=== PATIENT | male | born 1940 | race Caucasian/White ===

== ENCOUNTER 2022-03-01 09:50 | Outpatient (CLI) | payer MEDICARE, SELFPAY | END 2022-03-01 09:51 | disposition home or self-care (01) | LOC: ANHAUDIO 09:56 | PROVIDERS: PCP Student in an Organized Health Care Education/Training Program; Visit Provider Student in an Organized Health Care Education/Training Program | DX: H90.3 Sensorineural hearing loss, bilateral (principal) | CPT/HCPCS: 92557; 92567 ==

== ENCOUNTER 2023-09-21 18:37 | Observation (INO) | payer MEDICARE, SELFPAY ==
[2023-09-21] VITALS (15 sets, daily range): BP systolic 107–159; BP diastolic 54–73; PULSE 90–107; RESP 12–29; TEMP 36.3; O2SAT 97–100
--- NOTE | ~2023-09-21 | XR_ITS ---
EXAMINATION: XR chest 1V portable INDICATION: Presyncope TECHNIQUE: Portable AP chest at 2005 hours COMPARISON: 07/25/2013 FINDINGS: The lung volumes are low. The lungs are free of acute opacities. No pleural effusion or pne umothorax. The cardiomediastinal silhouette is normal. IMPRESSION: 1. No acute cardiopulmonary abnormality. Reviewed, dictated and finalized at location F.
--- NOTE | ~2023-09-21 | CT_ITS ---
EXAMINATION: CT brain wo con INDICATION: Altered mental status COMPARISON: None TECHNIQUE: Standard unenhanced head CT. The dose-length product (DLP) was 681.00 mGy-cm. The mA was a djusted according to patient size. Iterative reconstruction technique was employed. FINDINGS: No acute intraparenchymal hemorrhage. No evidence of mass lesion. No evidence of acute infa rction. There is mild periventricular and subcortical hypodensity probably related to small vessel is chemic disease. There is mild prominence of the sulci and ventricles related to cerebral atrophy. Int racranial calcified cerebral atherosclerosis is noted. No extra-axial collections. No mass effect or midline shift. Changes in the globes are likely from ocular lens surgery. There is mild mucosal thick ening of the paranasal sinuses. IMPRESSION: 1. No acute intracranial abnormality. 2. Age related findings. Reviewed, dictated and finalized at location F.
[2023-09-21 19:41] LABS: Influenza A QL RT-PCR Negative (Negative); Influenza B QL RT-PCR Negative (Negative); RSV RNA, RT-PCR Negative (Negative); SARS-CoV-2 RNA PCR Negative (Negative)
--- NOTE | 2023-09-21 19:48 | ECG_ITS ---
Measurements Intervals [place] Rate: 106 P: 51 AL: 203 QRS: 29 QRSD: 85 T: 120 QT: 319 QTc: 425 Interpretive Statements SINUS TACHYCARDIA NONSPECIFIC ST & T-WAVE ABNORMALITY- DIFFUSE LEADS BASELINE ARTIFACT- I, II, III, AVR, AVL, AVF, V6 ABNORMAL ECG NO PREVIOUS ECG AVAILABLE FOR COMPARISON Electronically Signed On 09-22-2023 6:35:39 CDT by Travon Mcgraw D.O.
[2023-09-21 20:22] LABS: Basophils Absolute Auto 0.1 K/mm3 (0.0-0.1); Basophils Percent Auto 0.4 % (0.2-1.2); Eosinophils Absolute Auto 0.1 K/mm3 (0-0.3); Eosinophils Percent Auto 0.7 % (0-4.4); Hematocrit 23.9 % (42.0-52.0); Hemoglobin 7.7 g/dL (14.0-18.0); Immature Granulocyte Absolute 0.18 K/mm3 (0.00-0.031); Immature Granulocyte Percent A 1.4 % (0-0.5); Lymphocytes Absolute Auto 2.48 K/mm3 (0.9-3.2); Lymphocytes Percent Auto 19.2 % (18.3-44.2); Mean Corpuscular HGB Conc 32.2 g/dl (32-36); Mean Corpuscular Hemoglobin 29.6 pg (26-34); Mean Corpuscular Volume 91.9 fl (80-100); Mean Platelet Volume 11.1 fl (7.4-10.4); Monocytes Absolute Auto 1.2 K/mm3 (0.1-0.6); Monocytes Percent Auto 9.6 % (2.6-8.5); Neutrophils Absolute Auto 8.9 K/mm3 (1.3-6.7); Neutrophils Percent Auto 68.7 % (45.5-73.1); Platelet Count Result 246 k/mm3 (150-375); Red Cell Distribution Width 14.9 % (11.5-14.5); White Blood Count 12.9 K/mm3 (4.5-10.0)
[2023-09-21 20:35] LABS: Alanine Aminotransferase 50 U/L (6-50); Albumin Level 3.5 g/dL (3.5-5.1); Alkaline Phosphatase 53 U/L (38-126); Anion Gap 8 mmol/L (8-16); Aspartate Amino Transferase 80 U/L (17-59); Bilirubin,Total 0.2 mg/dL (0.2-1.3); Blood Urea Nitrogen 61 mg/dL (9-20); Calcium 9.3 mg/dL (8.4-10.2); Carbon Dioxide 24 mmol/L (22-30); Chloride 101 mmol/L (98-107); Estimated CRCL calculation 44 ml/min; Estimated Glomerular Filt Rate 58; Glucose 378 mg/dL (65-110); Lipase 55 U/L (23-300); Magnesium 2.4 mg/dL (1.6-2.3); Phosphorus 3.8 mg/dL (2.5-4.5); Potassium 4.6 mmol/L (3.4-5.0); Sodium 133 mmol/L (137-145)
[2023-09-21 20:38] LABS: Partial Thromboplastin Time 21.9 Seconds (22.3-36.8); Prothrombin Time 13.4 Seconds (11.1-14.7)
[2023-09-21 20:46] LABS: NT Pro B Type Natriuretic Pept 109 pg/mL (19.9-100); Troponin I 0.026 ng/mL (0.000-0.034)
--- NOTE | 2023-09-21 21:12 | ED.GENADULT ---
HPI - General Adult General Chief complaint: Weakness Stated complaint: NEAR SYNCOPE, HYPOTENSIVE Time Seen by Provider: 09/21/23 19:00 History of Present Illness HPI narrative: This is an 83-year-old male presenting ED with chief complaint of presyncope. The patient is A&O x2 at baseline cannot provide much useful information during interview. His only complaint is being thirsty. Denies any chills, chest pain difficulty breathing abdominal pain nausea vomiting diarrhea urinary symptoms. The patient's daughter is at bedside lives next door to him and helps with his daily living. She says that he has been weak and under the weather all day. While they were at dinner said that he was unable to swallow his food and then that he had to go to bathroom. Got up was very unsteady on his feet and stops answering questions for approximately 5-10 minutes. EMS was called by time EMS arrived patient return to his baseline. Patient did not fall or lose tone. No urinary incontinence/ tongue biting. Patient's was recently diagnosed with a hip fracture and per the family has not been doing well. Related Data Home Medications Medication Instructions Recorded Confirmed amlodipine 5 mg tablet 5 mg PO DAILY 05/15/19 08/09/23 losartan 100 mg tablet 100 mg PO DAILY 05/15/19 08/09/23 cholecalciferol (vitamin D3) 50 50 mcg PO DAILY 09/22/21 08/09/23 mcg (2,000 unit) capsule glipizide 5 mg tablet 5 mg PO DAILY 09/22/21 08/09/23 multivitamin 1 tablet PO DAILY 09/22/21 08/09/23 rosuvastatin 20 mg tablet 20 mg PO DAILY 09/22/21 08/09/23 Allergies Allergy/AdvReac Type Severity Reaction Status Date / Time pregabalin Allergy Unknown blisters Verified 08/08/23 14:18 [facility] Past Medical History Medical History Diabetes Glaucoma Hip arthritis HTN (hypertension) Left hand pain Neuropathy Peripheral neuropathy Tendinitis of right shoulder Trigger finger, left index finger Trigger finger, right index finger Surgical History Surgical History History of ankle surgery S/P appendectomy Family History Family History Father Family history unknown Unknown Heart disease Cerebrovascular accident Social History Social History Social History: drinks 2 cups of coffee daily Smoking status: Former smoker Second hand tobacco smoke exposure: No Alcohol intake: never Substance use: unknown Living arrangements: alone Occupation/Education: retired Gender identity (if verbalized by the patient): Male Spiritual care concerns: No Exam Narrative: APPEARANCE: No apparent distress. A&O x2 Head: atraumatic. EYES: EOMI, NOSE: Atraumatic NECK: Trachea midline RESPIRATORY: No increased rate of breathing CTAB CARDIOVASCULAR: RRR, no peripheral edema ABDOMINAL: Non-distended, soft nontender, rectal exam showed melanotic stool MUSCULOSKELETAl: No obvious deformities NEURO: Alert. Moving 4/4 extremities SKIN:: Warm, dry. Normal color PSYCHIATRIC: Normal affect Course Vital Signs Vital signs: Vital Signs Temperature 97.4 F L 09/21/23 18:38 Pulse Rate 96 09/21/23 18:38 Respiratory Rate 20 09/21/23 18:38 Blood Pressure 112/58 L 09/21/23 18:38 Pulse Oximetry 100 09/21/23 18:38 Oxygen Delivery Room Air 09/21/23 18:38 Temperature 97.4 F L 09/21/23 18:38 Pulse Rate 94 09/21/23 23:31 Respiratory Rate 21 H 09/21/23 23:31 Blood Pressure 137/70 09/21/23 23:31 Pulse Oximetry 97 09/21/23 23:31 Oxygen Delivery Room Air 09/21/23 22:34 Medical Decision Making [facility] Narrative Medical decision making narrative: -Course: 83-year-old presenting with 1 day of generalized weakness. patient had melena on exam. Hemoglobin 7.7. BUN elevated. Symptoms likely due to sym
[2023-09-21] MEDS: SODIUM CHLORIDE 0.9% IV 1,000 ML 999 ML IV CONT (21:18)
--- NOTE | 2023-09-21 21:25 | PC.NURSE ---
pt unable to urinate at this time. IV fluids and oral hydration given. pt educated to use call light with any urge to urinate
--- NOTE | 2023-09-21 22:33 | PC.NURSE ---
pt was trying to have a bowel movement on bedpan and began urinating before we could collect a sample that is ordered. notified
--- NOTE | 2023-09-21 23:03 | PC.NURSE ---
bssr received from DANICA Sellers at this time. pt resting comfortably in bed. call light within reach. visitor at bedside.
--- NOTE | 2023-09-21 23:14 | PC.NURSE ---
care and report given to barby Vazquez. all questions answered.
[2023-09-22] VITALS (23 sets, daily range): BP systolic 84–160; BP diastolic 38–82; PULSE 72–116; RESP 16–25; TEMP 36–37.3; O2SAT 92–100; BMI 31.0
--- NOTE | 2023-09-22 01:06 | PM.IMHP ---
H&P: HPI History of Present Illness Date/Time: 09/22/23 01:06 Chief Complaint: weakness Narrative: This is an 83-year-old male with past medical history significant for hypertension, glaucoma, type diabetes mellitus. Patient was brought to the emergency room for evaluation due to generalized weakness unable to stand on his on patient had syncopal episode. Patient is unable to give any history which has been obtained from daughter who is at bedside. According to daughter she did not notice any new issues but states that patient has overall poor functional status pretty much sits on the couch most of the day. In emergency room patient was found to have a low hemoglobin and Hemoccult was positive he was found to have melanotic stools in the rectal vault. EXAMINATION: XR chest 1V portable INDICATION: Presyncope TECHNIQUE: Portable AP chest at 2005 hours COMPARISON: 07/25/2013 FINDINGS: The lung volumes are low. The lungs are free of acute opacities. No pleural effusion or pneumothorax. The cardiomediastinal silhouette is normal. IMPRESSION: 1. No acute cardiopulmonary abnormality. EXAMINATION: CT brain wo con ? INDICATION: Altered mental status ? COMPARISON: None TECHNIQUE: Standard unenhanced head CT. The dose-length product (DLP) was 681.00 mGy-cm. The mA was adjusted according to patient size. Iterative reconstruction technique was employed. ? FINDINGS: No acute intraparenchymal hemorrhage. No evidence of mass lesion. No evidence of acute infarction. There is mild periventricular and subcortical hypodensity probably related to small vessel ischemic disease. There is mild prominence of the sulci and ventricles related to cerebral atrophy. Intracranial calcified cerebral atherosclerosis is noted. No extra-axial collections. No mass effect or midline shift. Changes in the globes are likely from ocular lens surgery. There is mild mucosal thickening of the paranasal sinuses. IMPRESSION: 1. No acute intracranial abnormality. 2. Age related findings. Review of Systems Review of Systems: BROUGHT FOR EVALUATION TO EMERGENCY ROOM DUE TO LOW HEMOGLOBIN ROS unobtainable: Yes other ( Dementia) [facility] Past Medical History Medical History (Updated 09/23/23 @ 13:06 by Pepe Jack MD) Acute blood loss anemia Diabetes Duodenal ulcer GIB (gastrointestinal bleeding) Glaucoma Hip arthritis HTN (hypertension) Left hand pain Neuropathy Peripheral neuropathy Pre-syncope Tendinitis of right shoulder Trigger finger, left index finger Trigger finger, right index finger Surgical History Surgical History History of ankle surgery S/P appendectomy Family History Family History Father Family history unknown Unknown Heart disease Cerebrovascular accident Social History Social History Social History: drinks 2 cups of coffee daily Smoking status: Never smoker Second hand tobacco smoke exposure: No Alcohol intake: never Substance use: never Substance use type: does not use Do You Feel Safe in your Home?: Yes Lack of Transportation: No Lack of Food: Never True Current Housing: I Have Housing Concerned About Future Housing: No Difficulty Paying Gas/Electric Bills: No Difficulty Paying for Meds: No Currently Unemployed: No Education: High School Diploma/GED Difficulty w/ Childcare or Family Care: No Living arrangements: alone Occupation/Education: retired Gender identity (if verbalized by the patient): Male Spiritual care concerns: No Meds Home Medications and Allergies Home Medications Medication Instructions Recorded Confirmed Type amlodipine 5 mg tablet 5 mg PO DAILY 05/15/19 09/22/23 History losartan 100 mg tablet 100 mg PO DAILY 05/15/19 09/22/23 History cholecalciferol (vitamin D3) 50 50
[2023-09-22] MEDS: PANTOPRAZOLE SODIUM IV 40 MG VIAL 80 MG IV PUSH (01:19)
--- NOTE | 2023-09-22 03:02 | ADMGEN ---
This patient, Kevin Dior, was admitted to IMU Room 232-01. @ 0242 Patient/family oriented to hospital policies and general routines including ID bracelet, bed and alarms, visiting hours, pain management, procedures, bathroom and other care routines, personal items, smoking policy, room service/diet, and visiting hours. Information on how to activate the Rapid Response Team has been discussed. Patient/Family are encouraged to report perceived risks to care and to ask questions if they do not understand what they are told or what they should do.
[2023-09-22] MEDS: TUBING, BLOOD PLUM PUMP TUBING 1 EACH XX (04:25)
[2023-09-22] MEDS: SODIUM CHLORIDE 0.9% IV 250 ML 30 ML IV CONT (04:43)
[2023-09-22 08:40] LABS: Hematocrit 27.1 % (42.0-52.0); Hemoglobin 8.7 g/dL (14.0-18.0); Mean Corpuscular HGB Conc 32.1 g/dl (32-36); Mean Corpuscular Hemoglobin 30.1 pg (26-34); Mean Corpuscular Volume 93.8 fl (80-100); Mean Platelet Volume 10.9 fl (7.4-10.4); Platelet Count Result 220 k/mm3 (150-375); Red Blood Count 2.89 M/mm3 (4.6-6.20); Red Cell Distribution Width 14.9 % (11.5-14.5); White Blood Count 14.9 K/mm3 (4.5-10.0)
[2023-09-22 08:56] LABS: Anion Gap 4 mmol/L (8-16); Blood Urea Nitrogen 62 mg/dL (9-20); Calcium 8.9 mg/dL (8.4-10.2); Carbon Dioxide 23 mmol/L (22-30); Chloride 105 mmol/L (98-107); Estimated CRCL calculation 43 ml/min; Estimated Glomerular Filt Rate 58; Glucose 239 mg/dL (65-110); Potassium 4.3 mmol/L (3.4-5.0); Sodium 132 mmol/L (137-145)
[2023-09-22] MEDS: PANTOPRAZOLE SODIUM IV 40 MG VIAL IV PUSH ×2 (09:02→20:49)
[2023-09-22 09:08] LABS: Troponin I 0.034 ng/mL (0.000-0.034)
[2023-09-22] MEDS: LACTATED RINGERS 1,000 ML 150 ML IV CONT (11:24)
--- NOTE | 2023-09-22 11:25 | WPDGICN ---
Assessment and Plan Assessment and plan (1) GIB (gastrointestinal bleeding): Code(s): K92.2 - Gastrointestinal hemorrhage, unspecified Status: Acute Assessment and Plan: will proceed with urgent EGD, it seems that he has active gib based on history and blood work resuscitation, iv protonix, transfuse to keep hgb>7 more recommendations after egd (2) Acute blood loss anemia: Code(s): D62 - Acute posthemorrhagic anemia Status: Acute Assessment and Plan: monitor for signs of bleeding (3) Pre-syncope: Code(s): R55 - Syncope and collapse Status: Acute Assessment and Plan: probably related to GIB (4) Melena: Code(s): K92.1 - Melena Status: Acute (5) Diabetes: Code(s): E11.9 - Type 2 diabetes mellitus without complications Status: Acute GI Consult Note Consult date/time: 09/22/23 11:25 Reason for consult: acute anemia, syncope, melena HPI: Kevin Dior is a 83 year old male with history of DM, HTN. He came after he had presyncopal episode. He is hard of hearing and poor historian. Patient's daughter lives next door to him and helps with his daily living.? She says that he has been weak and not feeling well. While they were at dinner said that he was unable to swallow his food and then that he had to go to bathroom.? Got up was very unsteady on his feet and almost passed out. EMS was called. ER found melena in rectal exam, hgb 7, bun 62. No known history of GIB. CT head negative for acute findings. Review of Systems Constitutional: Constitutional: Reports lethargy and Reports weakness Eyes: Comments: poor vision as baseline ENT: Comments: hard of hearing Cardiovascular: Cardiovascular: Denies chest pain Respiratory: Respiratory: Denies cough Gastrointestinal: Gastrointestinal: Reports melena Genitourinary: Genitourinary: Denies dysuria Musculoskeletal: Musculoskeletal: Denies arthralgias Integumentary/Breasts: Skin/Breast: Denies rash Neurologic: Comments: pre syncope Psychiatric: Psychiatric: Reports confusion PMFSH Past Medical History Medical History (Updated 09/22/23 @ 11:33 by Pepe Jack MD) Acute blood loss anemia Diabetes GIB (gastrointestinal bleeding) Glaucoma Hip arthritis HTN (hypertension) Left hand pain Neuropathy Peripheral neuropathy Pre-syncope Tendinitis of right shoulder Trigger finger, left index finger Trigger finger, right index finger Surgical History Surgical History History of ankle surgery S/P appendectomy Family History Family History Father Family history unknown Unknown Heart disease Cerebrovascular accident Social History Social History Social History: drinks 2 cups of coffee daily Smoking status: Never smoker Second hand tobacco smoke exposure: No Alcohol intake: never Substance use: never Substance use type: does not use Do You Feel Safe in your Home?: Yes Lack of Transportation: No Lack of Food: Never True Current Housing: I Have Housing Concerned About Future Housing: No Difficulty Paying Gas/Electric Bills: No Difficulty Paying for Meds: No Currently Unemployed: No Education: High School Diploma/GED Difficulty w/ Childcare or Family Care: No Living arrangements: alone Occupation/Education: retired Gender identity (if verbalized by the patient): Male Spiritual care concerns: No Meds Home Medications and Allergies Home Medications Medication Instructions Recorded Confirmed Type amlodipine 5 mg tablet 5 mg PO DAILY 05/15/19 09/22/23 History losartan 100 mg tablet 100 mg PO DAILY 05/15/19 09/22/23 History cholecalciferol (vitamin D3) 50 50 mcg PO DAILY 09/22/21 09/22/23 History mcg (2,000 unit) capsule glipizid
[2023-09-22 11:29] LABS: Glucose Point of Care 189 mg/dl (65-105)
--- NOTE | 2023-09-22 11:32 | WPDANESEPPF ---
Anes - Initial Pre Proc Eval Procedure: Operation Date: 09/22/23 16:00 Proposed Procedures p Esophagogastroduodenoscopy - Pepe Jack MD Date/Time: 09/22/23 11:32 Surgeon: Zhen Greco MD Pre Op Diagnosis: Upper GI bleed Patient Data Age: 83 Gender: M Height: 1.7 m Weight: 89.9 kg Last Vital Signs Temp 99.2 F 09/22/23 11:00 Pulse 116 H 09/22/23 11:00 Resp 16 09/22/23 11:00 BP 97/38 L 09/22/23 11:00 Pulse Ox 96 09/22/23 11:00 O2 Del Method Room Air 09/22/23 11:00 Allergies Allergy/AdvReac Type Severity Reaction Status Date / Time pregabalin Allergy Unknown blisters Verified 09/22/23 11:12 Home Medications Medication Instructions Recorded Confirmed Type amlodipine 5 mg tablet 5 mg PO DAILY 05/15/19 09/22/23 History losartan 100 mg tablet 100 mg PO DAILY 05/15/19 09/22/23 History cholecalciferol (vitamin D3) 50 50 mcg PO DAILY 09/22/21 09/22/23 History mcg (2,000 unit) capsule glipizide 5 mg tablet 5 mg PO DAILY 09/22/21 09/22/23 History multivitamin 1 tablet PO DAILY 09/22/21 09/22/23 History rosuvastatin 20 mg tablet 20 mg PO DAILY 09/22/21 09/22/23 History metformin 500 mg tablet,extended 500 mg PO DAILY #1 tablet 08/08/23 09/22/23 Rx release 24 hr duloxetine 30 mg capsule,delayed 30 mg PO .COMPLEX #270 caps 08/09/23 09/22/23 Rx release latanoprost 0.005 % eye drops 1 drp EACH EYE DAILY #2.5 mL 08/09/23 09/22/23 Rx pilocarpine HCl 1 % eye drops 1 drp EACH EYE TID #15 mL 08/09/23 09/22/23 Rx timolol maleate 0.5 % eye drops 1 drp EACH EYE Q12H #5 mL 08/09/23 09/22/23 Rx hydrocodone 5 mg-acetaminophen 325 1 tablet PO Q6H PRN pain #50 tabs 08/25/23 09/22/23 Rx mg tablet Laboratory Tests 09/21/23 09/21/23 09/22/23 18:58 20:16 00:46 WBC 12.9 H K/mm3 (4.5-10.0) RBC 2.60 L M/mm3 (4.6-6.20) Hgb 7.7 L g/dL (14.0-18.0) Hct 23.9 L % (42.0-52.0) MCV 91.9 fl (80-100) MCH 29.6 pg (26-34) MCHC 32.2 g/dl (32-36) RDW 14.9 H % (11.5-14.5) Plt Count 246 k/mm3 (150-375) MPV 11.1 H fl (7.4-10.4) Immature Gran % (Auto) 1.4 H % (0-0.5) Neut % (Auto) 68.7 % (45.5-73.1) Lymph % (Auto) 19.2 % (18.3-44.2) [place] % (Auto) 9.6 H % (2.6-8.5) Eos % (Auto) 0.7 % (0-4.4) Baso % (Auto) 0.4 % (0.2-1.2) Lymph # (Auto) 2.48 K/mm3 (0.9-3.2) [place] # (Auto) 1.2 H K/mm3 (0.1-0.6) Eos # (Auto) 0.1 K/mm3 (0-0.3) Baso # (Auto) 0.1 K/mm3 (0.0-0.1) Abs Immat Gran (auto) 0.18 H K/mm3 (0.00-0.031) Absolute Neuts (auto) 8.9 H K/mm3 (1.3-6.7) Absolute Nucleated RBC 0.000 K/mm3 (0.0-0.012) Nucleated RBC % 0.0 % (0.0-0.2) PT 13.4 Seconds (11.1-14.7) INR 1.0 APTT 21.9 L Seconds (22.3-36.8) Sodium 133 L mmol/L (137-145) Potassium 4.6 mmol/L (3.4-5.0) Chloride 101 mmol/L (98-107) Carbon Dioxide 24 mmol/L (22-30) Anion Gap 8 mmol/L (8-16) BUN 61 H mg/dL (9-20) Creatinine 1.20 mg/dL (0.7-1.3) Estim Creat Clear Calc 44 ml/min Estimated GFR 58 L (59 - ) Glucose 378 H mg/dL (65-110) POC Capillary Glucose Calcium 9.3 mg/dL (8.4-10.2) Phosphorus 3.8 mg/dL (2.5-4.5) Magnesium 2.4 H mg/dL (1.6-2.3) Total Bilirubin 0.2 mg/dL (0.2-1.3) AST 80 H U/L (17-59) ALT 50 U/L (6-50) Alkaline Phosphatase 53 U/L (38-126) Troponin I 0.026 ng/mL 0.040 H* D ng/mL (0.000-0.034) (0.000-0.034) NT-Pro-B Natriuret Pep 109 H pg/mL (19.9-100) Total Protein 6.0 L g/dL (6.3-8.2) Albumin 3.5 g/dL (3.5-5.1) Lipase 55 U/L (23-300) Influenza
[2023-09-22 12:10] LABS: Glucose Point of Care 178 mg/dl (65-105)
[2023-09-22 12:53] LABS: Glucose Point of Care 199 mg/dl (65-105)
[2023-09-22] MEDS: SODIUM CHLORIDE 0.9% IV 1,000 ML 100 ML IV CONT (14:08)
[2023-09-22 15:52] LABS: Glucose Point of Care 255 mg/dl (65-105)
[2023-09-22 19:56] LABS: Appearance Urine Clear (Clear); Bilirubin Urine Negative (Negative); Blood Urine Negative (Negative); Color Urine Yellow (Yellow); Glucose Urine UA 2+ mg/dL (Negative); Ketones Urine Negative (Negative); Leukocyte Esterase Ur Negative LEU/UL (Negative); Nitrate Urine Negative (Negative); Protein Urine Negative (Negative); Specific Grav Ur 1.022 (1.001-1.035); Urobilinogen Urine 0.2 mg/dL (<2.0)
[2023-09-22 19:58] LABS: Add Urine Microscopic? NO
[2023-09-22 20:10] LABS: Glucose Point of Care 174 mg/dl (65-105)
--- NOTE | 2023-09-22 20:44 | PC.NURSE ---
nurse called spoke with daughter juliana made aware patient is moving to room 321-2.
--- NOTE | 2023-09-22 21:51 | PC.NURSE ---
This patient, Kevin Dior, was transferred to [ [facility] [place] [place] on 09/22/23 at 2151. Personal belongings sent with patient. Report given to [Kayley MISHRA ]. Appropriate documentation sent with patient.
[2023-09-23] VITALS (7 sets, daily range): BP systolic 137–162; BP diastolic 54–73; PULSE 82–102; RESP 16–18; TEMP 36.3–36.9; O2SAT 95–100
[2023-09-23] MEDS: SODIUM CHLORIDE 0.9% IV 1,000 ML 100 ML IV CONT ×2 (00:45→17:26)
[2023-09-23 06:48] LABS: Basophils Absolute Auto 0.1 K/mm3 (0.0-0.1); Basophils Percent Auto 0.5 % (0.2-1.2); Eosinophils Absolute Auto 0.4 K/mm3 (0-0.3); Eosinophils Percent Auto 3.7 % (0-4.4); Hematocrit 22.3 % (42.0-52.0); Hemoglobin 7.2 g/dL (14.0-18.0); Immature Granulocyte Absolute 0.07 K/mm3 (0.00-0.031); Immature Granulocyte Percent A 0.6 % (0-0.5); Lymphocytes Absolute Auto 3.17 K/mm3 (0.9-3.2); Lymphocytes Percent Auto 28.7 % (18.3-44.2); Mean Corpuscular HGB Conc 32.3 g/dl (32-36); Mean Corpuscular Hemoglobin 30.6 pg (26-34); Mean Corpuscular Volume 94.9 fl (80-100); Mean Platelet Volume 10.9 fl (7.4-10.4); Monocytes Absolute Auto 0.9 K/mm3 (0.1-0.6); Monocytes Percent Auto 8.3 % (2.6-8.5); Neutrophils Absolute Auto 6.4 K/mm3 (1.3-6.7); Neutrophils Percent Auto 58.2 % (45.5-73.1); Nucleated Red Blood Cells Perc 0.5 % (0.0-0.2); Platelet Count Result 196 k/mm3 (150-375); Red Blood Count 2.35 M/mm3 (4.6-6.20); Red Cell Distribution Width 15.8 % (11.5-14.5)
[2023-09-23 07:08] LABS: Anion Gap -2 mmol/L (8-16); Blood Urea Nitrogen 33 mg/dL (9-20); Calcium 8.5 mg/dL (8.4-10.2); Carbon Dioxide 26 mmol/L (22-30); Chloride 114 mmol/L (98-107); Estimated CRCL calculation 56 ml/min; Estimated Glomerular Filt Rate > 60; Glucose 115 mg/dL (65-110); Magnesium 2.3 mg/dL (1.6-2.3); Potassium 3.7 mmol/L (3.4-5.0); Sodium 138 mmol/L (137-145)
[2023-09-23 07:39] LABS: Procalcitonin 0.1 ng/mL
--- NOTE | 2023-09-23 07:44 | PM.IMPN ---
Progress Note: A&P Assessment and Plan (1) Anemia: Code(s): D64.9 - Anemia, unspecified Status: Acute Assessment and Plan: Secondary to GI bleed Hemoglobin on admission is 7.7-->7.2 today No active bleeding currently monitor for blood in stools transfuse if hgb < 7 g/dl will repeat CBC this afternoon (2) Duodenal ulcer: Code(s): K26.9 - Duodenal ulcer, unspecified as acute or chronic, without hemorrhage or perforation Status: Acute Assessment and Plan: EGD shows moderate ulcerative gastritis as well as a large duodenal ulcer with stigmata of bleeding S/P gold probe Protonix 40 mg twice a day Biopsies taken Will need repeat EGD in 4 weeks with GI (3) Diabetes: Code(s): E11.9 - Type 2 diabetes mellitus without complications Status: Acute Assessment and Plan: Unknown hemoglobin A1c -holding home glipizide and metformin -a.c. HS Accu-Cheks -hypoglycemia protocol -low-dose sliding scale -hemoglobin A1c ordered for the morning (4) HTN (hypertension): Code(s): I10 - Essential (primary) hypertension Status: Acute Assessment and Plan: On antihypertensive agents at home. Holding amlodipine and losartan. -holding for now given recent GI bleed -SBP 130/55 -if no more bleeding today and his blood pressures remain stable we will resume agents tomorrow (5) Weakness: Code(s): R53.1 - Weakness Status: Acute Assessment and Plan: -PT OT eval -Fall precautions Subjective Date/time seen: 09/23/23 07:44 Interval history: HPI obtained from the chart, This is an 83-year-old male with past medical history significant for hypertension, glaucoma, type diabetes mellitus.? Patient was brought to the emergency room for evaluation due to generalized weakness unable to stand on his on patient had syncopal episode.? Patient is unable to give any history which has been obtained from daughter who is at bedside.? According to daughter she did not notice any new issues but states that patient has overall poor functional status pretty much sits on the couch most of the day.? In emergency room patient was found to have a low hemoglobin and Hemoccult was positive he was found to have melanotic stools in the rectal vault. Interval history: 09/23/2023: Patient is seen resting in bed asleep. He is very drowsy today but he does awake to physical stimulation. He opens his eyes and is able to tell me his name, date of , that he is at the hospital, it is August and he knows that the president is radha. He was unsure of the year. His bedside nurse all me that his daughter says he did not sleep for 3 days this week because his recently went to a rehab and he had been busy a assisting with that. I feel is drowsiness is probably related to lack of sleep and having his procedure yesterday. He denies pain. His abdomen is round but not distended and soft. His leukocytosis has improved and his hemoglobin is stable. Review of Systems Review of Systems: All systems reviewed & are unremarkable except as noted in HPI and below Exam Narrative: General: Drowsy, well developed, well nourished, appears stated age. HEENT: normocephalic, atraumatic. Mucous membranes moist. EOMI, PERRLA, bilateral sclera anicteric, no conjunctival injection. Neck supple without JVD, lymphadenopathy, or bruit. Respiratory: clear to auscultation bilaterally. No rales/rhonic/wheezes. Cardiovascular: Regular rate and rhythm, normal S1-S2 upon auscultation. No murmurs, rubs, or clicks. PMI is nondisplaced, capillary re-fill less than 3 second. Abdomen: Soft, round, no pulsatile masses, non-distended and non-tender. No rebound, no guarding. No CVA tenderness, no hepatosplenomegaly. Bowel sounds present to all four quadrants. No high pitch or tinkling sounds, resonant to percussion. Extremities: No cyanosis, clubbing, or edema present. Pulses are palpable 2/2. Active ROM to all
[2023-09-23 07:50] LABS: Glucose Point of Care 114 mg/dl (65-105)
--- NOTE | 2023-09-23 08:29 | PCOTNOTE ---
Attempted OT evaluation. Patient refuses at this time. Will follow.
[2023-09-23] MEDS: PANTOPRAZOLE SODIUM IV 40 MG VIAL IV PUSH ×2 (09:41→21:18)
[2023-09-23 12:22] LABS: Glucose Point of Care 124 mg/dl (65-105)
--- NOTE | 2023-09-23 13:04 | WPDGIPROGNO ---
Progress Note: A&P Assessment and Plan (1) Duodenal ulcer: Code(s): K26.9 - Duodenal ulcer, unspecified as acute or chronic, without hemorrhage or perforation Status: Acute Assessment and Plan: no more obvious signs of bleeding treated yesterday with gold probe continue with protonix bid ok to advance diet (2) Acute blood loss anemia: Code(s): D62 - Acute posthemorrhagic anemia Status: Acute Assessment and Plan: monitor for more signs of bleeding (3) GIB (gastrointestinal bleeding): Code(s): K92.2 - Gastrointestinal hemorrhage, unspecified Status: Acute (4) Pre-syncope: Code(s): R55 - Syncope and collapse Status: Acute Assessment and Plan: from acute GIB and anemia (5) Diabetes: Code(s): E11.9 - Type 2 diabetes mellitus without complications Status: Acute Subjective Date/time seen: 09/23/23 13:04 Interval history: egd yesterday with ulcerative gastritis and large duodenal ulcer with stigmata of recent bleeding treated with Gold probe no more report of bleeding Review of Systems Review of Systems: All systems reviewed & are unremarkable except as noted in HPI and below Exam Const: General: comfortable, no acute distress and well developed Other: he is more awake today HENMT: Head: normal to inspection and normocephalic Eyes: General: appearance normal, both eyes and all related structures Neck: Neck: supple Resp: Effort & Inspection: normal respiratory effort Auscultation: clear to auscultation bilaterally Cardio: Rate: regular rate Rhythm: regular rhythm GI: GI Palp: Yes Soft to palpation and No Tenderness to palpation present (GI) Auscultation: normal bowel sounds Skin: Rashes: no rashes Neuro: General: oriented to person Speech: normal speech Extrem: General: normal to inspection, full ROM and no pedal edema Psych: Affect: No Hostile affect present Objective Data Vital Signs Vital Signs: Vital Signs - 24 hr 09/22/23 14:00 09/22/23 15:50 09/22/23 16:00 Temperature 97.5 F L Pulse Rate 89 107 H Respiratory Rate 22 H Blood Pressure 139/55 L Pulse Oximetry 97 Oxygen Delivery Room Air 09/22/23 16:00 09/22/23 19:42 09/23/23 05:52 Temperature 97.8 F 97.4 F L Pulse Rate 89 86 96 Respiratory Rate 20 16 Blood Pressure 131/65 150/54 H Pulse Oximetry 96 95 Oxygen Delivery Intake/Output Intake/Output: Intake & Output 09/20/23 09/21/23 09/22/23 09/23/23 23:59 23:59 23:59 23:59 Intake Total 1000 1120.0 1500 Output Total 900 900 Balance 1000 220.0 600 Meds/Results Medications: Active Medications Generic Name Dose Route Start Last Admin Trade Name Freq PRN Reason Stop Dose Admin Dextrose 12.5 gm 09/22/23 03:47 Dextrose 50% 25 Gm/50 Ml Syringe IV PUSH PRN PRN Hypoglycemia Protocol Glucagon 1 mg 09/22/23 03:47 Glucagon For Inj 1 Mg Vial IM PRN PRN Hypoglycemia Protocol Glucose 15 gm 09/22/23 03:47 Glucose Oral Gel 15 Gm Of Glucse In 37.5 Gm Tube PO PRN PRN Hypoglycemia Protocol Dextrose 1,000 mls @ 100 mls/hr 09/22/23 03:47 Dextrose 5% 1,000 Ml IVPB PRN PRN Hypoglycemia Protocol Sodium Chloride 1,000 mls @ 100 mls/hr 09/22/23 10:05 09/23/23 00:45 Normal Saline Iv IV CONT 100 mls/hr .Q10H FATOU Administration Insulin Aspart 2 - 5 units 09/22/23 17:00 09/23/23 12:18 Insulin Aspart (*Bkc) 100 Units/Ml SUB-Q Not Given TIDWM FATOU Protocol Pantoprazole Sodium 40 mg 09/22/23 09:00 09/23/23 09:41 Pantoprazole Sodium Iv 40 Mg Vial IV PUSH 40 mg Q12HR FATOU Administration Radiology Results: ITS Impressions Chest X-Ray 09/21/23 20:31 IMPRESSION: 1. No acute cardiopulmonary abnormality. Head CT 09/21/23 20:46 IMPRESSION: 1. No acute intracranial abnormality. 2. Age related findings. Labs Labs: Laboratory R
--- NOTE | 2023-09-23 13:21 | PCPTNOTE ---
Patient asleep at 1317, will attempt to see patient tomorrow.
--- NOTE | 2023-09-23 13:35 | WPDANESPN ---
Anes - Prog Note Post-Op Date/Time: 09/23/23 13:35 Cardiovascular status: normal Respiratory status: normal Airway patency: baseline Mental status: baseline Post-Op hydration status: normal Vital Signs: Last Vital Signs Temp 36.3 C L 09/23/23 05:52 Pulse 96 09/23/23 05:52 Resp 16 09/23/23 05:52 BP 150/54 H 09/23/23 05:52 Pulse Ox 95 09/23/23 05:52 O2 Del Method Room Air 09/22/23 16:00 Pain Score (VAS): Patient asleep. No nonverbal signs of pain present at this time. I/O: Intake & Output 09/22/23 09/23/23 09/23/23 23:59 07:59 15:59 Intake Total 150 1500 Output Total 400 900 Balance -250 600 Laboratory Tests 09/23/23 06:21 09/23/23 06:21 09/22/23 09/22/23 09/22/23 15:46 19:09 19:41 WBC RBC Hgb Hct MCV MCH MCHC RDW Plt Count MPV Immature Gran % (Auto) Neut % (Auto) Lymph % (Auto) [place] % (Auto) Eos % (Auto) Baso % (Auto) Lymph # (Auto) [place] # (Auto) Eos # (Auto) Baso # (Auto) Abs Immat Gran (auto) Absolute Neuts (auto) Absolute Nucleated RBC Nucleated RBC % Sodium Potassium Chloride Carbon Dioxide Anion Gap BUN Creatinine Estim Creat Clear Calc Estimated GFR Glucose POC Capillary Glucose 255 H 174 H Calcium Magnesium Procalcitonin Urine Color Yellow Urine Appearance Clear Urine pH 5.0 Ur Specific [place] 1.022 Urine Protein Negative Urine Glucose (UA) 2+ H Urine Ketones Negative Ur Blood (Man) Negative Urine Nitrate Negative Urine Bilirubin Negative Urine Urobilinogen 0.2 Ur Leukocyte Esterase Negative 09/23/23 09/23/23 09/23/23 06:21 07:40 11:54 WBC 11.0 H RBC 2.35 L Hgb 7.2 L Hct 22.3 L MCV 94.9 MCH 30.6 MCHC 32.3 RDW 15.8 H Plt Count 196 MPV 10.9 H Immature Gran % (Auto) 0.6 H Neut % (Auto) 58.2 Lymph % (Auto) 28.7 [place] % (Auto) 8.3 Eos % (Auto) 3.7 Baso % (Auto) 0.5 Lymph # (Auto) 3.17 [place] # (Auto) 0.9 H Eos # (Auto) 0.4 H Baso # (Auto) 0.1 Abs Immat Gran (auto) 0.07 H Absolute Neuts (auto) 6.4 Absolute Nucleated RBC 0.060 H Nucleated RBC % 0.5 H Sodium 138 Potassium 3.7 Chloride 114 H Carbon Dioxide 26 Anion Gap -2 L BUN 33 H D Creatinine 0.90 Estim Creat Clear Calc 56 Estimated GFR > 60 Glucose 115 H POC Capillary Glucose 114 H 124 H Calcium 8.5 Magnesium 2.3 Procalcitonin 0.1 Urine Color Urine Appearance Urine pH Ur Specific [place] Urine Protein Urine Glucose (UA) Urine Ketones Ur Blood (Man) Urine Nitrate Urine Bilirubin Urine Urobilinogen Ur Leukocyte Esterase Microbiology 09/21/23 20:53 Blood Blood Culture - Preliminary 09/21/23 20:16 Blood Blood Culture - Preliminary Post-procedural complaints: none Patient Feedback: Patient satisfied with anesthetic care.
[2023-09-23 16:40] LABS: Glucose Point of Care 106 mg/dl (65-105)
[2023-09-23 17:42] LABS: Basophils Absolute Auto 0.1 K/mm3 (0.0-0.1); Basophils Percent Auto 0.5 % (0.2-1.2); Eosinophils Absolute Auto 0.5 K/mm3 (0-0.3); Eosinophils Percent Auto 4.7 % (0-4.4); Hematocrit 21.9 % (42.0-52.0); Immature Granulocyte Absolute 0.06 K/mm3 (0.00-0.031); Immature Granulocyte Percent A 0.6 % (0-0.5); Lymphocytes Percent Auto 23.3 % (18.3-44.2); Mean Corpuscular HGB Conc 30.6 g/dl (32-36); Mean Corpuscular Hemoglobin 29.4 pg (26-34); Mean Corpuscular Volume 96.1 fl (80-100); Mean Platelet Volume 10.8 fl (7.4-10.4); Monocytes Percent Auto 9.3 % (2.6-8.5); Neutrophils Absolute Auto 6.4 K/mm3 (1.3-6.7); Neutrophils Percent Auto 61.6 % (45.5-73.1); Nucleated Red Blood Cells Perc 0.8 % (0.0-0.2); Platelet Count Result 194 k/mm3 (150-375); Red Blood Count 2.28 M/mm3 (4.6-6.20); Red Cell Distribution Width 16.2 % (11.5-14.5); White Blood Count 10.3 K/mm3 (4.5-10.0)
[2023-09-23 17:46] LABS: Hemoglobin 6.7 g/dL (14.0-18.0)
[2023-09-23 21:10] LABS: Glucose Point of Care 110 mg/dl (65-105)
[2023-09-23] MEDS: TUBING, BLOOD PLUM PUMP TUBING 1 EACH XX (21:19)
[2023-09-23] MEDS: SODIUM CHLORIDE 0.9% IV 250 ML 30 ML IV CONT (21:19)
[2023-09-23] MEDS: TIMOLOL MALEATE 0.5% OP SOLN 5 ML BOTTLE 1 DROP EACH EYE (21:23)
[2023-09-24 00:42] VITALS: BP 133/71; PULSE 90; RESP 18; TEMP 36.7; O2SAT 99
[2023-09-24 01:22] VITALS: BP 160/71; PULSE 61; RESP 18; TEMP 36.6; O2SAT 98
[2023-09-24] MEDS: SODIUM CHLORIDE 0.9% IV 1,000 ML 100 ML IV CONT ×2 (02:21→09:43)
[2023-09-24 06:00] VITALS: BP 157/61; PULSE 82; RESP 16; TEMP 36.4; O2SAT 98
--- NOTE | 2023-09-24 07:33 | PM.IMPN ---
Progress Note: A&P Assessment and Plan (1) Anemia: Code(s): D64.9 - Anemia, unspecified Status: Acute Assessment and Plan: Secondary to GI bleed Hemoglobin on admission is 7.7-->7.2 today No active bleeding currently monitor for blood in stools transfuse if hgb < 7 g/dl will repeat CBC this afternoon 09/24/23: CBC recheck showed hemoglobin 6.7 g/dL. Received 1 unit pRBC last night No bowel movements yet Monitor H/H Will repeat his CBC this afternoon (2) Weakness: Code(s): R53.1 - Weakness Status: Acute Assessment and Plan: -PT OT eval -Fall precautions (3) Melena: Code(s): K92.1 - Melena Status: Acute Assessment and Plan: GI consult (4) HTN (hypertension): Code(s): I10 - Essential (primary) hypertension Status: Acute Assessment and Plan: On antihypertensive agents at home. Holding amlodipine and losartan. -holding for now given recent GI bleed -SBP 130/55 -if no more bleeding today and his blood pressures remain stable we will resume agents tomorrow (5) Duodenal ulcer: Code(s): K26.9 - Duodenal ulcer, unspecified as acute or chronic, without hemorrhage or perforation Status: Acute Assessment and Plan: EGD shows moderate ulcerative gastritis as well as a large duodenal ulcer with stigmata of bleeding S/P gold probe Protonix 40 mg twice a day Biopsies taken Will need repeat EGD in 4 weeks with GI (6) Diabetes: Code(s): E11.9 - Type 2 diabetes mellitus without complications Status: Acute Assessment and Plan: Unknown hemoglobin A1c -holding home glipizide and metformin -a.c. Accu-Cheks -hypoglycemia protocol -low-dose sliding scale -hemoglobin A1c ordered for the morning Subjective Date/time seen: 09/24/23 07:33 Interval history: HPI obtained from the chart, This is an 83-year-old male with past medical history significant for hypertension, glaucoma, type diabetes mellitus.? Patient was brought to the emergency room for evaluation due to generalized weakness unable to stand on his on patient had syncopal episode.? Patient is unable to give any history which has been obtained from daughter who is at bedside.? According to daughter she did not notice any new issues but states that patient has overall poor functional status pretty much sits on the couch most of the day.? In emergency room patient was found to have a low hemoglobin and Hemoccult was positive he was found to have melanotic stools in the rectal vault. Interval history: 09/23/2023: Patient is seen resting in bed asleep. He is very drowsy today but he does awake to physical stimulation. He opens his eyes and is able to tell me his name, date of , that he is at the hospital, it is August and he knows that the president is Daren. He was unsure of the year. His bedside nurse all me that his daughter says he did not sleep for 3 days this week because his recently went to a rehab and he had been busy a assisting with that. I feel is drowsiness is probably related to lack of sleep and having his procedure yesterday. He denies pain. His abdomen is round but not distended and soft. His leukocytosis has improved and his hemoglobin is stable. 09/24/23: Patient is seen sitting up in the chair doing well. He is awake and alert and at his baseline orientation. He denies nausea, vomiting, abdominal pain at this time. He has not had a bowel movement for the last couple of days. He is very hungry and was able to tolerate his breakfast this morning. His hemoglobin yesterday afternoon did drop to 6.7 requiring an additional unit of PRBC. H and H this morning is 8.3-26.6. Plan to repeat a CBC this afternoon again to monitor for stabilization of hemoglobin. If hemoglobin remains stable today and tomorrow morning then he will be medically ready to discharge for long-term. Daughter Alia is at the bedside and all q
[2023-09-24 07:55] LABS: Basophils Absolute Auto 0.1 K/mm3 (0.0-0.1); Basophils Percent Auto 0.6 % (0.2-1.2); Eosinophils Absolute Auto 0.5 K/mm3 (0-0.3); Eosinophils Percent Auto 4.9 % (0-4.4); Hematocrit 26.6 % (42.0-52.0); Hemoglobin 8.3 g/dL (14.0-18.0); Immature Granulocyte Absolute 0.06 K/mm3 (0.00-0.031); Immature Granulocyte Percent A 0.6 % (0-0.5); Lymphocytes Absolute Auto 2.76 K/mm3 (0.9-3.2); Lymphocytes Percent Auto 28.5 % (18.3-44.2); Mean Corpuscular HGB Conc 31.2 g/dl (32-36); Mean Corpuscular Hemoglobin 29.7 pg (26-34); Mean Corpuscular Volume 95.3 fl (80-100); Mean Platelet Volume 10.6 fl (7.4-10.4); Monocytes Percent Auto 9.8 % (2.6-8.5); Neutrophils Absolute Auto 5.4 K/mm3 (1.3-6.7); Neutrophils Percent Auto 55.6 % (45.5-73.1); Nucleated Red Blood Cells Perc 0.2 % (0.0-0.2); Platelet Count Result 199 k/mm3 (150-375); Red Blood Count 2.79 M/mm3 (4.6-6.20); Red Cell Distribution Width 16.1 % (11.5-14.5); White Blood Count 9.7 K/mm3 (4.5-10.0)
[2023-09-24 08:11] LABS: Alanine Aminotransferase 25 U/L (6-50); Albumin Level 3.1 g/dL (3.5-5.1); Alkaline Phosphatase 51 U/L (38-126); Anion Gap 6 mmol/L (8-16); Aspartate Amino Transferase 25 U/L (17-59); Bilirubin,Total 0.5 mg/dL (0.2-1.3); Blood Urea Nitrogen 17 mg/dL (9-20); Calcium 8.4 mg/dL (8.4-10.2); Carbon Dioxide 22 mmol/L (22-30); Chloride 109 mmol/L (98-107); Estimated CRCL calculation 71 ml/min; Estimated Glomerular Filt Rate > 60; Glucose 114 mg/dL (65-110); Potassium 3.6 mmol/L (3.4-5.0); Sodium 137 mmol/L (137-145)
[2023-09-24 08:14] LABS: Glucose Point of Care 118 mg/dl (65-105)
[2023-09-24] MEDS: DULoxetine HCL 30 MG CAPSULE.DR 90 MG PO (09:39)
[2023-09-24] MEDS: CHOLECALCIFEROL 1,000 UNITS TABLET 2000 UNITS PO (09:40)
[2023-09-24] MEDS: TIMOLOL MALEATE 0.5% OP SOLN 5 ML BOTTLE 1 DROP EACH EYE ×2 (09:41→20:37)
[2023-09-24] MEDS: ROSUVASTATIN 10 MG TABLET 20 MG PO (09:41)
[2023-09-24] MEDS: PILOCARPINE HCL 1% OP SOLN 15 ML BTL 1 DROP EACH EYE ×3 (09:41→17:00)
[2023-09-24] MEDS: PANTOPRAZOLE SODIUM IV 40 MG VIAL IV PUSH ×2 (09:47→20:36)
--- NOTE | 2023-09-24 10:30 | WPDGIPROGNO ---
Progress Note: A&P Assessment and Plan (1) Duodenal ulcer: Code(s): K26.9 - Duodenal ulcer, unspecified as acute or chronic, without hemorrhage or perforation Status: Acute Assessment and Plan: no more obvious signs of bleeding had large DU with stigmata of bleeding- treated with cautery continue with protonix bid- will need longterm tolerating diet (2) Acute blood loss anemia: Code(s): D62 - Acute posthemorrhagic anemia Status: Acute Assessment and Plan: monitor for more signs of bleeding (3) GIB (gastrointestinal bleeding): Code(s): K92.2 - Gastrointestinal hemorrhage, unspecified Status: Acute (4) Pre-syncope: Code(s): R55 - Syncope and collapse Status: Acute Assessment and Plan: from acute GIB and anemia (5) Diabetes: Code(s): E11.9 - Type 2 diabetes mellitus without complications Status: Acute Subjective Date/time seen: 09/24/23 10:31 Interval history: he is comfortable, he is aler and interacting looks much better no report of more gib Review of Systems Review of Systems: All systems reviewed & are unremarkable except as noted in HPI and below Exam Const: General: comfortable, no acute distress and well developed HENMT: Head: normal to inspection and normocephalic Eyes: General: appearance normal, both eyes and all related structures Neck: Neck: supple Resp: Effort & Inspection: normal respiratory effort Auscultation: clear to auscultation bilaterally Cardio: Rate: regular rate Rhythm: regular rhythm GI: GI Palp: Yes Soft to palpation and No Tenderness to palpation present (GI) Auscultation: normal bowel sounds Skin: Rashes: no rashes Neuro: General: oriented to person Speech: normal speech Extrem: General: normal to inspection, full ROM and no pedal edema Psych: Affect: normal affect Objective Data Vital Signs Vital Signs: Vital Signs - 24 hr 09/23/23 14:00 09/23/23 21:13 09/23/23 21:27 Temperature 98.4 F 97.9 F 98.5 F Pulse Rate 97 82 102 H Respiratory Rate 18 16 16 Blood Pressure 154/54 H 151/63 H 162/73 H Pulse Oximetry 98 96 100 Oxygen Delivery 09/23/23 21:42 09/23/23 22:42 09/23/23 23:42 Temperature 98.5 F 98.2 F 98.2 F Pulse Rate 100 87 94 Respiratory Rate 18 18 16 Blood Pressure 137/57 L 157/62 H 152/72 H Pulse Oximetry 100 99 98 Oxygen Delivery 09/24/23 00:42 09/24/23 01:22 09/24/23 06:00 Temperature 98.0 F 97.8 F 97.6 F Pulse Rate 90 61 82 Respiratory Rate 18 18 16 Blood Pressure 133/71 160/71 H 157/61 H Pulse Oximetry 99 98 98 Oxygen Delivery 09/24/23 08:41 09/24/23 09:23 Temperature Pulse Rate Respiratory Rate Blood Pressure Pulse Oximetry Oxygen Delivery Room Air Room Air Intake/Output Intake/Output: Intake & Output 09/21/23 09/22/23 09/23/23 09/24/23 23:59 23:59 23:59 23:59 Intake Total 1000 1120.0 3000 2468.4 Output Total 900 2000 900 Balance 1000 220.0 1000 1568.4 Meds/Results Medications: Active Medications Generic Name Dose Route Start Last Admin Trade Name Freq PRN Reason Stop Dose Admin Dextrose 12.5 gm 09/22/23 03:47 Dextrose 50% 25 Gm/50 Ml Syringe IV PUSH PRN PRN Hypoglycemia Protocol Duloxetine HCl 90 mg 09/24/23 09:00 09/24/23 09:39 Duloxetine Hcl 30 Mg Capsule.Dr PO 90 mg DAILY FATOU Administration Glucagon 1 mg 09/22/23 03:47 Glucagon For Inj 1 Mg Vial IM PRN PRN Hypoglycemia Protocol Glucose 15 gm 09/22/23 03:47 Glucose Oral Gel 15 Gm Of Glucse In 37.5 Gm Tube PO PRN PRN Hypoglycemia Protocol Dextrose 1,000 mls @ 100 mls/hr 09/22/23 03:47 Dextrose 5% 1,000 Ml IVPB PRN PRN Hypoglycemia Protocol Sodium Chloride 1,000 mls @ 100 mls/hr 09/22/23 10:05 09/24/23 09:43 Normal Saline Iv IV CONT 100 mls/hr .Q10H FATOU Administration Insulin Aspart 2 - 5 units 09/22/23 17:00 09/24/23 09:40 I
[2023-09-24 11:36] LABS: Glucose Point of Care 215 mg/dl (65-105)
--- NOTE | 2023-09-24 12:38 | PHAR ---
HOME MED : PILOCARPINE HCL OPTHALMIC SOLUTION 1% 15 ML BOTTLE. VERIFIED BY PHARMACY.
[2023-09-24] MEDS: INSULIN ASPART (*BKC) 100 UNITS/ML SUB-Q (12:40)
[2023-09-24 14:00] VITALS: BP 108/89; PULSE 102; RESP 18; TEMP 36.7; O2SAT 98
[2023-09-24 14:41] LABS: Hematocrit 26.7 % (42.0-52.0); Hemoglobin 8.7 g/dL (14.0-18.0); Mean Corpuscular HGB Conc 32.6 g/dl (32-36); Mean Corpuscular Hemoglobin 30.4 pg (26-34); Mean Corpuscular Volume 93.4 fl (80-100); Mean Platelet Volume 10.2 fl (7.4-10.4); Platelet Count Result 213 k/mm3 (150-375); Red Blood Count 2.86 M/mm3 (4.6-6.20); Red Cell Distribution Width 16.4 % (11.5-14.5); White Blood Count 8.5 K/mm3 (4.5-10.0)
--- NOTE | 2023-09-24 14:52 | PC.NURSE ---
On 09/24/23, the TRAY LINE WORKER, Shweta, provided care and completed [facility] documentation on this patient. I have reviewed the TRAY LINE WORKER's documentation and agree with the findings.
[2023-09-24 17:30] LABS: Glucose Point of Care 151 mg/dl (65-105)
[2023-09-24] MEDS: LATANOPROST 0.005% OP SOLN 2.5 ML BTL 1 DROP EACH EYE (20:37)
[2023-09-24 21:17] LABS: Glucose Point of Care 172 mg/dl (65-105)
[2023-09-24 21:31] VITALS: BP 151/59; PULSE 87; RESP 18; TEMP 36.4; O2SAT 98
[2023-09-25 06:00] VITALS: BP 149/54; PULSE 98; RESP 18; TEMP 36.3; O2SAT 99
[2023-09-25 06:53] LABS: Basophils Percent Auto 0.4 % (0.2-1.2); Eosinophils Absolute Auto 0.4 K/mm3 (0-0.3); Eosinophils Percent Auto 4.9 % (0-4.4); Hematocrit 27.8 % (42.0-52.0); Hemoglobin 8.8 g/dL (14.0-18.0); Immature Granulocyte Absolute 0.05 K/mm3 (0.00-0.031); Immature Granulocyte Percent A 0.7 % (0-0.5); Lymphocytes Absolute Auto 2.14 K/mm3 (0.9-3.2); Lymphocytes Percent Auto 29.8 % (18.3-44.2); Mean Corpuscular HGB Conc 31.7 g/dl (32-36); Mean Corpuscular Hemoglobin 29.6 pg (26-34); Mean Corpuscular Volume 93.6 fl (80-100); Mean Platelet Volume 10.7 fl (7.4-10.4); Monocytes Absolute Auto 0.7 K/mm3 (0.1-0.6); Neutrophils Absolute Auto 3.9 K/mm3 (1.3-6.7); Neutrophils Percent Auto 54.2 % (45.5-73.1); Platelet Count Result 236 k/mm3 (150-375); Red Blood Count 2.97 M/mm3 (4.6-6.20); Red Cell Distribution Width 16.3 % (11.5-14.5); White Blood Count 7.2 K/mm3 (4.5-10.0)
[2023-09-25 07:09] LABS: Alanine Aminotransferase 27 U/L (6-50); Albumin Level 3.3 g/dL (3.5-5.1); Alkaline Phosphatase 62 U/L (38-126); Anion Gap 5 mmol/L (8-16); Aspartate Amino Transferase 27 U/L (17-59); Bilirubin,Total 0.5 mg/dL (0.2-1.3); Blood Urea Nitrogen 21 mg/dL (9-20); Calcium 8.5 mg/dL (8.4-10.2); Carbon Dioxide 24 mmol/L (22-30); Chloride 106 mmol/L (98-107); Estimated CRCL calculation 70 ml/min; Estimated Glomerular Filt Rate > 60; Glucose 147 mg/dL (65-110); Potassium 3.7 mmol/L (3.4-5.0); Sodium 135 mmol/L (137-145)
[2023-09-25 08:06] LABS: Glucose Point of Care 134 mg/dl (65-105)
[2023-09-25 08:48] VITALS: O2SAT 96
[2023-09-25] MEDS: DULoxetine HCL 30 MG CAPSULE.DR 90 MG PO (08:52)
[2023-09-25] MEDS: CHOLECALCIFEROL 1,000 UNITS TABLET 2000 UNITS PO (08:52)
[2023-09-25] MEDS: ROSUVASTATIN 10 MG TABLET 20 MG PO (08:52)
[2023-09-25] MEDS: PILOCARPINE HCL 1% OP SOLN 15 ML BTL 1 DROP EACH EYE ×3 (08:53→17:00)
[2023-09-25] MEDS: PANTOPRAZOLE SODIUM IV 40 MG VIAL IV PUSH ×2 (08:53→20:59)
[2023-09-25] MEDS: TIMOLOL MALEATE 0.5% OP SOLN 5 ML BOTTLE 1 DROP EACH EYE ×2 (08:54→20:59)
[2023-09-25] MEDS: polyethylene glycoL 3350 17 GM POWD.PACK PO (10:54)
[2023-09-25] MEDS: DOCUSATE SODIUM 100 MG CAPSULE PO (10:54)
[2023-09-25 11:17] LABS: Glucose Point of Care 167 mg/dl (65-105)
--- NOTE | 2023-09-25 12:41 | PCNFU ---
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 Nutrition recommendation: continue with current plan of care Last recorded weight is 86.5 kg. Bowel Motility: +BM 09/21 Labs Reviewed: Hgb:8.8, HCT:27.9, Alb:3.3, NA:135, BUN:21, Glu:167 Meds Noted:protonix Skin: Stage III to coccyx Additional Notes: Pt diet advanced to diabetic, intake 100% at this time, MANUEL BID in place for wound healing. Agree with orders. Monitoring po intake, weights, labs, supplement tolerance, wound healing Follow up in 5 days
[2023-09-25 13:23] VITALS: BP 111/67; PULSE 104; RESP 18; TEMP 36.4; O2SAT 99
--- NOTE | 2023-09-25 14:53 | PCPTNOTE ---
Patient declined PT at this time. Patient states he spent a lot of time with nursing and OT with toileting and bathing and he is exhausted. PT will continue to follow per plan of care.
--- NOTE | 2023-09-25 15:06 | WPDGIPROGNO ---
Progress Note: A&P Assessment and Plan (1) Duodenal ulcer: Code(s): K26.9 - Duodenal ulcer, unspecified as acute or chronic, without hemorrhage or perforation Status: Acute Assessment and Plan: hgb stable at 8.5, no more signs of bleeding had large DU with stigmata of bleeding- treated with cautery continue with protonix bid- will need instructor warper tolerating diet (2) Acute blood loss anemia: Code(s): D62 - Acute posthemorrhagic anemia Status: Acute Assessment and Plan: no more active bleeding (3) GIB (gastrointestinal bleeding): Code(s): K92.2 - Gastrointestinal hemorrhage, unspecified Status: Acute (4) Pre-syncope: Code(s): R55 - Syncope and collapse Status: Acute Assessment and Plan: from acute GIB and anemia he is back to his baseline (5) Diabetes: Code(s): E11.9 - Type 2 diabetes mellitus without complications Status: Acute Subjective Date/time seen: 09/25/23 15:06 Interval history: he is comfortable, no report of bleeding Review of Systems Review of Systems: All systems reviewed & are unremarkable except as noted in HPI and below Exam Const: General: comfortable, no acute distress and well developed HENMT: Head: normal to inspection and normocephalic Eyes: General: appearance normal, both eyes and all related structures Neck: Neck: supple Resp: Effort & Inspection: normal respiratory effort Auscultation: clear to auscultation bilaterally Cardio: Rate: regular rate Rhythm: regular rhythm GI: GI Palp: Yes Soft to palpation and No Tenderness to palpation present (GI) Auscultation: normal bowel sounds Skin: Rashes: no rashes Neuro: General: oriented to person Speech: normal speech Extrem: General: normal to inspection, full ROM and no pedal edema Psych: Affect: normal affect Objective Data Vital Signs Vital Signs: Vital Signs - 24 hr 09/24/23 21:31 09/24/23 20:00 09/25/23 06:00 Temperature 97.6 F 97.3 F L Pulse Rate 87 98 Respiratory Rate 18 18 Blood Pressure 151/59 H 149/54 H Pulse Oximetry 98 99 Oxygen Delivery Room Air Fraction of Inspired Oxygen 09/25/23 08:48 09/25/23 09:05 09/25/23 13:23 Temperature 97.6 F Pulse Rate 104 H Respiratory Rate 18 Blood Pressure 111/67 Pulse Oximetry 96 99 Oxygen Delivery Room Air Room Air Fraction of Inspired Oxygen 21 Intake/Output Intake/Output: Intake & Output 09/22/23 09/23/23 09/24/23 09/25/23 23:59 23:59 23:59 23:59 Intake Total 1120.0 3000 2998.4 520 Output Total 900 2000 1510 1650 Balance 220.0 1000 1488.4 -1130 Meds/Results Medications: Active Medications Generic Name Dose Route Start Last Admin Trade Name Freq PRN Reason Stop Dose Admin Dextrose 12.5 gm 09/22/23 03:47 Dextrose 50% 25 Gm/50 Ml Syringe IV PUSH PRN PRN Hypoglycemia Protocol Docusate Sodium 100 mg 09/25/23 10:20 09/25/23 10:54 Docusate Sodium 100 Mg Capsule PO 100 mg Q12H PRN Administration Constipation Duloxetine HCl 90 mg 09/24/23 09:00 09/25/23 08:52 Duloxetine Hcl 30 Mg Capsule.Dr PO 90 mg DAILY FATOU Administration Glucagon 1 mg 09/22/23 03:47 Glucagon For Inj 1 Mg Vial IM PRN PRN Hypoglycemia Protocol Glucose 15 gm 09/22/23 03:47 Glucose Oral Gel 15 Gm Of Glucse In 37.5 Gm Tube PO PRN PRN Hypoglycemia Protocol Dextrose 1,000 mls @ 100 mls/hr 09/22/23 03:47 Dextrose 5% 1,000 Ml IVPB PRN PRN Hypoglycemia Protocol Sodium Chloride 1,000 mls @ 100 mls/hr 09/22/23 10:05 09/24/23 10:15 Normal Saline Iv IV CONT Infused .Q10H FATOU Infusion Insulin Aspart 2 - 5 units 09/22/23 17:00 09/25/23 11:24 Insulin Aspart (*Bkc) 100 Units/Ml SUB-Q Not Given TIDWM [facility] Protocol Latanoprost 1 drop 09/24/23 21:00 09/24/23 20:37 Latanoprost 0.005% Op Soln 2.5 Ml Btl EACH EYE 1 drop HS [facility] Administrati
--- NOTE | 2023-09-25 15:30 | PM.DS ---
DS: Admitting Diagnosis Discharge Date 09-24 Admitting Diagnosis Generalized weakness and syncopal episode DS: Discharge Diagnosis Discharge Diagnosis (1) Anemia: Code(s): D64.9 - Anemia, unspecified Status: Acute Assessment and Plan: Secondary to GI bleed Hemoglobin on admission is 7.7-->7.2 today No active bleeding currently monitor for blood in stools transfuse if hgb < 7 g/dl will repeat CBC this afternoon 09/24/23: CBC recheck showed hemoglobin 6.7 g/dL. Received 1 unit pRBC last night No bowel movements yet Monitor H/H Will repeat his CBC this afternoon (2) Weakness: Code(s): R53.1 - Weakness Status: Acute Assessment and Plan: -PT OT eval -Fall precautions (3) Melena: Code(s): K92.1 - Melena Status: Acute Assessment and Plan: GI consult (4) HTN (hypertension): Code(s): I10 - Essential (primary) hypertension Status: Acute Assessment and Plan: On antihypertensive agents at home. Holding amlodipine and losartan. -holding for now given recent GI bleed -SBP 130/55 -if no more bleeding today and his blood pressures remain stable we will resume agents tomorrow (5) Duodenal ulcer: Code(s): K26.9 - Duodenal ulcer, unspecified as acute or chronic, without hemorrhage or perforation Status: Acute Assessment and Plan: EGD shows moderate ulcerative gastritis as well as a large duodenal ulcer with stigmata of bleeding S/P gold probe Protonix 40 mg twice a day Biopsies taken Will need repeat EGD in 4 weeks with GI (6) Diabetes: Code(s): E11.9 - Type 2 diabetes mellitus without complications Status: Acute Assessment and Plan: Unknown hemoglobin A1c -holding home glipizide and metformin -a.c. HS Accu-Cheks -hypoglycemia protocol -low-dose sliding scale -hemoglobin A1c ordered for the morning DS: Summary Hospital Course Reason for hospitalization: GI bleed Hospital Course: This is an 83-year-old male with past medical history significant for hypertension, glaucoma, type diabetes mellitus.? Patient was brought to the emergency room for evaluation due to generalized weakness unable to stand on his on patient had syncopal episode.? Patient is unable to give any history which has been obtained from daughter who is at bedside.? According to daughter she did not notice any new issues but states that patient has overall poor functional status pretty much sits on the couch most of the day.? In emergency room patient was found to have a low hemoglobin and Hemoccult was positive he was found to have melanotic stools in the rectal vault. Interval history: 09/23/2023:? Patient is seen resting in bed asleep.? He is very drowsy today but he does awake to physical stimulation.? He opens his eyes and is able to tell me his name, date of , that he is at the hospital, it is August and he knows that the president is Daren.? He was unsure of the year.? His bedside nurse all me that his daughter says he did not sleep for 3 days this week because his recently went to a rehab and he had been busy a assisting with that.? I feel is drowsiness is probably related to lack of sleep and having his procedure yesterday.? He denies pain.? His abdomen is round but not distended and soft.? His leukocytosis has improved and his hemoglobin is stable. 09/24/23:? Patient is seen sitting up in the chair doing well.? He is awake and alert and at his baseline orientation.? He denies nausea, vomiting, abdominal pain at this time.? He has not had a bowel movement for the last couple of days.? He is very hungry and was able to tolerate his breakfast this morning.? His hemoglobin yesterday afternoon did drop to 6.7 requiring an additional unit of PRBC.? H and H this morning is 8.3-26.6.? Plan to repeat a CBC this afternoon again to monitor for stabilization of hemoglobin.? If hemoglobin remains stable today and tomorrow morning the
[2023-09-25 16:43] LABS: Glucose Point of Care 191 mg/dl (65-105)
[2023-09-25 20:24] LABS: Glucose Point of Care 225 mg/dl (65-105)
[2023-09-25 20:47] VITALS: BP 145/91; PULSE 88; RESP 16; TEMP 37.1; O2SAT 99
[2023-09-25] MEDS: LATANOPROST 0.005% OP SOLN 2.5 ML BTL 1 DROP EACH EYE (21:00)
[2023-09-26 06:00] VITALS: BP 158/70; PULSE 76; RESP 18; TEMP 36.3; O2SAT 98
--- NOTE | 2023-09-26 07:47 | PM.IMPN ---
Progress Note: A&P Assessment and Plan (1) Anemia: Code(s): D64.9 - Anemia, unspecified Status: Acute Assessment and Plan: Secondary to GI bleed Hemoglobin on admission is 7.7-->7.2 today No active bleeding currently monitor for blood in stools transfuse if hgb < 7 g/dl will repeat CBC this afternoon 09/24/23: CBC recheck showed hemoglobin 6.7 g/dL. Received 1 unit pRBC last night No bowel movements yet Monitor H/H Will repeat his CBC this afternoon 09/26/23: H/H has been stable No more bleeding noted (2) Weakness: Code(s): R53.1 - Weakness Status: Acute Assessment and Plan: -PT OT eval -Fall precautions (3) Melena: Code(s): K92.1 - Melena Status: Acute Assessment and Plan: GI consult (4) HTN (hypertension): Code(s): I10 - Essential (primary) hypertension Status: Acute Assessment and Plan: On antihypertensive agents at home. Holding amlodipine and losartan. -holding for now given recent GI bleed -SBP 130/55 -if no more bleeding today and his blood pressures remain stable we will resume agents tomorrow 09/26/23: Restarting home anti-hypertensives (5) Duodenal ulcer: Code(s): K26.9 - Duodenal ulcer, unspecified as acute or chronic, without hemorrhage or perforation Status: Acute Assessment and Plan: EGD shows moderate ulcerative gastritis as well as a large duodenal ulcer with stigmata of bleeding S/P gold probe Protonix 40 mg twice a day Biopsies taken Will need repeat EGD in 4 weeks with GI (6) Diabetes: Code(s): E11.9 - Type 2 diabetes mellitus without complications Status: Acute Assessment and Plan: Unknown hemoglobin A1c -holding home glipizide and metformin -a.c. HS Accu-Cheks -hypoglycemia protocol -low-dose sliding scale -hemoglobin A1c ordered for the morning 09/26/23: A1C 7% Blood glucose ranging 134-225 Resume home medications metformin and glipizide. Planning to dc today. Plan Medically he is ready to discharge to SNF. Currently we are awaiting authorization. Subjective Date/time seen: 09/26/23 07:47 Interval history: HPI obtained from the chart, This is an 83-year-old male with past medical history significant for hypertension, glaucoma, type diabetes mellitus.? Patient was brought to the emergency room for evaluation due to generalized weakness unable to stand on his on patient had syncopal episode.? Patient is unable to give any history which has been obtained from daughter who is at bedside.? According to daughter she did not notice any new issues but states that patient has overall poor functional status pretty much sits on the couch most of the day.? In emergency room patient was found to have a low hemoglobin and Hemoccult was positive he was found to have melanotic stools in the rectal vault. Interval history: 09/23/2023: Patient is seen resting in bed asleep. He is very drowsy today but he does awake to physical stimulation. He opens his eyes and is able to tell me his name, date of , that he is at the hospital, it is August and he knows that the president is Daren. He was unsure of the year. His bedside nurse all me that his daughter says he did not sleep for 3 days this week because his recently went to a rehab and he had been busy a assisting with that. I feel is drowsiness is probably related to lack of sleep and having his procedure yesterday. He denies pain. His abdomen is round but not distended and soft. His leukocytosis has improved and his hemoglobin is stable. 09/24/23: Patient is seen sitting up in the chair doing well. He is awake and alert and at his baseline orientation. He denies nausea, vomiting, abdominal pain at this time. He has not had a bowel movement for the last couple of days. He is very hungry and was able to tolerate his breakfast this morning. His hemoglobin yesterday afternoon did toni
[2023-09-26 07:53] LABS: Glucose Point of Care 106 mg/dl (65-105)
[2023-09-26] MEDS: glipiZIDE 5 MG TABLET PO (08:42)
[2023-09-26] MEDS: LOSARTAN POTASSIUM 100 MG TABLET PO (08:42)
[2023-09-26] MEDS: ROSUVASTATIN 10 MG TABLET 20 MG PO (08:42)
[2023-09-26] MEDS: CHOLECALCIFEROL 1,000 UNITS TABLET 2000 UNITS PO (08:42)
[2023-09-26] MEDS: polyethylene glycoL 3350 17 GM POWD.PACK PO (08:42)
[2023-09-26] MEDS: amLODIPine BESYLATE 5 MG TABLET PO (08:42)
[2023-09-26] MEDS: metFORMIN HCL XR 500 MG TAB.SR.24H PO (08:42)
[2023-09-26] MEDS: DULoxetine HCL 30 MG CAPSULE.DR 90 MG PO (08:42)
[2023-09-26] MEDS: PILOCARPINE HCL 1% OP SOLN 15 ML BTL 1 DROP EACH EYE ×2 (08:43→12:11)
[2023-09-26] MEDS: TIMOLOL MALEATE 0.5% OP SOLN 5 ML BOTTLE 1 DROP EACH EYE (08:43)
[2023-09-26] MEDS: PANTOPRAZOLE SODIUM IV 40 MG VIAL IV PUSH (08:43)
[2023-09-26 09:27] LABS: Hematocrit 27.4 % (42.0-52.0); Hemoglobin 8.8 g/dL (14.0-18.0); Mean Corpuscular HGB Conc 32.1 g/dl (32-36); Mean Corpuscular Hemoglobin 29.8 pg (26-34); Mean Corpuscular Volume 92.9 fl (80-100); Mean Platelet Volume 10.5 fl (7.4-10.4); Platelet Count Result 278 k/mm3 (150-375); Red Blood Count 2.95 M/mm3 (4.6-6.20); Red Cell Distribution Width 15.9 % (11.5-14.5); White Blood Count 7.3 K/mm3 (4.5-10.0)
[2023-09-26 11:38] LABS: Glucose Point of Care 167 mg/dl (65-105)
--- NOTE | 2023-09-26 12:44 | WPDGIPROGNO ---
Progress Note: A&P Assessment and Plan (1) Duodenal ulcer: Code(s): K26.9 - Duodenal ulcer, unspecified as acute or chronic, without hemorrhage or perforation Status: Acute Assessment and Plan: hgb stable at 8.5, no more signs of bleeding had large DU with stigmata of bleeding- treated with cautery he is being discharge, sent prescription for protonix bid- will need custodial tolerating diet egd in 4 months to assess healing of large ulcer (2) Acute blood loss anemia: Code(s): D62 - Acute posthemorrhagic anemia Status: Acute Assessment and Plan: no more active bleeding (3) Pre-syncope: Code(s): R55 - Syncope and collapse Status: Acute Assessment and Plan: from acute GIB and anemia he is back to his baseline (4) GIB (gastrointestinal bleeding): Code(s): K92.2 - Gastrointestinal hemorrhage, unspecified Status: Acute (5) Diabetes: Code(s): E11.9 - Type 2 diabetes mellitus without complications Status: Acute Subjective Date/time seen: 09/26/23 12:44 Interval history: back to his baseline, family at bedside no more gib Review of Systems Review of Systems: All systems reviewed & are unremarkable except as noted in HPI and below Exam Const: General: comfortable, no acute distress and well developed HENMT: Head: normal to inspection and normocephalic Eyes: General: appearance normal, both eyes and all related structures Neck: Neck: supple Resp: Effort & Inspection: normal respiratory effort Auscultation: clear to auscultation bilaterally Cardio: Rate: regular rate Rhythm: regular rhythm GI: GI Palp: Yes Soft to palpation and No Tenderness to palpation present (GI) Auscultation: normal bowel sounds Skin: Rashes: no rashes Neuro: General: oriented to person Speech: normal speech Extrem: General: normal to inspection, full ROM and no pedal edema Psych: Affect: normal affect Objective Data Vital Signs Vital Signs: Vital Signs - 24 hr 09/25/23 13:23 09/25/23 20:47 09/26/23 06:00 Temperature 97.6 F 98.7 F 97.3 F L Pulse Rate 104 H 88 76 Respiratory Rate 18 16 18 Blood Pressure 111/67 145/91 H 158/70 H Pulse Oximetry 99 99 98 Oxygen Delivery 09/26/23 08:43 Temperature Pulse Rate Respiratory Rate Blood Pressure Pulse Oximetry Oxygen Delivery Room Air Intake/Output Intake/Output: Intake & Output 09/23/23 09/24/23 09/25/23 09/26/23 23:59 23:59 23:59 23:59 Intake Total 3000 2998.4 1238 290 Output Total 1999 1510 1950 700 Balance 1000 1488.4 -712 -410 Meds/Results Medications: Active Medications Generic Name Dose Route Start Last Admin Trade Name Freq PRN Reason Stop Dose Admin Amlodipine Besylate 5 mg 09/26/23 09:00 09/26/23 08:42 Amlodipine Besylate 5 Mg Tablet PO 5 mg DAILY FATOU Administration Dextrose 12.5 gm 09/22/23 03:47 Dextrose 50% 25 Gm/50 Ml Syringe IV PUSH PRN PRN Hypoglycemia Protocol Docusate Sodium 100 mg 09/25/23 10:20 09/25/23 10:54 Docusate Sodium 100 Mg Capsule PO 100 mg Q12H PRN Administration Constipation Duloxetine HCl 90 mg 09/24/23 09:00 09/26/23 08:42 Duloxetine Hcl 30 Mg Capsule.Dr PO 90 mg DAILY FATOU Administration Glipizide 5 mg 09/26/23 08:00 09/26/23 08:42 Glipizide 5 Mg Tablet PO 5 mg DAILY@0800 FATOU Administration Glucagon 1 mg 09/22/23 03:47 Glucagon For Inj 1 Mg Vial IM PRN PRN Hypoglycemia Protocol Glucose 15 gm 09/22/23 03:47 Glucose Oral Gel 15 Gm Of Glucse In 37.5 Gm Tube PO PRN PRN Hypoglycemia Protocol Dextrose 1,000 mls @ 100 mls/hr 09/22/23 03:47 Dextrose 5% 1,000 Ml IVPB PRN PRN Hypoglycemia Protocol Insulin Aspart 2 - 5 units 09/22/23 17:00 09/26/23 11:41 Insulin Aspart (*Bkc) 100 Units/Ml SUB-Q Not Given TIDWM FATOU Protocol Latanoprost 1 drop 09/24/23 21:00 09/25/23 21:00 L
--- NOTE | 2023-09-26 12:54 | PM.DS ---
DS: Admitting Diagnosis Discharge Date 09/25 Admitting Diagnosis Weakness DS: Discharge Diagnosis Discharge Diagnosis (1) Anemia: Code(s): D64.9 - Anemia, unspecified Status: Acute Assessment and Plan: Secondary to GI bleed Hemoglobin on admission is 7.7-->7.2 today No active bleeding currently monitor for blood in stools transfuse if hgb < 7 g/dl will repeat CBC this afternoon 09/24/23: CBC recheck showed hemoglobin 6.7 g/dL. Received 1 unit pRBC last night No bowel movements yet Monitor H/H Will repeat his CBC this afternoon 09/26/23: H/H has been stable No more bleeding noted (2) Weakness: Code(s): R53.1 - Weakness Status: Acute Assessment and Plan: -PT OT eval -Fall precautions (3) Melena: Code(s): K92.1 - Melena Status: Acute Assessment and Plan: GI consult (4) HTN (hypertension): Code(s): I10 - Essential (primary) hypertension Status: Acute Assessment and Plan: On antihypertensive agents at home. Holding amlodipine and losartan. -holding for now given recent GI bleed -SBP 130/55 -if no more bleeding today and his blood pressures remain stable we will resume agents tomorrow 09/26/23: Restarting home anti-hypertensives (5) Duodenal ulcer: Code(s): K26.9 - Duodenal ulcer, unspecified as acute or chronic, without hemorrhage or perforation Status: Acute Assessment and Plan: EGD shows moderate ulcerative gastritis as well as a large duodenal ulcer with stigmata of bleeding S/P gold probe Protonix 40 mg twice a day Biopsies taken Will need repeat EGD in 4 weeks with GI (6) Diabetes: Code(s): E11.9 - Type 2 diabetes mellitus without complications Status: Acute Assessment and Plan: Unknown hemoglobin A1c -holding home glipizide and metformin -a.c. HS Accu-Cheks -hypoglycemia protocol -low-dose sliding scale -hemoglobin A1c ordered for the morning 09/26/23: A1C 7% Blood glucose ranging 134-225 Resume home medications metformin and glipizide. Planning to dc today. Plan Medically he is ready to discharge to SNF. Currently we are awaiting authorization. DS: Summary Hospital Course Reason for hospitalization: GI bleed Hospital Course: This is an 83-year-old male with past medical history significant for hypertension, glaucoma, type diabetes mellitus.? Patient was brought to the emergency room for evaluation due to generalized weakness unable to stand on his on patient had syncopal episode.? Patient is unable to give any history which has been obtained from daughter who is at bedside.? According to daughter she did not notice any new issues but states that patient has overall poor functional status pretty much sits on the couch most of the day.? In emergency room patient was found to have a low hemoglobin and Hemoccult was positive he was found to have melanotic stools in the rectal vault. Interval history: 09/23/2023:? Patient is seen resting in bed asleep.? He is very drowsy today but he does awake to physical stimulation.? He opens his eyes and is able to tell me his name, date of , that he is at the hospital, it is August and he knows that the president is Daren.? He was unsure of the year.? His bedside nurse all me that his daughter says he did not sleep for 3 days this week because his recently went to a rehab and he had been busy a assisting with that.? I feel is drowsiness is probably related to lack of sleep and having his procedure yesterday.? He denies pain.? His abdomen is round but not distended and soft.? His leukocytosis has improved and his hemoglobin is stable. 09/24/23:? Patient is seen sitting up in the chair doing well.? He is awake and alert and at his baseline orientation.? He denies nausea, vomiting, abdominal pain at this time.? He has not had a bowel movement for the last couple of days.? He is very hungry and was able to tolerate
[2023-09-26 13:01] LABS: SARS-CoV-2 RNA PCR Negative (Negative)
== END 2023-09-26 14:10 ==
LOC: ANHED 09-22 01:57 → ANHIMU 09-22 02:32 → ANH3MEDSUR 09-25 14:23 → ANHIMU 09-27 07:34
PROVIDERS: Emergency Medicine; Internal Medicine Gastroenterology; Nurse Practitioner Acute Care; Admitting Provider Internal Medicine; Emergency Provider Emergency Medicine; PCP Family Medicine; Visit Provider General Practice
PROC: 0DJ08ZZ Inspection of Upper Intestinal Tract, Via Natural or Artificial Opening Endoscopic (ICD-10-PCS; CPT 43235; principal; 2023-09-22 16:00)
DX: K26.0 Acute duodenal ulcer with hemorrhage (principal); D62 Acute posthemorrhagic anemia; R55 Syncope and collapse; I10 Essential (primary) hypertension; E11.42 Type 2 diabetes mellitus with diabetic polyneuropathy; H40.9 Unspecified glaucoma; Z87.891 Personal history of nicotine dependence; Z79.84 Long term (current) use of oral hypoglycemic drugs; Z11.52 Encounter for screening for COVID-19; Z20.822 Contact with and (suspected) exposure to COVID-19
CPT/HCPCS: 43255; 43239; 36415; 36430; 70450; 71045; 80048; 80053; 81003; 82948; 83036; 83690; 83735; 83880; 84100; 84145; 84484; 85025; 85027; 85610; 85730; 86850; 86900; 86901; 86923; 87040; 87081; 87635; 87637; 88305; 93005; 96361; 96374; 97110; 97116; 97161; 97165; 97530; 97535; 99285; A9270; C9113; G0378; J1815; J7030; J7050; J7120; P9016

== ENCOUNTER 2024-04-04 02:20 | Day surgery (SDC) | payer MEDICARE, SELFPAY ==
[2024-03-18 11:26] VITALS: BMI 31.3
[2024-04-04 07:48] VITALS: BP 191/74; PULSE 79; RESP 18; TEMP 36.2; O2SAT 99
[2024-04-04 08:04] LABS: Glucose Point of Care 107 mg/dl (65-105)
[2024-04-04] MEDS: LACTATED RINGERS 1,000 ML 150 ML IV CONT (08:05)
[2024-04-04 08:08] VITALS: BP 185/79
--- NOTE | 2024-04-04 08:37 | PM.HPGS ---
History of Present Illness History of Present Illness Consent: Risks, benefits, and alternatives have been discussed and questions answered. Patient agrees to proceed with procedure. Chief complaint: Gastritis, Duodenal ulcer Narrative: Kevin Dior is a 83 year old male with previous hospitalization for ugib due to large duodenal ulcer and symptomatic anemia, doing ok now using protonix twice daily, last hgb normal. Review of Systems Review of Systems: All systems reviewed & are unremarkable except as noted in HPI and below PMFSH Past Medical History Medical History Acute blood loss anemia Diabetes Duodenal ulcer GIB (gastrointestinal bleeding) Glaucoma Hip arthritis HTN (hypertension) Left hand pain Neuropathy Peripheral neuropathy Pre-syncope Tendinitis of right shoulder Trigger finger, left index finger Trigger finger, right index finger Surgical History Surgical History History of ankle surgery S/P appendectomy Family History Family History Father Family history unknown Unknown Heart disease Cerebrovascular accident Social History Social History Social History: drinks 2 cups of coffee daily Years smoked: 40 Smoking status: Former smoker Tobacco type: pipe Second hand tobacco smoke exposure: No Alcohol intake: never Substance use: never Substance use type: does not use Do You Feel Safe in your Home?: Yes Lack of Transportation: No Lack of Food: Never True Current Housing: I Have Housing Concerned About Future Housing: No Difficulty Paying Gas/Electric Bills: No Difficulty Paying for Meds: No Currently Unemployed: No Education: High School Diploma/GED Difficulty w/ Childcare or Family Care: No Living arrangements: assisted living Additional living arrangements comments: [facility] Occupation/Education: retired Gender identity (if verbalized by the patient): Male Spiritual care concerns: No Meds Home Medications and Allergies Home Medications Medication Instructions Recorded Confirmed Type amlodipine 5 mg tablet 5 mg PO DAILY 05/15/19 04/04/24 History losartan 100 mg tablet 100 mg PO DAILY 05/15/19 04/04/24 History cholecalciferol (vitamin D3) 50 50 mcg PO DAILY 09/22/21 04/04/24 History mcg (2,000 unit) capsule glipizide 5 mg tablet 5 mg PO DAILY 09/22/21 04/04/24 History multivitamin 1 tablet PO DAILY 09/22/21 04/04/24 History rosuvastatin 20 mg tablet 20 mg PO DAILY 09/22/21 04/04/24 History metformin 500 mg tablet,extended 500 mg PO DAILY #1 tablet 08/08/23 04/04/24 Rx release 24 hr latanoprost 0.005 % eye drops 1 drp EACH EYE DAILY #2.5 mL 08/09/23 04/04/24 Rx pilocarpine HCl 1 % eye drops 1 drp EACH EYE TID #15 mL 08/09/23 04/04/24 Rx timolol maleate 0.5 % eye drops 1 drp EACH EYE Q12H #5 mL 08/09/23 04/04/24 Rx duloxetine 30 mg capsule,delayed 90 mg PO DAILY 09/22/23 04/04/24 History release pantoprazole 40 mg tablet,delayed 40 mg PO BID #60 tabs 09/26/23 04/04/24 Rx release (Protonix) ascorbic acid (vitamin C) 250 mg 250 mg PO DAILY #90 tabs 10/17/23 04/04/24 Rx tablet ferrous sulfate 325 mg (65 mg 325 mg PO DAILY #90 tabs 10/17/23 04/04/24 Rx iron) tablet acetaminophen 500 mg tablet 500 mg PO Q6H PRN fever or pain 11/10/23 04/04/24 Rx #100 tabs buspirone 5 mg tablet 5 mg PO TID PRN anxiety #90 tabs 12/22/23 04/04/24 Rx lidocaine 4 % topical patch 1 patch topical DAILY PRN pain #30 12/22/23 04/04/24 Rx ea hydrocodone 5 mg-acetaminophen 325 See Rx Instructions PO .COMPLEX 12/27/23 04/04/24 Rx mg tablet PRN pain #120 tabs Allergies Allergy/AdvReac Type Severity Reaction Status Date / Time pregabalin Allergy Unknown blisters Verified 04/04/24 07:47 Vital Signs Vital Signs - 24 hr
--- NOTE | 2024-04-04 08:55 | WPDANESEPPF ---
Anes - Initial Pre Proc Eval Procedure: Operation Date: 04/04/24 09:00 Proposed Procedures p Esophagogastroduodenoscopy - Pepe Jack MD Date/Time: 04/04/24 08:55 Surgeon: Pepe Jack MD Pre Op Diagnosis: Gastritis, Duodenal ulcer Patient Data Age: 83 Gender: M Height: 1.68 m Weight: 88.5 kg Last Vital Signs Temp 97.1 F L 04/04/24 07:48 Pulse 79 04/04/24 07:48 Resp 18 04/04/24 07:48 BP 185/79 H 04/04/24 08:08 Pulse Ox 99 04/04/24 07:48 O2 Del Method Room Air 04/04/24 07:48 Allergies Allergy/AdvReac Type Severity Reaction Status Date / Time pregabalin Allergy Unknown blisters Verified 04/04/24 07:47 Home Medications Medication Instructions Recorded Confirmed Type amlodipine 5 mg tablet 5 mg PO DAILY 05/15/19 04/04/24 History losartan 100 mg tablet 100 mg PO DAILY 05/15/19 04/04/24 History cholecalciferol (vitamin D3) 50 50 mcg PO DAILY 09/22/21 04/04/24 History mcg (2,000 unit) capsule glipizide 5 mg tablet 5 mg PO DAILY 09/22/21 04/04/24 History multivitamin 1 tablet PO DAILY 09/22/21 04/04/24 History rosuvastatin 20 mg tablet 20 mg PO DAILY 09/22/21 04/04/24 History metformin 500 mg tablet,extended 500 mg PO DAILY #1 tablet 08/08/23 04/04/24 Rx release 24 hr latanoprost 0.005 % eye drops 1 drp EACH EYE DAILY #2.5 mL 08/09/23 04/04/24 Rx pilocarpine HCl 1 % eye drops 1 drp EACH EYE TID #15 mL 08/09/23 04/04/24 Rx timolol maleate 0.5 % eye drops 1 drp EACH EYE Q12H #5 mL 08/09/23 04/04/24 Rx duloxetine 30 mg capsule,delayed 90 mg PO DAILY 09/22/23 04/04/24 History release pantoprazole 40 mg tablet,delayed 40 mg PO BID #60 tabs 09/26/23 04/04/24 Rx release (Protonix) ascorbic acid (vitamin C) 250 mg 250 mg PO DAILY #90 tabs 10/17/23 04/04/24 Rx tablet ferrous sulfate 325 mg (65 mg 325 mg PO DAILY #90 tabs 10/17/23 04/04/24 Rx iron) tablet acetaminophen 500 mg tablet 500 mg PO Q6H PRN fever or pain 11/10/23 04/04/24 Rx #100 tabs buspirone 5 mg tablet 5 mg PO TID PRN anxiety #90 tabs 12/22/23 04/04/24 Rx lidocaine 4 % topical patch 1 patch topical DAILY PRN pain #30 12/22/23 04/04/24 Rx ea hydrocodone 5 mg-acetaminophen 325 See Rx Instructions PO .COMPLEX 12/27/23 04/04/24 Rx mg tablet PRN pain #120 tabs Laboratory Tests 04/04/24 08:01 POC Capillary Glucose 107 H mg/dl (65-105) Patient hx anesthesia problems: none Family hx anesthesia problems: none Results Review: All pre-operative results and documents have been reviewed as part of the pre-operative evaluation. [facility] Past Medical History Medical History Acute blood loss anemia Diabetes Duodenal ulcer GIB (gastrointestinal bleeding) Glaucoma Hip arthritis HTN (hypertension) Left hand pain Neuropathy Peripheral neuropathy Pre-syncope Tendinitis of right shoulder Trigger finger, left index finger Trigger finger, right index finger Surgical History Surgical History History of ankle surgery S/P appendectomy Family History Family History Father Family history unknown Unknown Heart disease Cerebrovascular accident Social History Social History Social History: drinks 2 cups of coffee daily Years smoked: 40 Smoking status: Former smoker Tobacco type: pipe Second hand tobacco smoke exposure: No Alcohol intake: never Substance use: never Substance use type: does not use Do You Feel Safe in your Home?: Yes Lack of Transportation: No Lack of Food: Never True Current Housing: I Have Housing Concerned About Future Housing: No Difficulty Paying Gas/Electric Bills: No Difficulty Paying for Meds: No Currently Unemployed: No Education: High School Diploma/GED Difficulty w/ Ch
[2024-04-04] MEDS: BENZOCAINE (*SP) 60 ML SPRAY CAN (HURRICAINE) 1 SPRAY MUCOUS MEM (08:58)
--- NOTE | 2024-04-04 09:03 | SUR.PREOP ---
Pt blood pressure elevated. Dr. Steen (anesthesiologist) notified (see flowsheet). No new orders recieved.
[2024-04-04 09:06] VITALS: BP 185/87; PULSE 64; RESP 21; O2SAT 98
[2024-04-04 09:16] VITALS: BP 170/86; PULSE 65; RESP 21; O2SAT 96
[2024-04-04 09:26] VITALS: BP 204/89; PULSE 60; RESP 23; O2SAT 96
[2024-04-04] MEDS: hydrALAZINE HCL 20 MG/ML VIAL 5 MG IV PUSH (09:34)
== END 2024-04-04 09:52 | disposition home or self-care (01) ==
PROVIDERS: PCP Family Medicine; Visit Provider Internal Medicine Gastroenterology
PROC: 0DJ08ZZ Inspection of Upper Intestinal Tract, Via Natural or Artificial Opening Endoscopic (ICD-10-PCS; CPT 43235; principal; 2024-04-04 09:00)
DX: Z09 Encounter for follow-up examination after completed treatment for conditions other than malignant neoplasm (principal); Z87.11 Personal history of peptic ulcer disease; D64.9 Anemia, unspecified; I10 Essential (primary) hypertension; H40.9 Unspecified glaucoma; E11.42 Type 2 diabetes mellitus with diabetic polyneuropathy; Z87.891 Personal history of nicotine dependence; Z79.84 Long term (current) use of oral hypoglycemic drugs; Z79.891 Long term (current) use of opiate analgesic; E66.9 Obesity, unspecified; Z68.31 Body mass index [BMI] 31.0-31.9, adult
CPT/HCPCS: 43235; 82948; J0360; J2003; J2704; J7120

== ENCOUNTER 2024-08-17 00:59 | Inpatient (IN) | payer MEDICARE, SELFPAY ==
[2024-08-17] VITALS (11 sets, daily range): BP systolic 117–167; BP diastolic 55–84; PULSE 77–109; RESP 15–28; TEMP 36.6–37.8; O2SAT 91–95; BMI 33.5
--- NOTE | ~2024-08-17 | XR_ITS ---
EXAMINATION: XR chest 1V portable DATE: 08/17/2024 01:37 INDICATION: Flu, now with altered mental status. TECHNIQUE: frontal view of the chest was obtained. COMPARISON: Chest radiograph dated 09/21/23 FINDINGS: Interstitial and mild airspace opacities in the left lower lung zone and mild streaky opacities at th e right lung base. No pleural effusion or pneumothorax. Small calcified nodules in the right upper henny ng zone consistent with old granulomatous disease. The cardiomediastinal silhouette is normal. Unchan ged likely right rotator cuff arthropathy with narrowing of the right subacromial space. IMPRESSION: 1. Opacities in the bilateral lower lung zones, left and right which could represent atelectasis, pne umonia, asymmetric mild pulmonary edema or some combination thereof. Reviewed, dictated and finalized at location A. T COLLECTOR IMPRESSION: 1. Opacities in the bilateral lower lung zones, left and right which could repr esent atelectasis, pneumonia, asymmetric mild pulmonary edema or some combinati on thereof.
--- NOTE | ~2024-08-17 | XR_ITS ---
EXAMINATION: XR chest 1V portable DATE: 08/20/2024 13:22 INDICATION: Cough. TECHNIQUE: A single frontal view of the chest was obtained. COMPARISON: Chest single view 08/17/2024 FINDINGS: There are airspace opacities in left lower lung zone. A calcified right lung nodule is cons istent with old granulomatous disease. No pleural effusion or pneumothorax. The heart size is normal. IMPRESSION: 1. Worsened airspace opacities in left lower lung zone, consistent with atelectasis versus pneumonia. Reviewed, dictated and finalized at location A. REMOVER IMPRESSION: 1. Worsened airspace opacities in left lower lung zone, consistent with atelect asis versus pneumonia.
--- NOTE | ~2024-08-17 | CT_ITS ---
EXAMINATION: CT brain wo con DATE: 08/21/2024 20:25 INDICATION: Altered mental status. TECHNIQUE: Computed tomography (CT) of the head was performed without intravenous contrast. The mA wa s adjusted according to patient size. Iterative reconstruction technique was employed. The dose-lengt h product was 605.33 mGy-cm. COMPARISON: Head CT 09/21/2023 FINDINGS: There is no intracranial hemorrhage, acute infarction, or abnormal intracranial mass lesion . There are scattered areas of low attenuation in the cerebral white matter, which is within normal l imits for the patient's age. The ventricles are normal in size. There are likely changes of ocular le ns replacement surgeries. There are implants at the lateral aspects of the ocular globes. There is an implant at the anterior aspect of left ocular globe. There is mucosal thickening in the paranasal si nuses. There is a small left mastoid effusion. IMPRESSION: 1. Normal aging brain. Reviewed, dictated and finalized at location A. LA PATCHER HELPER IMPRESSION: 1. Normal aging brain.
--- NOTE | 2024-08-17 01:05 | ECG_ITS ---
Test Date: 2024-08-17 01:13:19 Measurements Intervals [place] Rate: 94 P: 0 PA: 0 QRS: 4 QRSD: 71 T: 64 QT: 330 QTc: 415 Interpretive Statements ATRIAL FLUTTER/TACHYCARDIA EARLY PRECORDIAL R/S TRANSITION NONSPECIFIC T-WAVE ABNORMALITY- HIGH LATERAL LEADS BASELINE ARTIFACT- I, II, III, AVR, AVL, AVF, V1-V2 ABNORMAL ECG No previous ECG available for comparison Electronically Signed On 08-17-2024 07:58:01 [employer] by Travon Mcgraw D.O.
--- OUTSIDE RECORDS SUMMARY | 2024-08-17 01:07 | XMS_ITS | Referral Summary ---
Author Organization [facility] Medical [facility] 2 Address [address] [place] [address] Care Team Providers Care Manager Hiv Name Role Phone Angelique Jacobs MD Primary Care Provider [phone] Encounters Date Type Department Care Team Description 08/05/[address] [facility] Ophthalmology [address], [address] [place] [address] Cornelia Valencia MD PhD 07/11/2024 1:30 PM GLAZE MAKER Office Visit [facility] Ophthalmology [address] [place] [id number] Cornelia Valencia MD PhD S/P eye surgery (Primary Dx) 05/22/2024 9:45 AM GLAZE MAKER Office Visit [facility] [address] [address] Cornelia Valencia MD PhD S/P eye surgery (Primary Dx) from Last 3 Months Allergies Active Allergy Reactions Criticality Noted Date Comments Atorvastatin Rash Medium 05/06/2021 Brimonidine Swelling High Pregabalin Rash Medium 04/24/2024 Phenylephrine Swelling High DO NOT USE TO DILATE Proparacaine Hcl Unknown High Tolerates tetracaine well Medications amLODIPine (NORVASC) 5 mg tabletIndication s:hypertension Take 1 tablet (5 mg total) by mouth every morning 8 Active losartan (COZAAR) 100 mg tabletIndication s:hypertension Take 1 tablet (100 mg total) by mouth every morning [address] (CYMBALTA) 30 mg capsuleIndicatio ns:Neuropathic Pain Take 1 capsule (30 mg total) by mouth every morning 8 Active HYDROcodone-acet aminophen (NORCO) 5-325 mg per tabletIndication s:Pain Take 1 tablet by mouth every 8 (eight) hours as needed for pain 0 9 Active cholecalciferol (VITAMIN D-3) 2000 unit tabletIndication s:Osteoporosis,V itamin D Deficiency Take 1 tablet (2,000 Units total) by mouth every morning Active timolol (TIMOPTIC) 0.5 % ophthalmic solution INSTILL 1 DROP INTO BOTH EYES IN THE MORNING 15 mL 3 3 Active pilocarpine (PILOCAR) 1 % ophthalmic solutionIndicati ons:Primary open angle glaucoma (POAG) of both eyes, severe stage INSTILL 1 DROP INTO THE RIGHT EYE TWICE DAILY 15 mL 3 3 Active metFORMIN XR (GLUCOPHAGE XR) 500 mg 24 hr tabletIndication s:type 2 diabetes mellitus Take 1 tablet (500 mg total) by mouth daily with breakfast 3 Active latanoprost (XALATAN) 0.005 % ophthalmic solution INSTILL 1 DROP INTO BOTH EYES AT NIGHT 7.5 mL [address] (PROTONIX) 40 mg EC tabletIndication s:Stress Ulcer Prophylaxis Take 1 tablet (40 mg total) by mouth every morning 4 Active glipiZIDE (GLUCOTROL) 5 mg tabletIndication s:type 2 diabetes mellitus Take 1 tablet (5 mg total) by mouth every morning 4 Active rosuvastatin (CRESTOR) 20 mg tabletIndication s:hyperlipidemia Take 1 tablet (20 mg total) by mouth nightly 4 Active MULTIVITAMIN ORALIndications: Supplement Take 1 tablet by mouth every morning Active ferrous sulfate 325 mg (65 mg of elemental iron) tabletIndication s:Iron Deficiency Anemia Take 1 tablet (325 mg total) by mouth daily with breakfast Active ascorbic acid (VITAMIN C ORAL)Indications :Supplement Take 250 mg by mouth every morning Active lidocaine-mentho l 4-1 % adhesive patch,medicatedI ndications:Pain Apply 1 Application topically daily Active acetaminophen (TYLENOL) 500 mg tabletIndication s:Arthritic Pain,Back Pain,Headache Disorder,Pain Take 2 tablets (1,000 mg total) by mouth every 6 (six) hours as needed for pain, headaches or fever Active prednisoLONE acetate (PRED FORTE) 1 % ophthalmic suspension Administer 1 drop into the right eye 4 (four) times a day 5 mL 3 4 Active moxifloxacin (VIGAMOX) 0.5 % ophthalmic solution Administer 1 drop into the right eye 3 (three) times a day for 3 days and then stop 3 mL 1 5 Active Active Problems Problem Noted Date Diagnosed Date Cornea edema 04/01/2024 Corneal edema of right eye 02/08/2023 Assessment & Plan (01/25/2024 2:00 PM CDT): Noted marked progression of edema with D folds- explains change of vision Discussed with pt and daughter- Did not notify with these vision changes Recommend eval by cornea to discuss options. Assessment & Plan (02/08/2023 9:13 PM CDT): Noted few folds today ? Hypotony vs corneal decompensation.- no epithelial striae Discussed with pt and daughter- CPM for now Notify if any noted vision changes Allergic conjunctivitis of both eyes 10/27/2021 Blurred vision, right eye 07/08/2021 Assessment & Plan (07/08/2021 3:14 PM GLAZE MAKER): Referred by Dr. Padilla for refraction and mac OCT due to complaints of decreased vision in monocular patient; today pt states harder to read newspaper even with +3.00 OTC readers; can see the TV okay but does have trouble with small print at distance -unable to significantly improve vision with refraction right eye (OD); vision fluctuating with blink -left eye (OS) Count fingers -OCT mac shows mild DME but not CSME right eye (OD); poor scan left eye (OS) -able to read j1 at near today with +3.00 and +2.75 -symptoms of decreased vision likely related to ocular surface and poor lighting -recommend cont with +3.00 OTC readers or +2.75; would not go higher; discuss bifocal rx for real time operator wear but pt prefers reading only 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 Marin as scheduled- doubt she will be able to continue OCTs Assessment & Plan (07/12/2023 12:42 PM GLAZE MAKER): Vision sl worse- subjective loss also F/U with Dr. Marin as scheduled Assessment & Plan (02/08/2023 9:11 PM CDT): PH vision stable and no subjective changes F/U with Dr. Marin as scheduled Assessment & Plan (07/06/2022 8:36 PM GLAZE MAKER): Vision improved status post (s/p) AMARILIS Subjective and objective improvement F/U with Dr. 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 Discussed R/B/A of anti-VEGF and patient wishes to proceed. AMARILIS #1 today Warning Sx endophthalmitis discussed Follow up 4 weeks Assessment & Plan (07/08/2021 3:15 PM GLAZE MAKER): right eye (OD) on OCT mac today; not CSME and has minimal effect on vision; retina consult not indicated as would not require injection or topical treatment -encourage BG control Hyperlipidemia associated with type 2 diabetes m bill 04/29/2021 Hypertension associated with type 2 diabetes carmen elishaus 04/29/2021 Primary open angle glaucoma (POAG) of both eyes, severe stage 02/08/2018 Assessment & Plan (01/25/2024 1:58 PM CDT): - status post (s/p) B350 OU - status post (s/p) dCPC OS - intraocular pressure (IOP) more reliably measured today with Ta, stable, acceptable CPM- Eleno 1% BID OD, Timolol QAM OU, Latanoprost QHS OU CPM F/U 6 months ? Need for all meds, difficult to measure intraocular pressure (IOP) Corneal decompensation right eye (OD)- now with marked drop in vision Assessment & Plan (07/12/2023 12:41 PM GLAZE MAKER): - status post (s/p) B350 OU - status post (s/p) dCPC OS - intraocular pressure (IOP) more reliably measured today with Ta, stable, acceptable CPM- Eleno 1% to BID OD, Timolol QAM OU, Latanoprost QHS OU CPM F/U 5-6 months ? Need for all meds Assessment & Plan (02/08/2023 9:10 PM CDT): - status post (s/p) B350 OU - status post (s/p) dCPC OS - intraocular pressure (IOP) more reliably measured today with Ta, stable, acceptable CPM- Eleno 1% to BID OD, Timolol QAM OU, Latanoprost QHS OU CPM F/U 5-6 months ? Need for all meds Assessment & Plan (07/06/2022 8:35 PM GLAZE MAKER): - status post (s/p) B350 OU - status post (s/p) dCPC OS - intraocular pressure (IOP) more reliably measured today with Ta, stable, acceptable CPM- Eleno 1% to BID OD, Timolol QAM OU, Latanoprost QHS OU CPM F/U 6 months Assessment & Plan (10/20/2021 8:23 PM CDT): - status post (s/p) B350 OU - status post (s/p) dCPC OS - intraocular pressure (IOP) more reliably measured today with Ta CPM- Eleno 1% to BID OD, Timolol QAM OU, Latanoprost QHS OU Lengthy d/w pt and daughter F/U with Dr. Marin as scheduled today for eval of cystoid macular edema (CME) right eye (OD) Noted decreased vision today (distance>near) F/U with me in 4 months- pursue LV eval-- Assessment & Plan (07/08/2021 3:14 PM GLAZE MAKER): Cont with Dr. Padilla Assessment & Plan (06/16/2021 8:11 PM GLAZE MAKER): - status post (s/p) B350 OU - status post (s/p) dCPC OS - intraocular pressure (IOP) more reliably measured today with Ta CPM- Eleno 1% to BID OD, Timolol QAM OU, Latanoprost QHS OU Lengthy d/w pt and daughter May still need additional intervention with subjective vision changes- with need for additional light, near vision difficulty Will check macular OCT with poor view of fundus, confirm no new changes Would recommend dCPC right eye (OD) vs 2nd GDI IN right eye (OD) F/U for careful refraction right eye (OD) and macular OCT Following review of these results, will make additional recommendations for treatment and F/U Assessment & Plan (05/12/2021 3:15 PM GLAZE MAKER): - status post (s/p) B350 OU - status post (s/p) dCPC OS - intraocular pressure (IOP) difficult to measure today Tp vs Ta - Eleno 1% to BID OD, Timolol QAM OU, Latanoprost QHS OU May still need additional intervention if elevated IOP in future:dCPC right eye (OD) vs 2nd GDI IN right eye (OD) F/U 2-3 months--GVF right eye (OD), but unreliable in past Assessment & Plan (12/30/2020 8:34 PM CDT): - status post (s/p) B350 OU - status post (s/p) dCPC OS - intraocular pressure (IOP) better today, 16 OU -Change Eleno 1% to BID OD, Timolol QAM OU, Latanoprost QHS OU May still need additional intervention if elevated IOP in future:dCPC right eye (OD) vs 2nd GDI IN right eye (OD) F/U 4-5 months Assessment & Plan (08/05/2020 11:09 AM GLAZE MAKER): - status post (s/p) B350 OU - status post (s/p) dCPC OS - intraocular pressure (IOP) better today, 16 OU - continue Eleno 1% TID OD, Timolol QAM OU, Latanoprost QHS OU May still need additional intervention if elevated IOP in future:dCPC right eye (OD) vs 2nd GDI IN right eye (OD) F/U 4 months Assessment & Plan (06/17/2020 11:17 AM GLAZE MAKER): - status post (s/p) B350 OU - status post (s/p) dCPC OS - intraocular pressure (IOP) slightly improved with eleno right eye (OD) Increase to tid with some improvement Discussed options: discussed r/b/a of dCPC right eye (OD) 2nd GDI IN right eye (OD) F/U 6-6 wks Assessment & Plan (05/06/2020 2:39 PM GLAZE MAKER): - status post (s/p) B350 OU - status post (s/p) dCPC OS - on timolol and latanoprost left eye (OS) and timolol and netarsudil/latanoprost (Rocklatan) right eye (OD). intolerant of brimonidine, ? Dorzolamide - States he gets drops in everyday - IOP too high both eyes (OU)- Discussed options: Pilocarpine right eye (OD) bid discussed r/b/a of dCPC right eye (OD) 2nd GDI IN right eye (OD) Elects to trial Eleno DC Rocklatan F/U 6 wks Assessment & Plan (03/25/2020 10:38 PM CDT): - status post (s/p) B350 OU - status post (s/p) dCPC OS - on 2 classes both eyes (OU), intolerant of brimonidine, ? dorzolamide - IOP too high both eyes (OU)- difficult measurement with squeezing - discussed r/b/a of dCPC right eye (OD); prefers to trial Rocklatan for now RTC 6-8 weeks for IOP check Assessment & Plan (01/22/2020 9:55 PM CDT): - status post (s/p) B350 OU - status post (s/p) dCPC OS - on 2 classes both eyes (OU), intolerant of brimonidine, ? dorzolamide - IOP too high both eyes (OU)- difficult measurement with squeezing, repeat acceptable? - discussed r/b/a of dCPC right eye (OD)- defers for now - F/U 2 months- recheck IOP Assessment & Plan (05/08/2019 4:03 PM GLAZE MAKER): - status post (s/p) B350 OU - status post (s/p) dCPC OS - on 2 classes OU - IOP stable, acceptable RTC 6 months Assessment & Plan (11/07/2018 2:11 PM CDT): - status post (s/p) B350 OU - status post (s/p) dCPC OS - on 2 classes OU - IOP stable, acceptable RTC 5-6 months for GVF OU and DFE Assessment & Plan (07/11/2018 2:58 PM GLAZE MAKER): - status post (s/p) B350 OU - status post (s/p) dCPC OS - on 2 classes OU - IOP stable F/U 4-5 months Assessment & Plan (02/08/2018 7:39 AM CDT): intraocular pressure (IOP) borderline acceptable/stable. Question whether fibrous strand at pupil is related in any way to vision or visual field (VF). CPM for now and F/U 5 months with DFE History of glaucoma tube shunt procedure 018 Assessment & Plan (11/07/2018 2:11 PM CDT): Covered with conjunctiva- monitor Assessment & Plan (07/11/2018 2:58 PM GLAZE MAKER): Conjunctiva covering both tubes Assessment & Plan (02/08/2018 7:40 AM CDT): Monitor with thin conjunctival covering over tubes both eyes (OU). Chronic pain syndrome 10/28/2016 Somatic symptom disorder, pe rsistent, severe, with predominant pain 10/28/2016 Social History Tobacco Use Types Packs/Day Years Used Date Smoking Tobacco: Former Pipe Passive Smoke Exposure: Never Smokeless Tobacco: Never Tobacco Cessation:Counseling Given: Not Answered Comments:Smoked a pipe a long time ago- per daughter AUDIT-C Answer Date Recorded Q1: How often do you have a drink containing alcohol? Never 05/15/2024 Q2: How many drinks containi ng alcohol do you have on a typical day when you are drinking? Patient does not drink Q3: How often do you have si x or more drinks on one occasion? Never 05/15/2024 Personal Safety Answer Date Recorded Have you ever been in or are you currently in a harmful physical or emotional relationship or is someone making you feel afraid or unsafe? Denies 05/15/2024 Sex and Gender Information Value Date Recorded Sex Assigned at Not on file Legal Sex Male 4:43 AM GLAZE MAKER Gender Identity Not on file Sexual Orientation Not on file Last Filed Vital Signs Vital Sign Reading Time Taken Comments Blood Pressure 141/64 05/15/2024 5:20 PM GLAZE MAKER Pulse 58 05/15/2024 5:20 PM GLAZE MAKER Temperature 36.8 C (98.2 F) 05/15/2024 4:25 PM GLAZE MAKER Respiratory Rate 20 05/15/2024 5:20 PM GLAZE MAKER Oxygen Saturation 91% 05/15/2024 5:20 PM GLAZE MAKER Inhaled Oxygen Concentration - - Weight 86.2 kg (190 lb) 05/15/2024 2:00 PM GLAZE MAKER Height 170.2 cm (5' 7 ) 05/15/2024 2:00 PM GLAZE MAKER Body Mass Index 29.76 05/15/2024 2:00 PM GLAZE MAKER Plan of Treatment Not on file Medical Devices Implanted Type Area Colorist Formulator Device Identifier Shelf Expiration Date Model / Serial / Lot Mid Stacey Transplant Srvcs Implant Dsek Right Tissue Cornea [id number] - [id number] - [id number] Implanted:Qty: 1 on 05/15/2024 by Cornelia Valencia MD PhD at [facility] Other - see comments Right: Eye Mid Stacey [employer] Srvcs 05/25/2024 [id number] / [id number] / [id number] Description:[facility] Procedures Procedure Name Priority Date/Time Associated Diagnosis Comments EGFR Routine 09/27/2023 4:09 PM CDT from Last 3 Months or Most Recently Relevant to Health Maintenance Results * eGFR (09/27/2023 4:09 PM CDT) eGFR 60 mL/min/1. 73 m2 Comment: Interpretive Data Reference Interval Normal >/= 90 mL/min/1.73m2 Mildly decreased* 60 - 89 mL/min/1.73m2 Mildly to moderately decreased 45 - 59 mL/min/1.73m2 Moderately to severely decreased 30 - 44 mL/min/1.73m2 Severely decreased 15 - 29 mL/min/1.73m2 Kidney Failure < 15 mL/min/1.73m2 *Relative to young adult level Estimated glomerular filtration rate is determined by the 2020 CKD-EPI equation recommended by the National Kidney Foundation (A Unifying Approach to GFR Estimation: Recommendations of the NKF-ASK Task Force on Reassessing the Inclusion of Race in Diagnosing Kidney Disease, JASN 2020). The CKD-EPI equation should not be used for patients with unstable renal function and has not been validated in children and those over 70. Current interpretive data was last reviewed 2021. Blood 09/27/2023 4:09 PM CDT 09/27/2023 5:55 PM CDT us Abbie Flores MD LAB BLOOD ORDERABLES Fi nal Result [facility] [id number] [address] Department [place] [address] from Last 3 Months or Most Recently Relevant to Health Maintenance Insurance MED[employer]ARE [employer]IONS MED[employer]ARE [employer]UTIONS Advance Directives For more information, please contact: [phone] Documents on File Type Date Recorded Patient Code Number Stamper Expl anation Power of Body And Fender Worker 05/15/2024 11:55 AM Care Teams Manager Hiv Relationship Specialty Start Date End Date Angelique Jacobs MD [address] [place] [address] PCP - General Family Medicine 01/24/24
--- OUTSIDE RECORDS SUMMARY | 2024-08-17 01:07 | XMS_ITS ---
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 Role Phone MARZENA NAYAK Unavailable [phone] Angelique Jacobs Unavailable Unavailable REASON FOR VISIT *General care Medications Medication SIG (Take, Route, Frequency, Duration) Notes Start Date End Date Status Losartan Potassium 100 MG Oral Tablet ORAL losartan potassium 100 MG Oral TabletOriginal Medicationlosartan potassium 100 MG Oral Tablet *Reorder from [email or web address] for eRx and Interaction Alerts* 5 Active urea 400 MG/ML Topical Cream CUTANEOUS urea 400 MG/ML Topical CreamOriginal Medicationurea 400 MG/ML Topical Cream *Reorder from [email or web address] for eRx and Interaction Alerts* 5 Active Z-SAMMY ORAL Z-PAKOriginal MedicationZ-SAMMY *Reorder from [email or web address] for eRx and Interaction Alerts* 8 Active Pravastatin Sodium 40 MG Oral Tablet ORAL pravastatin sodium 40 MG Oral TabletOriginal Medicationpravastatin sodium 40 MG Oral Tablet *Reorder from [email or web address] for eRx and Interaction Alerts* 5 Active silver sulfadiazine 10 MG/ML Topical Cream [Silvadene] CUTANEOUS silver sulfadiazine 10 MG/ML Topical Cream [Silvadene]Original Medicationsilver sulfadiazine 10 MG/ML Topical Cream [Silvadene] *Reorder from [email or web address] for eRx and Interaction Alerts* 5 Active clobetasol propionate 0.0005 MG/MG Topical Ointment [Temovate] CUTANEOUS clobetasol propionate 0.0005 MG/MG Topical Ointment [Temovate]Original Medicationclobetasol propionate 0.0005 MG/MG Topical Ointment [Temovate] *[facility]* 5 Active betamethasone 0.5 MG/ML / clotrimazole 10 MG/ML Topical Cream [Lotrisone] CUTANEOUS betamethasone 0.5 MG/ML / clotrimazole 10 MG/ML Topical Cream [Lotrisone]Original Medicationbetamethasone 0.5 MG/ML / clotrimazole 10 MG/ML Topical Cream [Lotrisone] *[facility] and Interacti 5 Active potassium chloride 10 MEQ Extended Release Oral Capsule ORAL potassium chloride 10 MEQ Extended Release Oral CapsuleOriginal Medicationpotassium chloride 10 MEQ Extended Release Oral Capsule *[facility]* 5 Active clotrimazole 10 MG/ML Topical Cream CUTANEOUS clotrimazole 10 MG/ML Topical CreamOriginal Medicationclotrimazole 10 MG/ML Topical Cream *Reorder from [facility] for eRx and Interaction Alerts* 5 Active duloxetine 30 MG Delayed Release Oral Capsule ORAL duloxetine 30 MG Delayed Release Oral CapsuleOriginal Medicationduloxetine 30 MG Delayed Release Oral Capsule *Reorder from [facility] for eRx and Interaction Alerts* 5 Active ammonium lactate 120 MG/ML Topical Cream [Lac-Hydrin] CUTANEOUS ammonium lactate 120 MG/ML Topical Cream [Lac-Hydrin]Original Medicationammonium lactate 120 MG/ML Topical Cream [Lac-Hydrin] *Reorder from [facility] for eRx and Interaction Alerts* 5 Active acyclovir 0.05 MG/MG Topical Ointment [Zovirax] CUTANEOUS acyclovir 0.05 MG/MG Topical Ointment [Zovirax]Original Medicationacyclovir 0.05 MG/MG Topical Ointment [Zovirax] *[facility]* 8 Active amlodipine 5 MG Oral Tablet ORAL amlodipine 5 MG Oral TabletOriginal Medicationamlodipine 5 MG Oral Tablet *Reorder from [facility] for eRx and Interaction Alerts* 5 Active acetaminophen 325 MG / hydrocodone bitartrate 5 MG Oral Tablet ORAL acetaminophen 325 MG / hydrocodone bitartrate 5 MG Oral TabletOriginal Medicationacetaminophen 325 MG / hydrocodone bitartrate 5 MG Oral Tablet *Reorder from [facility] for eRx and Interaction Alerts* 5 Active Encounters Encounter Location Date Provider Diagnosis [facility] [address] [place], [place] [id number] 02/08/2024 MARZENA NAYAK 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 ; Primary osteoarthritis, left ankle and foot M19.072 ; Pain in right toe(s) M79.674 ; Pain in left toe(s) M79.675 and 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, bilateral legs I70.203 Assessments Encounter Date Diagnosis (ICD Code) Assessment Notes Treatment Notes Treatment Clinical Notes Section Notes 02/08/2024 Fungal infection of nail (ICD-10 - B35.1) Nails 1-5 Bilateral were debrided extensively with nail nippers and emery board, reducing length and girth to pink healthy tissue with any subungual debris and necrotic tissue removed 02/08/2024 Primary osteoarthritis, left ankle and foot (ICD-10 - M19.072) 02/08/2024 Pain in right toe(s) (ICD-10 - M79.674) 02/08/2024 Pain in left toe(s) (ICD-10 - M79.675) 02/08/2024 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, bilateral legs (ICD-10 - I70.203) 02/08/2024 Other Following skin prep, a total of 3 ccs of a 1-1-1 mix of 0.5% marcaine plain, Kenalog, and dexamethasone sodium phosphate was injected into the patients left ankle joint. Plan Of Treatment Treatment Notes Assessment Notes Fungal infection of nail Nails 1-5 Bilat eral were debrided extensively with nail nippers and emery board, reducing length and girth to pink healthy tissue with any subungual debris and necrotic tissue removed Other Following skin prep, a total of 3 ccs of a 1-1-1 mix of 0.5% marcaine plain, Kenalog, and dexamethasone sodium phosphate was injected into the patients left ankle joint. Next Appt Details Follow Up: 9 weeks, Reason: Provider Name:MARZENA Chris VOSSANAMBONNIE PRYOR, 10/10/2024 10:20:00 AM, [address], [address], [phone], Progress Notes * HAYLEYKELSEY LÓPEZ LDOB: [birth year] (83 yo M)Acc No.[id number]:02/08/2024 Patient: KELSEY CHUNG Provider: Aundrea Nayak DPM :1940 A ge:83 Y S ex:Male Date:02/08/2024 Address:[address] [place] [address] Subjective: * Chief Complaints: * 1 . *General care. * HPI: H PI: General care P atient presents to the office for at risk foot care. Patient states that their nails are thickened, elongated and painful. Patient states that it is aggravated by shoe gear. Onset is gradual. Patient denies being diabetic. Patient denies taking blood thinners. Date last seen by Dr. Melgar was 12/2023. Initials sea. He is also c/o chronic pain in the left ankle. He goes to the see ortho every 4 months for a steroid injection and would like to have that done here. * ROS: G eneral / Constitutional: Patient denies c hange in appetite, fatigue, chills, fever.? C ardiovascular: Chest pain d enies. N eurologic: Loss of use of extremity d enies. * Medical History: * Medications: T aking Pravastatin Sodium 40 MG Oral Tablet ORAL , Notes to Pharmacist: pravastatin sodium 40 MG Oral TabletOriginal Medicationpravastatin sodium 40 MG Oral Tablet *Reorder from [facility] for eRx and Interaction Alerts*, Taking Losartan Potassium 100 MG Oral Tablet ORAL , Notes to Pharmacist: losartan potassium 100 MG Oral TabletOriginal Medicationlosartan potassium 100 MG Oral Tablet *Reorder from [facility] for eRx and Interaction Alerts*, Taking acetaminophen 325 MG / hydrocodone bitartrate 5 MG Oral Tablet ORAL , Notes to Pharmacist: acetaminophen 325 MG / hydrocodone bitartrate 5 MG Oral TabletOriginal Medicationacetaminophen 325 MG / hydrocodone bitartrate 5 MG Oral Tablet *Reorder from [facility] for eRx and Interaction Alerts*, Taking acyclovir 0.05 MG/MG Topical Ointment [Zovirax] CUTANEOUS , Notes to Pharmacist: acyclovir 0.05 MG/MG Topical Ointment [Zovirax]Original Medicationacyclovir 0.05 MG/MG Topical Ointment [Zovirax] *Reorder from [facility] for eRx and Interaction Alerts*, Taking amlodipine 5 MG Oral Tablet ORAL , Notes to Pharmacist: amlodipine 5 MG Oral TabletOriginal Medicationamlodipine 5 MG Oral Tablet *Reorder from [facility] for eRx and Interaction Alerts*, Taking ammonium lactate 120 MG/ML Topical Cream [Lac-Hydrin] CUTANEOUS , Notes to Pharmacist: ammonium lactate 120 MG/ML Topical Cream [Lac-Hydrin]Original Medicationammonium lactate 120 MG/ML Topical Cream [Lac-Hydrin] *Reorder from [facility] for eRx and Interaction Alerts*, Taking betamethasone 0.5 MG/ML / clotrimazole 10 MG/ML Topical Cream [Lotrisone] CUTANEOUS , Notes to Pharmacist: betamethasone 0.5 MG/ML / clotrimazole 10 MG/ML Topical Cream [Lotrisone]Original Medicationbetamethasone 0.5 MG/ML / clotrimazole 10 MG/ML Topical Cream [Lotrisone] *Reorder from [facility] for eRx and Interacti, Taking clobetasol propionate 0.0005 MG/MG Topical Ointment [Temovate] CUTANEOUS , Notes to Pharmacist: clobetasol propionate 0.0005 MG/MG Topical Ointment [Temovate]Original Medicationclobetasol propionate 0.0005 MG/MG Topical Ointment [Temovate] *Reorder from [facility] for eRx and Interaction Alerts*, Taking clotrimazole 10 MG/ML Topical Cream CUTANEOUS , Notes to Pharmacist: clotrimazole 10 MG/ML Topical CreamOriginal Medicationclotrimazole 10 MG/ML Topical Cream *Reorder from [facility] for eRx and Interaction Alerts*, Taking duloxetine 30 MG Delayed Release Oral Capsule ORAL , Notes to Pharmacist: duloxetine 30 MG Delayed Release Oral CapsuleOriginal Medicationduloxetine 30 MG Delayed Release Oral Capsule *Reorder from [facility] for eRx and Interaction Alerts*, Taking potassium chloride 10 MEQ Extended Release Oral Capsule ORAL , Notes to Pharmacist: potassium chloride 10 MEQ Extended Release Oral CapsuleOriginal Medicationpotassium chloride 10 MEQ Extended Release Oral Capsule *Reorder from [facility] for eRx and Interaction Alerts*, Taking silver sulfadiazine 10 MG/ML Topical Cream [Silvadene] CUTANEOUS , Notes to Pharmacist: silver sulfadiazine 10 MG/ML Topical Cream [Silvadene]Original Medicationsilver sulfadiazine 10 MG/ML Topical Cream [Silvadene] *Reorder from [facility] for eRx and Interaction Alerts*, Taking urea 400 MG/ML Topical Cream CUTANEOUS , Notes to Pharmacist: urea 400 MG/ML Topical CreamOriginal Medicationurea 400 MG/ML Topical Cream *Reorder from [facility] for eRx and Interaction Alerts*, Taking Z-SAMMY ORAL , Notes to Pharmacist: Z-PAKOriginal MedicationZ-SAMMY *Reorder from [facility] for eRx and Interaction Alerts* Objective: * Examination: P hysical Examination: Gen: T he patient is awake, alert, well developed, well groomed and well nourished. They are in no apparent distress. . Musc: F oot structure is normal bilateral. Muscle strength is 5/5 to all joints bilaterally. Pain on palpation of left ankle joint . Derm: T here is absent hair growth on bilateral feet. There are pigmentary changes of bilateral foot. The skin color is red. The skin texture is thin and shiny. Distal cooling noted in bilateral feet. Nails are thick, discolored, and dystrophic with subungual debris. They are painful to palpation. . Neuro: G rossly intact to light touch bilateral . Vasc: P osterior tibialis pulse 0/4 bilaterally. Dorsalis pedis pulse 0/4 bilaterally. No edema noted. Capillary fill time > 3 seconds to all digits. . Assessment: * Assessment: 1. F ungal infection of nail - B35.1 (Primary) 2 . P rimary osteoarthritis, left ankle and foot - M19.072 3 . P ain in right toe(s) - M79.674 4 . P ain in left toe(s) - M79.675 5 . U nspecified atherosclerosis of samish arteries of extremities, bilateral legs - I70.203 Plan: * Treatment: 2. O thers Notes: Following skin prep, a total of 3 ccs of a 1-1-1 mix of 0.5% marcaine plain, Kenalog, and dexamethasone sodium phosphate was injected into the patients left ankle joint. * Procedure Codes: 1 1721 DEBRIDE NAIL, 6 OR MORE, Modifiers: Q8 , 56721 INSERT AND REMOVE BONE PIN, Modifiers: LT * Follow Up: 9 weeks * Billing Information: * Visit Code: * Procedure Codes: 61476 DEBRIDE NAIL, 6 OR MORE. Modifiers: Q8 90477 INSERT AND REMOVE BONE PIN. 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 Patient states that their nails are thickened, elongated and painful. Patient states that it is aggravated by shoe gear. Onset is gradual. Patient denies being diabetic. Patient denies taking blood thinners. Date last seen by Dr. Melgar was 12/2023. Initials sea He is also c/o chronic pain in the left ankle. He goes to the see ortho every 4 months for a steroid injection and would like to have that done here Examination Category Sub-Category Detail Notes Category Not es Physical Examination Gen: The patient is awake, alert, well developed, well groomed and well nourished. They are in no apparent distress. Vasc: Posterior tibialis p ulse 0/4 bilaterally. Dorsalis pedis pulse 0/4 bilaterally. No edema noted. Capillary fill time > 3 seconds to all digits. Neuro: Grossly intact to li ght touch bilateral Musc: Foot structure is no rmal bilateral. Muscle strength is 5/5 to all joints bilaterally. Pain on palpation of left ankle joint Derm: There is absent hair growth on bilateral feet. There are pigmentary changes of bilateral foot. The skin color is red. The skin texture is thin and shiny. Distal cooling noted in bilateral feet. Nails are thick, discolored, and dystrophic with subungual debris. They are painful to palpation.
--- OUTSIDE RECORDS SUMMARY | 2024-08-17 01:07 | XMS_ITS ---
Author Organization [facility] Address [address] [place], [place] [id number] Care Team Providers Care Loom Fixer Helper Name Role Phone MARZENA NAYAK Unavailable [phone] Angelique Jacobs Unavailable Unavailable REASON FOR VISIT *General care Medications Medication SIG (Take, Route, Frequency, Duration) Notes Start Date End Date Status Z-SAMMY ORAL Z-PAKOriginal MedicationZ-SAMMY *Reorder from [facility] for eRx and Interaction Alerts* 8 Active urea 400 MG/ML Topical Cream CUTANEOUS urea 400 MG/ML Topical CreamOriginal Medicationurea 400 MG/ML Topical Cream *Reorder from [facility] for eRx and Interaction Alerts* 5 Active silver sulfadiazine 10 MG/ML Topical Cream [Silvadene] CUTANEOUS silver sulfadiazine 10 MG/ML Topical Cream [Silvadene]Original Medicationsilver sulfadiazine 10 MG/ML Topical Cream [Silvadene] *Reorder from [facility] for eRx and Interaction Alerts* 5 Active potassium chloride 10 MEQ Extended Release Oral Capsule ORAL potassium chloride 10 MEQ Extended Release Oral CapsuleOriginal Medicationpotassium chloride 10 MEQ Extended Release Oral Capsule *Reorder from [facility] for eRx and Interaction Alerts* 5 Active duloxetine 30 MG Delayed Release Oral Capsule ORAL duloxetine 30 MG Delayed Release Oral CapsuleOriginal Medicationduloxetine 30 MG Delayed Release Oral Capsule *Reorder from [facility] for eRx and Interaction Alerts* 5 Active betamethasone 0.5 MG/ML / clotrimazole 10 MG/ML Topical Cream [Lotrisone] CUTANEOUS betamethasone 0.5 MG/ML / clotrimazole 10 MG/ML Topical Cream [Lotrisone]Original Medicationbetamethasone 0.5 MG/ML / clotrimazole 10 MG/ML Topical Cream [Lotrisone] *Reorder from [facility] for eRx and Interacti 5 Active ammonium lactate 120 MG/ML Topical Cream [Lac-Hydrin] CUTANEOUS ammonium lactate 120 MG/ML Topical Cream [Lac-Hydrin]Original Medicationammonium lactate 120 MG/ML Topical Cream [Lac-Hydrin] *Reorder from [facility] for eRx and Interaction Alerts* 5 Active amlodipine 5 MG Oral Tablet ORAL amlodipine 5 MG Oral TabletOriginal Medicationamlodipine 5 MG Oral Tablet *Reorder from [facility] for eRx and Interaction Alerts* 5 Active clotrimazole 10 MG/ML Topical Cream CUTANEOUS clotrimazole 10 MG/ML Topical CreamOriginal Medicationclotrimazole 10 MG/ML Topical Cream *Reorder from [facility] for eRx and Interaction Alerts* 5 Active clobetasol propionate 0.0005 MG/MG Topical Ointment [Temovate] CUTANEOUS clobetasol propionate 0.0005 MG/MG Topical Ointment [Temovate]Original Medicationclobetasol propionate 0.0005 MG/MG Topical Ointment [Temovate] *Reorder from [facility] for eRx and Interaction Alerts* 5 Active acetaminophen 325 MG / hydrocodone bitartrate 5 MG Oral Tablet ORAL acetaminophen 325 MG / hydrocodone bitartrate 5 MG Oral TabletOriginal Medicationacetaminophen 325 MG / hydrocodone bitartrate 5 MG Oral Tablet *Reorder from [facility] for eRx and Interaction Alerts* 5 Active Losartan Potassium 100 MG Oral Tablet ORAL losartan potassium 100 MG Oral TabletOriginal Medicationlosartan potassium 100 MG Oral Tablet *Reorder from [facility] for eRx and Interaction Alerts* 5 Active Pravastatin Sodium 40 MG Oral Tablet ORAL pravastatin sodium 40 MG Oral TabletOriginal Medicationpravastatin sodium 40 MG Oral Tablet *Reorder from [facility] for eRx and Interaction Alerts* 5 Active acyclovir 0.05 MG/MG Topical Ointment [Zovirax] CUTANEOUS acyclovir 0.05 MG/MG Topical Ointment [Zovirax]Original Medicationacyclovir 0.05 MG/MG Topical Ointment [Zovirax] *Reorder from [facility] for eRx and Interaction Alerts* 8 Active Encounters Encounter Location Date Provider Diagnosis [facility] [address] [place] [id number] 05/23/2024 MARZENA NAYAK 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 ; Primary osteoarthritis, left ankle and foot M19.072 ; Pain in right toe(s) M79.674 ; Pain in left toe(s) M79.675 and Unspecified atherosclerosis of [place] arteries of extremities, bilateral legs I70.203 Assessments Encounter Date Diagnosis (ICD Code) Assessment Notes Treatment Notes Treatment Clinical Notes Section Notes 05/23/2024 Fungal infection of nail (ICD-10 - B35.1) Nails 1-5 Bilateral were debrided extensively with nail nippers and emery board, reducing length and girth to pink healthy tissue with any subungual debris and necrotic tissue removed 05/23/2024 Primary osteoarthritis, left ankle and foot (ICD-10 - M19.072) 05/23/2024 Pain in right toe(s) (ICD-10 - M79.674) 05/23/2024 Pain in left toe(s) (ICD-10 - M79.675) 05/23/2024 Unspecified atherosclerosis of [place] arteries of extremities, bilateral legs (ICD-10 - I70.203) 05/23/2024 Other Following skin prep, a total of [...] Follow Up: 9 weeks, Reason: Provider Name:MARZENA PRYOR, 10/10/2024 10:20:00 AM, [address], [address], [phone], Progress Notes * GUILLERMINAKELSEY LDOB: [birth year] (83 yo M)Acc No.[id number]:05/23/2024 Patient: KELSEY CHUNG Provider: Aundrea Nayak DPM :1940 A ge:83 Y S ex:Male Date:05/23/2024 Address:[address] [place] [address] Subjective: * Chief Complaints: * * General care * HPI: H PI: General care P atient presents to the office for at risk foot care. Patient states that their nails are thickened, elongated and painful. Patient states that it is aggravated by shoe gear. Onset is gradual. Patient denies being diabetic., Patient denies taking blood thinners., Date last seen by Dr. Jacobs was February 2024 Initials HG, .. He is also c/o pain in his left ankle. * ROS: G eneral / Constitutional: Patient denies c hange in appetite, fatigue, chills, fever.? C ardiovascular: Chest pain d enies. N eurologic: Loss of use of extremity d enies. * Medical History: * Surgical History: * Hospitalization/Major Diagno stic Procedure: * Medications: T akingPravastatin Sodium 40 MG Oral Tablet ORAL , Notes to Pharmacist: pravastatin sodium 40 MG Oral TabletOriginal Medicationpravastatin sodium 40 MG Oral Tablet *Reorder from [facility] for eRx and Interaction Alerts*Losartan Potassium 100 MG Oral Tablet ORAL , Notes to Pharmacist: losartan potassium 100 MG Oral TabletOriginal Medicationlosartan potassium 100 MG Oral Tablet *[facility]*acetaminophen 325 MG / hydrocodone bitartrate 5 MG Oral Tablet ORAL , Notes to Pharmacist: acetaminophen 325 MG / hydrocodone bitartrate 5 MG Oral TabletOriginal Medicationacetaminophen 325 MG / hydrocodone bitartrate 5 MG Oral Tablet *Reorder from [facility] for eRx and Interaction Alerts*acyclovir 0.05 MG/MG Topical Ointment [Zovirax] CUTANEOUS , Notes to Pharmacist: acyclovir 0.05 MG/MG Topical Ointment [Zovirax]Original Medicationacyclovir 0.05 MG/MG Topical Ointment [Zovirax] *Reorder from [facility] for eRx and Interaction Alerts*amlodipine 5 MG Oral Tablet ORAL , Notes to Pharmacist: amlodipine 5 MG Oral TabletOriginal Medicationamlodipine 5 MG Oral Tablet *Reorder from [facility] for eRx and Interaction Alerts*ammonium lactate 120 MG/ML Topical Cream [Lac-Hydrin] CUTANEOUS , Notes to Pharmacist: ammonium lactate 120 MG/ML Topical Cream [Lac-Hydrin]Original Medicationammonium lactate 120 MG/ML Topical Cream [Lac-Hydrin] *Reorder from [facility] for eRx and Interaction Alerts*betamethasone 0.5 MG/ML / clotrimazole 10 MG/ML Topical Cream [Lotrisone] CUTANEOUS , Notes to Pharmacist: betamethasone 0.5 MG/ML / clotrimazole 10 MG/ML Topical Cream [Lotrisone]Original Medicationbetamethasone 0.5 MG/ML / clotrimazole 10 MG/ML Topical Cream [Lotrisone] *Reorder from [facility] for eRx and Interacticlobetasol propionate 0.0005 MG/MG Topical Ointment [Temovate] CUTANEOUS , Notes to Pharmacist: clobetasol propionate 0.0005 MG/MG Topical Ointment [Temovate]Original Medicationclobetasol propionate 0.0005 MG/MG Topical Ointment [Temovate] *Reorder from [facility] for eRx and Interaction Alerts*clotrimazole 10 MG/ML Topical Cream CUTANEOUS , Notes to Pharmacist: clotrimazole 10 MG/ML Topical CreamOriginal Medicationclotrimazole 10 MG/ML Topical Cream *Reorder from [facility] for eRx and Interaction Alerts*duloxetine 30 MG Delayed Release Oral Capsule ORAL , Notes to Pharmacist: duloxetine 30 MG Delayed Release Oral CapsuleOriginal Medicationduloxetine 30 MG Delayed Release Oral Capsule *Reorder from [facility] for eRx and Interaction Alerts*potassium chloride 10 MEQ Extended Release Oral Capsule ORAL , Notes to Pharmacist: potassium chloride 10 MEQ Extended Release Oral CapsuleOriginal Medicationpotassium chloride 10 MEQ Extended Release Oral Capsule *Reorder from [facility] for eRx and Interaction Alerts*silver sulfadiazine 10 MG/ML Topical Cream [Silvadene] CUTANEOUS , Notes to Pharmacist: silver sulfadiazine 10 MG/ML Topical Cream [Silvadene]Original Medicationsilver sulfadiazine 10 MG/ML Topical Cream [Silvadene] *Reorder from [facility] for eRx and Interaction Alerts*urea 400 MG/ML Topical Cream CUTANEOUS , Notes to Pharmacist: urea 400 MG/ML Topical CreamOriginal Medicationurea 400 MG/ML Topical Cream *Reorder from [facility] for eRx and Interaction Alerts*Z-SAMMY ORAL , Notes to Pharmacist: Z-PAKOriginal MedicationZ-SAMMY *Reorder from [facility] for eRx and Interaction Alerts*Taking Pravastatin Sodium 40 MG Oral Tablet ORAL , Notes to Pharmacist: pravastatin sodium 40 MG Oral TabletOriginal Medicationpravastatin sodium 40 MG Oral Tablet *Reorder from [facility] for eRx and Interaction Alerts*Taking Losartan Potassium 100 MG Oral Tablet ORAL , Notes to Pharmacist: losartan potassium 100 MG Oral TabletOriginal Medicationlosartan potassium 100 MG Oral Tablet *Reorder from [facility] for eRx and Interaction Alerts*Taking acetaminophen 325 MG / hydrocodone bitartrate 5 MG Oral Tablet ORAL , Notes to Pharmacist: acetaminophen 325 MG / hydrocodone bitartrate 5 MG Oral TabletOriginal Medicationacetaminophen 325 MG / hydrocodone bitartrate 5 MG Oral Tablet *Reorder from [facility] for eRx and Interaction Alerts*Taking acyclovir 0.05 MG/MG Topical Ointment [Zovirax] CUTANEOUS , Notes to Pharmacist: acyclovir 0.05 MG/MG Topical Ointment [Zovirax]Original Medicationacyclovir 0.05 MG/MG Topical Ointment [Zovirax] *Reorder from [facility] for eRx and Interaction Alerts*Taking amlodipine 5 MG Oral Tablet ORAL , Notes to Pharmacist: amlodipine 5 MG Oral TabletOriginal Medicationamlodipine 5 MG Oral Tablet *Reorder from [facility] for eRx and Interaction Alerts*Taking ammonium lactate 120 MG/ML Topical Cream [Lac-Hydrin] CUTANEOUS , Notes to Pharmacist: ammonium lactate 120 MG/ML Topical Cream [Lac-Hydrin]Original Medicationammonium lactate 120 MG/ML Topical Cream [Lac-Hydrin] *Reorder from [facility] for eRx and Interaction Alerts*Taking betamethasone 0.5 MG/ML / clotrimazole 10 MG/ML Topical Cream [Lotrisone] CUTANEOUS , Notes to Pharmacist: betamethasone 0.5 MG/ML / clotrimazole 10 MG/ML Topical Cream [Lotrisone]Original Medicationbetamethasone 0.5 MG/ML / clotrimazole 10 MG/ML Topical Cream [Lotrisone] *Reorder from [facility] for eRx and InteractiTaking clobetasol propionate 0.0005 MG/MG Topical Ointment [Temovate] CUTANEOUS , Notes to Pharmacist: clobetasol propionate 0.0005 MG/MG Topical Ointment [Temovate]Original Medicationclobetasol propionate 0.0005 MG/MG Topical Ointment [Temovate] *Reorder from [facility] for eRx and Interaction Alerts*Taking clotrimazole 10 MG/ML Topical Cream CUTANEOUS , Notes to Pharmacist: clotrimazole 10 MG/ML Topical CreamOriginal Medicationclotrimazole 10 MG/ML Topical Cream *Reorder from [facility] for eRx and Interaction Alerts*Taking duloxetine 30 MG Delayed Release Oral Capsule ORAL , Notes to Pharmacist: duloxetine 30 MG Delayed Release Oral CapsuleOriginal Medicationduloxetine 30 MG Delayed Release Oral Capsule *Reorder from [facility] for eRx and Interaction Alerts*Taking potassium chloride 10 MEQ Extended Release Oral Capsule ORAL , Notes to Pharmacist: potassium chloride 10 MEQ Extended Release Oral CapsuleOriginal Medicationpotassium chloride 10 MEQ Extended Release Oral Capsule *Reorder from [facility] for eRx and Interaction Alerts*Taking silver sulfadiazine 10 MG/ML Topical Cream [Silvadene] CUTANEOUS , Notes to Pharmacist: silver sulfadiazine 10 MG/ML Topical Cream [Silvadene]Original Medicationsilver sulfadiazine 10 MG/ML Topical Cream [Silvadene] *Reorder from [facility] for eRx and Interaction Alerts*Taking urea 400 MG/ML Topical Cream CUTANEOUS , Notes to Pharmacist: urea 400 MG/ML Topical CreamOriginal Medicationurea 400 MG/ML Topical Cream *Reorder from [facility] for eRx and Interaction Alerts*Taking Z-SAMMY ORAL , Notes to Pharmacist: Z-PAKOriginal MedicationZ-SAMMY *[facility] and Interaction Alerts* Objective: * Vitals: * Examination: P hysical Examination: Gen: T [...] P ain in right toe(s) - M79.674 ?4. P ain in left toe(s) - M79.675 5 . U nspecified atherosclerosis of [place] arteries of extremities, bilateral legs - I70.203 Plan: * Treatment: 2. O thers Notes: Following skin prep, a total of 3 ccs of a 1-1-1 mix of 0.5% marcaine plain, Kenalog, and dexamethasone sodium phosphate was injected into the patients left ankle joint. * Procedure Codes: * Follow Up: 9 weeks * Billing Information: * Visit Code: 09356 Office Visit, Est Pt., Level 3. * Procedure Codes: * T SHOP MANAGER Sign off status: Completed true * Provider: Aundrea Nayak DPM Date: 07/23/2023 Generated for Luis colorado/Osman/Laryitting on: 0 08/17/2024 01:06 AM PRINT SHOP MANAGER History and Physical Notes * HPI (History of Present Illness) Category Sub-Category Detail Notes Category Not es HPI General care Patient presents to the office for at risk foot care. Patient states that their nails are thickened, elongated and painful. Patient states that it is aggravated by shoe gear. Onset is gradual. Patient denies being diabetic., Patient denies taking blood thinners., Date last seen by Dr. Jacobs was February 2024 Initials HG, . He is also c/o pain in his left ankle Examination Category Sub-Category Detail Notes Category Not [...]
--- OUTSIDE RECORDS SUMMARY | 2024-08-17 01:07 | XMS_ITS | Clinical Summary ---
Author Organization [facility] Medical [facility] 2 Address [address] [facility] [place] [address] Care Team Providers Care Caramel Maker Name Role Phone Angelique Jacobs MD Primary Care Provider [phone] Allergies Active Allergy Reactions Criticality Noted Date [...] 07/08/2021 Assessment & Plan (07/08/2021 3:14 PM GRANULAR OPERATOR): Referred by Dr. 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 Marin as scheduled- doubt she will be able to continue OCTs Assessment & Plan (07/12/2023 12:42 PM GRANULAR OPERATOR): Vision sl worse- subjective loss also F/U with Dr. Marin as scheduled Assessment & Plan (02/08/2023 9:11 PM CDT): PH vision stable and no subjective changes F/U with Dr. Marin as scheduled Assessment & Plan (07/06/2022 8:36 PM GRANULAR OPERATOR): Vision improved status post (s/p) AMARILIS Subjective and objective improvement F/U with Dr. 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 Discussed R/B/A of anti-VEGF and patient wishes to proceed. AMARILIS #1 today Warning Sx endophthalmitis discussed Follow up 4 weeks Assessment & Plan (07/08/2021 3:15 PM GRANULAR OPERATOR): right eye (OD) on OCT mac today; not CSME and has minimal effect on vision; retina consult not indicated as would not require injection or topical treatment -encourage BG control Hyperlipidemia associated with type 2 diabetes m bill 04/29/2021 Hypertension associated with type 2 diabetes carmen litus 04/29/2021 Primary open angle glaucoma (POAG) of [...] vision Assessment & Plan (07/12/2023 12:41 PM GRANULAR OPERATOR): - status post (s/p) B350 OU - [...] meds Assessment & Plan (07/06/2022 8:35 PM GRANULAR OPERATOR): - status post (s/p) B350 OU - [...] eval-- Assessment & Plan (07/08/2021 3:14 PM GRANULAR OPERATOR): Cont with Dr. Padilla Assessment & Plan (06/16/2021 8:11 PM GRANULAR OPERATOR): - status post (s/p) B350 OU - [...] F/U Assessment & Plan (05/12/2021 3:15 PM GRANULAR OPERATOR): - status post (s/p) B350 OU - [...] months Assessment & Plan (08/05/2020 11:09 AM GRANULAR OPERATOR): - status post (s/p) B350 OU - status post (s/p) dCPC OS - intraocular pressure (IOP) better today, 16 OU - continue Eleno 1% TID OD, Timolol QAM OU, Latanoprost QHS OU May still need additional intervention if elevated IOP in future:dCPC right eye (OD) vs 2nd GDI IN right eye (OD) F/U 4 months Assessment & Plan (06/17/2020 11:17 AM GRANULAR OPERATOR): - status post (s/p) B350 OU - status post (s/p) dCPC OS - intraocular pressure (IOP) slightly improved with eleno right eye (OD) Increase to tid with some improvement Discussed options: discussed r/b/a of dCPC right eye (OD) 2nd GDI IN right eye (OD) F/U 6-6 wks Assessment & Plan (05/06/2020 2:39 PM GRANULAR OPERATOR): - status post (s/p) B350 OU - [...] IOP Assessment & Plan (05/08/2019 4:03 PM GRANULAR OPERATOR): - status post (s/p) B350 OU - [...] DFE Assessment & Plan (07/11/2018 2:58 PM GRANULAR OPERATOR): - status post (s/p) B350 OU - [...] monitor Assessment & Plan (07/11/2018 2:58 PM GRANULAR OPERATOR): Conjunctiva covering both tubes Assessment & Plan (02/08/2018 7:40 AM CDT): Monitor with thin conjunctival covering over tubes both eyes (OU). Chronic pain syndrome 10/28/2016 Somatic symptom disorder, pe rsistent, severe, with predominant pain 10/28/2016 Encounters Date Type Department Care Team Description 08/05/2024 Telephone [facility] Ophthalmology [address] [facility], [address] [place] [address] Cornelia Valencia MD PhD 07/11/2024 1:30 PM GRANULAR OPERATOR Office Visit [facility] Ophthalmology [address] [facility] [address] [place] [address] Cornelia Valencia MD PhD S/P eye surgery (Primary Dx) 05/22/2024 9:45 AM GRANULAR OPERATOR Office Visit [facility] Ophthalmology [address] [address] [address] [place] [address] Cornelia Valencia MD PhD S/P eye surgery (Primary Dx) from Last 3 Months Surgical History Surgery Date Site/Laterality Comments UT AQUEOUS SHUNT EXTRAOC EQU AT PLATE RSVR W/GRAFT Ant. Sclera Aqueous Shunt To Extraocular [place] Left Eye - (Added by Conv) UT AQUEOUS SHUNT EXTRAOC EQU AT PLATE RSVR W/GRAFT Ant. Sclera Aqueous Shunt To Extraocular [place] Right Eye - (Added by Conv) UT XCAPSL CTRC RMVL INSJ IO LENS PROSTH W/O ECP Extracaps Cataract Extract With Prosthesis Insert Left Eye - (Added by Conv) UT FSTLJ SCLERA GLAUCOMA TRABECULECT AB EXTERNO Fistulization For Glaucoma By Trabeculectomy Ab Externo - (Added by Conv) CATARACT EXTRACTION INTRAOCULAR LENS INSERTION ESOPHAGOGASTRODUODENOSCOPY 09/01/2023 - 10/01/2023 ESOPHAGOGASTRODUODENOSCOPY 04/04/2024 APPENDECTOMY as a kid ANKLE SURGERY 07/03/2005 - 07/02/2006 Left PROSTATE SURGERY Medical History Medical History Date Comments Primary open angle glaucoma Prim kay open angle glaucoma - (Added by Conv) Type 2 diabetes mellitus (HCC) Hypertension Anemia Social History Tobacco Use Types Packs/Day Years [...] on file Legal Sex Male 4:43 AM GRANULAR OPERATOR Gender Identity Not on file Sexual Orientation Not on file Obstetrics History Last Filed Vital Signs Vital Sign Reading Time Taken Comments Blood Pressure 141/64 05/15/2024 5:20 PM GRANULAR OPERATOR Pulse 58 05/15/2024 5:20 PM GRANULAR OPERATOR Temperature 36.8 C (98.2 F) 05/15/2024 4:25 PM GRANULAR OPERATOR Respiratory Rate 20 05/15/2024 5:20 PM GRANULAR OPERATOR Oxygen Saturation 91% 05/15/2024 5:20 PM GRANULAR OPERATOR Inhaled Oxygen Concentration - - Weight 86.2 kg (190 lb) 05/15/2024 2:00 PM GRANULAR OPERATOR Height 170.2 cm (5' 7 ) 05/15/2024 2:00 PM GRANULAR OPERATOR Body Mass Index 29.76 05/15/2024 2:00 PM GRANULAR OPERATOR Plan of Treatment Health Maintenance Due Date Last Done Comments Albumin Creatinine Ratio, Urine 1940 Depression Screening 1940 Hemoglobin A1C 1940 Foot Exam 1940 DTaP/Tdap/Td Vaccine (1 - Tdap) 1949 Hepatitis B Screening 1956 Well Visit 65+ 2003 Dilated Eye Exam 11/24/2022 11/24/2021, , 07/11/2018 Lipid Panel 11/04/2023 11/03/2022, 08/0 08/2021, 04/29/2021 Covid-19 Vaccine ( season) 2024 06/01/2021, 08/14/2020, 07/16/2020 Influenza Vaccine (#1) 2024 03/25/2021 eGFR 09/26/2024 09/27/2023 Fall Risk Assessment 05/15/2025 05/15/2024 Zoster Vaccine Completed 05/24/2021, 03/04, 05/03/2012 Pneumococcal vaccine 65+ Completed 05/04/2022, 01/01 Medical Devices Implanted Type Area Chairman & Chief Executive Officer Device Identifier Shelf Expiration Date Model / Serial / Lot [employer] Transplant Srvcs Implant Dsek Right Tissue Cornea [id number] - [id number] - [id number] Implanted:Qty: 1 on 05/15/2024 by Cornelia Valencia MD PhD at [facility] Other - see comments Right: Eye [employer] Srvcs 05/25/2024 [id number] / [id number] [facility] / [id number] Description:CORNEA Procedures Procedure Name Priority Date/Time Associated [...] LAB BLOOD ORDERABLES Fi nal Result [address] [address] [address] [place] [address] from Last 3 Months or Most Recently Relevant to Health Maintenance Insurance MEDICARE SOLUTIONS MEDICARE SOLUTIONS Advance Directives For more information, please contact: [phone] Documents on File Type Date Recorded Patient Refinery Operator Helper Expl anation Power of Enrollment Nurse 05/15/2024 11:55 AM Care Teams Caramel Maker Relationship Specialty Start Date End Date Angelique Jacobs MD [address] [place] [place] [address] PCP - General Family Medicine 01/24/24
--- OUTSIDE RECORDS SUMMARY | 2024-08-17 01:07 | XMS_ITS | Continuity of Care Document ---
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 Name Role Phone Luo OD, Arnold Unavailable Unavailable Procedures Procedure Date Office/outpatient Visit, Est Optic Nerve Head Eval IPO Reduced 15% Eye Exam Established Pt Script Printed/Phoned Pt Requ Or Pharm N ot Availab Office/outpatient Visit, Est Optic Nerve Head Eval Visual Field Examination-Professional Au Visual Field Examination(s) BF Plastic Sphcyl [place] To +/-4d .12-2d Anti-reflective Coating Lens-Index>1.66Plas;>1.80Glas 8 Post-op Follow-up Visit Post-op Follow-up Visit Post-op Follow-up Visit Remove Cataract, Insert Lens Office/outpatient Visit, Est IOLMaster Office/outpatient Visit, Est Optic Nerve Head Eval Eye Exam, New Patient Optic Nerve Head Eval Advance Directives Directive Yes / No Effective Date File Name No Information Encounters Encounter Description Practice Location Reason(s) For Visit Diagnoses Date Provider Providers Copied on Encounter Office[facility]pat ient Visit, [facility], [address], [place], [place], [address], [place] tel:[phone] [facility] No Information Sep- 7-201 0 Luo OD Arnold. [address], [place], [place], [facility], [place]. tel:[phone] [facility], [address], [place], [place], [address], [place] tel:[phone] [facility] No Information Apr-2 1-200 9 Krishnasamy Glenn. [address], [place], [place], [facility], [place]. tel:[phone] Office/outpat ient Visit, Est [facility], [address], [place], [place], [address], [place] tel:[phone] [facility] No Information Jan-0 6-200 8 Krishnasamy Glenn. [address] [place] [address] [address], [place], [place], [facility], [place]. tel:[phone] Referring Provider: Glenn kumar, [address] [place] [address] [address], [place], [place], [facility]. tel:[phone] [facility], [address] [place] [address] [address], [place], [place], [address], [place] tel:[phone] [facility] No Information Dec-3 0-200 8 Krishnasamy Glenn. [address] [place] [address] [address], [place], [place], [facility], [place]. tel:[phone] Referring Provider: Glenn kumar, [address] [place] [address] [address], [place], [place], [facility]. tel:[phone] [facility], [address], [place], [place], [address], [place] tel:[phone] [facility] No Information Oct- 7-200 8 [employer]. [address] [facility], [address], [place], [place], [address], . tel:[phone] Referring Provider: Glenn kumar, [address], [place], [address]. tel:[phone] sulting Provider: Lora Sanchez, [address] [facility], [place], [place], [facility]. tel:[phone] [facility], [address] [place] [address] [address], [place], [place], [address], [place] tel:[phone] [facility] No Information Apr-1 4-200 8 Krishnasamy Glenn. [address], [place], [facility], [place]. tel:[phone] Referring Provider: Glenn kumar, [address] [facility] [address], [place], [place], [facility]. tel:[phone] [facility], [address], [place], [place], [address], [place] tel:[phone] [facility] No Information Mar-2 1-200 8 Krishnasamy Glenn. [address], [place], [address], [place]. tel:[phone] [facility], [address] [place] [address] [address], [place], [place], [address], [place] tel:[phone] [facility] No Information Mar-1 4-200 8 Krishnasamy Glenn. [address], [address], [place]. tel:[phone] [facility], [address], [place], [place], [address], [place] tel:[phone] [facility] No Information Mar-1 3-200 8 Krishnasamy Glenn. [address], [address], [place]. tel:[phone] Office/outpat ient Visit, [facility], [address], [place], [place], [address], tel:[phone] [facility] No Information Mar-0 3-200 8 Krishnasamy Glenn. [address] [place] [address], [facility], . tel:[phone] Referring Provider: Glenn kumar, [address] [place] [address], [facility]. tel:[phone] Office/outpat ient Visit, [facility], [address], [place], [place], [address], tel:[phone] [facility] No Information 1 8-200 8 Krishnasamy Glenn. [address] [place] [address], [facility], [place]. tel:[phone] [facility], [address], [place], [place], [address], tel:[phone] [facility] No Information b-0 4-200 8 Krishnasamy Glenn. [address] [place] [address], [facility], . tel:[phone] Family History Family Member Type Diagnosis Age At Onset No Information Payers Payer name Insurance type Covered alliance party ID Authoriza tion(s) [place] [id number] [facility] [id number] Social History Type Description Quantity Date Captured Comments Sex Male Smoking Status No Information Chief Complaint And Reason For Visit No Information Reason For Referral Reason For Referral No Information History Of Present Illness Encounter Date Complaint History Of Prese nt Illness No Information Functional Status Date Functional Assessmen t No Information Instructions Date Instruction Additional Infor mation No Information Assessments Type Assessment Date No Information Patient Care Teams Name Effective Dates (start - stop) Status Members No Information
--- OUTSIDE RECORDS SUMMARY | 2024-08-17 01:07 | XMS_ITS ---
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 Color Drum Worker Name Role Phone MARZENA NAYAK Unavailable [phone] Angelique Jacobs Unavailable Unavailable Allergies No Known Allergies REASON FOR VISIT *General care Medications Medication SIG (Take, Route, Frequency, Duration) Notes Start Date End Date Status Pravastatin Sodium 40 MG Oral Tablet ORAL pravastatin sodium 40 MG Oral TabletOriginal Medicationpravastatin sodium 40 MG Oral Tablet *Reorder from [facility] for eRx and Interaction Alerts* 5 Active silver sulfadiazine 10 MG/ML Topical Cream [Silvadene] CUTANEOUS silver sulfadiazine 10 MG/ML Topical Cream [Silvadene]Original Medicationsilver sulfadiazine 10 MG/ML Topical Cream [Silvadene] *Reorder from [facility] for eRx and Interaction Alerts* 5 Active urea 400 MG/ML Topical Cream CUTANEOUS urea 400 MG/ML Topical CreamOriginal Medicationurea 400 MG/ML Topical Cream *Reorder from [facility] for eRx and Interaction Alerts* 5 Active potassium chloride 10 MEQ Extended Release Oral Capsule ORAL potassium chloride 10 MEQ Extended Release Oral CapsuleOriginal Medicationpotassium chloride 10 MEQ Extended Release Oral Capsule *Reorder from [facility] for eRx and Interaction Alerts* 5 Active Z-SAMMY ORAL Z-PAKOriginal MedicationZ-SAMMY *Reorder from [facility] for eRx and Interaction Alerts* 8 Active duloxetine 30 MG Delayed Release Oral Capsule ORAL duloxetine 30 MG Delayed Release Oral CapsuleOriginal Medicationduloxetine 30 MG Delayed Release Oral Capsule *[facility] Interaction Alert[facility]* 5 Active ammonium lactate 120 MG/ML Topical Cream [Lac-Hydrin] CUTANEOUS ammonium lactate 120 MG/ML Topical Cream [Lac-Hydrin]Original Medicationammonium lactate 120 MG/ML Topical Cream [Lac-Hydrin] *[facility] and Interaction Alerts* 5 Active clobetasol propionate 0.0005 MG/MG Topical Ointment [Temovate] CUTANEOUS clobetasol propionate 0.0005 MG/MG Topical Ointment [Temovate]Original Medicationclobetasol propionate 0.0005 MG/MG Topical Ointment [Temovate] *[facility]Rx and Interaction Alerts* 5 Active clotrimazole 10 MG/ML Topical Cream CUTANEOUS clotrimazole 10 MG/ML Topical CreamOriginal Medicationclotrimazole 10 MG/ML Topical Cream *[facility]Rx and Interaction Alerts* 5 Active betamethasone 0.5 MG/ML / clotrimazole 10 MG/ML Topical Cream [Lotrisone] CUTANEOUS betamethasone 0.5 MG/ML / clotrimazole 10 MG/ML Topical Cream [Lotrisone]Original Medicationbetamethasone 0.5 MG/ML / clotrimazole 10 MG/ML Topical Cream [Lotrisone] *Reorder from [employer] for eRx and Interacti 5 Active Losartan Potassium 100 MG Oral Tablet ORAL losartan potassium 100 MG Oral TabletOriginal Medicationlosartan potassium 100 MG Oral Tablet *Reorder from [employer] for eRx and Interaction Alerts* 5 Active amlodipine 5 MG Oral Tablet ORAL amlodipine 5 MG Oral TabletOriginal Medicationamlodipine 5 MG Oral Tablet *[facility] and Interaction Alerts* 5 Active acetaminophen 325 MG / hydrocodone bitartrate 5 MG Oral Tablet ORAL acetaminophen 325 MG / hydrocodone bitartrate 5 MG Oral TabletOriginal Medicationacetaminophen 325 MG / hydrocodone bitartrate 5 MG Oral Tablet *[facility] and Interaction Alerts* 5 Active acyclovir 0.05 MG/MG Topical Ointment [Zovirax] CUTANEOUS acyclovir 0.05 MG/MG Topical Ointment [Zovirax]Original Medicationacyclovir 0.05 MG/MG Topical Ointment [Zovirax] *Reorder from [employer] for eRx and Interaction Alerts* 8 Active Encounters Encounter Location Date Provider Diagnosis [facility] [address] [place], [place] [address] 08/01/2024 MARZENA NAYAK 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 ; Primary osteoarthritis, left ankle and foot M19.072 ; Pain in right toe(s) M79.674 ; Pain in left toe(s) M79.675 and Unspecified atherosclerosis of [place] arteries of extremities, bilateral legs I70.203 Assessments Encounter Date Diagnosis (ICD Code) Assessment Notes Treatment Notes Treatment Clinical Notes Section Notes 08/01/2024 Fungal infection of nail (ICD-10 - B35.1) Nails 1-5 Bilateral were debrided extensively with nail nippers and emery board, reducing length and girth to pink healthy tissue with any subungual debris and necrotic tissue removed 08/01/2024 Primary osteoarthritis, left ankle and foot (ICD-10 - M19.072) 08/01/2024 Pain in right toe(s) (ICD-10 - M79.674) 08/01/2024 Pain in left toe(s) (ICD-10 - M79.675) 08/01/2024 Unspecified atherosclerosis of [place] arteries of extremities, bilateral legs (ICD-10 - I70.203) 08/01/2024 Other Following skin prep, a total of [...] Reason: Provider Name:MARZENA PRYOR, 10/10/2024 10:20:00 AM, [address], [address], [id number], Progress Notes * KELSEY SARMIENTO LDOB: [birth year] (83 yo M)Acc No.[id number]:08/01/2024 Patient: Chris KELSEY RICHARD Provider: Aundrea Nayak DPM :1940 A ge:83 Y S ex:Male Date:08/01/2024 Address:[address] [place], [place] [address] Subjective: * Chief Complaints: * * General care * HPI: H PI: General care P atient presents to the office for at risk foot care. Patient states that their nails are thickened, elongated and painful. Patient states that it is aggravated by shoe gear. Onset is gradual. Patient denies being diabetic., Patient denies taking blood thinners., Date last seen by Dr. Jacobs was April 2024., Initials LB. * ROS: G eneral / Constitutional: Patient denies c hange in appetite, fatigue, chills, fever.? C ardiovascular: Chest pain d enies. N eurologic: Loss of use of extremity d enies. * Medical History: * Surgical History: * Hospitalization/Major Diagno stic Procedure: * Social History: M igrated Social History: M igrated Social History: History of tobacco use : , Smoking Status : Never smoked. * Medications: T akingPravastatin Sodium 40 MG Oral Tablet ORAL , Notes to Pharmacist: pravastatin sodium 40 MG Oral TabletOriginal Medicationpravastatin sodium 40 MG Oral Tablet *Reorder from [employer] for eRx and Interaction Alerts*Losartan Potassium 100 MG Oral Tablet ORAL , Notes to Pharmacist: losartan potassium 100 MG Oral TabletOriginal Medicationlosartan potassium 100 MG Oral Tablet *Reorder from [facility] for eRx and Interaction Alerts*acetaminophen 325 MG / hydrocodone bitartrate 5 MG Oral Tablet ORAL , Notes to Pharmacist: acetaminophen 325 MG / hydrocodone bitartrate 5 MG Oral TabletOriginal Medicationacetaminophen 325 MG / hydrocodone bitartrate 5 MG Oral Tablet *Reorder from [facility] for eRx and Interaction Alerts*acyclovir 0.05 MG/MG Topical Ointment [Zovirax] CUTANEOUS , Notes to Pharmacist: acyclovir 0.05 MG/MG Topical Ointment [Zovirax]Original Medicationacyclovir 0.05 MG/MG Topical Ointment [Zovirax] *Reorder from [facility] for eRx and Interaction Alerts*amlodipine 5 MG Oral Tablet ORAL , Notes to Pharmacist: amlodipine 5 MG Oral TabletOriginal Medicationamlodipine 5 MG Oral Tablet *Reorder from [facility] for eRx and Interaction Alerts*ammonium lactate 120 MG/ML Topical Cream [Lac-Hydrin] CUTANEOUS , Notes to Pharmacist: ammonium lactate 120 MG/ML Topical Cream [Lac-Hydrin]Original Medicationammonium lactate 120 MG/ML Topical Cream [Lac-Hydrin] *Reorder from [facility] for eRx and Interaction Alerts*betamethasone 0.5 MG/ML / clotrimazole 10 MG/ML Topical Cream [Lotrisone] CUTANEOUS , Notes to Pharmacist: betamethasone 0.5 MG/ML / clotrimazole 10 MG/ML Topical Cream [Lotrisone]Original Medicationbetamethasone 0.5 MG/ML / clotrimazole 10 MG/ML Topical Cream [Lotrisone] *Reorder from [facility] for eRx and Interacticlobetasol propionate 0.0005 MG/MG Topical Ointment [Temovate] CUTANEOUS , Notes to Pharmacist: clobetasol propionate 0.0005 MG/MG Topical Ointment [Temovate]Original Medicationclobetasol propionate 0.0005 MG/MG Topical Ointment [Temovate] *Reorder from [facility] for eRx and Interaction Alerts*clotrimazole 10 MG/ML Topical Cream CUTANEOUS , Notes to Pharmacist: clotrimazole 10 MG/ML Topical CreamOriginal Medicationclotrimazole 10 MG/ML Topical Cream *Reorder from [facility] for eRx and Interaction Alerts*duloxetine 30 MG Delayed Release Oral Capsule ORAL , Notes to Pharmacist: duloxetine 30 MG Delayed Release Oral CapsuleOriginal Medicationduloxetine 30 MG Delayed Release Oral Capsule *Reorder from [facility] for eRx and Interaction Alerts*potassium chloride 10 MEQ Extended Release Oral Capsule ORAL , Notes to Pharmacist: potassium chloride 10 MEQ Extended Release Oral CapsuleOriginal Medicationpotassium chloride 10 MEQ Extended Release Oral Capsule *Reorder from [facility] for eRx and Interaction Alerts*silver sulfadiazine 10 MG/ML Topical Cream [Silvadene] CUTANEOUS , Notes to Pharmacist: silver sulfadiazine 10 MG/ML Topical Cream [Silvadene]Original Medicationsilver sulfadiazine 10 MG/ML Topical Cream [Silvadene] *Reorder from [facility] for eRx and Interaction Alerts*urea 400 MG/ML Topical Cream CUTANEOUS , Notes to Pharmacist: urea 400 MG/ML Topical CreamOriginal Medicationurea 400 MG/ML Topical Cream *Reorder from [facility] for eRx and Interaction Alerts*Z-SAMMY ORAL , Notes to Pharmacist: Z-PAKOriginal MedicationZ-SAMMY *Reorder from [facility] for eRx and Interaction Alerts*Taking Pravastatin Sodium 40 MG Oral Tablet ORAL , Notes to Pharmacist: pravastatin sodium 40 MG Oral TabletOriginal Medicationpravastatin sodium 40 MG Oral Tablet *Reorder from [facility] for eRx and Interaction Alerts*Taking Losartan Potassium 100 MG Oral Tablet ORAL , Notes to Pharmacist: losartan potassium 100 MG Oral TabletOriginal Medicationlosartan potassium 100 MG Oral Tablet *Reorder from [facility] for eRx and Interaction Alerts*Taking acetaminophen 325 MG / hydrocodone bitartrate 5 MG Oral Tablet ORAL , Notes to Pharmacist: acetaminophen 325 MG / hydrocodone bitartrate 5 MG Oral TabletOriginal Medicationacetaminophen 325 MG / hydrocodone bitartrate 5 MG Oral Tablet *Reorder from [facility] for eRx and Interaction Alerts*Taking acyclovir 0.05 MG/MG Topical Ointment [Zovirax] CUTANEOUS , Notes to Pharmacist: acyclovir 0.05 MG/MG Topical Ointment [Zovirax]Original Medicationacyclovir 0.05 MG/MG Topical Ointment [Zovirax] *Reorder from [facility] for eRx and Interaction Alerts*Taking amlodipine 5 MG Oral Tablet ORAL , Notes to Pharmacist: amlodipine 5 MG Oral TabletOriginal Medicationamlodipine 5 MG Oral Tablet *Reorder from [facility] for eRx and Interaction Alerts*Taking ammonium lactate 120 MG/ML Topical Cream [Lac-Hydrin] CUTANEOUS , Notes to Pharmacist: ammonium lactate 120 MG/ML Topical Cream [Lac-Hydrin]Original Medicationammonium lactate 120 MG/ML Topical Cream [Lac-Hydrin] *Reorder from [facility] for eRx and Interaction Alerts*Taking betamethasone 0.5 MG/ML / clotrimazole 10 MG/ML Topical Cream [Lotrisone] CUTANEOUS , Notes to Pharmacist: betamethasone 0.5 MG/ML / clotrimazole 10 MG/ML Topical Cream [Lotrisone]Original Medicationbetamethasone 0.5 MG/ML / clotrimazole 10 MG/ML Topical Cream [Lotrisone] *Reorder from [facility] for eRx and InteractiTaking clobetasol propionate 0.0005 MG/MG Topical Ointment [Temovate] CUTANEOUS , Notes to Pharmacist: clobetasol propionate 0.0005 MG/MG Topical Ointment [Temovate]Original Medicationclobetasol propionate 0.0005 MG/MG Topical Ointment [Temovate] *Reorder from [facility] for eRx and Interaction Alerts*Taking clotrimazole 10 MG/ML Topical Cream CUTANEOUS , Notes to Pharmacist: clotrimazole 10 MG/ML Topical CreamOriginal Medicationclotrimazole 10 MG/ML Topical Cream *Reorder from [facility] for eRx and Interaction Alerts*Taking duloxetine 30 MG Delayed Release Oral Capsule ORAL , Notes to Pharmacist: duloxetine 30 MG Delayed Release Oral CapsuleOriginal Medicationduloxetine 30 MG Delayed Release Oral Capsule *Reorder from [facility] for eRx and Interaction Alerts*Taking potassium chloride 10 MEQ Extended Release Oral Capsule ORAL , Notes to Pharmacist: potassium chloride 10 MEQ Extended Release Oral CapsuleOriginal Medicationpotassium chloride 10 MEQ Extended Release Oral Capsule *Reorder from [facility] for eRx and Interaction Alerts*Taking silver sulfadiazine 10 MG/ML Topical Cream [Silvadene] CUTANEOUS , Notes to Pharmacist: silver sulfadiazine 10 MG/ML Topical Cream [Silvadene]Original Medicationsilver sulfadiazine 10 MG/ML Topical Cream [Silvadene] *Reorder from [facility] for eRx and Interaction Alerts*Taking urea 400 MG/ML Topical Cream CUTANEOUS , Notes to Pharmacist: urea 400 MG/ML Topical CreamOriginal Medicationurea 400 MG/ML Topical Cream *Reorder from [employer] for eRx and Interaction Alerts*Taking Z-SAMMY ORAL , Notes to Pharmacist: Z-PAKOriginal MedicationZ-SAMMY *[facility] and Interaction Alerts* * Allergies: N .K.D.A.no[Allergies Verified] Objective: * Vitals: * Examination: P hysical [...] M79.675 5 . U nspecified atherosclerosis of [place] arteries of extremities, bilateral legs - I70.203 Plan: * Treatment: 2. O thers Notes: Following skin prep, a total of 3 ccs of a 1-1-1 mix of 0.5% marcaine plain, Kenalog, and dexamethasone sodium phosphate was injected into the patients left ankle joint. * Procedure Codes: 2 0605 DRAIN/INJECT, JOINT/BURSA, Modifiers: LT * Follow Up: 9 weeks * Billing Information: * Visit Code: 69139 Office Visit, Est Pt., Level 3. Modifiers: 25 * Procedure Codes: 28623 DRAIN/INJECT, JOINT/BURSA. 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 Jacobs was April 2024., Initials LB Examination Category Sub-Category Detail Notes Category Not [...]
--- OUTSIDE RECORDS SUMMARY | 2024-08-17 01:07 | XMS_ITS | Clinical Summary ---
Author Organization [facility] Address [facility] [place] [address] Care Team Providers Care Bacteriology Technician Name Role Phone Mehran Sepulveda Babar DO Primary Care Provider + Allergies Active Allergy Reactions Criticality Noted Date Comments Atorvastatin Rash Low 05/06/2021 Brimonidine Unknown 01/27/2021 Phenylephrine Swelling Medium 01/27/2021 DO NOT USE TO DILATE Proparacaine Unknown 01/27/2021 Medications Multiple Vitamins-Minera ls (CENTRUM ADULTS OR) Take 1 mg by mouth daily. Active Cholecalciferol (VITAMIN D3) 50 MCG (1999) Tab Take 1 tablet (50 mcg total) by mouth daily. Active latanoprost 0.005 % ophthalmic solution 1 Active pilocarpine 1 % ophthalmic solution 1 Active timolol 0.5 % ophthalmic solution 1 Active DULoxetine 30 MG capsuleIndicati ons:Neuropathy TAKE 1 CAPSULE BY MOUTH IN THE MORNING AND 2 CAPSULES BY MOUTH IN THE EVENING 270 capsule 3 2 Active prednisoLONE acetate (PRED FORTE) 1 % ophthalmic suspension INSTILL 1 DROP INTO RIGHT EYE 4 TIMES DAILY 2 Active amLODIPine (NORVASC) 5 MG tabletIndicatio ns:Hypertension associated with type 2 diabetes mellitus ([facility]) TAKE 1 TABLET BY MOUTH DAILY 100 tablet 2 3 Active metFORMIN ER (GLUCOPHAGE-XR) 500 MG 24 hr tabletIndicatio ns:Type 2 diabetes mellitus with diabetic polyneuropathy, with long-term current use of insulin ([facility]) Take 1 tablet (500 mg total) by mouth daily with breakfast. 100 tablet 2 3 Active glipiZIDE XL (GLUCOTROL XL) 10 MG 24 hr tabletIndicatio ns:Type 2 diabetes mellitus with diabetic polyneuropathy, with long-term current use of insulin ([facility]) TAKE 1 TABLET BY MOUTH DAILY WITH BREAKFAST (DO NOT BREAK OR CRUSH TABLET) 100 tablet 1 3 Active losartan (COZAAR) 100 MG tabletIndicatio ns:Hypertension associated with type 2 diabetes mellitus ([facility]) take 1 tablet by mouth daily 100 tablet 2 4 Active HYDROcodone-jimmy taminophen (NORCO) 5-325 MG tabletIndicatio ns:Chronic Pain Take 1 tablet by mouth every 6 (six) hours as needed for Pain. Indications: Chronic Pain 30 tablet 4 Active rosuvastatin (CRESTOR) 40 MG tabletIndicatio ns:Hyperlipidem ia associated with type 2 diabetes mellitus ([facility]) TAKE 1 TABLET BY MOUTH EVERY NIGHT AT BEDTIME 100 tablet 2 4 Active Active Problems Problem Noted Date Diagnosed Date Corneal edema of right eye 02/08/2023 Overview (05/08/2023): Last Assessment & Plan: Noted few folds today ? Hypotony vs corneal decompensation.- no epithelial striae Discussed with pt and daughter- CPM for now Notify if any noted vision changes Type 2 diabetes mellitus wit h diabetic polyneuropathy, with long-term current use of insulin ([facility]) 02/01/2022 Allergic conjunctivitis of both eyes 10/27/2021 Blurred vision, right eye 07/08/2021 Overview (07/30/2021): Last Assessment & Plan: Referred by Dr. 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 Discussed R/B/A of anti-VEGF and patient wishes to proceed. AMARILIS #1 today Warning Sx endophthalmitis discussed Follow up 4 weeks Hyperlipidemia associated wi th type 2 diabetes mellitus ([facility]) 04/29/2021 Hypertension associated with type 2 diabetes mellitus ([facility]) 04/29/2021 History of glaucoma tube shunt procedure 018 Overview (01/27/2021): Last Assessment & Plan: Covered with conjunctiva- monitor Primary open angle glaucoma (POAG) of both eyes, severe stage 02/08/2018 Overview (01/27/2021): Last Assessment & Plan: - status post (s/p) B350 OU - status post (s/p) dCPC OS - intraocular pressure (IOP) better today, 16 OU -Change Eleno 1% to BID OD, Timolol QAM OU, Latanoprost QHS OU May still need additional intervention if elevated IOP in future:dCPC right eye (OD) vs 2nd GDI IN right eye (OD) F/U 4-5 months Immunizations Name Administration Dates Next Due Fluzone High Dose - >Age 65 (Prefilled Syringe) 04/14/2023,03/03/2022,03/25/2021 Influenza Adult (Generic) 03/25/2021 MODERNA COVID-19 (12+) MRNA, LNP-S, PF, 100 MCG/ 0.5 ML DOSE 08/14/2020,07/16/2020 MODERNA COVID-19 ([employer] MOUSTAPHA SEYMOUR), MRNA, LNP-S, PF, 50 MCG/ 0.25 ML DOSE 06/01/2021 Pneumococcal (Pneumovax 23) 05/04/2022 Pneumococcal (Prevnar 13) 01/27/2021 Shingrix 05/24/2021,03/25/2021 Zoster (Zostavax) 17491 Unt/0.65Ml 05/03/2012 Family History Medical History Relation Comments Heart Disease Brother Glaucoma Daughter No Known Problems Father No Known Problems Mother Relation Status Comments Brother Daughter Alive Father Mother Social History Tobacco Use Types Packs/Day Years Used Date Smoking Tobacco: Former Cigarettes Q uit: 01/21/2000 Passive Smoke Exposure: Never Smokeless Tobacco: Never Tobacco Cessation:Counseling Given: Not Answered Alcohol Use Standard Drinks/Week Comments Never 0 (1 standard drink = 0.6 oz pur e alcohol) PHQ-2 Answer Date Recorded Patient Health Questionnaire-2 Score 0 08/04/2022 Sex and Gender Information Value Date Recorded Sex Assigned at Not on file Legal Sex Male 11:09 AM CDT Gender Identity Not on file Sexual Orientation Not on file 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 file Not on file Not on file 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 on file Not on file Not on file Last Filed Vital Signs Vital Sign Reading Time Taken Comments Blood Pressure 120/84 05/08/2023 11:34 AM CERTIFIED SCRUM MASTER Pulse 89 05/08/2023 11:34 AM CERTIFIED SCRUM MASTER Temperature 36.9 C (98.5 F) 05/08/2023 11:34 AM CERTIFIED SCRUM MASTER Respiratory Rate 16 05/08/2023 11:34 AM CERTIFIED SCRUM MASTER Oxygen Saturation 98% 05/08/2023 11:34 AM CERTIFIED SCRUM MASTER Inhaled Oxygen Concentration - - Weight 94.3 kg (208 lb) 05/08/2023 11:34 AM CERTIFIED SCRUM MASTER Height 166.4 cm (5' 5.5 ) 05/08/2023 11:34 AM CS T Body Mass Index 34.09 05/08/2023 11:34 AM CERTIFIED SCRUM MASTER Plan of Treatment Health Maintenance Due Date Last Done Comments Kidney Health Evaluation 1938 Diabetes: Retinopathy Eye Exam 1956 DTaP, Tdap and Td Vaccines (1 - Tdap) 1957 Annual Medicare Wellness Visit 2003 RSV Immunization or 60+ Years (1 - 1-dose 75+ series) 2013 PHQ-2 (Physician Torres Martinez) 08/04/2023 08/04/2022 Hemoglobin A1C 08/08/2023 05/08/2023, 08/0 10/2022, 11/03/2022, Additional history exists Lipid Panel 11/04/2023 11/03/2022, 08/0 08/2021, 04/29/2021, Additional history exists Influenza Adult (#1) 2024 04/14/2023, 03/03/2022, 03/25/2021, Additional history exists PHQ-2 (Physician Torres Martinez) 07/03/2024 08/04/2022 COVID-19 Vaccine ( season) 2112 06/01/2021, 08/14/2020, 07/16/2020 Postponed from 03/03/2024 (Going to Outside Clinic) Zoster Vaccines Completed 05/24/2021, 03/04, 05/03/2012 Pneumococcal Vaccine: 65+ Years Completed 05/04/2022, 01/27/2021 Meningococcal B Vaccine Aged Out No l onger eligible based on patient's age to complete this topic Meningococcal Vaccine Aged Out No aamir kyree eligible based on patient's age to complete this topic RSV Immunizations Under 20 Months Aged Out No longer eligible based on patient's age to complete this topic Procedures Procedure Name Priority Date/Time Associated Diagnosis Comments HEMOGLOBIN, GLYCOSYLATED Routine 05/08/2023 Type 2 diabetes mellitus with diabetic polyneuropathy, with long-term current use of insulin ([facility]) LIPID PANEL Routine 11/03/2022 4:19 PM CDT Type 2 diabetes mellitus with diabetic polyneuropathy, with long-term current use of insulin ([facility]) Hypertension associated with type 2 diabetes mellitus ([facility]CC) Hyperlipidemia associated with type 2 diabetes mellitus ([facility]) from Last 3 Months or Most Recently Relevant to Health Maintenance Results * HEMOGLOBIN, GLYCOSYLATED (05/08/2023) HGB A1C 9.1 % [facility] 05/08/2023 us Mehran Sepulveda DO LABORATORY Final Re sult [facility] [address] [place] [address], * (ABNORMAL) LIPID PANEL (11/03/2022 4:19 PM CDT) Pathologist [facility] CHOLESTEROL 165 <200 MG/DL 11/03/2022 8:00 PM CDT [facility] TRIGLYCERIDES 193(H) <150 MG/DL 11/03/2022 8:00 PM CDT [facility] HDL 41 >40 MG/DL 11/03/2022 8:00 PM CDT [facility] LDL-C 85 <100 MG/DL 11/03/2022 8:00 PM CDT [facility] VLDL CALCULATION 39(H) 5 - 28 MG/DL 11/03/2022 8:00 PM CDT [facility] CHOL/HDL RATIO 4.0 0.0 - 4.0 11/03/2022 8:00 PM CDT [facility] LDL/HDL 2.1 0.41 - 2.13 11/03/2022 8:00 PM CDT [facility] NON HDL CHOLESTEROL 124 <140 MG/DL 11/03/2022 8:00 PM CDT [facility] 11/03/2022 4:19 PM CDT Mehran Sepulveda DO LABORATORY Final Re sult [facility] [address] [place] [address], from Last 3 Months or Most Recently Relevant to Health Maintenance Insurance [facility] Care Teams Bacteriology Technician Relationship Specialty Start Date End Date Mehran Sepulveda DO [facility] [place] [address] PCP - General FAMILY PRACTICE 01/27/21
[2024-08-17 01:34] LABS: Hematocrit 45.7 % (42.0-52.0); Hemoglobin 15.3 g/dL (14.0-18.0); Mean Corpuscular HGB Conc 33.5 g/dl (32-36); Mean Corpuscular Hemoglobin 29.9 pg (26-34); Mean Corpuscular Volume 89.3 fl (80-100); Platelet Count Result 239 k/mm3 (150-375); Red Blood Count 5.12 M/mm3 (4.6-6.20); Red Cell Distribution Width 13.1 % (11.5-14.5); White Blood Count 6.4 K/mm3 (4.5-10.0)
[2024-08-17 01:45] LABS: Lactic Acid Reflex 1.1 mmol/L (0.7-2.0)
--- NOTE | 2024-08-17 01:59 | ED.AMS ---
HPI - Altered Mental Status General Chief Complaint: Altered Mental Status Stated Complaint: AMS, WEAKNESS, RECENT FLU A+ Time Seen by Provider: 08/17/24 01:02 History of Present Illness HPI narrative: Patient was diagnosed with the flu few days but over last few days has become increasingly confused, he lives at independent living and is no longer capable caring for himself. He denies any complaints. Related Data Home Medications ?Medication ?Instructions ?Recorded ?Confirmed ?Last Taken ?Type amlodipine 5 mg tablet 5 mg PO DAILY 05/15/19 08/13/24 Unknown History losartan 100 mg tablet 100 mg PO DAILY 05/15/19 08/13/24 Unknown History cholecalciferol (vitamin D3) 50 50 mcg PO DAILY 09/22/21 08/13/24 Unknown History mcg (2,000 unit) capsule glipizide 5 mg tablet 5 mg PO DAILY 09/22/21 08/13/24 Unknown History multivitamin 1 tablet PO DAILY 09/22/21 08/13/24 Unknown History rosuvastatin 20 mg tablet 20 mg PO DAILY 09/22/21 08/13/24 Unknown History duloxetine 30 mg capsule,delayed 90 mg PO DAILY 09/22/23 08/13/24 Unknown History release Allergies Allergy/AdvReac Type Severity Reaction Status Date / Time pregabalin Allergy Unknown blisters Verified 08/13/24 13:51 Review of Systems Review of Systems: All systems reviewed & are unremarkable except as noted in HPI and below PMFSH Past Medical History Medical History Duodenal ulcer Pre-syncope Acute blood loss anemia GIB (gastrointestinal bleeding) Trigger finger, right index finger Trigger finger, left index finger Left hand pain Tendinitis of right shoulder Peripheral neuropathy Hip arthritis Neuropathy Glaucoma Diabetes HTN (hypertension) Surgical History Surgical History History of ankle surgery S/P appendectomy Family History Family History Father Family history unknown Unknown Heart disease Cerebrovascular accident Social History Social History Social History: drinks 2 cups of coffee daily Years smoked: 40 Smoking status: Former smoker Tobacco type: pipe Second hand tobacco smoke exposure: No Alcohol intake: never Substance use: never Substance use type: does not use Do You Feel Safe in your Home?: Yes Lack of Transportation: No Lack of Food: Never True Current Housing: I Have Housing Concerned About Future Housing: No Difficulty Paying Gas/Electric Bills: No Difficulty Paying for Meds: No Currently Unemployed: No Education: High School Diploma/GED Difficulty w/ Childcare or Family Care: No Living arrangements: assisted living Additional living arrangements comments: [facility] Occupation/Education: retired Gender identity (if verbalized by the patient): Male Spiritual care concerns: No Exam Narrative: EXAMINATION OF ORGAN SYSTEMS/BODY AREAS: Constitutional: Vital signs per nursing GENERAL:[No acute distress, non-toxic appearing.] HEAD: Normal with no signs of head trauma. EYES: EOMI, conjunctiva normal ENT: Hearing grossly intact LUNGS: Slight crackles bilaterally, tachypneic HEART: [Regular rate and rhythm] ABD: [Soft], [nontender to palpation] EXT: Normal range of motion SKIN: [No rashes or lesions.] NEURO: [Alert and oriented x 3 but slow to speech. No gross focal sensory or strength deficits.] PSYCH: Normal affect Course Vital Signs Vital signs: Vital Signs Temperature 98.6 F 08/17/24 01:00 Pulse Rate 97 08/17/24 01:00 Respiratory Rate 28 H 08/17/24 01:00 Blood Pressure 165/79 H 08/17/24 01:00 Pulse Oximetry 95 08/17/24 01:00 Oxygen Delivery Room Air 08/17/24 01:00 Temperature 98.6 F 08/17/24 01:00 Pulse Rate 81 08/17/24 04:48 Respiratory Rate 16 08/17/24 04:48 Blood Pressure 145/61 H 08/17/24 04:48 Pulse Oximetry 94 08/17/24 04:48 Oxygen Delivery Room Air 08/17/24 01:07 MDM - Altered Mental Status MDM Narrative Medical decision making narrative: Patient was diagnosed with the flu few days but over last few days has become increasingly confused, he lives at independent living and is no longer capable caring for himself. He denies any complaints. Well-appearing on exam in no distress, he is slightly slow to answer questions but does answer them appropriately. However he does seem slightly confused including not even be able to undress himself here; he is at independent living facility and I doubt he would be able to care for himself adequately, therefore I do feel he will need to be admitted at this time. Discussed with hospitalist for admission. Lab Data 08/17/24 01:08/17/24 03:05 Labs: Lab Results 08/17/24 08/17/24 08/17/24 Range/Units : 03:05 04:46 WBC 6.4 (4.5-10.0) K/mm3 RBC 5.12 (4.6-6.20) M/mm3 Hgb 15.3 D (14.0-18.0) g/dL Hct 45.7 (42.0-52.0) % MCV 89.3 (80-100) fl MCH 29.9 (26-34) pg MCHC 33.5 (32-36) g/dl RDW 13.1 (11.5-14.5) % Plt Count 239 (150-375) k/mm3 MPV 10.0 (7.4-10.4) fl Immature Gran % (Auto) Not Reportable Neut % (Auto) Not Reportable Lymph % (Auto) Not Reportable [place] % (Auto) Not Reportable Eos % (Auto) Not Reportable Baso % (Auto) Not Reportable Lymph # (Auto) Not Reportable [place] # (Auto) Not Reportable Eos # (Auto) Not Reportable Baso # (Auto) Not Reportable Abs Immat Gran (auto) Not Reportable Absolute Neuts (auto) Not Reportable Absolute Nucleated RBC Not Reportable Total Counted 100 Neutrophils % (Manual) 54 (46-73) % Lymphocytes % (Manual) 37.0 (18-44) % Monocytes % (Manual) 8 (3-9) % Myelocytes % 1 % Nucleated RBC % Not Reportable Abs Lymphs (Manual) 2.36 (1.1-4.5) K/mm3 Abs Monocytes (Manual) 0.51 (0.1-0.90) K/mm3 Atypical Lymphocytes Present Smudge Cells Present Platelet Estimate Adequate (Adequate) Large Platelets Present Anisocytosis 1+ Schistocytes None seen Sodium 137 (137-145) mmol/L Potassium 4.3 (3.4-5.0) mmol/L Chloride 100 (98-107) mmol/L Carbon Dioxide 26 (22-30) mmol/L Anion Gap 11 (4-12) mmol/L BUN 24 H (9-20) mg/dL Creatinine 0.73 (0.7-1.3) mg/dL Estim Creat Clear Calc 73 ml/min Estimated GFR > 60 (59 - ) Glucose 177 H (65-110) mg/dL Lactic Acid 1.1 (0.7-2.0) mmol/L Calcium 9.5 (8.4-10.2) mg/dL Total Bilirubin 0.8 (0.2-1.3) mg/dL AST 22 (17-59) U/L ALT 28 (6-50) U/L Alkaline Phosphatase 58 (38-126) U/L Total Protein 8.0 (6.3-8.2) g/dL Albumin 4.0 (3.5-5.1) g/dL Urine Color Dark yellow (Yellow) Urine Appearance Clear (Clear) Urine pH 5.0 (5.0-9.0) Ur Specific [place] 1.028 (1.001-1.035) Urine Protein 1+ H (Negative) mg/dL Urine Glucose (UA) 2+ H (Negative) mg/dL Urine Ketones Trace H (Negative) mg/dL Ur Blood (Man) Negative (Negative) Urine Nitrate Negative (Negative) Urine Bilirubin Negative (Negative) Urine Urobilinogen 0.2 (<2.0) mg/dL Add Ur Microanalysis Reviewed Leukocyte Esterase Rfl Negative (Negative) RICARDO/UL Urine RBC 0-2 (0-2) /hpf Urine WBC 0-5 (0-3) /hpf Ur Squamous Epith Cells None seen (Few) /hpf Urine Bacteria None seen /hpf Urine Casts 0-2 Urine Mucus Present /lpf Influenza A (RT-PCR) Positive A (Negative) Influenza B (RT-PCR) Negative (Negative) RSV (RT-PCR) Negative (Negative) SARS-CoV-2 RNA (RT-PCR) Negative (Negative) Discharge Plan Discharge Clinical Impression: AMS (altered mental status), Flu Patient Disposition: Still a Patient Condition: Stable Patient Language: [place] Prescriptions: No Action amlodipine 5 mg tablet 5 mg PO DAILY losartan 100 mg tablet 100 mg PO DAILY metformin 500 mg tablet extended release 24 hr 500 mg PO DAILY Qty: 1 0RF latanoprost 0.005 % drops 1 drp EACH EYE DAILY Qty: 2.5 0RF timolol maleate 0.5 % drops 1 drp EACH EYE Q12H Qty: 5 0RF pilocarpine HCl 1 % drops 1 drp EACH EYE TID Qty: 15 0RF lidocaine 4 % adhesive patch,medicated 1 patch topical DAILY PRN (Reason: pain) Qty: 30 6RF Rx Instructions: Apply for 12 hours daily to ankle glipizide 5 mg tablet 5 mg PO DAILY rosuvastatin 20 mg tablet 20 mg PO DAILY multivitamin Tablet 1 tablet PO DAILY cholecalciferol (vitamin D3) 50 mcg (2,000 unit) capsule 50 mcg PO DAILY oseltamivir [Tamiflu] 75 mg capsule 75 mg PO BID 5 Days Qty: 10 0RF codeine-guaifenesin 10-100 mg/5 mL liquid 5 ml PO Q6H PRN (Reason: cough) Qty: 120 0RF pantoprazole [Protonix] 40 mg tablet,delayed release (DR/EC) 40 mg PO .daily Qty: 30 12RF duloxetine 30 mg capsule,delayed release(DR/EC) 90 mg PO DAILY ascorbic acid (vitamin C) 250 mg tablet 250 mg PO DAILY Qty: 90 0RF ferrous sulfate 325 mg (65 mg iron) tablet 325 mg PO DAILY Qty: 90 0RF acetaminophen 500 mg tablet 500 mg PO Q6H PRN (Reason: fever or pain) Qty: 100 0RF buspirone 5 mg tablet 5 mg PO TID PRN (Reason: anxiety) Qty: 90 0RF hydrocodone-acetaminophen 5-325 mg tablet See Rx Instructions PO .COMPLEX PRN (Reason: pain) Qty: 120 0RF Rx Instructions: Take 1 tablet at hs and every 4 hours prn pain orally; Follow-up/Referrals: Angelique Jacobs MD [Primary Care Provider] -
[2024-08-17 02:03] LABS: Large Platelets Present; Lymphocytes Absolute Manual 2.36 K/mm3 (1.1-4.5); Monocytes Absolute Manual 0.51 K/mm3 (0.1-0.90); Monocytes Percent Manual 8 % (3-9); Myelocytes Percent 1 %; Neutrophils Percent Manual 54 % (46-73); Platelet Estimate Adequate (Adequate); Total Cells Counted 100
[2024-08-17 02:04] LABS: Anisocytosis 1+; Atypical Lymphocytes Present; Schistocytes None Seen; Smudge Cells PRESENT
[2024-08-17 02:11] LABS: Influenza A QL RT-PCR Positive (Negative); Influenza B QL RT-PCR Negative (Negative); RSV RNA, RT-PCR Negative (Negative); SARS-CoV-2 RNA PCR Negative (Negative)
[2024-08-17 03:33] LABS: Alanine Aminotransferase 28 U/L (6-50); Alkaline Phosphatase 58 U/L (38-126); Anion Gap 11 mmol/L (4-12); Aspartate Amino Transferase 22 U/L (17-59); Bilirubin,Total 0.8 mg/dL (0.2-1.3); Blood Urea Nitrogen 24 mg/dL (9-20); Calcium 9.5 mg/dL (8.4-10.2); Carbon Dioxide 26 mmol/L (22-30); Chloride 100 mmol/L (98-107); Estimated CRCL calculation 73 ml/min; Estimated Glomerular Filt Rate > 60; Glucose 177 mg/dL (65-110); Potassium 4.3 mmol/L (3.4-5.0); Sodium 137 mmol/L (137-145)
[2024-08-17 05:10] LABS: Add Urine Microscopic? YES; Appearance Urine Clear (Clear); Bacteria Urine None Seen /hpf; Bilirubin Urine Negative (Negative); Blood Urine Negative (Negative); Color Urine Dark Yellow (Yellow); Glucose Urine UA 2+ mg/dL (Negative); Ketones Urine Trace mg/dL (Negative); Leukocyte Esterase Ur Negative LEU/UL (Negative); Mucus Urine Present /lpf; Need Manual Microscopic Reviewed; Nitrate Urine Negative (Negative); Non Pathogenic Casts 0-2; Protein Urine 1+ mg/dL (Negative); RBC Urine 0-2 /hpf (0-2); Specific Grav Ur 1.028 (1.001-1.035); Squamous Epithelial Cell Urine None Seen /hpf (Few); Urobilinogen Urine 0.2 mg/dL (<2.0); WBC Urine 0-5 /hpf (0-3)
[2024-08-17] MEDS: OLANZapine 5 MG TABLET PO (06:40)
--- NOTE | 2024-08-17 07:59 | PC.NURSE ---
Pt daughter, Irma, called and given update that pt will be going to [id number].
--- NOTE | 2024-08-17 08:20 | ADMGEN ---
This patient, Kevin Dior, was admitted to [facility] Surg Room 332-01. Patient/family oriented to hospital policies and general routines including ID bracelet, bed and alarms, visiting hours, pain management, procedures, bathroom and other care routines, personal items, smoking policy, room service/diet, and visiting hours. Information on how to activate the Rapid Response Team has been discussed. Patient/Family are encouraged to report perceived risks to care and to ask questions if they do not understand what they are told or what they should do.
--- NOTE | 2024-08-17 08:42 | PC.NURSE ---
Oriented to name only. Poor historian.
--- NOTE | 2024-08-17 09:38 | P.HP_ITS ---
H&P: HPI History of Present Illness Date/Time: 08/17/24 09:38 Chief Complaint: cough, fatigue/weakness, ams Narrative: 83 y.o male with pmh/of neuropathy,, GERD, Diabetes, HTN, GI bleed, arthritis, vit d deficiency (from [facility]) here for weakness, cough, increased confusion. Of note, he was seen per his PCP on 08/13 and tested positive for flu then. He was started on Tamiflu 75mg bid #14 and Codeine/Guaifenesin 10-100/5ml 5ml every 6 hours prn cough. He lives in [facility] living and was noted to be more confused and weak and not able to take care of himself. Very liekly will need placement. [facility] Past Medical History Medical History Duodenal ulcer Pre-syncope Acute blood loss anemia GIB (gastrointestinal bleeding) Trigger finger, right index finger Trigger finger, left index finger Left hand pain Tendinitis of right shoulder Peripheral neuropathy Hip arthritis Neuropathy Glaucoma Diabetes HTN (hypertension) Surgical History Surgical History History of ankle surgery S/P appendectomy Family History Family History Father Family history unknown Unknown Heart disease Cerebrovascular accident Social History Social History Social History: drinks 2 cups of coffee daily Years smoked: 40 Smoking status: Former smoker Second hand tobacco smoke exposure: No Alcohol intake: never Substance use: never Substance use type: does not use Do You Feel Safe in your Home?: Yes Lack of Transportation: No Lack of Food: Never True Current Housing: I Have Housing Concerned About Future Housing: No Difficulty Paying Gas/Electric Bills: No Difficulty Paying for Meds: No Currently Unemployed: No Education: High School Diploma/GED Difficulty w/ Childcare or Family Care: No Living arrangements: assisted living Additional living arrangements comments: [facility] Occupation/Education: retired Gender identity (if verbalized by the patient): Male Spiritual care concerns: No Meds Home Medications and Allergies Home Medications ?Medication ?Instructions ?Recorded ?Confirmed ?Type amlodipine 5 mg tablet 5 mg PO DAILY 05/15/19 08/17/24 History losartan 100 mg tablet 100 mg PO DAILY 05/15/19 08/17/24 History cholecalciferol (vitamin D3) 50 50 mcg PO DAILY 09/22/21 08/17/24 History mcg (2,000 unit) capsule glipizide 5 mg tablet 5 mg PO DAILY 09/22/21 08/17/24 History multivitamin 1 tablet PO DAILY 09/22/21 08/17/24 History rosuvastatin 20 mg tablet 20 mg PO DAILY 09/22/21 08/17/24 History metformin 500 mg tablet,extended 500 mg PO DAILY #1 tablet 08/08/23 08/17/24 Rx release 24 hr latanoprost 0.005 % eye drops 1 drp EACH EYE DAILY #2.5 mL 08/09/23 08/17/24 Rx pilocarpine HCl 1 % eye drops 1 drp EACH EYE TID #15 mL 08/09/23 08/17/24 Rx timolol maleate 0.5 % eye drops 1 drp EACH EYE Q12H #5 mL 08/09/23 08/17/24 Rx duloxetine 30 mg capsule,delayed 90 mg PO DAILY 09/22/23 08/17/24 History release ascorbic acid (vitamin C) 250 mg 250 mg PO DAILY #90 tabs 10/17/23 08/17/24 Rx tablet ferrous sulfate 325 mg (65 mg 325 mg PO DAILY #90 tabs 10/17/23 08/17/24 Rx iron) tablet acetaminophen 500 mg tablet 500 mg PO Q6H PRN fever or pain 11/10/23 08/17/24 Rx #100 tabs buspirone 5 mg tablet 5 mg PO TID PRN anxiety #90 tabs 12/22/23 08/17/24 Rx lidocaine 4 % topical patch 1 patch topical DAILY PRN pain #30 12/22/23 08/17/24 Rx ea pantoprazole 40 mg tablet,delayed 40 mg PO .daily #30 tabs 04/04/24 08/17/24 Rx release (Protonix) hydrocodone 5 mg-acetaminophen 325 See Rx Instructions PO .COMPLEX 07/16/24 08/17/24 Rx mg tablet PRN pain #120 tabs codeine 10 mg-guaifenesin 100 mg/5 5 ml PO Q6H PRN cough #120 mL 08/13/24 08/17/24 Rx mL oral liquid oseltamivir 75 mg capsule (Tamiflu) 75 mg PO BID 5 days #10 caps 08/13/24 08/17/24 Rx benzonatate 200 mg capsule 200 mg PO TID PRN cough 08/17/24 08/17/24 History Allergies Allergy/AdvReac Type Severity Reaction Status Date / Time pregabalin Allergy Unknown blisters Verified 08/13/24 13:51 Vital Signs Vital Signs - 24 hr 08/17/24 01:00 08/17/24 01:04 08/17/24 01:07 Temperature 98.6 F Pulse Rate 97 90 95 Respiratory Rate 28 H 28 H Blood Pressure 165/79 H 151/77 H Pulse Oximetry 95 95 Oxygen Delivery Room Air 08/17/24 01:07 08/17/24 02:45 08/17/24 03:45 Temperature Pulse Rate 84 77 Respiratory Rate 24 H 16 Blood Pressure 138/84 127/81 Pulse Oximetry 95 95 94 Oxygen Delivery Room Air 08/17/24 04:48 08/17/24 07:15 08/17/24 08:12 Temperature 98.1 F Pulse Rate 81 85 94 Respiratory Rate 16 15 17 Blood Pressure 145/61 H 167/80 H 145/58 H Pulse Oximetry 94 94 95 Oxygen Delivery Exam Narrative: resting with eyes closed Resp: Effort & Inspection: normal respiratory effort Auscultation: diminished lung sounds Cardio: Rate: regular rate Rhythm: regular rhythm GI: GI Palp: Yes Soft to palpation Auscultation: normal bowel sounds Skin: General skin exam: normal color H&P: Results Labs Labs: Short CBC 08/17/24 Range/Units 01:29 WBC 6.4 (4.5-10.0) K/mm3 Hgb 15.3 D (14.0-18.0) g/dL Hct 45.7 (42.0-52.0) % Plt Count 239 (150-375) k/mm3 BMP 08/17/24 03:05 Sodium 137 Potassium 4.3 Chloride 100 Carbon Dioxide 26 BUN 24 H Creatinine 0.73 Glucose 177 H Calcium 9.5 Liver Function 08/17/24 Range/Units 03:05 Total Bilirubin 0.8 (0.2-1.3) mg/dL AST 22 (17-59) U/L ALT 28 (6-50) U/L Alkaline Phosphatase 58 (38-126) U/L Albumin 4.0 (3.5-5.1) g/dL Urine 08/17/24 Range/Units 04:46 Urine Color Dark yellow (Yellow) Urine Appearance Clear (Clear) Urine pH 5.0 (5.0-9.0) Ur Specific [place] 1.028 (1.001-1.035) Urine Protein 1+ H (Negative) mg/dL Urine Glucose (UA) 2+ H (Negative) mg/dL Assessment and Plan Assessment and plan (1) HTN (hypertension): Code(s): I10 - Essential (primary) hypertension Status: Acute (2) Diabetes: Code(s): E11.9 - Type 2 diabetes mellitus without complications Status: Acute (3) Flu: Code(s): J11.1 - Influenza due to unidentified influenza virus with other respiratory manifestations Status: Acute (4) AMS (altered mental status): Code(s): R41.82 - Altered mental status, unspecified Status: Acute (5) Weakness: Code(s): R53.1 - Weakness Status: Acute Plan # ams more confusion lately- could be due to flu unable to take care of self in independent living will need placement- PT/OT tomorrow when a bit more alert and able to follow commands # flu tamiflu was started on 08/13 - unsure if he was taking it or now will hold for now supportive treatment # t2dm -hold home meds: metformin and glipizide - needs swallow eval prior starting a diet SS, hypoglycemia protocol # htn resume home meds monitor vs Quality VTE Prophylaxis VTE prophylaxis: pharmacologic ordered
[2024-08-17] MEDS: LACTATED RINGERS 1,000 ML 75 ML IV CONT (13:51)
[2024-08-17 16:53] LABS: Glucose Point of Care 125 mg/dl (65-105)
[2024-08-17] MEDS: diphenhydrAMINE HCl INJ 50 MG/ML VIAL 25 MG IV PUSH (17:49)
--- NOTE | 2024-08-17 18:05 | PC.NURSE ---
Irma Yi, daughter, notified per telephone of increased confusion and combativeness. Condition update given per telephone.
[2024-08-17 21:12] LABS: Glucose Point of Care 212 mg/dl (65-105)
[2024-08-18] MEDS: TIMOLOL MALEATE 0.5% OP SOLN 5 ML BOTTLE 1 DROP EACH EYE ×2 (03:00→21:38)
--- NOTE | 2024-08-18 05:40 | PC.NURSE ---
Pt is very confused and combative. He has pulled out 2 Iv's tonight. Pulls off gown and nonskid socks. When attempting to put gown and socks back on he starts to kick and cuss. He rolls all over the bed, even at times having his head at the foot of the bed. Bed alarm is on and safety side rails are up.
[2024-08-18 06:00] VITALS: BP 103/88; PULSE 105; RESP 20; TEMP 37; O2SAT 95
[2024-08-18 08:00] VITALS: O2SAT 95
[2024-08-18 08:00] LABS: Glucose Point of Care 115 mg/dl (65-105)
--- NOTE | 2024-08-18 08:10 | PC.NURSE ---
Confused and combative. Unable to restart IV site. Bed alarm active.
[2024-08-18] MEDS: ENOXAPARIN 40 MG/0.4 ML SYRINGE SUB-Q (08:35)
--- NOTE | 2024-08-18 10:25 | PC.NURSE ---
Disoriented and restless. Combative. Daughter at bedside.
--- NOTE | 2024-08-18 11:12 | P.PNIM_ITS ---
Progress Note: A&P Assessment and Plan (1) HTN (hypertension): Code(s): I10 - Essential (primary) hypertension Status: Acute (2) Diabetes: Code(s): E11.9 - Type 2 diabetes mellitus without complications Status: Acute (3) Flu: Code(s): J11.1 - Influenza due to unidentified influenza virus with other respiratory manifestations Status: Acute (4) AMS (altered mental status): Code(s): R41.82 - Altered mental status, unspecified Status: Acute (5) Weakness: Code(s): R53.1 - Weakness Status: Acute (6) Bacteremia: Code(s): R78.81 - Bacteremia Status: Acute Plan # ams more confusion lately- could be due to flu unable to take care of self in independent living will need placement- PT/OT tomorrow when a bit more alert and able to follow commands # bacteremia one of the cultures are growing Gram positive cocci cluster will add daily labs vanc-pharmacy to dose- unable to take PO meds as confused # flu tamiflu was started on 08/13 - unsure if he was taking it or now will hold for now supportive treatment # t2dm -hold home meds: metformin and glipizide - needs swallow eval prior starting a diet SS, hypoglycemia protocol # htn resume home meds monitor vs Time Spent With Patient Time with patient: 25 - 35 minutes Subjective Date/time seen: 08/18/24 11:12 Interval history: cough, fatigue/weakness, ams Narrative: 83 y.o male with pmh/of neuropathy, GERD, Diabetes, HTN, GI bleed, arthritis, vit d deficiency (from [facility] living) here for weakness, cough, increased confusion. Of note, he was seen per his PCP on 08/13 and tested positive for flu then. He was started on Tamiflu 75mg bid #14 and Codeine/Guaifenesin 10-100/5ml 5ml every 6 hours prn cough. He lives in [facility] living and was noted to be more confused and weak and not able to take care of himself. Very likely will need placement. 08/18- nursing report that pt is agitated and pulled IV out. Will add IM zyprexa as PO helped him before. He will need IV access as one of his BC came back positive. Review of Systems Review of Systems: All systems reviewed & are unremarkable except as noted in HPI and below Exam Narrative: calm at this time Const: General: comfortable Resp: Effort & Inspection: normal respiratory effort Auscultation: diminished lung sounds Cardio: Rate: regular rate Rhythm: regular rhythm GI: Auscultation: normal bowel sounds Skin: General skin exam: normal color Objective Data Vital Signs Vital Signs: Vital Signs - 24 hr 08/17/24 15:26 08/17/24 20:00 08/17/24 21:58 Temperature 97.9 F 100.0 F H Pulse Rate 82 109 H Respiratory Rate 18 18 Blood Pressure 117/55 L 126/82 Pulse Oximetry 95 91 Oxygen Delivery Room Air 08/18/24 06:00 08/18/24 08:00 Temperature 98.6 F Pulse Rate 105 H Respiratory Rate 20 Blood Pressure 103/88 Pulse Oximetry 95 95 Oxygen Delivery Room Air Intake/Output Intake/Output: Intake & Output 08/15/24 08/16/24 08/17/24 08/18/24 23:59 23:59 23:59 23:59 Intake Total 640 986.3 Balance 640 986.3 Meds/Results Medications: Active Medications Generic Name Dose Route Start Last Admin Trade Name Freq PRN Reason Stop Dose Admin Acetaminophen 500 mg 08/17/24 12:59 Acetaminophen 500 Mg Tablet PO Q6H PRN fever or pain 1-3 Amlodipine Besylate 5 mg 08/18/24 09:00 08/18/24 08:35 Amlodipine Besylate 5 Mg Tablet PO Not Given DAILY FATOU Ascorbic Acid 250 mg 08/18/24 09:00 08/18/24 08:35 Ascorbic Acid 250 Mg Tablet PO Not Given DAILY FATOU Benzonatate 200 mg 08/17/24 13:38 Benzonatate 100 Mg Capsule PO TID PRN cough Buspirone HCl 5 mg 08/17/24 12:59 Buspirone Hcl 5 Mg Tablet PO TID PRN anxiety Dextrose 12.5 gm 08/17/24 13:06 Dextrose 50% 25 Gm/50 Ml Syringe IV PUSH PRN PRN Hypoglycemia Protocol Duloxetine HCl 30 mg 08/18/24 09:00 08/18/24 08:36 Duloxetine Hcl 30 Mg Capsule. PO Not Given DAILY FATOU Duloxetine HCl 60 mg 08/18/24 09:00 08/18/24 08:36 Duloxetine Hcl 60 Mg Capsule.Dr PO Not Given DAILY FATOU Enoxaparin Sodium 40 mg 08/18/24 09:00 08/18/24 08:35 Enoxaparin 40 Mg/0.4 Ml Syringe SUB-Q 40 mg DAILY FATOU Administration Ferrous Sulfate 325 mg 08/18/24 09:00 08/18/24 08:36 Ferrous Sulfate [address] BY MOUTH Not Given DAILY FATOU Glucagon 1 mg 08/17/24 13:06 Glucagon For Inj 1 Mg Vial IM PRN PRN Hypoglycemia Protocol Glucose 15 gm 08/17/24 13:06 Glucose Oral Gel 15 Gm Of Glucse In 37.5 Gm Tube PO PRN PRN Hypoglycemia Protocol Lactated Ringer's 1,000 mls @ 75 mls/hr 08/17/24 13:05 08/18/24 08:39 Lr - Lactated Ringers Iv IV CONT Not Given .[id number] [facility] Dextrose 1,000 mls @ 100 mls/hr 08/17/24 13:06 Dextrose 5% 1,000 Ml IVPB PRN PRN Hypoglycemia Protocol Insulin Aspart 2 - 5 units 08/17/24 17:00 08/18/24 08:20 Insulin Aspart (*Bkc) 100 Units/Ml SUB-Q Not Given TIDWM [facility] Protocol Latanoprost 1 drop 08/18/24 09:00 08/18/24 08:36 Latanoprost 0.005% Op Soln 2.5 Ml Btl EACH EYE Not Given DAILY [facility] Losartan Potassium 100 mg 08/18/24 09:00 08/18/24 08:36 Losartan Potassium 100 Mg Tablet PO Not Given DAILY [facility] Multivitamins Therapeutic 1 tablet 08/18/24 09:00 08/18/24 08:36 Multivitamins Therapeutic Tab (*Bkc) PO Not Given DAILY [facility] Pantoprazole Sodium 40 mg 08/18/24 09:00 08/18/24 08:36 Pantoprazole 40 Mg Tablet PO Not Given DAILY [facility] Pilocarpine HCl 1 drop 08/17/24 13:00 08/17/24 16:03 Pilocarpine Hcl 1% Op Soln 15 Ml Btl EACH EYE Not Given TID FATOU Rosuvastatin Calcium 20 mg 08/18/24 09:00 08/18/24 08:36 Rosuvastatin 20 Mg Tablet PO Not Given DAILY [facility] Timolol Maleate 1 drop 08/17/24 21:00 08/18/24 08:37 Timolol Maleate 0.5% Op Soln 5 Ml Bottle EACH EYE Not Given Q12H FATOU Vitamin D 2,000 units 08/18/24 09:00 08/18/24 08:36 Cholecalciferol 1,000 Units Tablet PO Not Given DAILY FATOU Radiology Results: ITS Impressions Chest X-Ray 08/17/24 07:09 IMPRESSION: 1. Opacities in the bilateral lower lung zones, left and right which could represent atelectasis, pneumonia, asymmetric mild pulmonary edema or some combination thereof. Labs Labs: Laboratory Results - last 24 hr 08/17/24 08/17/24 08/18/24 16:47 21:09 07:49 POC Capillary Glucose 125 H 212 H 115 H Quality VTE Prophylaxis VTE prophylaxis: pharmacologic ordered
[2024-08-18] MEDS: OLANZapine 10 MG INJ VIAL 5 MG IM (11:31)
[2024-08-18 11:59] LABS: Glucose Point of Care 99 mg/dl (65-105)
[2024-08-18 12:42] LABS: Hematocrit 42.5 % (42.0-52.0); Hemoglobin 14.4 g/dL (14.0-18.0); Mean Corpuscular HGB Conc 33.9 g/dl (32-36); Mean Corpuscular Hemoglobin 30.4 pg (26-34); Mean Corpuscular Volume 89.7 fl (80-100); Mean Platelet Volume 9.9 fl (7.4-10.4); Platelet Count Result 288 k/mm3 (150-375); Red Blood Count 4.74 M/mm3 (4.6-6.20); Red Cell Distribution Width 13.1 % (11.5-14.5)
[2024-08-18] MEDS: VANCOMYCIN 1,250 MG/NS 250 ML 1,250 MG/250 ML BAG 166.67 MG IVPB ×2 (12:45→14:19)
[2024-08-18 13:05] LABS: Anion Gap 11 mmol/L (4-12); Blood Urea Nitrogen 19 mg/dL (9-20); Calcium 9.6 mg/dL (8.4-10.2); Carbon Dioxide 28 mmol/L (22-30); Chloride 103 mmol/L (98-107); Estimated CRCL calculation 67 ml/min; Estimated Glomerular Filt Rate > 60; Glucose 101 mg/dL (65-110); Potassium 4.4 mmol/L (3.4-5.0); Sodium 142 mmol/L (137-145)
[2024-08-18 13:27] LABS: MRSA (PCR) NOT DETECTED (NOT DETECTE)
[2024-08-18 15:54] VITALS: BP 97/68; PULSE 103; RESP 20; TEMP 37.2; O2SAT 97
[2024-08-18 17:01] LABS: Glucose Point of Care 88 mg/dl (65-105)
[2024-08-18] MEDS: LACTATED RINGERS 1,000 ML 75 ML IV CONT (17:06)
[2024-08-18 20:32] LABS: Glucose Point of Care 93 mg/dl (65-105)
[2024-08-18 22:00] VITALS: BP 162/84; PULSE 98; RESP 20; TEMP 36.6; O2SAT 95
[2024-08-19] MEDS: VANCOMYCIN 1,500 MG/NS 500 ML 1,500 MG/500 ML BAG 250 MG IVPB (05:51)
[2024-08-19 06:00] VITALS: BP 162/98; PULSE 110; RESP 22; TEMP 36.3; O2SAT 97
[2024-08-19 07:59] LABS: Glucose Point of Care 142 mg/dl (65-105)
[2024-08-19] MEDS: LOSARTAN POTASSIUM 100 MG TABLET PO (08:49)
[2024-08-19] MEDS: DULoxetine HCL 30 MG CAPSULE.DR PO (08:49)
[2024-08-19] MEDS: FERROUS SULFATE 325 MG TABLET DR BY MOUTH (08:49)
[2024-08-19] MEDS: MULTIVITAMINS THERAPEUTIC TAB (*BKC) 1 TABLET PO (08:50)
[2024-08-19] MEDS: CHOLECALCIFEROL 1,000 UNITS TABLET 2000 UNITS PO (08:50)
[2024-08-19] MEDS: DULoxetine HCL 60 MG CAPSULE.DR PO (08:50)
[2024-08-19] MEDS: ROSUVASTATIN 20 MG TABLET PO (08:50)
[2024-08-19] MEDS: amLODIPine BESYLATE 5 MG TABLET PO (08:50)
[2024-08-19] MEDS: TIMOLOL MALEATE 0.5% OP SOLN 5 ML BOTTLE 1 DROP EACH EYE ×2 (08:51→21:00)
[2024-08-19] MEDS: ASCORBIC ACID 250 MG TABLET PO (08:51)
[2024-08-19] MEDS: PANTOPRAZOLE 40 MG TABLET PO (08:51)
[2024-08-19] MEDS: ENOXAPARIN 40 MG/0.4 ML SYRINGE SUB-Q (08:51)
[2024-08-19] MEDS: LATANOPROST 0.005% OP SOLN 2.5 ML BTL 1 DROP EACH EYE (08:51)
[2024-08-19 10:20] LABS: Hematocrit 42.6 % (42.0-52.0); Hemoglobin 13.9 g/dL (14.0-18.0); Mean Corpuscular HGB Conc 32.6 g/dl (32-36); Mean Corpuscular Hemoglobin 29.7 pg (26-34); Mean Platelet Volume 9.7 fl (7.4-10.4); Platelet Count Result 310 k/mm3 (150-375); Red Blood Count 4.68 M/mm3 (4.6-6.20); Red Cell Distribution Width 13.2 % (11.5-14.5); White Blood Count 10.9 K/mm3 (4.5-10.0)
[2024-08-19 11:22] LABS: Anion Gap 15 mmol/L (4-12); Blood Urea Nitrogen 18 mg/dL (9-20); Calcium 9.2 mg/dL (8.4-10.2); Carbon Dioxide 20 mmol/L (22-30); Chloride 105 mmol/L (98-107); Estimated CRCL calculation 86 ml/min; Estimated Glomerular Filt Rate > 60; Glucose 183 mg/dL (65-110); Potassium 3.9 mmol/L (3.4-5.0); Sodium 140 mmol/L (137-145)
[2024-08-19 11:38] LABS: Glucose Point of Care 182 mg/dl (65-105)
[2024-08-19] MEDS: LACTATED RINGERS 1,000 ML 75 ML IV CONT (12:52)
[2024-08-19 14:00] VITALS: BP 130/88; PULSE 61; RESP 18; TEMP 36.4; O2SAT 99
--- NOTE | 2024-08-19 15:09 | P.PNIM_ITS ---
Progress Note: A&P Assessment and Plan (1) HTN (hypertension): Code(s): I10 - Essential (primary) hypertension Status: Acute (2) Diabetes: Code(s): E11.9 - Type 2 diabetes mellitus without complications Status: Acute (3) Flu: Code(s): J11.1 - Influenza due to unidentified influenza virus with other respiratory manifestations Status: Acute (4) AMS (altered mental status): Code(s): R41.82 - Altered mental status, unspecified Status: Acute (5) Weakness: Code(s): R53.1 - Weakness Status: Acute (6) Bacteremia: Code(s): R78.81 - Bacteremia Status: Acute Plan # ams more confusion lately- could be due to flu unable to take care of self in independent living will need placement- PT/OT tomorrow when a bit more alert and able to follow commands # bacteremia one of the cultures are growing Gram positive cocci cluster will add daily labs vanc-pharmacy to dose- unable to take PO meds as confused staph hominis- vanc is stopped # flu tamiflu was started on 08/13 - unsure if he was taking it or now will hold for now supportive treatment # t2dm -hold home meds: metformin and glipizide - needs swallow eval prior starting a diet SS, hypoglycemia protocol # htn resume home meds monitor vs # anxiety add buspar bid monitor Time Spent With Patient Time with patient: 25 - 35 minutes Subjective Date/time seen: 08/19/24 15:09 Interval history: cough, fatigue/weakness, ams Narrative: 83 y.o male with pmh/of neuropathy, GERD, Diabetes, HTN, GI bleed, arthritis, vit d deficiency (from [facility] living) here for weakness, cough, increased confusion. Of note, he was seen per his PCP on 08/13 and tested positive for flu then. He was started on Tamiflu 75mg bid #14 and Codeine/Guaifenesin 10-100/5ml 5ml every 6 hours prn cough. He lives in [facility] living and was noted to be more confused and weak and not able to take care of himself. Very likely will need placement. 08/18- nursing report that pt is agitated and pulled IV out. Will add IM zyprexa as PO helped him before. He will need IV access as one of his BC came back positive. 2/17 bc contaminated. vanc d/desean. he is somewhat better but still anxious. Has sitter for safety Review of Systems Review of Systems: All systems reviewed & are unremarkable except as noted in HPI and below Exam Narrative: sitter at the bedside for safety Const: General: comfortable Resp: Effort & Inspection: normal respiratory effort Auscultation: diminished lung sounds Cardio: Rate: regular rate Rhythm: regular rhythm GI: Auscultation: normal bowel sounds Skin: General skin exam: normal color Objective Data Vital Signs Vital Signs: Vital Signs - 24 hr 08/18/24 15:54 08/18/24 20:00 08/18/24 22:00 Temperature 99.0 F 97.8 F Pulse Rate 103 H 98 Respiratory Rate 20 20 Blood Pressure 97/68 L 162/84 H Pulse Oximetry 97 95 Oxygen Delivery Room Air 08/19/24 06:00 08/19/24 08:50 Temperature 97.3 F L Pulse Rate 110 H Respiratory Rate 22 H Blood Pressure 162/98 H Pulse Oximetry 97 Oxygen Delivery Room Air Intake/Output Intake/Output: Intake & Output 08/16/24 08/17/24 08/18/24 08/19/24 23:59 23:59 23:59 23:59 Intake Total 640 2230.0 1240 Balance 640 2230.0 1240 Meds/Results Medications: Active Medications Generic Name Dose Route Start Last Admin Trade Name Freq PRN Reason Stop Dose Admin Acetaminophen 500 mg 08/17/24 12:59 Acetaminophen 500 Mg Tablet PO Q6H PRN fever or pain 1-3 Amlodipine Besylate 5 mg 08/18/24 09:00 08/19/24 08:50 Amlodipine Besylate 5 Mg Tablet PO 5 mg DAILY FATOU Administration Ascorbic Acid 250 mg 08/18/24 09:00 08/19/24 08:51 Ascorbic Acid 250 Mg Tablet PO 250 mg DAILY FATOU Administration Benzonatate 200 mg 08/17/24 13:38 Benzonatate 100 Mg Capsule PO TID PRN cough Buspirone HCl 5 mg 08/17/24 12:59 Buspirone Hcl 5 Mg Tablet PO TID PRN anxiety Olanzapine 5 mg/ Sterile Water 0 mg 08/18/24 15:13 2.1 ml IM Q6H PRN agitation Dextrose 12.5 gm 08/17/24 13:06 Dextrose 50% 25 Gm/50 Ml Syringe IV PUSH PRN PRN Hypoglycemia Protocol Duloxetine HCl 30 mg 08/18/24 09:00 08/19/24 08:49 Duloxetine Hcl 30 Mg Capsule. PO 30 mg DAILY FATOU Administration Duloxetine HCl 60 mg 08/18/24 09:00 08/19/24 08:50 Duloxetine Hcl 60 Mg Capsule. PO 60 mg DAILY FATOU Administration Enoxaparin Sodium 40 mg 08/18/24 09:00 08/19/24 08:51 Enoxaparin 40 Mg/0.4 Ml Syringe SUB-Q 40 mg DAILY FATOU Administration Ferrous Sulfate 325 mg 08/18/24 09:00 08/19/24 08:49 Ferrous Sulfate [address] BY MOUTH 325 mg DAILY FATOU Administration Glucagon 1 mg 08/17/24 13:06 Glucagon For Inj 1 Mg Vial IM PRN PRN Hypoglycemia Protocol Glucose 15 gm 08/17/24 13:06 Glucose Oral Gel 15 Gm Of Glucse In 37.5 Gm Tube PO PRN PRN Hypoglycemia Protocol Lactated Ringer's 1,000 mls @ 75 mls/hr 08/17/24 13:05 08/19/24 12:52 Lr - Lactated Ringers Iv IV CONT 75 mls/hr .[id number] FATOU Administration Dextrose 1,000 mls @ 100 mls/hr 08/17/24 13:06 Dextrose 5% 1,000 Ml IVPB PRN PRN Hypoglycemia Protocol Insulin Aspart 2 - 5 units 08/17/24 17:00 08/19/24 11:45 Insulin Aspart (*Bkc) 100 Units/Ml SUB-Q Not Given TIDWM [facility]OU Protocol Latanoprost 1 drop 08/18/24 09:00 08/19/24 08:51 Latanoprost 0.005% Op Soln 2.5 Ml Btl EACH EYE 1 drop DAILY FATOU Administration Losartan Potassium 100 mg 08/18/24 09:00 08/19/24 08:49 Losartan Potassium 100 Mg Tablet PO 100 mg DAILY FATOU Administration Multivitamins Therapeutic 1 tablet 08/18/24 09:00 08/19/24 08:50 Multivitamins Therapeutic Tab (*Bkc) PO 1 tablet DAILY FATOU Administration Pantoprazole Sodium 40 mg 08/18/24 09:00 08/19/24 08:51 Pantoprazole 40 Mg Tablet PO 40 mg DAILY FATOU Administration Pilocarpine HCl 1 drop 08/17/24 13:00 08/17/24 16:03 Pilocarpine Hcl 1% Op Soln 15 Ml Btl EACH EYE Not Given TID FATOU Rosuvastatin Calcium 20 mg 08/18/24 09:00 08/19/24 08:50 Rosuvastatin 20 Mg Tablet PO 20 mg DAILY FATOU Administration Timolol Maleate 1 drop 08/17/24 21:00 08/19/24 08:51 Timolol Maleate 0.5% Op Soln 5 Ml Bottle EACH EYE 1 drop Q12H FATOU Administration Vitamin D 2,000 units 08/18/24 09:00 08/19/24 08:50 Cholecalciferol 1,000 Units Tablet PO 2,000 units DAILY FATOU Administration Radiology Results: ITS Impressions Chest X-Ray 08/17/24 07:09 IMPRESSION: 1. Opacities in the bilateral lower lung zones, left and right which could represent atelectasis, pneumonia, asymmetric mild pulmonary edema or some combination thereof. Labs Labs: Laboratory Results - last 24 hr 08/18/24 08/18/24 08/19/24 16:58 20:17 07:56 WBC RBC Hgb Hct MCV MCH MCHC RDW Plt Count MPV Sodium Potassium Chloride Carbon Dioxide Anion Gap BUN Creatinine Estim Creat Clear Calc Estimated GFR Glucose POC Capillary Glucose 88 93 142 H Calcium 08/19/24 08/19/24 09:56 11:36 WBC 10.9 H RBC 4.68 Hgb 13.9 L Hct 42.6 MCV 91.0 MCH 29.7 MCHC 32.6 RDW 13.2 Plt Count 310 MPV 9.7 Sodium 140 Potassium 3.9 Chloride 105 Carbon Dioxide 20 L Anion Gap 15 H BUN 18 Creatinine 0.61 L Estim Creat Clear Calc 86 Estimated GFR > 60 Glucose 183 H POC Capillary Glucose 182 H Calcium 9.2 Quality VTE Prophylaxis VTE prophylaxis: pharmacologic ordered
[2024-08-19] MEDS: busPIRone HCL 5 MG TABLET PO (16:56)
[2024-08-19 17:01] LABS: Glucose Point of Care 158 mg/dl (65-105)
[2024-08-19 21:34] LABS: Glucose Point of Care 155 mg/dl (65-105)
[2024-08-19 21:48] VITALS: BP 167/93; PULSE 94; RESP 18; TEMP 36.8; O2SAT 95
[2024-08-20 05:49] VITALS: BP 160/92; PULSE 85; RESP 20; TEMP 36.7; O2SAT 93
[2024-08-20 06:40] LABS: Hematocrit 41.6 % (42.0-52.0); Hemoglobin 13.5 g/dL (14.0-18.0); Mean Corpuscular HGB Conc 32.5 g/dl (32-36); Mean Corpuscular Volume 92.4 fl (80-100); Mean Platelet Volume 9.6 fl (7.4-10.4); Platelet Count Result 299 k/mm3 (150-375); Red Cell Distribution Width 13.2 % (11.5-14.5); White Blood Count 8.2 K/mm3 (4.5-10.0)
[2024-08-20 06:50] LABS: Anion Gap 11 mmol/L (4-12); Blood Urea Nitrogen 16 mg/dL (9-20); Calcium 9.1 mg/dL (8.4-10.2); Carbon Dioxide 26 mmol/L (22-30); Chloride 105 mmol/L (98-107); Estimated CRCL calculation 88 ml/min; Estimated Glomerular Filt Rate > 60; Glucose 98 mg/dL (65-110); Potassium 4.3 mmol/L (3.4-5.0); Sodium 142 mmol/L (137-145)
[2024-08-20 08:00] VITALS: O2SAT 93
[2024-08-20 08:10] LABS: Glucose Point of Care 108 mg/dl (65-105)
[2024-08-20] MEDS: ENOXAPARIN 40 MG/0.4 ML SYRINGE SUB-Q (10:00)
[2024-08-20] MEDS: LACTATED RINGERS 1,000 ML 75 ML IV CONT ×2 (10:03→23:52)
[2024-08-20] MEDS: LOSARTAN POTASSIUM 100 MG TABLET PO (10:14)
[2024-08-20] MEDS: LATANOPROST 0.005% OP SOLN 2.5 ML BTL 1 DROP EACH EYE ×2 (10:14→10:26)
[2024-08-20] MEDS: amLODIPine BESYLATE 5 MG TABLET PO (10:18)
[2024-08-20] MEDS: busPIRone HCL 5 MG TABLET PO (10:20)
[2024-08-20] MEDS: ROSUVASTATIN 20 MG TABLET PO (10:21)
[2024-08-20] MEDS: CHOLECALCIFEROL 1,000 UNITS TABLET 2000 UNITS PO (10:22)
[2024-08-20] MEDS: DULoxetine HCL 60 MG CAPSULE.DR PO (10:24)
[2024-08-20] MEDS: DULoxetine HCL 30 MG CAPSULE.DR PO (10:24)
[2024-08-20] MEDS: MULTIVITAMINS THERAPEUTIC TAB (*BKC) 1 TABLET PO (10:25)
[2024-08-20] MEDS: FERROUS SULFATE 325 MG TABLET DR BY MOUTH (10:25)
[2024-08-20] MEDS: ASCORBIC ACID 250 MG TABLET PO (10:26)
[2024-08-20] MEDS: PANTOPRAZOLE 40 MG TABLET PO (10:26)
[2024-08-20] MEDS: TIMOLOL MALEATE 0.5% OP SOLN 5 ML BOTTLE 1 DROP EACH EYE ×2 (10:27→21:15)
--- NOTE | 2024-08-20 11:30 | PC.NURSE ---
Nataliya Lambert BASEBALL GLOVE SHAPER notified that patient had low grade temp through the night and increased cough. New orders received.
[2024-08-20 11:46] LABS: Glucose Point of Care 121 mg/dl (65-105)
--- NOTE | 2024-08-20 11:58 | P.PNIM_ITS ---
Progress Note: A&P Assessment and Plan (1) HTN (hypertension): Code(s): I10 - Essential (primary) hypertension Status: Acute (2) Diabetes: Code(s): E11.9 - Type 2 diabetes mellitus without complications Status: Acute (3) Flu: Code(s): J11.1 - Influenza due to unidentified influenza virus with other respiratory manifestations Status: Acute (4) AMS (altered mental status): Code(s): R41.82 - Altered mental status, unspecified Status: Acute (5) Weakness: Code(s): R53.1 - Weakness Status: Acute (6) Bacteremia: Code(s): R78.81 - Bacteremia Status: Acute Plan # ams unable to take care of self in independent living will need placement- PT/OT tomorrow when a bit more alert and able to follow commands calm today but drowsy was able to take meds ok- no coughing or choking will need speech eval # bacteremia one of the cultures are growing Gram positive cocci cluster will add daily labs vanc-pharmacy to dose- unable to take PO meds as confused staph hominis- vanc is stopped second set of cultures negative # HAP 08/20 more course and congested chest xray: Worsened airspace opacities in left lower lung zone, consistent with atelectasis versus pneumonia. will start tx for pneumonia: cefepime -pharmacy to dose MRSA swab ordered- if positive add vanc # flu tamiflu was started on 08/13 - unsure if he was taking it or now will hold for now supportive treatment # t2dm -hold home meds: metformin and glipizide - needs swallow eval prior starting a diet SS, hypoglycemia protocol # htn resume home meds monitor vs # anxiety buspar tid prn home med- since more drowsy this am, will switch to bid prn monitor Time Spent With Patient Time with patient: 25 - 35 minutes Subjective Date/time seen: 08/20/24 11:58 Interval history: cough, fatigue/weakness, ams Narrative: 83 y.o male with pmh/of neuropathy, GERD, Diabetes, HTN, GI bleed, arthritis, vit d deficiency (from [facility]) here for weakness, cough, increased confusion. Of note, he was seen per his PCP on 08/13 and tested positive for flu then. He was started on Tamiflu 75mg bid #14 and Codeine/Guaifenesin 10-100/5ml 5ml every 6 hours prn cough. He lives in [facility] and was noted to be more confused and weak and not able to take care of himself. Very likely will need placement. 08/18- nursing report that pt is agitated and pulled IV out. Will add IM zyprexa as PO helped him before. He will need IV access as one of his BC came back positive. 08/19 bc contaminated. vanc d/desean. he is somewhat better but still anxious. Has sitter for safety 08/20 calm today, drowsy but wakes, was able to take medication ok. Congested. Unable to follow instructions to do IS or cough/deep breathes. unable to get him out of bed due to confusion Review of Systems Review of Systems: All systems reviewed & are unremarkable except as noted in HPI and below Exam Narrative: more calm today but drowsy Const: General: comfortable Resp: Effort & Inspection: normal respiratory effort Auscultation: diminished lung sounds Other: coarse, unable to follow instructions to cough or do IS Cardio: Rate: regular rate Rhythm: regular rhythm GI: Auscultation: normal bowel sounds Skin: General skin exam: normal color Psych: Other: calm Objective Data Vital Signs Vital Signs: Vital Signs - 24 hr 08/19/24 14:00 08/19/24 20:00 08/19/24 21:48 Temperature 97.6 F 98.2 F Pulse Rate 61 94 Respiratory Rate 18 18 Blood Pressure 130/88 167/93 H Pulse Oximetry 99 95 Oxygen Delivery Room Air 08/20/24 05:49 08/20/24 08:00 Temperature 98.0 F Pulse Rate 85 Respiratory Rate 20 Blood Pressure 160/92 H Pulse Oximetry 93 93 Oxygen Delivery Room Air Intake/Output Intake/Output: Intake & Output 08/17/24 08/18/24 08/19/24 08/20/24 23:59 23:59 23:59 23:59 Intake Total 640 2230.0 1440 1100 Balance 640 2230.0 1440 1100 Meds/Results Medications: Active Medications Generic Name Dose Route Start Last Admin Trade Name Freq PRN Reason Stop Dose Admin Acetaminophen 500 mg 08/17/24 12:59 Acetaminophen 500 Mg Tablet PO Q6H PRN fever or pain 1-3 Amlodipine Besylate 5 mg 08/18/24 09:00 08/20/24 10:18 Amlodipine Besylate 5 Mg Tablet PO 5 mg DAILY FATOU Administration Ascorbic Acid 250 mg 08/18/24 09:00 08/20/24 10:26 Ascorbic Acid 250 Mg Tablet PO 250 mg DAILY FATOU Administration Benzonatate 200 mg 08/17/24 13:38 Benzonatate 100 Mg Capsule PO TID PRN cough Buspirone HCl 5 mg 08/20/24 11:58 Buspirone Hcl 5 Mg Tablet PO BID PRN anxiety Olanzapine 5 mg/ Sterile Water 0 mg 08/18/24 15:13 2.1 ml IM Q6H PRN agitation Dextrose 12.5 gm 08/17/24 13:06 Dextrose 50% 25 Gm/50 Ml Syringe IV PUSH PRN PRN Hypoglycemia Protocol Duloxetine HCl 30 mg 08/18/24 09:00 08/20/24 10:24 Duloxetine Hcl 30 Mg Capsule. PO 30 mg DAILY FATOU Administration Duloxetine HCl 60 mg 08/18/24 09:00 08/20/24 10:24 Duloxetine Hcl 60 Mg Capsule. PO 60 mg DAILY FATOU Administration Enoxaparin Sodium 40 mg 08/18/24 09:00 08/20/24 10:00 Enoxaparin 40 Mg/0.4 Ml Syringe SUB-Q 40 mg DAILY FATOU Administration Ferrous Sulfate 325 mg 08/18/24 09:00 08/20/24 10:25 Ferrous Sulfate [address] BY MOUTH 325 mg DAILY FATOU Administration Glucagon 1 mg 08/17/24 13:06 Glucagon For Inj 1 Mg Vial IM PRN PRN Hypoglycemia Protocol Glucose 15 gm 08/17/24 13:06 Glucose Oral Gel 15 Gm Of Glucse In 37.5 Gm Tube PO PRN PRN Hypoglycemia Protocol Lactated Ringer's 1,000 mls @ 75 mls/hr 08/17/24 13:05 08/20/24 10:04 Lr - Lactated Ringers Iv IV CONT Not Given .[id number] FATOU Dextrose 1,000 mls @ 100 mls/hr 08/17/24 13:06 Dextrose 5% 1,000 Ml IVPB PRN PRN Hypoglycemia Protocol Insulin Aspart 2 - 5 units 08/17/24 17:00 08/20/24 08:49 Insulin Aspart (*Bkc) 100 Units/Ml SUB-Q Not Given TIDWM [facility] Protocol Latanoprost 1 drop 08/18/24 09:00 08/20/24 10:26 Latanoprost 0.005% Op Soln 2.5 Ml Btl EACH EYE 1 drop DAILY FATOU Administration Losartan Potassium 100 mg 08/18/24 09:00 08/20/24 10:14 Losartan Potassium 100 Mg Tablet PO 100 mg DAILY FATOU Administration Multivitamins Therapeutic 1 tablet 08/18/24 09:00 08/20/24 10:25 Multivitamins Therapeutic Tab (*Bkc) PO 1 tablet DAILY FATOU Administration Pantoprazole Sodium 40 mg 08/18/24 09:00 08/20/24 10:26 Pantoprazole 40 Mg Tablet PO 40 mg DAILY FATOU Administration Pilocarpine HCl 1 drop 08/17/24 13:00 08/17/24 16:03 Pilocarpine Hcl 1% Op Soln 15 Ml Btl EACH EYE Not Given TID FATOU Rosuvastatin Calcium 20 mg 08/18/24 09:00 08/20/24 10:21 Rosuvastatin 20 Mg Tablet PO 20 mg DAILY FATOU Administration Timolol Maleate 1 drop 08/17/24 21:00 08/20/24 10:27 Timolol Maleate 0.5% Op Soln 5 Ml Bottle EACH EYE 1 drop Q12H FATOU Administration Vitamin D 2,000 units 08/18/24 09:00 08/20/24 10:22 Cholecalciferol 1,000 Units Tablet PO 2,000 units DAILY FATOU Administration Radiology Results: ITS Impressions Chest X-Ray 08/17/24 07:09 IMPRESSION: 1. Opacities in the bilateral lower lung zones, left and right which could represent atelectasis, pneumonia, asymmetric mild pulmonary edema or some combination thereof. Labs Labs: Laboratory Results - last 24 hr 08/19/24 08/19/24 08/20/24 16:49 20:56 05:54 WBC 8.2 RBC 4.50 L Hgb 13.5 L Hct 41.6 L MCV 92.4 MCH 30.0 MCHC 32.5 RDW 13.2 Plt Count 299 MPV 9.6 Sodium 142 Potassium 4.3 Chloride 105 Carbon Dioxide 26 Anion Gap 11 BUN 16 Creatinine 0.60 L Estim Creat Clear Calc 88 Estimated GFR > 60 Glucose 98 POC Capillary Glucose 158 H 155 H Calcium 9.1 08/20/24 08/20/24 08:05 11:37 WBC RBC Hgb Hct MCV MCH MCHC RDW Plt Count MPV Sodium Potassium Chloride Carbon Dioxide Anion Gap BUN Creatinine Estim Creat Clear Calc Estimated GFR Glucose POC Capillary Glucose 108 H 121 H Calcium Quality VTE Prophylaxis VTE prophylaxis: pharmacologic ordered
[2024-08-20 14:00] VITALS: BP 129/89; PULSE 87; RESP 20; TEMP 36.8; O2SAT 94
[2024-08-20] MEDS: CEFEPIME 2 GM/NS 50 ML 2 GM/50 ML BAG IVPB ×2 (14:40→21:11)
--- NOTE | 2024-08-20 15:11 | PCPTNOTE ---
Attempted PT evaluation 1510, per RN patient has been too fatigued today, try tomorrow.
[2024-08-20 16:04] LABS: MRSA (PCR) NOT DETECTED (NOT DETECTE)
[2024-08-20 16:55] LABS: Glucose Point of Care 118 mg/dl (65-105)
[2024-08-20 20:00] VITALS: PULSE 95; RESP 18; O2SAT 93
[2024-08-20 21:44] LABS: Glucose Point of Care 120 mg/dl (65-105)
[2024-08-20 22:00] VITALS: BP 191/91; PULSE 95; RESP 18; TEMP 37.3; O2SAT 93
[2024-08-21] MEDS: CEFEPIME 2 GM/NS 50 ML 2 GM/50 ML BAG IVPB (05:06)
[2024-08-21 06:00] VITALS: BP 177/88; PULSE 98; RESP 18; TEMP 37.3; O2SAT 93
[2024-08-21 08:00] LABS: Hematocrit 42.7 % (42.0-52.0); Hemoglobin 13.9 g/dL (14.0-18.0); Mean Corpuscular HGB Conc 32.6 g/dl (32-36); Mean Corpuscular Hemoglobin 29.5 pg (26-34); Mean Corpuscular Volume 90.7 fl (80-100); Mean Platelet Volume 9.4 fl (7.4-10.4); Platelet Count Result 347 k/mm3 (150-375); Red Blood Count 4.71 M/mm3 (4.6-6.20); Red Cell Distribution Width 13.4 % (11.5-14.5); White Blood Count 6.5 K/mm3 (4.5-10.0)
[2024-08-21] MEDS: LOSARTAN POTASSIUM 100 MG TABLET PO (08:05)
[2024-08-21] MEDS: amLODIPine BESYLATE 5 MG TABLET PO (08:05)
[2024-08-21] MEDS: TIMOLOL MALEATE 0.5% OP SOLN 5 ML BOTTLE 1 DROP EACH EYE ×2 (08:05→22:24)
[2024-08-21] MEDS: ENOXAPARIN 40 MG/0.4 ML SYRINGE SUB-Q (08:05)
[2024-08-21] MEDS: ROSUVASTATIN 20 MG TABLET PO (08:08)
[2024-08-21] MEDS: FERROUS SULFATE 325 MG TABLET DR BY MOUTH (08:08)
[2024-08-21] MEDS: MULTIVITAMINS THERAPEUTIC TAB (*BKC) 1 TABLET PO (08:08)
[2024-08-21] MEDS: DULoxetine HCL 60 MG CAPSULE.DR PO (08:09)
[2024-08-21] MEDS: PANTOPRAZOLE 40 MG TABLET PO (08:09)
[2024-08-21] MEDS: CHOLECALCIFEROL 1,000 UNITS TABLET 2000 UNITS PO (08:09)
[2024-08-21] MEDS: DULoxetine HCL 30 MG CAPSULE.DR PO (08:09)
[2024-08-21] MEDS: ASCORBIC ACID 250 MG TABLET PO (08:09)
[2024-08-21 08:18] LABS: Anion Gap 12 mmol/L (4-12); Blood Urea Nitrogen 17 mg/dL (9-20); Calcium 9.2 mg/dL (8.4-10.2); Carbon Dioxide 25 mmol/L (22-30); Chloride 105 mmol/L (98-107); Estimated CRCL calculation 79 ml/min; Estimated Glomerular Filt Rate > 60; Glucose 109 mg/dL (65-110); Potassium 3.5 mmol/L (3.4-5.0); Sodium 142 mmol/L (137-145)
[2024-08-21 08:36] LABS: Glucose Point of Care 116 mg/dl (65-105)
--- NOTE | 2024-08-21 12:07 | PM.IMPN ---
Progress Note: A&P Assessment and Plan (1) AMS (altered mental status): Code(s): R41.82 - Altered mental status, unspecified Status: Acute Assessment and Plan: Patient previously living at assisted living, however he was diagnosed with the flu and continued to become increasingly confused. - head ct ordered - continue treatment for current infection - AOx3 on 3 (person, place, month) on assessment (2) Pneumonia: Code(s): J18.9 - Pneumonia, unspecified organism Status: Acute Assessment and Plan: CXR 08/17: Opacities in the bilateral lower lung zones, left and right which could represent atelectasis, pneumonia, asymmetric mild pulmonary edema or some combination thereof. CXR 08/20: Worsened airspace opacities in left lower lung zone, consistent with atelectasis versus pneumonia. - Antibiotic: started on cefepime on 08/20 then transitioned to Levaquin - Viral PCR: FLU A positive - Consider ordering legionella, mycoplasma and pneumococcal - no supplemental O2 requirement - Monitor vital signs, I&Os, neuro status and patient is a fall risk - Follow WBC, serum electrolytes, temperature curves and cultures (3) Bacteremia: Code(s): R78.81 - Bacteremia Status: Acute Assessment and Plan: - Blood cultures obtained on 08/17: staphylococcu hominis in 1 bottle, other NGTD. Likely a contaminate, was started on vancomycin but discontinued. - Repeat blood cultures obtained on 08/19: NGTD (4) Flu: Code(s): J11.1 - Influenza due to unidentified influenza virus with other respiratory manifestations Status: Acute Assessment and Plan: - tested positive for influenza A on - CXR 08/17: Opacities in the bilateral lower lung zones, left and right which could represent atelectasis, pneumonia, asymmetric mild pulmonary edema or some combination thereof. - CXR 08/20: Worsened airspace opacities in left lower lung zone, consistent with atelectasis versus pneumonia. - currently not requiring increased supplemental O2 (5) HTN (hypertension): Code(s): I10 - Essential (primary) hypertension Status: Acute Assessment and Plan: chronic, continue home medications - amlodipine 5 mg daily - losartan 100 mg daily - blood pressures remain stable, continue to monitor (6) Diabetes: Code(s): E11.9 - Type 2 diabetes mellitus without complications Status: Acute Assessment and Plan: - hypoglycemia protocol - POC blood glucose ACHS - home medication - none - correct regimen ordered - low dose TIDWM and HS - A1C (7) Weakness: Code(s): R53.1 - Weakness Status: Acute Assessment and Plan: PT/OT Time Spent With Patient Time with patient: 25 - 35 minutes Subjective Date/time seen: 08/21/24 12:07 Interval history: 83 y.o male with pmh/of neuropathy,, GERD, Diabetes, HTN, GI bleed, arthritis, vit d deficiency (from [facility]) here for weakness, cough, increased confusion. Patient is pleasant lying comfortably in bed. He is alert and oriented x3 at time of assessment. He continues to endorse slight shortness of breath but states that this has improved. Has no other complaints denying chest pain, palpitations, nausea/vomiting, abdominal pain. Review of Systems Review of Systems: All systems reviewed & are unremarkable except as noted in HPI and below Exam Narrative: AF HR 92 RR 18 SPO2 91 BP 147/63 General: male in no acute respiratory distress who is nontoxic appearing, lying semi recumbent in bed. HEENT: Normocephalic. Atraumatic. Extraocular movement intact. Sclera clear and anicteric. No facial asymmetry. Chest: Lungs are coarse to auscultation bilaterally. No wheezes or crackles. CV: Heart was regular rate and rhythm. S1/S2. No murmurs, gallops, or rubs. Abd: Abdomen was soft. Nontender. Nondistended. Positive bowel sounds. No organomegaly or masses. Ext: No clubbing, cyanosis, or edema. 2+ DP pulses bilaterally. Neuro: Patient is alert and oriented x3. Speech is clear. Objective Data Vital Signs Vital Signs: Vital Signs - 24 hr 08/20/24 14:00 08/20/24 20:00 08/20/24 22:00 Temperature 98.2 F 99.1 F Pulse Rate 87 95 95 Respiratory Rate 20 18 18 Blood Pressure 129/89 191/91 H Pulse Oximetry 94 93 93 Oxygen Delivery Room Air 08/21/24 06:00 08/21/24 08:00 Temperature 99.2 F Pulse Rate 98 Respiratory Rate 18 Blood Pressure 177/88 H Pulse Oximetry 93 Oxygen Delivery Room Air Intake/Output Intake/Output: Intake & Output 08/18/24 08/19/24 08/20/24 08/21/24 23:59 23:59 23:59 23:59 Intake Total 2230.0 1440 2200 120 Balance 2230.0 1440 2200 120 Meds/Results Medications: Active Medications Generic Name Dose Route Start Last Admin Trade Name Freq PRN Reason Stop Dose Admin Acetaminophen 500 mg 08/17/24 12:59 Acetaminophen 500 Mg Tablet PO Q6H PRN fever or pain 1-3 Amlodipine Besylate 5 mg 08/18/24 09:00 08/21/24 08:05 Amlodipine Besylate 5 Mg Tablet PO 5 mg DAILY FATOU Administration Ascorbic Acid 250 mg 08/18/24 09:00 08/21/24 08:09 Ascorbic Acid 250 Mg Tablet PO 250 mg DAILY FATOU Administration Benzonatate 200 mg 08/17/24 13:38 Benzonatate 100 Mg Capsule PO TID PRN cough Buspirone HCl 5 mg 08/20/24 11:58 Buspirone Hcl 5 Mg Tablet PO BID PRN anxiety Olanzapine 5 mg/ Sterile Water 0 mg 08/18/24 15:13 2.1 ml IM Q6H PRN agitation Dextrose 12.5 gm 08/17/24 13:06 Dextrose 50% 25 Gm/50 Ml Syringe IV PUSH PRN PRN Hypoglycemia Protocol Duloxetine HCl 30 mg 08/18/24 09:00 08/21/24 08:09 Duloxetine Hcl 30 Mg Capsule.Dr PO 30 mg DAILY FATOU Administration Duloxetine HCl 60 mg 08/18/24 09:00 08/21/24 08:09 Duloxetine Hcl 60 Mg Capsule.Dr PO 60 mg DAILY FATOU Administration Enoxaparin Sodium 40 mg 08/18/24 09:00 08/21/24 08:05 Enoxaparin 40 Mg/0.4 Ml Syringe SUB-Q 40 mg DAILY FATOU Administration Ferrous Sulfate 325 mg 08/18/24 09:00 08/21/24 08:08 Ferrous Sulfate [address] BY MOUTH 325 mg DAILY FATOU Administration Glucagon 1 mg 08/17/24 13:06 Glucagon For Inj 1 Mg Vial IM PRN PRN Hypoglycemia Protocol Glucose 15 gm 08/17/24 13:06 Glucose Oral Gel 15 Gm Of Glucse In 37.5 Gm Tube PO PRN PRN Hypoglycemia Protocol Lactated Ringer's 1,000 mls @ 75 mls/hr 08/17/24 13:05 08/20/24 23:52 Lr - Lactated Ringers Iv IV CONT 75 mls/hr .[id number] FATOU Administration Dextrose 1,000 mls @ 100 mls/hr 08/17/24 13:06 Dextrose 5% 1,000 Ml IVPB PRN PRN Hypoglycemia Protocol Insulin Aspart 2 - 5 units 08/17/24 17:00 08/21/24 08:12 Insulin Aspart (*Bkc) 100 Units/Ml SUB-Q Not Given TIDWM FATOU Protocol Latanoprost 1 drop 08/18/24 09:00 08/20/24 10:26 Latanoprost 0.005% Op Soln 2.5 Ml Btl EACH EYE 1 drop DAILY FATOU Administration Levofloxacin 750 mg 08/21/24 14:00 Levofloxacin 750 Mg Tablet PO 08/26/24 14:01 Q24H FATOU Losartan Potassium 100 mg 08/18/24 09:00 08/21/24 08:05 Losartan Potassium 100 Mg Tablet PO 100 mg DAILY FATOU Administration Multivitamins Therapeutic 1 tablet 08/18/24 09:00 08/21/24 08:08 Multivitamins Therapeutic Tab (*Bkc) PO 1 tablet DAILY FATOU Administration Pantoprazole Sodium 40 mg 08/18/24 09:00 08/21/24 08:09 Pantoprazole 40 Mg Tablet PO 40 mg DAILY FATOU Administration Pilocarpine HCl 1 drop 08/17/24 13:00 08/17/24 16:03 Pilocarpine Hcl 1% Op Soln 15 Ml Btl EACH EYE Not Given TID FATOU Rosuvastatin Calcium 20 mg 08/18/24 09:00 08/21/24 08:08 Rosuvastatin 20 Mg Tablet PO 20 mg DAILY FATOU Administration Timolol Maleate 1 drop 08/17/24 21:00 08/21/24 08:05 Timolol Maleate 0.5% Op Soln 5 Ml Bottle EACH EYE 1 drop Q12H FATOU Administration Vitamin D 2,000 units 08/18/24 09:00 08/21/24 08:09 Cholecalciferol 1,000 Units Tablet PO 2,000 units DAILY FATOU Administration Radiology Results: ITS Impressions Chest X-Ray 08/20/24 13:25 IMPRESSION: 1. Worsened airspace opacities in left lower lung zone, consistent with atelectasis versus pneumonia. Labs Labs: Laboratory Results - last 24 hr 08/20/24 08/20/24 08/20/24 14:48 16:53 21:41 WBC RBC Hgb Hct MCV MCH MCHC RDW Plt Count MPV Sodium Potassium Chloride Carbon Dioxide Anion Gap BUN Creatinine Estim Creat Clear Calc Estimated GFR Glucose POC Capillary Glucose 118 H 120 H Calcium Nasal MRSA (PCR) Not detected 08/21/24 08/21/24 07:14 08:11 WBC 6.5 RBC 4.71 Hgb 13.9 L Hct 42.7 MCV 90.7 MCH 29.5 MCHC 32.6 RDW 13.4 Plt Count 347 MPV 9.4 Sodium 142 Potassium 3.5 Chloride 105 Carbon Dioxide 25 Anion Gap 12 BUN 17 Creatinine 0.67 L Estim Creat Clear Calc 79 Estimated GFR > 60 Glucose 109 POC Capillary Glucose 116 H Calcium 9.2 Nasal MRSA (PCR) Quality VTE Prophylaxis VTE prophylaxis: pharmacologic ordered
[2024-08-21 12:32] LABS: Glucose Point of Care 156 mg/dl (65-105)
[2024-08-21 14:00] VITALS: BP 147/63; PULSE 92; RESP 18; TEMP 36.5; O2SAT 91
[2024-08-21] MEDS: LACTATED RINGERS 1,000 ML 75 ML IV CONT (14:17)
[2024-08-21] MEDS: levoFLOXacin 750 MG TABLET PO (14:17)
[2024-08-21 17:30] LABS: Glucose Point of Care 202 mg/dl (65-105)
[2024-08-21] MEDS: INSULIN ASPART (*BKC) 100 UNITS/ML SUB-Q (17:44)
[2024-08-21 19:47] VITALS: PULSE 92; RESP 18; O2SAT 91
[2024-08-21 21:16] LABS: Glucose Point of Care 159 mg/dl (65-105)
[2024-08-21 22:00] VITALS: BP 153/79; PULSE 86; RESP 18; TEMP 36.6; O2SAT 92
[2024-08-22] MEDS: LACTATED RINGERS 1,000 ML 75 ML IV CONT (04:00)
[2024-08-22 06:00] VITALS: BP 151/84; PULSE 85; RESP 18; TEMP 36.9; O2SAT 96
[2024-08-22] MEDS: ACETAMINOPHEN 500 MG TABLET PO (06:20)
[2024-08-22] MEDS: DULoxetine HCL 30 MG CAPSULE.DR PO (07:58)
[2024-08-22] MEDS: ENOXAPARIN 40 MG/0.4 ML SYRINGE SUB-Q (07:58)
[2024-08-22] MEDS: ASCORBIC ACID 250 MG TABLET PO (07:58)
[2024-08-22] MEDS: ROSUVASTATIN 20 MG TABLET PO (07:58)
[2024-08-22] MEDS: DULoxetine HCL 60 MG CAPSULE.DR PO (07:58)
[2024-08-22] MEDS: FERROUS SULFATE 325 MG TABLET DR BY MOUTH (07:59)
[2024-08-22] MEDS: amLODIPine BESYLATE 5 MG TABLET PO (07:59)
[2024-08-22] MEDS: PANTOPRAZOLE 40 MG TABLET PO (07:59)
[2024-08-22] MEDS: MULTIVITAMINS THERAPEUTIC TAB (*BKC) 1 TABLET PO (07:59)
[2024-08-22] MEDS: CHOLECALCIFEROL 1,000 UNITS TABLET 2000 UNITS PO (07:59)
[2024-08-22] MEDS: LOSARTAN POTASSIUM 100 MG TABLET PO (07:59)
[2024-08-22] MEDS: LATANOPROST 0.005% OP SOLN 2.5 ML BTL 1 DROP EACH EYE (07:59)
[2024-08-22 08:04] LABS: Glucose Point of Care 131 mg/dl (65-105)
[2024-08-22 08:17] LABS: Hematocrit 41.1 % (42.0-52.0); Hemoglobin 13.6 g/dL (14.0-18.0); Mean Corpuscular HGB Conc 33.1 g/dl (32-36); Mean Corpuscular Hemoglobin 29.5 pg (26-34); Mean Corpuscular Volume 89.2 fl (80-100); Platelet Count Result 332 k/mm3 (150-375); Red Blood Count 4.61 M/mm3 (4.6-6.20); Red Cell Distribution Width 13.2 % (11.5-14.5); White Blood Count 6.3 K/mm3 (4.5-10.0)
[2024-08-22 08:20] VITALS: O2SAT 90
[2024-08-22 08:29] LABS: Alanine Aminotransferase 32 U/L (6-50); Albumin Level 3.3 g/dL (3.5-5.1); Alkaline Phosphatase 60 U/L (38-126); Anion Gap 6 mmol/L (4-12); Aspartate Amino Transferase 26 U/L (17-59); Bilirubin,Total 0.8 mg/dL (0.2-1.3); Blood Urea Nitrogen 12 mg/dL (9-20); Carbon Dioxide 30 mmol/L (22-30); Chloride 103 mmol/L (98-107); Estimated CRCL calculation 85 ml/min; Estimated Glomerular Filt Rate > 60; Glucose 124 mg/dL (65-110); Potassium 3.5 mmol/L (3.4-5.0); Sodium 139 mmol/L (137-145)
--- NOTE | 2024-08-22 08:54 | PM.IMPN ---
Progress Note: A&P Assessment and Plan (1) AMS (altered mental status): Code(s): R41.82 - Altered mental status, unspecified Status: Acute Assessment and Plan: Patient previously living at assisted living, however he was diagnosed with the flu and continued to become increasingly confused. No neurological deficits on exam. - head ct: normal aging brain - continue treatment for current infection - AOx3 on 3 (person, place, month) on assessment (2) Pneumonia: Code(s): J18.9 - Pneumonia, unspecified organism Status: Acute Assessment and Plan: CXR 08/17: Opacities in the bilateral lower lung zones, left and right which could represent atelectasis, pneumonia, asymmetric mild pulmonary edema or some combination thereof. CXR 08/20: Worsened airspace opacities in left lower lung zone, consistent with atelectasis versus pneumonia. - Antibiotic: started on cefepime on 08/20 then transitioned to Levaquin on 08/21 - Viral PCR: FLU A positive - Consider ordering legionella, mycoplasma and pneumococcal - no supplemental O2 requirement - Monitor vital signs, I&Os, neuro status and patient is a fall risk - Follow WBC, serum electrolytes, temperature curves and cultures (3) Bacteremia: Code(s): R78.81 - Bacteremia Status: Acute Assessment and Plan: - Blood cultures obtained on 08/17: staphylococcu hominis in 1 bottle, other NGTD. Likely a contaminate, was started on vancomycin but discontinued. - Repeat blood cultures obtained on 08/19: NGTD (4) Flu: Code(s): J11.1 - Influenza due to unidentified influenza virus with other respiratory manifestations Status: Acute Assessment and Plan: - tested positive for influenza A - CXR 08/17: Opacities in the bilateral lower lung zones, left and right which could represent atelectasis, pneumonia, asymmetric mild pulmonary edema or some combination thereof. - CXR 08/20: Worsened airspace opacities in left lower lung zone, consistent with atelectasis versus pneumonia. - currently not requiring increased supplemental O2 (5) HTN (hypertension): Code(s): I10 - Essential (primary) hypertension Status: Acute Assessment and Plan: chronic, continue home medications - amlodipine 5 mg daily - losartan 100 mg daily - blood pressures remain stable, continue to monitor (6) Diabetes: Code(s): E11.9 - Type 2 diabetes mellitus without complications Status: Acute Assessment and Plan: - hypoglycemia protocol - POC blood glucose ACHS - home medication - glipizide 5 mg daily, metformin 500 mg daily - correct regimen ordered - low dose TIDWM - A1C 7.3 on 12/2023 (7) Weakness: Code(s): R53.1 - Weakness Status: Acute Assessment and Plan: PT/OT Time Spent With Patient Time with patient: 25 - 35 minutes Subjective Date/time seen: 08/22/24 08:54 Interval history: 83 y.o male with pmh/of neuropathy,, GERD, Diabetes, HTN, GI bleed, arthritis, 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 Patient is pleasant sitting up comfortably in his chair working with physical therapy. He remains alert and oriented x3 at times F assessment. He continues to endorse shortness of breath but notes that has improved since admission. He has no other complaints denies chest pain, palpitations, nausea/vomiting, abdominal pain, and dizziness/lightheadedness. Review of Systems Review of Systems: All systems reviewed & are unremarkable except as noted in HPI and below Exam Narrative: AF HR 85 RR 18 SpO2 96 BP 151/84 General: male in no acute respiratory distress who is nontoxic appearing, lying semi recumbent in bed. HEENT: Normocephalic. Atraumatic. Extraocular movement intact. Sclera clear and anicteric. No facial asymmetry. Chest: Lungs are coarse to auscultation bilaterally in the bases. No wheezes or crackles. CV: Heart was regular rate and rhythm. S1/S2. No murmurs, gallops, or rubs. Abd: Abdomen was soft. Nontender. Nondistended. Positive bowel sounds. No organomegaly or masses. Ext: No clubbing, cyanosis, or edema. 2+ DP pulses bilaterally. Neuro: Patient is alert and oriented x3. Speech is clear. Objective Data Vital Signs Vital Signs: Vital Signs - 24 hr 08/21/24 13:00 08/21/24 14:00 08/21/24 19:47 Temperature 97.7 F Pulse Rate 92 92 Respiratory Rate 18 18 Blood Pressure 147/63 H Pulse Oximetry 91 91 Oxygen Delivery Room Air Room Air 08/21/24 22:00 08/22/24 06:00 08/22/24 08:20 Temperature 97.9 F 98.5 F Pulse Rate 86 85 Respiratory Rate 18 18 Blood Pressure 153/79 H 151/84 H Pulse Oximetry 92 96 90 Oxygen Delivery Room Air Intake/Output Intake/Output: Intake & Output 08/19/24 08/20/24 08/21/24 08/22/24 23:59 23:59 23:59 23:59 Intake Total 1440 2200 1457 1000 Balance 1440 2200 1457 1000 Meds/Results Medications: Active Medications Generic Name Dose Route Start Last Admin Trade Name Freq PRN Reason Stop Dose Admin Acetaminophen 500 mg 08/17/24 12:59 08/22/24 06:20 Acetaminophen 500 Mg Tablet PO 500 mg Q6H PRN Administration fever or pain 1-3 Amlodipine Besylate 5 mg 08/18/24 09:00 08/22/24 07:59 Amlodipine Besylate 5 Mg Tablet PO 5 mg DAILY FATOU Administration Ascorbic Acid 250 mg 08/18/24 09:00 08/22/24 07:58 Ascorbic Acid 250 Mg Tablet PO 250 mg DAILY FATOU Administration Benzonatate 200 mg 08/17/24 13:38 Benzonatate 100 Mg Capsule PO TID PRN cough Buspirone HCl 5 mg 08/20/24 11:58 Buspirone Hcl 5 Mg Tablet PO BID PRN anxiety Olanzapine 5 mg/ Sterile Water 0 mg 08/18/24 15:13 2.1 ml IM Q6H PRN agitation Dextrose 12.5 gm 08/17/24 13:06 Dextrose 50% 25 Gm/50 Ml Syringe IV PUSH PRN PRN Hypoglycemia Protocol Duloxetine HCl 30 mg 08/18/24 09:00 08/22/24 07:58 Duloxetine Hcl 30 Mg Capsule.Dr PO 30 mg DAILY FATOU Administration Duloxetine HCl 60 mg 08/18/24 09:00 08/22/24 07:58 Duloxetine Hcl 60 Mg Capsule.Dr PO 60 mg DAILY FATOU Administration Enoxaparin Sodium 40 mg 08/18/24 09:00 08/22/24 07:58 Enoxaparin 40 Mg/0.4 Ml Syringe SUB-Q 40 mg DAILY FATOU Administration Ferrous Sulfate 325 mg 08/18/24 09:00 08/22/24 07:59 Ferrous Sulfate [address] BY MOUTH 325 mg DAILY FATOU Administration Glucagon 1 mg 08/17/24 13:06 Glucagon For Inj 1 Mg Vial IM PRN PRN Hypoglycemia Protocol Glucose 15 gm 08/17/24 13:06 Glucose Oral Gel 15 Gm Of Glucse In 37.5 Gm Tube PO PRN PRN Hypoglycemia Protocol Lactated Ringer's 1,000 mls @ 75 mls/hr 08/17/24 13:05 08/22/24 04:00 Lr - Lactated Ringers Iv IV CONT 75 mls/hr .[id number] FATOU Administration Dextrose 1,000 mls @ 100 mls/hr 08/17/24 13:06 Dextrose 5% 1,000 Ml IVPB PRN PRN Hypoglycemia Protocol Insulin Aspart 2 - 5 units 08/17/24 17:00 08/22/24 08:15 Insulin Aspart (*Bkc) 100 Units/Ml SUB-Q Not Given TIDWM FATOU Protocol Latanoprost 1 drop 08/18/24 09:00 08/22/24 07:59 Latanoprost 0.005% Op Soln 2.5 Ml Btl EACH EYE 1 drop DAILY FATOU Administration Levofloxacin 750 mg 08/21/24 14:00 08/21/24 14:17 Levofloxacin 750 Mg Tablet PO 08/26/24 14:01 750 mg Q24H FATOU Administration Losartan Potassium 100 mg 08/18/24 09:00 08/22/24 07:59 Losartan Potassium 100 Mg Tablet PO 100 mg DAILY FATOU Administration Multivitamins Therapeutic 1 tablet 08/18/24 09:00 08/22/24 07:59 Multivitamins Therapeutic Tab (*Bkc) PO 1 tablet DAILY FATOU Administration Pantoprazole Sodium 40 mg 08/18/24 09:00 08/22/24 07:59 Pantoprazole 40 Mg Tablet PO 40 mg DAILY FATOU Administration Pilocarpine HCl 1 drop 08/17/24 13:00 08/17/24 16:03 Pilocarpine Hcl 1% Op Soln 15 Ml Btl EACH EYE Not Given TID FATOU Rosuvastatin Calcium 20 mg 08/18/24 09:00 08/22/24 07:58 Rosuvastatin 20 Mg Tablet PO 20 mg DAILY FATOU Administration Timolol Maleate 1 drop 08/17/24 21:00 08/21/24 22:24 Timolol Maleate 0.5% Op Soln 5 Ml Bottle EACH EYE 1 drop Q12H FATOU Administration Vitamin D 2,000 units 08/18/24 09:00 08/22/24 07:59 Cholecalciferol 1,000 Units Tablet PO 2,000 units DAILY FATOU Administration Radiology Results: ITS Impressions Chest X-Ray 08/20/24 13:25 IMPRESSION: 1. Worsened airspace opacities in left lower lung zone, consistent with atelectasis versus pneumonia. Head CT 08/21/24 20:27 IMPRESSION: 1. Normal aging brain. Labs Labs: Laboratory Results - last 24 hr 08/21/24 08/21/24 08/21/24 11:45 16:48 21:07 WBC RBC Hgb Hct MCV MCH MCHC RDW Plt Count MPV Sodium Potassium Chloride Carbon Dioxide Anion Gap BUN Creatinine Estim Creat Clear Calc Estimated GFR Glucose POC Capillary Glucose 156 H 202 H 159 H Calcium Total Bilirubin AST ALT Alkaline Phosphatase Total Protein Albumin 08/22/24 08/22/24 08:00 08:01 WBC 6.3 RBC 4.61 Hgb 13.6 L Hct 41.1 L MCV 89.2 MCH 29.5 MCHC 33.1 RDW 13.2 Plt Count 332 MPV 9.0 Sodium 139 Potassium 3.5 Chloride 103 Carbon Dioxide 30 Anion Gap 6 BUN 12 D Creatinine 0.62 L Estim Creat Clear Calc 85 Estimated GFR > 60 Glucose 124 H POC Capillary Glucose 131 H Calcium 9.0 Total Bilirubin 0.8 AST 26 ALT 32 Alkaline Phosphatase 60 Total Protein 7.0 Albumin 3.3 L Quality VTE Prophylaxis VTE prophylaxis: pharmacologic ordered
[2024-08-22] MEDS: TIMOLOL MALEATE 0.5% OP SOLN 5 ML BOTTLE 1 DROP EACH EYE ×2 (09:00→20:23)
[2024-08-22 11:58] LABS: Glucose Point of Care 191 mg/dl (65-105)
--- NOTE | 2024-08-22 12:16 | PCPTNOTE ---
On 08/22/24, the student, NISA Oneal, provided care and completed [facility] documentation on this patient. I have reviewed the student's documentation and agree with the findings.
[2024-08-22 14:00] VITALS: BP 148/78; PULSE 101; RESP 20; TEMP 36.6; O2SAT 91
[2024-08-22] MEDS: levoFLOXacin 750 MG TABLET PO (14:04)
[2024-08-22 17:06] LABS: Glucose Point of Care 231 mg/dl (65-105)
[2024-08-22] MEDS: INSULIN ASPART (*BKC) 100 UNITS/ML SUB-Q (17:11)
[2024-08-22] MEDS: BENZONATATE 100 MG CAPSULE 200 MG PO (17:41)
[2024-08-22 20:40] LABS: Glucose Point of Care 197 mg/dl (65-105)
[2024-08-22 22:00] VITALS: BP 165/78; PULSE 81; RESP 18; TEMP 36.2; O2SAT 93
[2024-08-23 06:00] VITALS: BP 125/64; PULSE 60; RESP 18; TEMP 36.6; O2SAT 94
[2024-08-23 06:47] LABS: Hematocrit 41.5 % (42.0-52.0); Hemoglobin 13.7 g/dL (14.0-18.0); Mean Corpuscular Hemoglobin 29.8 pg (26-34); Mean Corpuscular Volume 90.2 fl (80-100); Mean Platelet Volume 9.4 fl (7.4-10.4); Platelet Count Result 342 k/mm3 (150-375); Red Cell Distribution Width 13.2 % (11.5-14.5); White Blood Count 6.4 K/mm3 (4.5-10.0)
[2024-08-23 06:55] LABS: Alanine Aminotransferase 29 U/L (6-50); Albumin Level 3.4 g/dL (3.5-5.1); Alkaline Phosphatase 57 U/L (38-126); Anion Gap 8 mmol/L (4-12); Aspartate Amino Transferase 23 U/L (17-59); Bilirubin,Total 0.7 mg/dL (0.2-1.3); Blood Urea Nitrogen 12 mg/dL (9-20); Carbon Dioxide 29 mmol/L (22-30); Chloride 102 mmol/L (98-107); Estimated CRCL calculation 86 ml/min; Estimated Glomerular Filt Rate > 60; Glucose 165 mg/dL (65-110); Potassium 3.7 mmol/L (3.4-5.0); Sodium 139 mmol/L (137-145)
[2024-08-23 08:14] LABS: Glucose Point of Care 167 mg/dl (65-105)
[2024-08-23] MEDS: TIMOLOL MALEATE 0.5% OP SOLN 5 ML BOTTLE 1 DROP EACH EYE (10:17)
[2024-08-23] MEDS: LATANOPROST 0.005% OP SOLN 2.5 ML BTL 1 DROP EACH EYE (10:17)
[2024-08-23] MEDS: DULoxetine HCL 60 MG CAPSULE.DR PO (10:17)
[2024-08-23] MEDS: ROSUVASTATIN 20 MG TABLET PO (10:18)
[2024-08-23] MEDS: CHOLECALCIFEROL 1,000 UNITS TABLET 2000 UNITS PO (10:18)
[2024-08-23] MEDS: ASCORBIC ACID 250 MG TABLET PO (10:18)
[2024-08-23] MEDS: LOSARTAN POTASSIUM 100 MG TABLET PO (10:18)
[2024-08-23] MEDS: DULoxetine HCL 30 MG CAPSULE.DR PO (10:18)
[2024-08-23] MEDS: amLODIPine BESYLATE 5 MG TABLET PO (10:18)
[2024-08-23] MEDS: MULTIVITAMINS THERAPEUTIC TAB (*BKC) 1 TABLET PO (10:19)
[2024-08-23] MEDS: ENOXAPARIN 40 MG/0.4 ML SYRINGE SUB-Q (10:19)
[2024-08-23] MEDS: FERROUS SULFATE 325 MG TABLET DR BY MOUTH (10:19)
[2024-08-23] MEDS: PANTOPRAZOLE 40 MG TABLET PO (10:19)
--- NOTE | 2024-08-23 10:45 | P.DS_ITS ---
DS: Admitting Diagnosis Discharge Date 08/23/2023 Admitting Diagnosis AMS Pneumonia Bacteremia FLU HTN DM Weakness DS: Discharge Diagnosis Discharge Diagnosis (1) AMS (altered mental status): Code(s): R41.82 - Altered mental status, unspecified Status: Acute (2) Pneumonia: Code(s): J18.9 - Pneumonia, unspecified organism Status: Acute (3) Bacteremia: Code(s): R78.81 - Bacteremia Status: Acute (4) Flu: Code(s): J11.1 - Influenza due to unidentified influenza virus with other respiratory manifestations Status: Acute (5) HTN (hypertension): Code(s): I10 - Essential (primary) hypertension Status: Acute (6) Diabetes: Code(s): E11.9 - Type 2 diabetes mellitus without complications Status: Acute (7) Weakness: Code(s): R53.1 - Weakness Status: Acute DS: Summary Hospital Course Reason for hospitalization: AMS Pneumonia Bacteremia FLU HTN DM Weakness Hospital Course: 83 y.o male with pmh/of neuropathy,, GERD, Diabetes, HTN, GI bleed, arthritis, 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 Patient was diagnosed with the flu and continued to become increasingly confused. On admission patient not meeting sepsis criteria. Head CT was unremarkable. Viral panel remained Flu positive. CXR 08/17 showed opacities in the bilateral lower lung zones, left and right which could represent atelectasis, pneumonia, asymmetric mild pulmonary edema or some combination thereof. Blood cultures were obtained and patient was started on antibiotics at that time. Blood culture grew staph hominis in 1 bottle, repeat were negative. Likely a contaminated sample. A repeat CXR was obtained and showed worsened airspace opacities in left lower lung zone, consistent with atelectasis versus pneumonia. During admission patient returned to his baseline mentation of AOx4. He remained on room air and his lung sounds continued to improve. He was able to work with therapy who recommended placement for further treatment. At time of discharge patient had no complaints denying chest pain, shortness of breath, palpitations, nausea/vomiting and abdominal pain. Patient discharged to Hospital swing bed in a stable condition. He is to follow-up with primary care provider in 1 week. Status at Discharge Functional status at discharge: uses cane/walker Time Spent with Patient Time attestation: Total time spent providing and/or coordinating discharge services: Time spent: Greater than 30 minutes Exam Narrative: AF HR 60 RR 18 SPO2 94 BP 125/64 General: male in no acute respiratory distress who is nontoxic appearing, lying semi recumbent in bed. HEENT: Normocephalic. Atraumatic. Extraocular movement intact. Sclera clear and anicteric. No facial asymmetry. Chest: Lungs are clear in the uppers with slight coarseness to the bases to auscultation bilaterally in the bases. No wheezes or crackles. CV: Heart was regular rate and rhythm. S1/S2. No murmurs, gallops, or rubs. Abd: Abdomen was soft. Nontender. Nondistended. Positive bowel sounds. Ext: No clubbing, cyanosis, or edema. 2+ DP pulses bilaterally. Neuro: Patient is alert and oriented x3. Speech is clear. Skin: Small raised pruritic rash to upper back DS: Data Data Completed and Pending Completed studies during hospitalization: head CT chest xr chest xr Labs on day of discharge: Labs from last 24 hours 08/23/24 08/23/24 08/22/24 08:09 06:17 20:38 WBC 6.4 RBC 4.60 Hgb 13.7 L Hct 41.5 L MCV 90.2 MCH 29.8 MCHC 33.0 RDW 13.2 Plt Count 342 MPV 9.4 Sodium 139 Potassium 3.7 Chloride 102 Carbon Dioxide 29 Anion Gap 8 BUN 12 Creatinine 0.61 L Estim Creat Clear Calc 86 Estimated GFR > 60 Glucose 165 H POC Capillary Glucose 167 H 197 H Calcium 9.0 Total Bilirubin 0.7 AST 23 ALT 29 Alkaline Phosphatase 57 Total Protein 7.0 Albumin 3.4 L 08/22/24 08/22/24 16:40 11:31 WBC RBC Hgb Hct MCV MCH MCHC RDW Plt Count MPV Sodium Potassium Chloride Carbon Dioxide Anion Gap BUN Creatinine Estim Creat Clear Calc Estimated GFR Glucose POC Capillary Glucose 231 H 191 H Calcium Total Bilirubin AST ALT Alkaline Phosphatase Total Protein Albumin Preliminary micro results at discharge 08/19/24 09:56 Blood Culture - Preliminary Blood 08/19/24 10:05 Blood Culture - Preliminary Blood Discharge Plan Discharge Attending physician on discharge: Matti Jimenez Consulting providers: Jackie Sinha Discharging Clinician: Sinha,Jackie L. Anticipated Discharge Date/Time: 08/23/24 10:39 Patient Disposition: Hospital Swing Bed Activity: as tolerated Diet: as tolerated and diabetic Discharge Instructions: Discharge disposition: Patient was admitted to the hospital for altered mental status after being diagnosed with the Flu Mental status returned to baseline during admission Completed tamiflu course during admission During admission patient diagnosed with pneumonia Take medications as prescribed Levaquin course to be completed on 08/26 Attached is information on this medication Eat well balanced meals and stay hydrated Keep active, but do not over do it If you notice that you are short of breath sit down and take a break Check your SPO2 periodically, if it is low cough and rest, check again in about 15 minutes, if you remain low, you should come back to the hospital Patient developed a skin rash on his back that is likely secondary to sweat Continue kenalog cream Monitor Monitor blood pressures Take caution while standing, rising, or moving Change positions slowly taking a break between each position change If you standing feel dizzy sit back down and take a break Encouraged to continue with yearly vaccinations Return to the emergency department if he developed sudden shortness of breath, chest pain, nausea, vomiting, upset stomach or intractable diarrhea Return to the emergency department if you develop fever greater than 101.5 Follow-up with the primary care physician within 1-2 weeks [address] you for choosing [facility] for your healthcare needs Patient Instructions: Antibiotic Form, Triamcinolone (On the skin), Levofloxa grabiel (By mouth), Influenza (DC), Pneumonia (DC), Dermatitis (ED) Patient Language: Mohawk Stand Alone Forms: General Discharge Information Follow-up/Referrals: Angelique Jacobs MD [Primary Care Provider] - 1 Week Discharge Medications: New triamcinolone acetonide 0.1 % Cream 1 applic topical Q12HR Qty: 15 0RF levofloxacin 750 mg tablet 750 mg PO DAILY Qty: 4 0RF Continued amlodipine 5 mg tablet 5 mg PO DAILY losartan 100 mg tablet 100 mg PO DAILY metformin 500 mg tablet extended release 24 hr 500 mg PO DAILY Qty: 1 0RF latanoprost 0.005 % drops 1 drp EACH EYE DAILY Qty: 2.5 0RF timolol maleate 0.5 % drops 1 drp EACH EYE Q12H Qty: 5 0RF pilocarpine HCl 1 % drops 1 drp EACH EYE TID Qty: 15 0RF lidocaine 4 % adhesive patch,medicated 1 patch topical DAILY PRN (Reason: pain) Qty: 30 6RF Rx Instructions: Apply for 12 hours daily to ankle glipizide 5 mg tablet 5 mg PO DAILY rosuvastatin 20 mg tablet 20 mg PO DAILY multivitamin Tablet 1 tablet PO DAILY cholecalciferol (vitamin D3) 50 mcg (2,000 unit) capsule 50 mcg PO DAILY codeine-guaifenesin 10-100 mg/5 mL liquid 5 ml PO Q6H PRN (Reason: cough) Qty: 120 0RF pantoprazole [Protonix] 40 mg tablet,delayed release (DR/EC) 40 mg PO .daily Qty: 30 12RF duloxetine 30 mg capsule,delayed release(DR/EC) 90 mg PO DAILY benzonatate 200 mg capsule 200 mg PO TID PRN (Reason: cough) ascorbic acid (vitamin C) 250 mg tablet 250 mg PO DAILY Qty: 90 0RF ferrous sulfate 325 mg (65 mg iron) tablet 325 mg PO DAILY Qty: 90 0RF acetaminophen 500 mg tablet 500 mg PO Q6H PRN (Reason: fever or pain) Qty: 100 0RF buspirone 5 mg tablet 5 mg PO TID PRN (Reason: anxiety) Qty: 90 0RF hydrocodone-acetaminophen 5-325 mg tablet See Rx Instructions PO .COMPLEX PRN (Reason: pain) Qty: 120 0RF Rx Instructions: Take 1 tablet at hs and every 4 hours prn pain orally; Discontinued oseltamivir [Tamiflu] 75 mg capsule 75 mg PO BID 5 Days Qty: 10 0RF Date of admission: 08/18/24 17:55 Primary Care Provider: Angelique Jacobs Admitting Provider: Georgie Proctor Attending physician on admission: Georgie Proctor Condition: Stable Hospitalist MIPS Heart Failure (Exclusion) Patient has history of Heart Transplant or Left Ventricular Assistive Device?: No IF YES, STOP HERE Heart Failure (Qualifier) Patient has current or prior documentation of LVEF less than or equal to 40%, or mod/servere depressed LVSF?: No IF NO, STOP HERE
--- NOTE | 2024-08-23 11:51 | PCPTNOTE ---
On 08/23/24, the student, NISA Oenal, provided care and completed [facility] documentation on this patient. I have reviewed the student's documentation and agree with the findings.
[2024-08-23 12:18] LABS: Glucose Point of Care 187 mg/dl (65-105)
== END 2024-08-23 13:48 | disposition swing bed (61) | DRG 195 ==
LOC: ANHED 05:43 → ANH3MEDSUR 06:00
PROVIDERS: Nurse Practitioner; Admitting Provider Internal Medicine; Emergency Provider Emergency Medicine; PCP Family Medicine; Visit Provider Student in an Organized Health Care Education/Training Program
DX: J11.00 Influenza due to unidentified influenza virus with unspecified type of pneumonia (principal); I10 Essential (primary) hypertension; E11.42 Type 2 diabetes mellitus with diabetic polyneuropathy; E55.9 Vitamin D deficiency, unspecified; K21.9 Gastro-esophageal reflux disease without esophagitis; R41.82 Altered mental status, unspecified; M16.9 Osteoarthritis of hip, unspecified; H40.9 Unspecified glaucoma; F41.9 Anxiety disorder, unspecified; Z20.822 Contact with and (suspected) exposure to COVID-19
CPT/HCPCS: 36415; 70450; 71045; 80048; 80053; 81001; 82948; 83605; 85025; 85027; 87040; 87181; 87637; 87641; 93005; 96365; 96366; 96372; 96375; 97110; 97116; 97161; 97165; 97530; 97535; 99285; A9270; G0378; J0692; J1200; J1650; J1815; J2359; J3370; J7120

== ENCOUNTER 2024-08-23 14:21 | Inpatient (IN) | payer MEDICARE, SELFPAY ==
--- NOTE | ~2024-08-23 | US_ITS ---
EXAMINATION: US abdomen limited DATE: 08/26/2024 07:17 INDICATION: Abnormal liver function tests. TECHNIQUE: Multiple grayscale and Doppler ultrasound images of the abdomen were obtained. COMPARISON: CT abdomen and pelvis 10/24/2011 FINDINGS: The visualized portions of the head, body, and tail of the pancreas are normal. There is di ffuse hepatic steatosis. No definite liver surface nodularity. There is normal flow in main portal ve in. The gallbladder is normal in size. No gallstones or gallbladder wall thickening. There is no sono graphic Griffith's sign. The common duct is normal and measures 4 mm. IMPRESSION: 1. Diffuse hepatic steatosis. Reviewed, dictated and finalized at location [] DRILLER
--- OUTSIDE RECORDS SUMMARY | 2024-08-23 14:29 | XMS_ITS ---
Author Organization [facility] Address [address] [place], [place] [id number] Care Team Providers Care Furnace Converter Name Role Phone MARZENA NAYAK Unavailable [phone] Angelique Jacobs Unavailable Unavailable REASON FOR VISIT *General care Medications Medication SIG (Take, Route, Frequency, Duration) Notes Start Date End Date Status Z-SAMMY ORAL Z-PAKOriginal MedicationZ-SAMMY *Reorder from [facility] for eRx and Interaction Alerts* 8 Active urea 400 MG/ML Topical Cream CUTANEOUS urea 400 MG/ML Topical CreamOriginal Medicationurea 400 MG/ML Topical Cream *Reorder from [facility] for eRx and Interaction Alerts* 5 Active silver sulfadiazine 10 MG/ML Topical Cream [Silvadene] CUTANEOUS silver sulfadiazine 10 MG/ML Topical Cream [Silvadene]Original Medicationsilver sulfadiazine 10 MG/ML Topical Cream [Silvadene] *Reorder from [facility] for eRx and Interaction Alerts* 5 Active potassium chloride 10 MEQ Extended Release Oral Capsule ORAL potassium chloride 10 MEQ Extended Release Oral CapsuleOriginal Medicationpotassium chloride 10 MEQ Extended Release Oral Capsule *Reorder from [facility] for eRx and Interaction Alerts* 5 Active duloxetine 30 MG Delayed Release Oral Capsule ORAL duloxetine 30 MG Delayed Release Oral CapsuleOriginal Medicationduloxetine 30 MG Delayed Release Oral Capsule *Reorder from [facility] for eRx and Interaction Alerts* 5 Active betamethasone 0.5 MG/ML / clotrimazole 10 MG/ML Topical Cream [Lotrisone] CUTANEOUS betamethasone 0.5 MG/ML / clotrimazole 10 MG/ML Topical Cream [Lotrisone]Original Medicationbetamethasone 0.5 MG/ML / clotrimazole 10 MG/ML Topical Cream [Lotrisone] *Reorder from [facility] for eRx and Interacti 5 Active ammonium lactate 120 MG/ML Topical Cream [Lac-Hydrin] CUTANEOUS ammonium lactate 120 MG/ML Topical Cream [Lac-Hydrin]Original Medicationammonium lactate 120 MG/ML Topical Cream [Lac-Hydrin] *Reorder from [facility] for eRx and Interaction Alerts* 5 Active amlodipine 5 MG Oral Tablet ORAL amlodipine 5 MG Oral TabletOriginal Medicationamlodipine 5 MG Oral Tablet *Reorder from [facility] for eRx and Interaction Alerts* 5 Active clotrimazole 10 MG/ML Topical Cream CUTANEOUS clotrimazole 10 MG/ML Topical CreamOriginal Medicationclotrimazole 10 MG/ML Topical Cream *Reorder from [facility] for eRx and Interaction Alerts* 5 Active clobetasol propionate 0.0005 MG/MG Topical Ointment [Temovate] CUTANEOUS clobetasol propionate 0.0005 MG/MG Topical Ointment [Temovate]Original Medicationclobetasol propionate 0.0005 MG/MG Topical Ointment [Temovate] *Reorder from [facility] for eRx and Interaction Alerts* 5 Active acetaminophen 325 MG / hydrocodone bitartrate 5 MG Oral Tablet ORAL acetaminophen 325 MG / hydrocodone bitartrate 5 MG Oral TabletOriginal Medicationacetaminophen 325 MG / hydrocodone bitartrate 5 MG Oral Tablet *Reorder from [facility] for eRx and Interaction Alerts* 5 Active Losartan Potassium 100 MG Oral Tablet ORAL losartan potassium 100 MG Oral TabletOriginal Medicationlosartan potassium 100 MG Oral Tablet *Reorder from [facility] for eRx and Interaction Alerts* 5 Active Pravastatin Sodium 40 MG Oral Tablet ORAL pravastatin sodium 40 MG Oral TabletOriginal Medicationpravastatin sodium 40 MG Oral Tablet *Reorder from [facility] for eRx and Interaction Alerts* 5 Active acyclovir 0.05 MG/MG Topical Ointment [Zovirax] CUTANEOUS acyclovir 0.05 MG/MG Topical Ointment [Zovirax]Original Medicationacyclovir 0.05 MG/MG Topical Ointment [Zovirax] *Reorder from [facility] for eRx and Interaction Alerts* 8 Active Encounters Encounter Location Date Provider Diagnosis [facility] [place] [address] [place] [address] [id number] 05/23/2024 MARZENA NAYAK 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 ; Primary osteoarthritis, left ankle and foot M19.072 ; Pain in right toe(s) M79.674 ; Pain in left toe(s) M79.675 and Unspecified atherosclerosis of [place] arteries of extremities, bilateral legs I70.203 Assessments [...] (ICD-10 - M79.675) 05/23/2024 Unspecified atherosclerosis of [place] arteries of extremities, bilateral legs (ICD-10 - [...] PRYOR, 10/10/2024 10:20:00 AM, [address], [address], [phone], Progress Notes * GUILLERMINAKELSEY LDOB: [birth year] (83 yo M)Acc No.[id number]:05/23/2024 Patient: KELSEY CHUNG Provider: Aundrea Nayak DPM :1940 A ge:83 Y S ex:Male Date:05/23/2024 Address:[address] [place] [address] Subjective: * Chief Complaints: * * General [...] sodium 40 MG Oral Tablet *Reorder from [facility] for eRx and Interaction Alerts*Losartan Potassium 100 MG Oral Tablet ORAL , Notes to Pharmacist: losartan potassium 100 MG Oral TabletOriginal Medicationlosartan potassium 100 MG Oral Tablet *[facility]*acetaminophen 325 MG / hydrocodone bitartrate 5 MG Oral Tablet ORAL , Notes to Pharmacist: acetaminophen 325 MG / hydrocodone bitartrate 5 MG Oral TabletOriginal Medicationacetaminophen 325 MG / hydrocodone bitartrate 5 MG Oral Tablet *Reorder from [facility] for eRx and Interaction Alerts*acyclovir 0.05 MG/MG Topical Ointment [Zovirax] CUTANEOUS , Notes to Pharmacist: acyclovir 0.05 MG/MG Topical Ointment [Zovirax]Original Medicationacyclovir 0.05 MG/MG Topical Ointment [Zovirax] *Reorder from [facility] for eRx and Interaction Alerts*amlodipine 5 MG Oral Tablet ORAL , Notes to Pharmacist: amlodipine 5 MG Oral TabletOriginal Medicationamlodipine 5 MG Oral Tablet *Reorder from [facility] for eRx and Interaction Alerts*ammonium lactate 120 MG/ML Topical Cream [Lac-Hydrin] CUTANEOUS , Notes to Pharmacist: ammonium lactate 120 MG/ML Topical Cream [Lac-Hydrin]Original Medicationammonium lactate 120 MG/ML Topical Cream [Lac-Hydrin] *Reorder from [facility] for eRx and Interaction Alerts*betamethasone 0.5 MG/ML / clotrimazole 10 MG/ML Topical Cream [Lotrisone] CUTANEOUS , Notes to Pharmacist: betamethasone 0.5 MG/ML / clotrimazole 10 MG/ML Topical Cream [Lotrisone]Original Medicationbetamethasone 0.5 MG/ML / clotrimazole 10 MG/ML Topical Cream [Lotrisone] *Reorder from [facility] for eRx and Interacticlobetasol propionate 0.0005 MG/MG Topical Ointment [Temovate] CUTANEOUS , Notes to Pharmacist: clobetasol propionate 0.0005 MG/MG Topical Ointment [Temovate]Original Medicationclobetasol propionate 0.0005 MG/MG Topical Ointment [Temovate] *Reorder from [facility] for eRx and Interaction Alerts*clotrimazole 10 MG/ML Topical Cream CUTANEOUS , Notes to Pharmacist: clotrimazole 10 MG/ML Topical CreamOriginal Medicationclotrimazole 10 MG/ML Topical Cream *Reorder from [facility] for eRx and Interaction Alerts*duloxetine 30 MG Delayed Release Oral Capsule ORAL , Notes to Pharmacist: duloxetine 30 MG Delayed Release Oral CapsuleOriginal Medicationduloxetine 30 MG Delayed Release Oral Capsule *Reorder from [facility] for eRx and Interaction Alerts*potassium chloride 10 MEQ Extended Release Oral Capsule ORAL , Notes to Pharmacist: potassium chloride 10 MEQ Extended Release Oral CapsuleOriginal Medicationpotassium chloride 10 MEQ Extended Release Oral Capsule *Reorder from [facility] for eRx and Interaction Alerts*silver sulfadiazine 10 MG/ML Topical Cream [Silvadene] CUTANEOUS , Notes to Pharmacist: silver sulfadiazine 10 MG/ML Topical Cream [Silvadene]Original Medicationsilver sulfadiazine 10 MG/ML Topical Cream [Silvadene] *Reorder from [facility] for eRx and Interaction Alerts*urea 400 MG/ML Topical Cream CUTANEOUS , Notes to Pharmacist: urea 400 MG/ML Topical CreamOriginal Medicationurea 400 MG/ML Topical Cream *Reorder from [facility] for eRx and Interaction Alerts*Z-SAMMY ORAL , Notes to Pharmacist: Z-PAKOriginal MedicationZ-SAMMY *Reorder from [facility] for eRx and Interaction Alerts*Taking Pravastatin Sodium 40 MG Oral Tablet ORAL , Notes to Pharmacist: pravastatin sodium 40 MG Oral TabletOriginal Medicationpravastatin sodium 40 MG Oral Tablet *Reorder from [facility] for eRx and Interaction Alerts*Taking Losartan Potassium 100 MG Oral Tablet ORAL , Notes to Pharmacist: losartan potassium 100 MG Oral TabletOriginal Medicationlosartan potassium 100 MG Oral Tablet *Reorder from [facility] for eRx and Interaction Alerts*Taking acetaminophen 325 MG / hydrocodone bitartrate 5 MG Oral Tablet ORAL , Notes to Pharmacist: acetaminophen 325 MG / hydrocodone bitartrate 5 MG Oral TabletOriginal Medicationacetaminophen 325 MG / hydrocodone bitartrate 5 MG Oral Tablet *Reorder from [facility] for eRx and Interaction Alerts*Taking acyclovir 0.05 MG/MG Topical Ointment [Zovirax] CUTANEOUS , Notes to Pharmacist: acyclovir 0.05 MG/MG Topical Ointment [Zovirax]Original Medicationacyclovir 0.05 MG/MG Topical Ointment [Zovirax] *Reorder from [facility] for eRx and Interaction Alerts*Taking amlodipine 5 MG Oral Tablet ORAL , Notes to Pharmacist: amlodipine 5 MG Oral TabletOriginal Medicationamlodipine 5 MG Oral Tablet *Reorder from [facility] for eRx and Interaction Alerts*Taking ammonium lactate 120 MG/ML Topical Cream [Lac-Hydrin] CUTANEOUS , Notes to Pharmacist: ammonium lactate 120 MG/ML Topical Cream [Lac-Hydrin]Original Medicationammonium lactate 120 MG/ML Topical Cream [Lac-Hydrin] *Reorder from [facility] for eRx and Interaction Alerts*Taking betamethasone 0.5 MG/ML / clotrimazole 10 MG/ML Topical Cream [Lotrisone] CUTANEOUS , Notes to Pharmacist: betamethasone 0.5 MG/ML / clotrimazole 10 MG/ML Topical Cream [Lotrisone]Original Medicationbetamethasone 0.5 MG/ML / clotrimazole 10 MG/ML Topical Cream [Lotrisone] *Reorder from [facility] for eRx and InteractiTaking clobetasol propionate 0.0005 MG/MG Topical Ointment [Temovate] CUTANEOUS , Notes to Pharmacist: clobetasol propionate 0.0005 MG/MG Topical Ointment [Temovate]Original Medicationclobetasol propionate 0.0005 MG/MG Topical Ointment [Temovate] *Reorder from [facility] for eRx and Interaction Alerts*Taking clotrimazole 10 MG/ML Topical Cream CUTANEOUS , Notes to Pharmacist: clotrimazole 10 MG/ML Topical CreamOriginal Medicationclotrimazole 10 MG/ML Topical Cream *Reorder from [facility] for eRx and Interaction Alerts*Taking duloxetine 30 MG Delayed Release Oral Capsule ORAL , Notes to Pharmacist: duloxetine 30 MG Delayed Release Oral CapsuleOriginal Medicationduloxetine 30 MG Delayed Release Oral Capsule *Reorder from [facility] for eRx and Interaction Alerts*Taking potassium chloride 10 MEQ Extended Release Oral Capsule ORAL , Notes to Pharmacist: potassium chloride 10 MEQ Extended Release Oral CapsuleOriginal Medicationpotassium chloride 10 MEQ Extended Release Oral Capsule *Reorder from [facility] for eRx and Interaction Alerts*Taking silver sulfadiazine 10 MG/ML Topical Cream [Silvadene] CUTANEOUS , Notes to Pharmacist: silver sulfadiazine 10 MG/ML Topical Cream [Silvadene]Original Medicationsilver sulfadiazine 10 MG/ML Topical Cream [Silvadene] *Reorder from [facility] for eRx and Interaction Alerts*Taking urea 400 MG/ML Topical Cream CUTANEOUS , Notes to Pharmacist: urea 400 MG/ML Topical CreamOriginal Medicationurea 400 MG/ML Topical Cream *Reorder from [facility] for eRx and Interaction Alerts*Taking Z-SAMMY ORAL , Notes to Pharmacist: Z-PAKOriginal MedicationZ-SAMMY *[facility]* Objective: * [...] M79.675 5 . U nspecified atherosclerosis of [place] arteries of extremities, bilateral legs - I70.203 Plan: * Treatment: 2. O thers Notes: Following skin prep, a total of 3 ccs of a 1-1-1 mix of 0.5% marcaine plain, Kenalog, and dexamethasone sodium phosphate was injected into the patients left ankle joint. * Procedure Codes: * Follow Up: 9 weeks * Billing Information: * Visit Code: 77379 Office Visit, Est Pt., Level 3. * Procedure Codes: * OIDERY MACHINE OPERATOR Sign off status: Completed true * Provider: Aundrea Nayak DPM Date: 07/23/2023 Generated for Luis colorado/Osman/Laryitting on: 0 08/23/2024 02:28 PM EMBROIDERY MACHINE OPERATOR History and Physical Notes * HPI (History [...]
--- OUTSIDE RECORDS SUMMARY | 2024-08-23 14:29 | XMS_ITS ---
Author Organization [facility] Address [address] [place], [place] [id number] Care Team Providers Care Cognos Bi Developer Name Role Phone MARZENA NAYAK Unavailable [phone] Angelique Jacobs Unavailable Unavailable Allergies No Known Allergies REASON FOR VISIT *General care Medications Medication SIG (Take, Route, Frequency, Duration) Notes Start Date End Date Status Pravastatin Sodium 40 MG Oral Tablet ORAL pravastatin sodium 40 MG Oral TabletOriginal Medicationpravastatin sodium 40 MG Oral Tablet *Reorder from [employer] for eRx and Interaction Alerts* 5 Active silver sulfadiazine 10 MG/ML Topical Cream [Silvadene] CUTANEOUS silver sulfadiazine 10 MG/ML Topical Cream [Silvadene]Original Medicationsilver sulfadiazine 10 MG/ML Topical Cream [Silvadene] *Reorder from [employer] for eRx and Interaction Alerts* 5 Active urea 400 MG/ML Topical Cream CUTANEOUS urea 400 MG/ML Topical CreamOriginal Medicationurea 400 MG/ML Topical Cream *Reorder from [employer] for eRx and Interaction Alerts* 5 Active potassium chloride 10 MEQ Extended Release Oral Capsule ORAL potassium chloride 10 MEQ Extended Release Oral CapsuleOriginal Medicationpotassium chloride 10 MEQ Extended Release Oral Capsule *Reorder from [employer] for eRx and Interaction Alerts* 5 Active Z-SAMMY ORAL Z-PAKOriginal MedicationZ-SAMMY *Reorder from [employer] for eRx and Interaction Alerts* 8 Active duloxetine 30 MG Delayed Release Oral Capsule ORAL duloxetine 30 MG Delayed Release Oral CapsuleOriginal Medicationduloxetine 30 MG Delayed Release Oral Capsule *[facility]* 5 Active ammonium lactate 120 MG/ML Topical Cream [Lac-Hydrin] CUTANEOUS ammonium lactate 120 MG/ML Topical Cream [Lac-Hydrin]Original Medicationammonium lactate 120 MG/ML Topical Cream [Lac-Hydrin] *[facility]* 5 Active clobetasol propionate 0.0005 MG/MG Topical Ointment [Temovate] CUTANEOUS clobetasol propionate 0.0005 MG/MG Topical Ointment [Temovate]Original Medicationclobetasol propionate 0.0005 MG/MG Topical Ointment [Temovate] *[facility]s* 5 Active clotrimazole 10 MG/ML Topical Cream CUTANEOUS clotrimazole 10 MG/ML Topical CreamOriginal Medicationclotrimazole 10 MG/ML Topical Cream *[facility]* 5 Active betamethasone 0.5 MG/ML / clotrimazole 10 MG/ML Topical Cream [Lotrisone] CUTANEOUS betamethasone 0.5 MG/ML / clotrimazole 10 MG/ML Topical Cream [Lotrisone]Original Medicationbetamethasone 0.5 MG/ML / clotrimazole 10 MG/ML Topical Cream [Lotrisone] *Reorder from [employer] for eRx and Interacti 5 Active Losartan Potassium 100 MG Oral Tablet ORAL losartan potassium 100 MG Oral TabletOriginal Medicationlosartan potassium 100 MG Oral Tablet *Reorder from [facility] [employer] [facility] for eRx and Interaction Alerts* 5 Active amlodipine 5 MG Oral Tablet ORAL amlodipine 5 MG Oral TabletOriginal Medicationamlodipine 5 MG Oral Tablet *[facility]* 5 Active acetaminophen 325 MG / hydrocodone bitartrate 5 MG Oral Tablet ORAL acetaminophen 325 MG / hydrocodone bitartrate 5 MG Oral TabletOriginal Medicationacetaminophen 325 MG / hydrocodone bitartrate 5 MG Oral Tablet *[facility] Interaction [facility]* 5 Active acyclovir 0.05 MG/MG Topical Ointment [Zovirax] CUTANEOUS acyclovir 0.05 MG/MG Topical Ointment [Zovirax]Original Medicationacyclovir 0.05 MG/MG Topical Ointment [Zovirax] *Reorder from [employer] for eRx and Interaction Alerts* 8 Active Encounters Encounter Location Date Provider Diagnosis [facility] [address] [place], [place] [id number] 08/01/2024 MARZENA NAYAK 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 ; Primary osteoarthritis, left ankle and foot M19.072 ; Pain in right toe(s) M79.674 ; Pain in left toe(s) M79.675 and Unspecified atherosclerosis of [place] arteries of extremities, bilateral legs I70.203 Assessments [...] (ICD-10 - M79.675) 08/01/2024 Unspecified atherosclerosis of [place] arteries of extremities, bilateral legs (ICD-10 - [...] PRYOR, 10/10/2024 10:20:00 AM, [address], [address], [id number], Progress Notes * KELSEY SARMIENTO LDOB: [birth year] (83 yo M)Acc No.[id number]:08/01/2024 Patient: Chris KELSEY RICHARD Provider: Aundrea Nayak DPM :1940 A ge:83 Y S ex:Male Date:08/01/2024 Address:[address] [place], [place] [id number] Subjective: * Chief Complaints: * * General [...] bitartrate 5 MG Oral Tablet *Reorder from [facility] for eRx and Interaction Alerts*acyclovir 0.05 MG/MG Topical Ointment [Zovirax] CUTANEOUS , Notes to Pharmacist: acyclovir 0.05 MG/MG Topical Ointment [Zovirax]Original Medicationacyclovir 0.05 MG/MG Topical Ointment [Zovirax] *Reorder from [facility] for eRx and Interaction Alerts*amlodipine 5 MG Oral Tablet ORAL , Notes to Pharmacist: amlodipine 5 MG Oral TabletOriginal Medicationamlodipine 5 MG Oral Tablet *Reorder from [facility] for eRx and Interaction Alerts*ammonium lactate 120 MG/ML Topical Cream [Lac-Hydrin] CUTANEOUS , Notes to Pharmacist: ammonium lactate 120 MG/ML Topical Cream [Lac-Hydrin]Original Medicationammonium lactate 120 MG/ML Topical Cream [Lac-Hydrin] *Reorder from [facility] for eRx and Interaction Alerts*betamethasone 0.5 MG/ML / clotrimazole 10 MG/ML Topical Cream [Lotrisone] CUTANEOUS , Notes to Pharmacist: betamethasone 0.5 MG/ML / clotrimazole 10 MG/ML Topical Cream [Lotrisone]Original Medicationbetamethasone 0.5 MG/ML / clotrimazole 10 MG/ML Topical Cream [Lotrisone] *Reorder from [facility] for eRx and Interacticlobetasol propionate 0.0005 MG/MG Topical Ointment [Temovate] CUTANEOUS , Notes to Pharmacist: clobetasol propionate 0.0005 MG/MG Topical Ointment [Temovate]Original Medicationclobetasol propionate 0.0005 MG/MG Topical Ointment [Temovate] *Reorder from [facility] for eRx and Interaction Alerts*clotrimazole 10 MG/ML Topical Cream CUTANEOUS , Notes to Pharmacist: clotrimazole 10 MG/ML Topical CreamOriginal Medicationclotrimazole 10 MG/ML Topical Cream *Reorder from [facility] for eRx and Interaction Alerts*duloxetine 30 MG Delayed Release Oral Capsule ORAL , Notes to Pharmacist: duloxetine 30 MG Delayed Release Oral CapsuleOriginal Medicationduloxetine 30 MG Delayed Release Oral Capsule *Reorder from [facility] for eRx and Interaction Alerts*potassium chloride 10 MEQ Extended Release Oral Capsule ORAL , Notes to Pharmacist: potassium chloride 10 MEQ Extended Release Oral CapsuleOriginal Medicationpotassium chloride 10 MEQ Extended Release Oral Capsule *Reorder from [facility] for eRx and Interaction Alerts*silver sulfadiazine 10 MG/ML Topical Cream [Silvadene] CUTANEOUS , Notes to Pharmacist: silver sulfadiazine 10 MG/ML Topical Cream [Silvadene]Original Medicationsilver sulfadiazine 10 MG/ML Topical Cream [Silvadene] *Reorder from [facility] for eRx and Interaction Alerts*urea 400 MG/ML Topical Cream CUTANEOUS , Notes to Pharmacist: urea 400 MG/ML Topical CreamOriginal Medicationurea 400 MG/ML Topical Cream *Reorder from [facility] for eRx and Interaction Alerts*Z-SAMMY ORAL , Notes to Pharmacist: Z-PAKOriginal MedicationZ-SAMMY *Reorder from [facility] for eRx and Interaction Alerts*Taking Pravastatin Sodium 40 MG Oral Tablet ORAL , Notes to Pharmacist: pravastatin sodium 40 MG Oral TabletOriginal Medicationpravastatin sodium 40 MG Oral Tablet *Reorder from [facility] for eRx and Interaction Alerts*Taking Losartan Potassium 100 MG Oral Tablet ORAL , Notes to Pharmacist: losartan potassium 100 MG Oral TabletOriginal Medicationlosartan potassium 100 MG Oral Tablet *Reorder from [facility] for eRx and Interaction Alerts*Taking acetaminophen 325 MG / hydrocodone bitartrate 5 MG Oral Tablet ORAL , Notes to Pharmacist: acetaminophen 325 MG / hydrocodone bitartrate 5 MG Oral TabletOriginal Medicationacetaminophen 325 MG / hydrocodone bitartrate 5 MG Oral Tablet *Reorder from [facility] for eRx and Interaction Alerts*Taking acyclovir 0.05 MG/MG Topical Ointment [Zovirax] CUTANEOUS , Notes to Pharmacist: acyclovir 0.05 MG/MG Topical Ointment [Zovirax]Original Medicationacyclovir 0.05 MG/MG Topical Ointment [Zovirax] *Reorder from [facility] for eRx and Interaction Alerts*Taking amlodipine 5 MG Oral Tablet ORAL , Notes to Pharmacist: amlodipine 5 MG Oral TabletOriginal Medicationamlodipine 5 MG Oral Tablet *Reorder from [facility] for eRx and Interaction Alerts*Taking ammonium lactate 120 MG/ML Topical Cream [Lac-Hydrin] CUTANEOUS , Notes to Pharmacist: ammonium lactate 120 MG/ML Topical Cream [Lac-Hydrin]Original Medicationammonium lactate 120 MG/ML Topical Cream [Lac-Hydrin] *Reorder from [facility] for eRx and Interaction Alerts*Taking betamethasone 0.5 MG/ML / clotrimazole 10 MG/ML Topical Cream [Lotrisone] CUTANEOUS , Notes to Pharmacist: betamethasone 0.5 MG/ML / clotrimazole 10 MG/ML Topical Cream [Lotrisone]Original Medicationbetamethasone 0.5 MG/ML / clotrimazole 10 MG/ML Topical Cream [Lotrisone] *Reorder from [facility] for eRx and InteractiTaking clobetasol propionate 0.0005 MG/MG Topical Ointment [Temovate] CUTANEOUS , Notes to Pharmacist: clobetasol propionate 0.0005 MG/MG Topical Ointment [Temovate]Original Medicationclobetasol propionate 0.0005 MG/MG Topical Ointment [Temovate] *Reorder from [facility] for eRx and Interaction Alerts*Taking clotrimazole 10 MG/ML Topical Cream CUTANEOUS , Notes to Pharmacist: clotrimazole 10 MG/ML Topical CreamOriginal Medicationclotrimazole 10 MG/ML Topical Cream *Reorder from [facility] for eRx and Interaction Alerts*Taking duloxetine 30 MG Delayed Release Oral Capsule ORAL , Notes to Pharmacist: duloxetine 30 MG Delayed Release Oral CapsuleOriginal Medicationduloxetine 30 MG Delayed Release Oral Capsule *Reorder from [facility] for eRx and Interaction Alerts*Taking potassium chloride 10 MEQ Extended Release Oral Capsule ORAL , Notes to Pharmacist: potassium chloride 10 MEQ Extended Release Oral CapsuleOriginal Medicationpotassium chloride 10 MEQ Extended Release Oral Capsule *Reorder from [facility] for eRx and Interaction Alerts*Taking silver sulfadiazine 10 MG/ML Topical Cream [Silvadene] CUTANEOUS , Notes to Pharmacist: silver sulfadiazine 10 MG/ML Topical Cream [Silvadene]Original Medicationsilver sulfadiazine 10 MG/ML Topical Cream [Silvadene] *Reorder from [facility] for eRx and Interaction Alerts*Taking urea 400 MG/ML Topical Cream CUTANEOUS , Notes to Pharmacist: urea 400 MG/ML Topical CreamOriginal Medicationurea 400 MG/ML Topical Cream *Reorder from [employer] for eRx and Interaction Alerts*Taking Z-SAMMY ORAL , Notes to Pharmacist: Z-PAKOriginal MedicationZ-SAMMY *[facility] Interaction [facility]* * Allergies: [...] M79.675 5 . U nspecified atherosclerosis of [place] arteries of extremities, bilateral legs - I70.203 Plan: * Treatment: 2. O thers Notes: Following skin prep, a total of 3 ccs of a 1-1-1 mix of 0.5% marcaine plain, Kenalog, and dexamethasone sodium phosphate was injected into the patients left ankle joint. * Procedure Codes: 2 0605 DRAIN/INJECT, JOINT/BURSA, Modifiers: LT * Follow Up: 9 weeks * Billing Information: * Visit Code: 77971 Office Visit, Est Pt., Level 3. Modifiers: 25 * Procedure Codes: 78678 DRAIN/INJECT, JOINT/BURSA. Modifiers: LT * CLERK Sign off status: Completed true * Provider: Aundrea Nayak DPM Date: 0 08/01/2024 Generated for Luis colorado/Osman/Teodoro on: 0 08/23/2024 02:29 PM HAM CLERK History and Physical Notes * HPI (History [...]
--- OUTSIDE RECORDS SUMMARY | 2024-08-23 14:29 | XMS_ITS | Referral Summary ---
Author Organization [facility] Medical [facility] [address] Address [address] [place] [address] Care Team Providers Care Certified Coatings Inspector Name Role Phone Angelique Jacobs MD Primary Care Provider [phone] Encounters Date Type Department Care Team Description 08/05/2024 Telephone [facility]mology [address], [address] [place] [address] Cornelia Valencia MD PhD 07/11/2024 1:30 PM GEOLOGY SCIENTIST Office Visit [facility]hthalmology [address] [facility] [address]th [place] [address] Cornelia Valencia MD PhD S/P [...] 07/08/2021 Assessment & Plan (07/08/2021 3:14 PM GEOLOGY SCIENTIST): Referred by Dr. 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 Marin as scheduled- doubt she will be able to continue OCTs Assessment & Plan (07/12/2023 12:42 PM GEOLOGY SCIENTIST): Vision sl worse- subjective loss also F/U with Dr. Marin as scheduled Assessment & Plan (02/08/2023 9:11 PM CDT): PH vision stable and no subjective changes F/U with Dr. Marin as scheduled Assessment & Plan (07/06/2022 8:36 PM GEOLOGY SCIENTIST): Vision improved status post (s/p) AMARILIS Subjective and objective improvement F/U with Dr. 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 Discussed R/B/A of anti-VEGF and patient wishes to proceed. AMARILIS #1 today Warning Sx endophthalmitis discussed Follow up 4 weeks Assessment & Plan (07/08/2021 3:15 PM GEOLOGY SCIENTIST): right eye (OD) on OCT mac today; [...] vision Assessment & Plan (07/12/2023 12:41 PM GEOLOGY SCIENTIST): - status post (s/p) B350 OU - [...] meds Assessment & Plan (07/06/2022 8:35 PM GEOLOGY SCIENTIST): - status post (s/p) B350 OU - [...] eval-- Assessment & Plan (07/08/2021 3:14 PM GEOLOGY SCIENTIST): Cont with Dr. Padilla Assessment & Plan (06/16/2021 8:11 PM GEOLOGY SCIENTIST): - status post (s/p) B350 OU - [...] F/U Assessment & Plan (05/12/2021 3:15 PM GEOLOGY SCIENTIST): - status post (s/p) B350 OU - [...] months Assessment & Plan (08/05/2020 11:09 AM GEOLOGY SCIENTIST): - status post (s/p) B350 OU - status post (s/p) dCPC OS - intraocular pressure (IOP) better today, 16 OU - continue Eleno 1% TID OD, Timolol QAM OU, Latanoprost QHS OU May still need additional intervention if elevated IOP in future:dCPC right eye (OD) vs 2nd GDI IN right eye (OD) F/U 4 months Assessment & Plan (06/17/2020 11:17 AM GEOLOGY SCIENTIST): - status post (s/p) B350 OU - status post (s/p) dCPC OS - intraocular pressure (IOP) slightly improved with eleno right eye (OD) Increase to tid with some improvement Discussed options: discussed r/b/a of dCPC right eye (OD) 2nd GDI IN right eye (OD) F/U 6-6 wks Assessment & Plan (05/06/2020 2:39 PM GEOLOGY SCIENTIST): - status post (s/p) B350 OU - [...] IOP Assessment & Plan (05/08/2019 4:03 PM GEOLOGY SCIENTIST): - status post (s/p) B350 OU - [...] DFE Assessment & Plan (07/11/2018 2:58 PM GEOLOGY SCIENTIST): - status post (s/p) B350 OU - [...] monitor Assessment & Plan (07/11/2018 2:58 PM GEOLOGY SCIENTIST): Conjunctiva covering both tubes Assessment & Plan [...] on file Legal Sex Male 4:43 AM GEOLOGY SCIENTIST Gender Identity Not on file Sexual Orientation Not on file Last Filed Vital Signs Vital Sign Reading Time Taken Comments Blood Pressure 141/64 05/15/2024 5:20 PM GEOLOGY SCIENTIST Pulse 58 05/15/2024 5:20 PM GEOLOGY SCIENTIST Temperature 36.8 C (98.2 F) 05/15/2024 4:25 PM GEOLOGY SCIENTIST Respiratory Rate 20 05/15/2024 5:20 PM GEOLOGY SCIENTIST Oxygen Saturation 91% 05/15/2024 5:20 PM GEOLOGY SCIENTIST Inhaled Oxygen Concentration - - Weight 86.2 kg (190 lb) 05/15/2024 2:00 PM GEOLOGY SCIENTIST Height 170.2 cm (5' 7 ) 05/15/2024 2:00 PM GEOLOGY SCIENTIST Body Mass Index 29.76 05/15/2024 2:00 PM GEOLOGY SCIENTIST Plan of Treatment Not on file Medical Devices Implanted Type Area Marine Electrician Device Identifier Shelf Expiration Date Model / Serial / Lot Mid [employer] Trans[employer] Srvcs Implant Dsek Right Tissue Cornea [id number] - [id number] - [id number] Implanted:Qty: 1 on 05/15/2024 by Cornelia Valencia MD PhD at [facility] Other - see comments Right: Eye [employer] Srvcs 05/25/2024 [id number] / [id number] / [id number] Description:CORNEA Procedures Procedure Name Priority Date/Time Associated [...] MD LAB BLOOD ORDERABLES Fi nal Result Performing Organization Address City/State/ZIP Co ar Phone Number [facility] [address] [place] [address] from Last 3 Months or Most Recently Relevant to Health Maintenance Insurance MEDICARE [employer]IONS MED[employer]ARE [employer]UTIONS Advance Directives For more information, please contact: [phone] Documents on File Type Date Recorded 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
--- OUTSIDE RECORDS SUMMARY | 2024-08-23 14:29 | XMS_ITS | Clinical Summary ---
Author Organization [facility] Address [facility] [place] [address] Care Team Providers Care Academic Support Assistant Name Role Phone Mehran Sepulveda Babar DO [...] ns:Hypertension associated with type 2 diabetes mellitus ([facility]) TAKE 1 TABLET BY MOUTH DAILY 100 tablet 2 3 Active metFORMIN ER (GLUCOPHAGE-XR) 500 MG 24 hr tabletIndicatio ns:Type 2 diabetes mellitus with diabetic polyneuropathy, with long-term current use of insulin ([facility]) Take 1 tablet (500 mg total) by mouth daily with breakfast. 100 tablet 2 3 Active glipiZIDE XL (GLUCOTROL XL) 10 MG 24 hr tabletIndicatio ns:Type 2 diabetes mellitus with diabetic polyneuropathy, with long-term current use of insulin ([facility]) TAKE 1 TABLET BY MOUTH DAILY WITH BREAKFAST (DO NOT BREAK OR CRUSH TABLET) 100 tablet 1 3 Active losartan (COZAAR) 100 MG tabletIndicatio ns:Hypertension associated with type 2 diabetes mellitus ([facility]) take 1 tablet by mouth daily 100 tablet 2 4 Active HYDROcodone-jimmy taminophen (NORCO) 5-325 MG tabletIndicatio ns:Chronic Pain Take 1 tablet by mouth every 6 (six) hours as needed for Pain. 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 but pt prefers reading only Diabetic macular edema ([facility]) 022 Overview (07/30/2021): Last Assessment & Plan: right eye (OD) on OCT mac today; not CSME and has minimal effect on vision; retina consult not indicated as would not require injection or topical treatment -encourage BG control 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 Discussed R/B/A of anti-VEGF and patient wishes to proceed. AMARILIS #1 today Warning Sx endophthalmitis discussed Follow up 4 weeks Hyperlipidemia associated wi th type 2 diabetes mellitus ([facility]) 04/29/2021 Hypertension associated with type 2 diabetes mellitus ([facility]) 04/29/2021 History of glaucoma tube shunt procedure [...] MCG/ 0.5 ML DOSE 08/14/2020,07/16/2020 MODERNA COVID-19 ([employer] MANAGER MOUSTAPHA SEYMOUR), MRNA, LNP-S, PF, 50 MCG/ 0.25 ML DOSE 06/01/2021 Pneumococcal (Pneumovax 23) 05/04/2022 Pneumococcal (Prevnar 13) 01/27/2021 Shingrix 05/24/2021,03/25/2021 Zoster (Zostavax) 62298 Unt/0.65Ml 05/03/2012 Family History Medical History Relation [...] Industry Job Start Date Job End Date 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 Not on file Not on file Not on file 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 Not on file Not on file Last Filed Vital Signs Vital Sign Reading Time Taken Comments Blood Pressure 120/84 05/08/2023 11:34 AM [employer]LLOPH[employer] 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 Pulse 89 05/08/2023 11:34 AM CELLOPHANE 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 Temperature 36.9 C (98.5 F) 05/08/2023 11:34 AM CELLOPHANE 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 Respiratory Rate 16 05/08/2023 11:34 AM CELLOPHANE 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 Oxygen Saturation 98% 05/08/2023 11:34 AM CELLOPHANE 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 Inhaled Oxygen Concentration - - Weight 94.3 kg (208 lb) 05/08/2023 11:34 AM CELLOPHANE 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 Height 166.4 cm (5' 5.5 ) 05/08/2023 11:34 AM CS T Body Mass Index 34.09 05/08/2023 11:34 AM CELLOPHANE 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 Plan of Treatment Health Maintenance Due Date Last Done Comments Kidney Health Evaluation 1938 Diabetes: Retinopathy Eye Exam 1956 DTaP, Tdap and Td Vaccines (1 - Tdap) 1957 Annual Medicare Wellness Visit 2003 RSV Immunization or 60+ Years (1 - 1-dose 75+ series) 2013 Hemoglobin A1C 08/08/2023 05/08/2023, 08/0 10/2022, 11/03/2022, Additional history exists Lipid Panel 11/04/2023 11/03/2022, 08/0 08/2021, 04/29/2021, Additional history exists Influenza Adult (#1) 2024 04/14/2023, 03/03/2022, 03/25/2021, Additional history exists PHQ-2 (Physician [place]) 07/03/2024 COVID-19 Vaccine ( season) 2112 06/01/2021, 08/14/2020, [...] polyneuropathy, with long-term current use of insulin ([facility]) LIPID PANEL Routine 11/03/2022 4:19 PM CDT Type 2 diabetes mellitus with diabetic polyneuropathy, with long-term current use of insulin ([facility]) Hypertension associated with type 2 diabetes mellitus ([facility]) Hyperlipidemia associated with type 2 diabetes mellitus ([facility]) from Last 3 Months or Most Recently Relevant to Health Maintenance Results * HEMOGLOBIN, GLYCOSYLATED (05/08/2023) HGB A1C 9.1 % [facility] 05/08/2023 us Mehran Sepulveda DO LABORATORY Final Re sult [facility] [address] [place] [address], * (ABNORMAL) LIPID PANEL (11/03/2022 4:19 PM CDT) CHOLESTEROL 165 <200 MG/DL 11/03/2022 8:00 PM CDT [facility] TRIGLYCERIDES 193(H) <150 MG/DL 11/03/2022 8:00 PM CDT [facility] HDL 41 >40 MG/DL 11/03/2022 8:00 PM CDT [facility] LDL-C 85 <100 MG/DL 11/03/2022 8:00 PM CDT [facility] VLDL CALCULATION 39(H) 5 - 28 MG/DL 11/03/2022 8:00 PM CDT [facility] CHOL/HDL RATIO 4.0 0.0 - 4.0 11/03/2022 8:00 PM CDT [facility] LDL/HDL 2.1 0.41 - 2.13 11/03/2022 8:00 PM CDT [facility] NON HDL CHOLESTEROL 124 <140 MG/DL 11/03/2022 8:00 PM CDT [facility] 11/03/2022 4:19 PM CDT Mehran Sepulveda DO LABORATORY Final Re sult -[facility] [address] [place] [address], [place] [phone] from Last 3 Months or Most Recently Relevant to Health Maintenance Insurance [facility] Care Teams Academic Support Assistant Relationship Specialty Start Date End Date Mehran Sepulveda DO [facility] [place], [place] [id number] PCP - General FAMILY PRACTICE 01/27/21
--- OUTSIDE RECORDS SUMMARY | 2024-08-23 14:29 | XMS_ITS | Patient Health Record ---
Author Organization [facility] Address [address] [place], [place] [id number] Care Team Providers Care Lithographers Printer Name Role Phone MARZENA RAMIRES Unavailable [phone] Angelique Jacobs Unavailable Unavailable GARY SOLOIC Unavailable [phone] Allergies No Known Allergies Reason For Referral No Information Medications Medication SIG (Take, Route, Frequency, Duration) Notes Start Date End Date Status clobetasol propionate 0.0005 MG/MG Topical Ointment [Temovate] CUTANEOUS clobetasol propionate 0.0005 MG/MG Topical Ointment [Temovate]Original Medicationclobetasol propionate 0.0005 MG/MG Topical Ointment [Temovate] *Reorder from [facility] for eRx and Interaction Alerts* 5 Active clotrimazole 10 MG/ML Topical Cream CUTANEOUS clotrimazole 10 MG/ML Topical CreamOriginal Medicationclotrimazole 10 MG/ML Topical Cream *Reorder from [facility] for eRx and Interaction Alerts* 5 Active betamethasone 0.5 MG/ML / clotrimazole 10 MG/ML Topical Cream [Lotrisone] CUTANEOUS betamethasone 0.5 MG/ML / clotrimazole 10 MG/ML Topical Cream [Lotrisone]Original Medicationbetamethasone 0.5 MG/ML / clotrimazole 10 MG/ML Topical Cream [Lotrisone] *Reorder from [facility] for eRx and Interacti 5 Active Pravastatin Sodium 40 MG Oral Tablet ORAL pravastatin sodium 40 MG Oral TabletOriginal Medicationpravastatin sodium 40 MG Oral Tablet *Reorder from [facility] for eRx and Interaction Alerts* 5 Active silver sulfadiazine 10 MG/ML Topical Cream [Silvadene] CUTANEOUS silver sulfadiazine 10 MG/ML Topical Cream [Silvadene]Original Medicationsilver sulfadiazine 10 MG/ML Topical Cream [Silvadene] *Reorder from [facility] for eRx and Interaction Alerts* 5 Active Losartan Potassium 100 MG Oral Tablet ORAL losartan potassium 100 MG Oral TabletOriginal Medicationlosartan potassium 100 MG Oral Tablet *Reorder from [facility] for eRx and Interaction Alerts* 5 Active urea 400 MG/ML Topical Cream CUTANEOUS urea 400 MG/ML Topical CreamOriginal Medicationurea 400 MG/ML Topical Cream *Reorder from [facility] for eRx and Interaction Alerts* 5 Active duloxetine 30 MG Delayed Release Oral Capsule ORAL duloxetine 30 MG Delayed Release Oral CapsuleOriginal Medicationduloxetine 30 MG Delayed Release Oral Capsule *Reorder from [facility] for eRx and Interaction Alerts* 5 Active potassium chloride 10 MEQ Extended Release Oral Capsule ORAL potassium chloride 10 MEQ Extended Release Oral CapsuleOriginal Medicationpotassium chloride 10 MEQ Extended Release Oral Capsule *Reorder from [facility] for eRx and Interaction Alerts* 5 Active amlodipine 5 MG Oral Tablet ORAL amlodipine 5 MG Oral TabletOriginal Medicationamlodipine 5 MG Oral Tablet *Reorder from [facility] for eRx and Interaction Alerts* 5 Active ammonium lactate 120 MG/ML Topical Cream [Lac-Hydrin] CUTANEOUS ammonium lactate 120 MG/ML Topical Cream [Lac-Hydrin]Original Medicationammonium lactate 120 MG/ML Topical Cream [Lac-Hydrin] *Reorder from [facility] for eRx and Interaction Alerts* 5 Active acetaminophen 325 MG / hydrocodone bitartrate 5 MG Oral Tablet ORAL acetaminophen 325 MG / hydrocodone bitartrate 5 MG Oral TabletOriginal Medicationacetaminophen 325 MG / hydrocodone bitartrate 5 MG Oral Tablet *Reorder from [facility] for eRx and Interaction Alerts* 5 Active Z-SAMMY ORAL Z-PAKOriginal MedicationZ-SAMMY *Reorder from [facility] for eRx and Interaction Alerts* 8 Active acyclovir 0.05 MG/MG Topical Ointment [Zovirax] CUTANEOUS acyclovir 0.05 MG/MG Topical Ointment [Zovirax]Original Medicationacyclovir 0.05 MG/MG Topical Ointment [Zovirax] *Reorder from [facility] for eRx and Interaction Alerts* 8 Active Immunizations Vaccine Route Administration Date Status Comme nts Influenza, high dose seasonal Unknown 03/23/2023 Admini stered Vital Signs Height-cm 172.72 cm 12/07/2023 Weight-kg 90.72 kg 12/07/2023 Height 68.00 in 12/07/2023 Weight 200 lbs 12/07/2023 BMI 30.41 kg/m2 12/07/2023 Encounters Encounter Location Date Provider Diagnosis [facility] [address] [place] [address] [id number] 12/07/2023 MARZENA [place]IP[place] 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 ; Pain in right toe(s) M79.674 ; Pain in left toe(s) M79.675 and 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 of extremities, bilateral legs I70.203 [facility] [address] [place] [address] [id number] 02/08/2024 MARZENA [place]ITTEN[place] 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 ; Primary osteoarthritis, left ankle and foot M19.072 ; Pain in right toe(s) M79.674 ; Pain in left toe(s) M79.675 and 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 of extremities, bilateral legs I70.203 [facility] [address] [place] [address] [id number] 05/23/2024 MARZENA [place] 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 ; Primary osteoarthritis, left ankle and foot M19.072 ; Pain in right toe(s) M79.674 ; Pain in left toe(s) M79.675 and 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 of extremities, bilateral legs I70.203 [facility] [address] [place] [address] [id number] 08/01/2024 MARZENA BIP[place] 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 ; Primary osteoarthritis, left ankle and foot M19.072 ; Pain in right toe(s) M79.674 ; Pain in left toe(s) M79.675 and 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 of extremities, bilateral legs I70.203 Assessments Encounter Date Diagnosis (ICD Code) Assessment Notes Treatment Notes Treatment Clinical Notes Section Notes 12/07/2023 Pain in right toe(s) (ICD-10 - M79.674) 12/07/2023 Fungal infection of nail (ICD-10 - B35.1) Nails 1-5 Bilateral were debrided extensively with nail nippers and emery board, reducing length and girth to pink healthy tissue with any subungual debris and necrotic tissue removed 02/08/2024 Primary osteoarthritis, left ankle and foot (ICD-10 - M19.072) 02/08/2024 Fungal infection of nail (ICD-10 - B35.1) Nails 1-5 Bilateral were debrided extensively with nail nippers and emery board, reducing length and girth to pink healthy tissue with any subungual debris and necrotic tissue removed 05/23/2024 Fungal infection of nail (ICD-10 - B35.1) Nails 1-5 Bilateral were debrided extensively with nail nippers and emery board, reducing length and girth to pink healthy tissue with any subungual debris and necrotic tissue removed 08/01/2024 Fungal infection of nail (ICD-10 - B35.1) Nails 1-5 Bilateral were debrided extensively with nail nippers and emery board, reducing length and girth to pink healthy tissue with any subungual debris and necrotic tissue removed 08/01/2024 Primary osteoarthritis, left ankle and foot (ICD-10 - M19.072) 05/23/2024 Primary osteoarthritis, left ankle and foot (ICD-10 - M19.072) 02/08/2024 Pain in right toe(s) (ICD-10 - M79.674) 12/07/2023 Pain in left toe(s) (ICD-10 - M79.675) 12/07/2023 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 of extremities, bilateral legs (ICD-10 - I70.203) 02/08/2024 Pain in left toe(s) (ICD-10 - M79.675) 05/23/2024 Pain in right toe(s) (ICD-10 - M79.674) 08/01/2024 Pain in right toe(s) (ICD-10 - M79.674) 08/01/2024 Pain in left toe(s) (ICD-10 - M79.675) 05/23/2024 Pain in left toe(s) (ICD-10 - M79.675) 02/08/2024 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 05/23/2024 Other Following skin prep, a total of 3 ccs of a 1-1-1 mix of 0.5% marcaine plain, Kenalog, and dexamethasone sodium phosphate was injected into the patients left ankle joint. 08/01/2024 Other Following skin prep, a total of 3 ccs of a 1-1-1 mix of 0.5% marcaine plain, Kenalog, and dexamethasone sodium phosphate was injected into the patients left ankle joint. Plan Of Treatment Next Appt Details Provider Name:MARZENA PRYOR, 10/10/2024 10:20:00 AM, [address], [facility] [address], [place], [place], [id number], Insurance Providers Payer Name Payer Address Payer Phone Subscriber Number Group Number Insured Name Patient Relationship to Insured Coverage Start Date Coverage End Date [employer] MedicareCom [place] ([facility]) [address] [place], [place] [id number] KELSEY SARMIENTO Self - patient is the insured
--- OUTSIDE RECORDS SUMMARY | 2024-08-23 14:29 | XMS_ITS ---
Author Organization [facility] Address [address] [place], [place] [address] Care Team Providers Care Ball Mill Operator Name Role Phone MARZENA NAYAK Unavailable [phone] Angelique Jacobs Unavailable Unavailable REASON FOR VISIT *General care Medications Medication SIG (Take, Route, Frequency, Duration) Notes Start Date End Date Status Losartan Potassium 100 MG Oral Tablet ORAL losartan potassium 100 MG Oral TabletOriginal Medicationlosartan potassium 100 MG Oral Tablet *Reorder from [facility] for eRx and Interaction Alerts* 5 Active urea 400 MG/ML Topical Cream CUTANEOUS urea 400 MG/ML Topical CreamOriginal Medicationurea 400 MG/ML Topical Cream *Reorder from [facility] for eRx and Interaction Alerts* 5 Active Z-SAMMY ORAL Z-PAKOriginal MedicationZ-SAMMY *Reorder from [facility] for eRx and Interaction Alerts* 8 Active Pravastatin Sodium 40 MG Oral Tablet ORAL pravastatin sodium 40 MG Oral TabletOriginal Medicationpravastatin sodium 40 MG Oral Tablet *Reorder from [facility] for eRx and Interaction Alerts* 5 Active silver sulfadiazine 10 MG/ML Topical Cream [Silvadene] CUTANEOUS silver sulfadiazine 10 MG/ML Topical Cream [Silvadene]Original Medicationsilver sulfadiazine 10 MG/ML Topical Cream [Silvadene] *Reorder from [facility] for eRx and Interaction Alerts* 5 Active clobetasol propionate 0.0005 MG/MG Topical Ointment [Temovate] CUTANEOUS clobetasol propionate 0.0005 MG/MG Topical Ointment [Temovate]Original Medicationclobetasol propionate 0.0005 MG/MG Topical Ointment [Temovate] *[facility]* 5 Active betamethasone 0.5 MG/ML / clotrimazole 10 MG/ML Topical Cream [Lotrisone] CUTANEOUS betamethasone 0.5 MG/ML / clotrimazole 10 MG/ML Topical Cream [Lotrisone]Original Medicationbetamethasone 0.5 MG/ML / clotrimazole 10 MG/ML Topical Cream [Lotrisone] *[facility] and Interacti 5 Active potassium chloride 10 MEQ Extended Release Oral Capsule ORAL potassium chloride 10 MEQ Extended Release Oral CapsuleOriginal Medicationpotassium chloride 10 MEQ Extended Release Oral Capsule *[facility]* 5 Active clotrimazole 10 MG/ML Topical Cream CUTANEOUS clotrimazole 10 MG/ML Topical CreamOriginal Medicationclotrimazole 10 MG/ML Topical Cream *Reorder from [facility] Bus for eRx and Interaction Alerts* 5 Active duloxetine 30 MG Delayed Release Oral Capsule ORAL duloxetine 30 MG Delayed Release Oral CapsuleOriginal Medicationduloxetine 30 MG Delayed Release Oral Capsule *Reorder from [facility] for eRx and Interaction Alerts* 5 Active ammonium lactate 120 MG/ML Topical Cream [Lac-Hydrin] CUTANEOUS ammonium lactate 120 MG/ML Topical Cream [Lac-Hydrin]Original Medicationammonium lactate 120 MG/ML Topical Cream [Lac-Hydrin] *Reorder from [facility] for eRx and Interaction Alerts* 5 Active acyclovir 0.05 MG/MG Topical Ointment [Zovirax] CUTANEOUS acyclovir 0.05 MG/MG Topical Ointment [Zovirax]Original Medicationacyclovir 0.05 MG/MG Topical Ointment [Zovirax] *[facility]* 8 Active amlodipine 5 MG Oral Tablet ORAL amlodipine 5 MG Oral TabletOriginal Medicationamlodipine 5 MG Oral Tablet *Reorder from [facility] for eRx and Interaction Alerts* 5 Active acetaminophen 325 MG / hydrocodone bitartrate 5 MG Oral Tablet ORAL acetaminophen 325 MG / hydrocodone bitartrate 5 MG Oral TabletOriginal Medicationacetaminophen 325 MG / hydrocodone bitartrate 5 MG Oral Tablet *Reorder from [facility] for eRx and Interaction Alerts* 5 Active Encounters Encounter Location Date Provider Diagnosis [facility] [address] [place], [place] [id number] 02/08/2024 MARZENA NAYAK 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 ; Primary osteoarthritis, left ankle and foot M19.072 ; Pain in right toe(s) M79.674 ; Pain in left toe(s) M79.675 and Unspecified atherosclerosis of [place] arteries of extremities, bilateral legs I70.203 Assessments [...] (ICD-10 - M79.675) 02/08/2024 Unspecified atherosclerosis of [place] arteries of extremities, bilateral legs (ICD-10 - [...] PRYOR, 10/10/2024 10:20:00 AM, [address], [address], [id number], Progress Notes * HAYLEYKELSEY LÓPEZ LDOB: [birth year] (83 yo M)Acc No.[id number]:02/08/2024 Patient: KELSEY CHUNG Provider: Aundrea Nayak DPM :1940 A ge:83 Y S ex:Male Date:02/08/2024 Address:[address] [place] [address] Subjective: * Chief Complaints: * 1 . [...] sodium 40 MG Oral Tablet *Reorder from [facility] for eRx and Interaction Alerts*, Taking Losartan [...] MG Oral Tablet *Reorder from [facility] for eRx and Interaction Alerts*, Taking acyclovir 0.05 MG/MG Topical Ointment [Zovirax] CUTANEOUS , Notes to Pharmacist: acyclovir 0.05 MG/MG Topical Ointment [Zovirax]Original Medicationacyclovir 0.05 MG/MG Topical Ointment [Zovirax] *Reorder from [facility] for eRx and Interaction Alerts*, Taking amlodipine 5 MG Oral Tablet ORAL , Notes to Pharmacist: amlodipine 5 MG Oral TabletOriginal Medicationamlodipine 5 MG Oral Tablet *Reorder from [facility] for eRx and Interaction Alerts*, Taking ammonium lactate 120 MG/ML Topical Cream [Lac-Hydrin] CUTANEOUS , Notes to Pharmacist: ammonium lactate 120 MG/ML Topical Cream [Lac-Hydrin]Original Medicationammonium lactate 120 MG/ML Topical Cream [Lac-Hydrin] *Reorder from [facility] for eRx and Interaction Alerts*, Taking betamethasone 0.5 MG/ML / clotrimazole 10 MG/ML Topical Cream [Lotrisone] CUTANEOUS , Notes to Pharmacist: betamethasone 0.5 MG/ML / clotrimazole 10 MG/ML Topical Cream [Lotrisone]Original Medicationbetamethasone 0.5 MG/ML / clotrimazole 10 MG/ML Topical Cream [Lotrisone] *Reorder from [facility] for eRx and Interacti, Taking clobetasol propionate 0.0005 MG/MG Topical Ointment [Temovate] CUTANEOUS , Notes to Pharmacist: clobetasol propionate 0.0005 MG/MG Topical Ointment [Temovate]Original Medicationclobetasol propionate 0.0005 MG/MG Topical Ointment [Temovate] *Reorder from [facility] for eRx and Interaction Alerts*, Taking clotrimazole 10 MG/ML Topical Cream CUTANEOUS , Notes to Pharmacist: clotrimazole 10 MG/ML Topical CreamOriginal Medicationclotrimazole 10 MG/ML Topical Cream *Reorder from [facility] for eRx and Interaction Alerts*, Taking duloxetine 30 MG Delayed Release Oral Capsule ORAL , Notes to Pharmacist: duloxetine 30 MG Delayed Release Oral CapsuleOriginal Medicationduloxetine 30 MG Delayed Release Oral Capsule *Reorder from [facility] for eRx and Interaction Alerts*, Taking potassium chloride 10 MEQ Extended Release Oral Capsule ORAL , Notes to Pharmacist: potassium chloride 10 MEQ Extended Release Oral CapsuleOriginal Medicationpotassium chloride 10 MEQ Extended Release Oral Capsule *Reorder from [facility] for eRx and Interaction Alerts*, Taking silver sulfadiazine 10 MG/ML Topical Cream [Silvadene] CUTANEOUS , Notes to Pharmacist: silver sulfadiazine 10 MG/ML Topical Cream [Silvadene]Original Medicationsilver sulfadiazine 10 MG/ML Topical Cream [Silvadene] *Reorder from [facility] for eRx and Interaction Alerts*, Taking urea 400 MG/ML Topical Cream CUTANEOUS , Notes to Pharmacist: urea 400 MG/ML Topical CreamOriginal Medicationurea 400 MG/ML Topical Cream *Reorder from [facility] for eRx and Interaction Alerts*, Taking Z-SAMMY ORAL , Notes to Pharmacist: Z-PAKOriginal MedicationZ-SAMMY *Reorder from [facility] for eRx and Interaction Alerts* Objective: [...] M79.675 5 . U nspecified atherosclerosis of [place] arteries of extremities, bilateral legs - I70.203 Plan: * Treatment: 2. O thers Notes: Following skin prep, a total of 3 ccs of a 1-1-1 mix of 0.5% marcaine plain, Kenalog, and dexamethasone sodium phosphate was injected into the patients left ankle joint. * Procedure Codes: 1 1721 DEBRIDE NAIL, 6 OR MORE, Modifiers: Q8 , 45957 INSERT AND REMOVE BONE PIN, Modifiers: LT * Follow Up: 9 weeks * Billing Information: * Visit Code: * Procedure Codes: 89611 DEBRIDE NAIL, 6 OR MORE. Modifiers: Q8 74104 INSERT AND REMOVE BONE PIN. Modifiers: LT * Sign off status: Completed true * Provider: Aundrea Nayak DPM Date: 0 02/08/2024 Generated for Luis colorado/Osman/Laryitting on: 0 08/23/2024 02:29 PM GRAB JACK MAN History and Physical Notes * HPI (History [...]
--- OUTSIDE RECORDS SUMMARY | 2024-08-23 14:29 | XMS_ITS | Continuity of Care Document ---
Author Organization [facility] Address [address] [place] [address] [address] [place] [address] Phone Care Team Providers Care Special Services Director Name Role Phone Luo OD, Arnold Unavailable Unavailable Procedures Procedure Date Office/outpatient Visit, Est Optic Nerve Head Eval IPO Reduced 15% Eye Exam Established Pt Script Printed/Phoned Pt Requ Or Pharm N ot Availab Office/outpatient Visit, Est Optic Nerve Head Eval Visual Field Examination-Professional Au Visual Field Examination(s) BF Plastic Sphcyl Brilliant To +/-4d .12-2d Anti-reflective Coating Lens-Index>1.66Plas;>1.80Glas 8 [...] Copied on Encounter [facility] [address], [place], [place], [address], [place] tel:[phone] [facility] No Information Sep- 7-201 0 Luo OD Arnold. [address], [place], [place], [facility], [place]. tel:[phone] [facility], [address], [place], [place], [address], [place] tel:[phone] [facility] No Information Apr-2 1-200 9 Krishnasamy Glenn. [address], [place], [place], [facility], [place]. tel:[phone] Office/outpat ient Visit, Est [facility], [address], [place], [place], [address], [place] tel:[phone] [facility] No Information Jan-0 6-200 8 Krishnasamy Glenn. [address] [place] [address] [address], [place], [place], [facility], [place]. tel:[phone] Referring Provider: Glenn kumar, [address] [place] [address] [address], [place], [place], [facility]. tel:[phone] [facility], [address] [place] [address] [address], [place], [place], [address], [place] tel:[phone] [facility] No Information Dec-3 0-200 8 Krishnasamy Glenn. [address] [place] [address] [address], [place], [place], [facility], [place]. tel:[phone] Referring Provider: Glenn kumar, [address] [place] [address] [address], [place], [place], [facility]. tel:[phone] [facility], [address], [place], [place], [address], [place] tel:[phone] [facility] No Information Oct- 7-200 8 [facility] [employer]. [address] [facility], [address], [place], [place], [address], . tel:[phone] Referring Provider: Glenn kumar, [address], [place], [address]. tel:[phone] sulting Provider: Lora Sanchez, [address] [facility], [place], [place], [facility]. tel:[phone] [facility], [address] [place] [address] [address], [place], [place], [address], [place] tel:[phone] [facility] No Information Apr-1 4-200 8 Krishnasamy Glenn. [address], [place], [place], [facility], [place]. tel:[phone] Referring Provider: Glenn kumar, [address] [facility] [address], [place], [place], [facility]. tel:[phone] [facility], [address], [place], [place], [address], [place] tel:[phone] [facility] No Information Mar-2 1-200 8 Krishnasamy Glenn. [address], [place], [address], [place]. tel:[phone] [facility], [address] [place] [address] [address], [place], [place], [address], [place] tel:[phone] [facility] No Information Mar-1 4-200 8 Krishnasamy Glenn. [address], [address], [place]. tel:[phone] [facility], [address], [place], [place], [address], [place] tel:[phone] [facility] No Information Mar-1 3-200 8 Krishnasamy Glenn. [address], [address], [place]. tel:[phone] Office/outpat ient Visit, [facility], [address], [place], [place], [address], tel:[phone] [facility] No Information Mar-0 3-200 8 Krishnasamy Glenn. [address] [place] [address], [facility], . tel:[phone] Referring Provider: Glenn kumar, [address] [place] [address], [facility]. tel:[phone] Office/outpat ient Visit, [facility], [address], [place], [place], [address], tel:[phone] [facility] No Information 1 8-200 8 Krishnasamy Glenn. [address] [place] [address], [facility], [place]. tel:[phone] [facility], [address], [place], [place], [address], tel:[phone] [facility] No Information b-0 4-200 8 Krishnasamy Glenn. [address] [place] [address], [facility], . tel:[phone] Family History Family Member Type Diagnosis Age At Onset No Information Payers Payer name Insurance type Covered democrat ID Authoriza tion(s) [place] [id number] [facility] [id number] Social History Type Description Quantity Date Captured [...]
--- OUTSIDE RECORDS SUMMARY | 2024-08-23 14:29 | XMS_ITS | Clinical Summary ---
Author Organization [facility] Medical [facility] 2 Address [address] [facility] [place] [address] Care Team Providers Care Steam Station Supervisor Name Role Phone Angelique Jacobs MD Primary Care Provider [phone] Allergies Active Allergy Reactions Criticality Noted Date [...] 07/08/2021 Assessment & Plan (07/08/2021 3:14 PM SUPERVISOR [employer]ODU[employer]): Referred by Dr. 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 Marin as scheduled- doubt she will be able to continue OCTs Assessment & Plan (07/12/2023 12:42 PM SUPERVISOR [employer]ODU[employer]): Vision sl worse- subjective loss also F/U with Dr. Marin as scheduled Assessment & Plan (02/08/2023 9:11 PM CDT): PH vision stable and no subjective changes F/U with Dr. Marin as scheduled Assessment & Plan (07/06/2022 8:36 PM SUPERVIS[employer]): Vision improved status post (s/p) AMARILIS Subjective and objective improvement F/U with Dr. 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 Discussed R/B/A of anti-VEGF and patient wishes to proceed. AMARILIS #1 today Warning Sx endophthalmitis discussed Follow up 4 weeks Assessment & Plan (07/08/2021 3:15 PM SUPERVIS[employer]): right eye (OD) on OCT mac today; [...] vision Assessment & Plan (07/12/2023 12:41 PM SUPER[employer]): - status post (s/p) B350 OU - [...] meds Assessment & Plan (07/06/2022 8:35 PM SUPER[employer]): - status post (s/p) B350 OU - [...] eval-- Assessment & Plan (07/08/2021 3:14 PM SUPERVIS[employer]): Cont with Dr. Padilla Assessment & Plan (06/16/2021 8:11 PM SUPER[employer]): - status post (s/p) B350 OU - [...] F/U Assessment & Plan (05/12/2021 3:15 PM SUPER[employer]): - status post (s/p) B350 OU - [...] months Assessment & Plan (08/05/2020 11:09 AM SUPER[employer]): - status post (s/p) B350 OU - status post (s/p) dCPC OS - intraocular pressure (IOP) better today, 16 OU - continue Eleno 1% TID OD, Timolol QAM OU, Latanoprost QHS OU May still need additional intervention if elevated IOP in future:dCPC right eye (OD) vs 2nd GDI IN right eye (OD) F/U 4 months Assessment & Plan (06/17/2020 11:17 AM SUPER[employer]): - status post (s/p) B350 OU - status post (s/p) dCPC OS - intraocular pressure (IOP) slightly improved with eleno right eye (OD) Increase to tid with some improvement Discussed options: discussed r/b/a of dCPC right eye (OD) 2nd GDI IN right eye (OD) F/U 6-6 wks Assessment & Plan (05/06/2020 2:39 PM SUPER[employer]): - status post (s/p) B350 OU - [...] IOP Assessment & Plan (05/08/2019 4:03 PM SUPER[employer]): - status post (s/p) B350 OU - [...] DFE Assessment & Plan (07/11/2018 2:58 PM SUPER[employer]): - status post (s/p) B350 OU - [...] monitor Assessment & Plan (07/11/2018 2:58 PM SUPERVISOR [employer]): Conjunctiva covering both tubes Assessment & Plan (02/08/2018 7:40 AM CDT): Monitor with thin conjunctival covering over tubes both eyes (OU). Chronic pain syndrome 10/28/2016 Somatic symptom disorder, pe rsistent, severe, with predominant pain 10/28/2016 Encounters Date Type Department Care Team Description 08/05/2024 Telephone [facility] Ophthalmology [address], [address] [place] [address] Cornelia Valencia MD PhD 07/11/2024 1:30 PM SUPERVISOR [employer] Office Visit [facility] Ophthalmology [address]th [place] [address] Cornelia Valencia MD PhD S/P eye surgery (Primary Dx) from Last 3 Months Surgical History Surgery Date Site/Laterality Comments CA AQUEOUS SHUNT EXTRAOC EQU AT PLATE RSVR W/GRAFT Ant. Sclera Aqueous Shunt To Extraocular [place] Left Eye - (Added by TW Conv) CA AQUEOUS SHUNT EXTRAOC EQU AT PLATE RSVR W/GRAFT Ant. Sclera Aqueous Shunt To Extraocular [place] Right Eye - (Added by TW Conv) CA XCAPSL CTRC RMVL INSJ IO LENS PROSTH W/O ECP Extracaps Cataract Extract With Prosthesis Insert Left Eye - (Added by TW Conv) CA FSTLJ SCLERA GLAUCOMA TRABECULECT AB EXTERNO Fistulization For Glaucoma By Trabeculectomy Ab Externo - (Added by TW Conv) CATARACT EXTRACTION INTRAOCULAR LENS INSERTION ESOPHAGOGASTRODUODENOSCOPY [...] on file Legal Sex Male 4:43 AM SUPERVISOR [employer] Gender Identity Not on file Sexual Orientation Not on file Obstetrics History Last Filed Vital Signs Vital Sign Reading Time Taken Comments Blood Pressure 141/64 05/15/2024 5:20 PM SUPER[employer] Pulse 58 05/15/2024 5:20 PM [employer] Temperature 36.8 C (98.2 F) 05/15/2024 4:25 PM [employer] Respiratory Rate 20 05/15/2024 5:20 PM [employer] Oxygen Saturation 91% 05/15/2024 5:20 PM [employer] Inhaled Oxygen Concentration - - Weight 86.2 kg (190 lb) 05/15/2024 2:00 PM [employer] Height 170.2 cm (5' 7 ) 05/15/2024 2:00 PM [employer] Body Mass Index 29.76 05/15/2024 2:00 PM SUPER[employer] Plan of Treatment Health Maintenance Due Date [...] 05/04/2022, 01/01 Medical Devices Implanted Type Area Bankruptcy Legal Assistant Device Identifier Shelf Expiration Date Model / Serial / Lot [employer] Srvcs Implant Dsek Right Tissue Cornea V0091 - [id number] - [id number] Implanted:Qty: 1 on 05/15/2024 by Cornelia Valencia MD PhD at [facility] Other - see comments Right: Eye [employer] Srv[employer] 05/25/2024 V0091 / [id number] / [id number] Description:CORNEA Procedures Procedure Name Priority Date/Time Associated [...] 4:09 PM CDT 09/27/2023 5:55 PM CDT Abbie Flores MD LAB BLOOD ORDERABLES Fi nal Result [facility] [address] [address] Department [place] [address] from Last 3 Months or Most Recently Relevant to Health Maintenance Insurance MEDICARE SOLUTIONS MEDICARE SOLUTIONS Advance Directives For more information, please contact: [phone] Documents on File Type Date Recorded 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
[2024-08-23 16:12] VITALS: BMI 30.6
[2024-08-23] MEDS: INSULIN HUMAN LISPRO (*BKC) 1,000 UNITS/10 ML VIAL SUB-Q (18:30)
[2024-08-23 19:42] LABS: Estimated Glomerular Filt Rate 59
[2024-08-23] MEDS: busPIRone HCL 5 MG TABLET PO (20:19)
[2024-08-23] MEDS: TIMOLOL MALEATE 0.5% OP SOLN 5 ML BOTTLE 1 DROP EACH EYE (20:19)
[2024-08-23] MEDS: ACETAMINOPHEN 500 MG TABLET PO (20:19)
[2024-08-23] MEDS: LATANOPROST 0.005% OP SOLN 2.5 ML BTL 1 DROP EACH EYE (20:19)
[2024-08-23] MEDS: TRIAMCINOLONE ACET 0.1% CREAM 15 GM TUBE 1 APPLIC TOPICAL (20:20)
--- NOTE | 2024-08-23 21:06 | PC.NURSE ---
Patient admitted to room 201 from [facility]. Patient admitted for skilled swing bed. Patient alert and oriented to person, place. Able to verbalize needs. Patient hard of hearing has bilateral hearing aides. Patient is legally blind. Able to feed self self. Daughter, Irma, is POA for patient. SR up x2. Call light and belongings within reach. Oriented to room and hospital routine.
[2024-08-24] VITALS: BP 180/90; PULSE 90; RESP 17; TEMP 36.6; O2SAT 92
[2024-08-24] MEDS: PILOCARPINE HCL 1% OP SOLN 15 ML BTL 1 DROP EACH EYE ×2 (05:44→21:17)
[2024-08-24 08:00] VITALS: BP 183/85; PULSE 88; RESP 14; TEMP 36.2; O2SAT 93
[2024-08-24 08:04] LABS: Glucose Point of Care 266 mg/dl (65-105)
--- NOTE | 2024-08-24 08:10 | P.HP_ITS ---
H&P: HPI History of Present Illness Date/Time: 08/24/24 08:10 Chief Complaint: Weakness Narrative: This is an 83 year old male with a significant past medical history of duodenal ulcer, GI bleed, diabetes, hypertension, glaucoma, peripheral neuropathy who presented to [facility] for rehab after a hospital stay at [facility]. patient was seen and treated for pneumonia bacteremia and influenza a. He finished a full course of Levaquin for the pneumonia while inpatient. He worked with therapy there and they recommended continued rehab. He denies any fever, chills, nausea, vomiting, diarrhea, abdominal pain, chest pain, shortness a breath. He does report a rash on his back which they were giving Kenalog cream. It was likely associated from sweating. Labs showed a normal white blood cell count of 5.3, blood sugars ranging 139-206, total bilirubin 1.9, AST 384, ALT 329, alkaline phosphate 228, albumin 2.4. His liver labs were normal on discharge from [place]. his kidney function was normal with a creatinine of 0.89, EGFR was greater than 60. Review of Systems Review of Systems: All systems reviewed & are unremarkable except as noted in HPI and below PMFSH Past Medical History Medical History Duodenal ulcer Pre-syncope Acute blood loss anemia GIB (gastrointestinal bleeding) Trigger finger, right index finger Trigger finger, left index finger Left hand pain Tendinitis of right shoulder Peripheral neuropathy Hip arthritis Neuropathy Glaucoma Diabetes HTN (hypertension) Surgical History Surgical History History of ankle surgery S/P appendectomy Family History Family History Father Family history unknown Unknown Heart disease Cerebrovascular accident Social History Social History Social History: drinks 2 cups of coffee daily Years smoked: 40 Smoking status: Never smoker Second hand tobacco smoke exposure: No Alcohol intake: never Substance use: never Substance use type: does not use Do You Feel Safe in your Home?: Yes Lack of Transportation: No Lack of Food: Never True Current Housing: I Have Housing Concerned About Future Housing: No Difficulty Paying Gas/Electric Bills: No Difficulty Paying for Meds: No Currently Unemployed: No Education: Associate Degree Difficulty w/ Childcare or Family Care: No Living arrangements: assisted living Additional living arrangements comments: [facility] Occupation/Education: retired Gender identity (if verbalized by the patient): Male Spiritual care concerns: No Meds Home Medications and Allergies Home Medications ?Medication ?Instructions ?Recorded ?Confirmed ?Type amlodipine 5 mg tablet 5 mg PO DAILY 05/15/19 08/23/24 History losartan 100 mg tablet 100 mg PO DAILY 05/15/19 08/23/24 History cholecalciferol (vitamin D3) 50 50 mcg PO DAILY 09/22/21 08/23/24 History mcg (2,000 unit) capsule glipizide 5 mg tablet 5 mg PO DAILY 09/22/21 08/23/24 History multivitamin 1 tablet PO DAILY 09/22/21 08/23/24 History rosuvastatin 20 mg tablet 20 mg PO DAILY 09/22/21 08/23/24 History metformin 500 mg tablet,extended 500 mg PO DAILY #1 tablet 08/08/23 08/23/24 Rx release 24 hr latanoprost 0.005 % eye drops 1 drp EACH EYE DAILY #2.5 mL 08/09/23 08/23/24 Rx pilocarpine HCl 1 % eye drops 1 drp EACH EYE TID #15 mL 08/09/23 08/23/24 Rx timolol maleate 0.5 % eye drops 1 drp EACH EYE Q12H #5 mL 08/09/23 08/23/24 Rx duloxetine 30 mg capsule,delayed 90 mg PO DAILY 09/22/23 08/23/24 History release ascorbic acid (vitamin C) 250 mg 250 mg PO DAILY #90 tabs 10/17/23 08/23/24 Rx tablet ferrous sulfate 325 mg (65 mg 325 mg PO DAILY #90 tabs 10/17/23 08/23/24 Rx iron) tablet acetaminophen 500 mg tablet 500 mg PO Q6H PRN fever or pain 11/10/23 08/23/24 Rx #100 tabs buspirone 5 mg tablet 5 mg PO TID PRN anxiety #90 tabs 12/22/23 08/23/24 Rx lidocaine 4 % topical patch 1 patch topical DAILY PRN pain #30 12/22/23 08/23/24 Rx ea pantoprazole 40 mg tablet,delayed 40 mg PO .daily #30 tabs 04/04/24 08/23/24 Rx release (Protonix) hydrocodone 5 mg-acetaminophen 325 See Rx Instructions PO .COMPLEX 07/16/24 08/23/24 Rx mg tablet PRN pain #120 tabs codeine 10 mg-guaifenesin 100 mg/5 5 ml PO Q6H PRN cough #120 mL 08/13/24 08/23/24 Rx mL oral liquid benzonatate 200 mg capsule 200 mg PO TID PRN cough 08/17/24 08/23/24 History levofloxacin 750 mg tablet 750 mg PO DAILY #4 tabs 08/23/24 08/23/24 Rx triamcinolone acetonide 0.1 % 1 applic topical Q12HR #15 grams 08/23/24 08/23/24 Rx topical cream Allergies Allergy/AdvReac Type Severity Reaction Status Date / Time pregabalin Allergy Unknown blisters Verified 08/13/24 13:51 Vital Signs Vital Signs - 24 hr 08/23/24 20:00 08/24/24 00:00 Temperature 97.8 F Pulse Rate 90 Respiratory Rate 17 Blood Pressure 180/90 H Pulse Oximetry 92 Oxygen Delivery Room Air Room Air Exam Narrative: General: In no acute distress, well nourished Head: atraumatic, no encephalopathy Eyes: PERRLA, sclera clear ENT: moist mucous membranes, nasal passages clear Neck: supple, no JVD, no adenopathy, trachea midline Cardiac: Normal S1 and S2. No murmur, gallops or friction rubs, peripheral pu lses intact. Respiratory: Lungs clear to auscultation, no adventitious lung sounds , currently on room air Gastrointestinal: soft, non-distended, non-tender, normoactive bowel sounds. : voiding without difficulty. Extremities: moves all extremities well, no edema Skin: clean, dry, intact. No wounds or lesions. Neuro: Alert and oriented x4, cranial nerves intact, no neuro deficits. Psych: normal mood, normal affect, interactive H&P: Results Labs Labs: [facility] 08/23/24 18:58 Creatinine 1.18 Assessment and Plan Assessment and plan (1) Weakness: Code(s): R53.1 - Weakness Status: Acute Assessment and Plan: * continue PT and OT (2) Diabetes: Code(s): E11.9 - Type 2 diabetes mellitus without complications Status: Acute Assessment and Plan: * Blood sugars ranging 139-206 * Hgb A1C 7.3 on 12/22/2023 * will repeat hemoglobin A1c * Accu checks AC/HS * moderate dose SSI ordered * continue glipizide and metformin * hypoglycemic protocol in place * Diabetic diet ordered (3) HTN (hypertension): Code(s): I10 - Essential (primary) hypertension Status: Acute Assessment and Plan: * blood pressure ranging 125/64 to 180/90 * continue losartan and amlodipine (4) Transaminitis: Code(s): R74.01 - Elevation of levels of liver transaminase levels Status: Acute Assessment and Plan: * AST 384, ALT 329, alkaline phosphate 228, albumin 2.4 * his liver enzymes were normal on discharge on 08/23/2024 * will discontinue acetaminophen, will start ibuprofen as needed for pain 133 * will check hepatitis panel * continue to trend * will get an ultrasound of the liver (5) Elevated bilirubin: Code(s): R17 - Unspecified jaundice Status: Acute Assessment and Plan: * bilirubin 1.9 * bilirubin on discharge yesterday from [facility] was within normal limits * continue to trend Hospitalist MIPS Advance Care Plan I have confirmed that the patient's Advanced Care Plan is present, code status is documented, or surrogate decision maker is listed in patient medical record.: Yes Medication Reconciliation I have utilized all available resources to obtain, update and review the patients current medications (includes all prescriptions, OTC, herbals, cannabis, and nutritional supplements).: Yes
[2024-08-24] MEDS: CHOLECALCIFEROL 1,000 UNITS TABLET 2000 UNITS PO (09:20)
[2024-08-24] MEDS: LOSARTAN POTASSIUM 50 MG TABLET 100 MG PO (09:20)
[2024-08-24] MEDS: glipiZIDE 5 MG TABLET PO (09:20)
[2024-08-24] MEDS: DULoxetine HCL 30 MG CAPSULE.DR 90 MG PO (09:21)
[2024-08-24] MEDS: metFORMIN HCL XR 500 MG TAB.SR.24H PO (09:21)
[2024-08-24] MEDS: PANTOPRAZOLE 40 MG TABLET PO (09:21)
[2024-08-24] MEDS: amLODIPine BESYLATE 5 MG TABLET PO (09:22)
[2024-08-24] MEDS: MULTIVITAMINS THERAPEUTIC TAB (*BKC) 1 TABLET PO (09:22)
[2024-08-24] MEDS: TRIAMCINOLONE ACET 0.1% CREAM 15 GM TUBE 1 APPLIC TOPICAL ×2 (09:22→20:24)
[2024-08-24] MEDS: FERROUS SULFATE 325 MG TABLET DR PO (09:22)
[2024-08-24] MEDS: TIMOLOL MALEATE 0.5% OP SOLN 5 ML BOTTLE 1 DROP EACH EYE ×2 (09:25→20:24)
[2024-08-24] MEDS: ROSUVASTATIN 10 MG TABLET 20 MG PO (09:25)
[2024-08-24] MEDS: INSULIN HUMAN LISPRO (*BKC) 1,000 UNITS/10 ML VIAL SUB-Q (09:32)
[2024-08-24 10:15] LABS: Basophils Absolute Auto 0.04 K/mm3 (0.00-0.10); Basophils Percent Auto 0.8 % (0.0-1.0); Eosinophils Absolute Auto 0.17 K/mm3 (0.02-0.50); Eosinophils Percent Auto 3.2 % (1.0-6.0); Hematocrit 39.8 % (37.0-46.0); Hemoglobin 13.1 g/dL (12.4-15.3); Immature Granulocyte Absolute 0.05 K/mm3 (0.00-0.00); Immature Granulocyte Percent A 0.9 % (0.0-0.0); Lymphocytes Absolute Auto 1.75 K/mm3 (1.10-4.50); Lymphocytes Percent Auto 33.1 % (18.0-42.0); Mean Corpuscular HGB Conc 32.9 g/dL (32-36); Mean Corpuscular Hemoglobin 29.2 pg (27.0-31.0); Mean Corpuscular Volume 88.8 fL (78.0-102.0); Mean Platelet Volume 9.4 fl (8.7-11.0); Monocytes Absolute Auto 0.49 K/mm3 (0.10-0.90); Monocytes Percent Auto 9.3 % (2.0-11.0); Neutrophils Absolute Auto 2.78 K/mm3 (1.70-7.20); Neutrophils Percent Auto 52.7 % (50.0-70.0); Platelet Count Result 383 K/mm3 (150-420); Red Blood Count 4.48 M/mm3 (4.70-6.10); Red Cell Distribution Width 13.1 % (11.6-14.4); White Blood Count 5.3 K/mm3 (4.8-10.8)
[2024-08-24 10:35] LABS: Alanine Aminotransferase 329 U/L (16-63); Albumin Level 2.4 g/dL (3.4-5.0); Alkaline Phosphatase 228 U/L (46-116); Anion Gap 9 mmol/L (4-12); Aspartate Amino Transferase 384 U/L (15-37); Bilirubin,Total 1.9 mg/dL (0.00-1.00); Blood Urea Nitrogen 17 mg/dL (7-18); Calcium 8.6 mg/dL (8.5-10.1); Carbon Dioxide 29 mmol/L (21-32); Chloride 104 mmol/L (98-108); Estimated CRCL calculation 57 ml/min; Estimated Glomerular Filt Rate > 60; Glucose 206 mg/dL (70-99); Magnesium 2.1 mg/dL (1.8-2.4); Osmolality Calculated 301 mOsm/kg (285-295); Potassium 3.5 mmol/L (3.5-5.1); Sodium 142 mmol/L (136-145); Total Protein 7.3 g/dL (6.4-8.2)
[2024-08-24 11:54] LABS: Glucose Point of Care 139 mg/dl (65-105)
[2024-08-24] MEDS: levoFLOXacin 250 MG TABLET 750 MG PO (12:35)
[2024-08-24 16:00] VITALS: BP 173/68; PULSE 80; RESP 14; TEMP 36.4; O2SAT 97
[2024-08-24] MEDS: LATANOPROST 0.005% OP SOLN 2.5 ML BTL 1 DROP EACH EYE (20:24)
[2024-08-25] VITALS: BP 167/85; PULSE 84; RESP 18; TEMP 37.2; O2SAT 91
[2024-08-25] MEDS: PILOCARPINE HCL 1% OP SOLN 15 ML BTL 1 DROP EACH EYE ×2 (06:06→21:54)
[2024-08-25 08:00] VITALS: BP 190/79; PULSE 84; RESP 14; TEMP 36.2; O2SAT 93
[2024-08-25] MEDS: levoFLOXacin 250 MG TABLET 750 MG PO (09:15)
[2024-08-25] MEDS: BENZONATATE 100 MG CAPSULE 200 MG PO (09:17)
[2024-08-25] MEDS: LOSARTAN POTASSIUM 50 MG TABLET 100 MG PO (09:17)
[2024-08-25] MEDS: CHOLECALCIFEROL 1,000 UNITS TABLET 2000 UNITS PO (09:17)
[2024-08-25] MEDS: glipiZIDE 5 MG TABLET PO (09:19)
[2024-08-25] MEDS: DULoxetine HCL 30 MG CAPSULE.DR 90 MG PO (09:19)
[2024-08-25] MEDS: PANTOPRAZOLE 40 MG TABLET PO (09:20)
[2024-08-25] MEDS: ROSUVASTATIN 10 MG TABLET 20 MG PO (09:20)
[2024-08-25] MEDS: MULTIVITAMINS THERAPEUTIC TAB (*BKC) 1 TABLET PO (09:20)
[2024-08-25] MEDS: amLODIPine BESYLATE 5 MG TABLET PO ×2 (09:20→13:15)
[2024-08-25] MEDS: metFORMIN HCL XR 500 MG TAB.SR.24H PO (09:21)
[2024-08-25] MEDS: FERROUS SULFATE 325 MG TABLET DR PO (09:21)
[2024-08-25] MEDS: TIMOLOL MALEATE 0.5% OP SOLN 5 ML BOTTLE 1 DROP EACH EYE ×2 (09:22→21:53)
--- NOTE | 2024-08-25 13:16 | P.PNIM_ITS ---
Progress Note: A&P Assessment and Plan (1) Weakness: Code(s): R53.1 - Weakness Status: Acute Assessment and Plan: * continue PT and OT * continue fall precautions 08/25 * no change to current treatment plan (2) Diabetes: Code(s): E11.9 - Type 2 diabetes mellitus without complications Status: Acute Assessment and Plan: * Blood sugars ranging 139-206 * Hgb A1C 7.3 on 12/22/2023 * will repeat hemoglobin A1c * Accu checks AC/HS * moderate dose SSI ordered * continue glipizide and metformin * hypoglycemic protocol in place * Diabetic diet ordered 08/25 * no change to current treatment plan (3) HTN (hypertension): Code(s): I10 - Essential (primary) hypertension Status: Acute Assessment and Plan: * blood pressure ranging 125/64 to 180/90 * continue losartan and amlodipine 08/25 * blood pressures ranging 173/68 to 190/79 * will increase amlodipine to 10 mg daily * continue losartan at 100 mg daily (4) Transaminitis: Code(s): R74.01 - Elevation of levels of liver transaminase levels Status: Acute Assessment and Plan: * AST 384, ALT 329, alkaline phosphate 228, albumin 2.4 * his liver enzymes were normal on discharge on 08/23/2024 * will discontinue acetaminophen, will start ibuprofen as needed for pain 133 * will check hepatitis panel * continue to trend * will get an ultrasound of the liver 08/25 * AST 288, ALT 484, Alk phos 282 * Hepatitis panel still pending (5) Elevated bilirubin: Code(s): R17 - Unspecified jaundice Status: Acute Assessment and Plan: * bilirubin 1.9 * bilirubin on discharge yesterday from [facility] was within normal limits * continue to trend 08/25 * Bilirubin 1.8 * Continue to trend (6) Pneumonia: Code(s): J18.9 - Pneumonia, unspecified organism Status: Acute Assessment and Plan: 08/25 * patient finished course Levaquin for pneumonia * continue with DuoNebs * continue with Mucinex * crackles noted to right lower lobe * continue pep therapy and incentive spirometry while awake (7) Urinary incontinence: Code(s): R32 - Unspecified urinary incontinence Status: Acute Assessment and Plan: 08/25 * patient has had urinary incontinence since he has been sick and increased confusion according to the daughter * UA was not checked this past admission * we will go ahead and check a UA today to check for any bacteria Time Spent With Patient Time with patient: 15 - 25 minutes Subjective Date/time seen: 08/25/24 13:16 Interval history: interval history: This is an 83 year old male with a significant past medical history of duodenal ulcer, GI bleed, diabetes, hypertension, glaucoma, peripheral neuropathy who presented to [facility] for rehab after a hospital stay at [facility]. patient was seen and treated for pneumonia bacteremia and influenza a. He finished a full course of Levaquin for the pneumonia while inpatient. He worked with therapy there and they recommended continued rehab. He denies any fever, chills, nausea, vomiting, diarrhea, abdominal pain, chest pain, shortness a breath. He does report a rash on his back which they were giving Kenalog cream. It was likely associated from sweating. Labs showed a normal white blood cell count of 5.3, blood sugars ranging 139-206, total bilirubin 1.9, AST 384, ALT 329, alkaline phosphate 228, albumin 2.4. His liver labs were normal on discharge from [place]. his kidney function was normal with a creatinine of 0.89, EGFR was greater than 60. subjective: patient denies any new complaints today. Labs reviewed. Review of Systems Review of Systems: All systems reviewed & are unremarkable except as noted in HPI and below Exam Narrative: General: In no acute distress, well nourished Cardiac: Normal S1 and S2. No murmur, gallops or friction rubs, peripheral pulses intact. Respiratory: Lungs Crackles in right lower lobe, no adventitious lung sounds , currently on room air, raspy wet cough Gastrointestinal: soft, non-distended, non-tender, normoactive bowel sounds. : voiding without difficulty. Neuro: Alert and oriented x4 Objective Data Vital Signs Vital Signs: Vital Signs - 24 hr 08/24/24 16:00 08/25/24 00:00 08/25/24 08:00 Temperature 97.5 F L 98.9 F 97.2 F L Pulse Rate 80 84 84 Respiratory Rate 14 18 14 Blood Pressure 173/68 H 167/85 H 190/79 H Pulse Oximetry 97 91 93 Oxygen Delivery Room Air Room Air Room Air Intake/Output Intake/Output: Intake & Output 08/22/24 08/23/24 08/24/24/23/25 23:59 23:59 23:59 23:59 Intake Total 200 1875 100 Output Total 350 Balance 200 1525 100 Meds/Results Medications: Active Medications Generic Name Dose Route Start Last Admin Trade Name Freq PRN Reason Stop Dose Admin Hydrocodone Bitart/Acetaminophen 1 tab 08/23/24 16:20 Hydrocodone/Acetaminophen (*Crx) 5-325 Mg Tablet PO Q4H PRN pain 4-10 Amlodipine Besylate 10 mg 08/26/24 09:00 Amlodipine Besylate 5 Mg Tablet PO DAILY [facility] Ascorbic Acid 250 mg 08/24/24 09:00 08/25/24 09:22 Ascorbic Acid 250 Mg Tablet PO Not Given DAILY [facility] Benzonatate 200 mg 08/23/24 16:53 08/25/24 09:17 Benzonatate 100 Mg Capsule PO 200 mg TID PRN Administration cough Buspirone HCl 5 mg 08/23/24 16:20 08/23/24 20:19 Buspirone Hcl 5 Mg Tablet PO 5 mg Q8H PRN Administration anxiety Dextrose 12.5 gm 08/23/24 16:22 Dextrose 50% 25 Gm/50 Ml Syringe IV PUSH PRN PRN Hypoglycemia Protocol Duloxetine HCl 90 mg 08/24/24 09:00 08/25/24 09:19 Duloxetine Hcl 30 Mg Capsule.Dr PO 90 mg DAILY FATOU Administration Ferrous Sulfate 325 mg 08/24/24 09:00 08/25/24 09:21 Ferrous Sulfate [address] PO 325 mg DAILY FATOU Administration Glipizide 5 mg 08/24/24 07:30 08/25/24 09:19 Glipizide 5 Mg Tablet PO 5 mg DAILY@0730 FATOU Administration Glucagon 1 mg 08/23/24 16:22 Glucagon For Inj 1 Mg Vial IM PRN PRN Hypoglycemia Protocol Glucose 15 gm 08/23/24 16:22 Glucose Oral Gel 15 Gm Of Glucse In 37.5 Gm Tube PO PRN PRN Hypoglycemia Protocol Guaifenesin 5 ml 08/23/24 16:56 Guaifenesin/Codeine 100/10 Mg 5 Ml Syrup PO Q6H PRN cough NOT RELIEVED BY TESSALON Hydroxyzine HCl 12.5 mg 08/23/24 21:04 Hydroxyzine Hcl 25 Mg Tablet PO Q6H PRN Itching Dextrose 1,000 mls @ 100 mls/hr 08/23/24 16:22 Dextrose 5% 1,000 Ml IVPB PRN PRN Hypoglycemia Protocol Ibuprofen 400 mg 08/24/24 14:18 Ibuprofen 400 Mg Tablet PO Q6H PRN Pain Rated 1-3 Insulin Human Lispro 3 - 6 units 08/23/24 17:00 08/25/24 09:19 Insulin Human Lispro (*Bkc) 1,000 Units/10 Ml Vial SUB-Q Not Given TIDWM FATOU Protocol Latanoprost 1 drop 08/23/24 21:00 08/24/24 20:24 Latanoprost 0.005% Op Soln 2.5 Ml Btl EACH EYE 1 drop HS FATOU Administration Levofloxacin 750 mg 08/24/24 11:00 08/25/24 09:15 Levofloxacin 250 Mg Tablet PO 750 mg DAILY FATOU Administration Losartan Potassium 100 mg 08/24/24 09:00 08/25/24 09:17 Losartan Potassium 50 Mg Tablet PO 100 mg DAILY FATOU Administration Metformin HCl 500 mg 08/24/24 08:00 08/25/24 09:21 Metformin Hcl Xr 500 Mg Tab.Sr.24h PO 500 mg DAILY@0800 FATOU Administration Multivitamins Therapeutic 1 tablet 08/24/24 09:00 08/25/24 09:20 Multivitamins Therapeutic Tab (*Bkc) PO 1 tablet DAILY FATOU Administration Pantoprazole Sodium 40 mg 08/24/24 09:00 08/25/24 09:20 Pantoprazole 40 Mg Tablet PO 40 mg DAILY FATOU Administration Pilocarpine HCl 1 drop 08/23/24 22:00 08/25/24 06:06 Pilocarpine Hcl 1% Op Soln 15 Ml Btl EACH EYE 1 drop Q8HR FATOU Administration Rosuvastatin Calcium 20 mg 08/24/24 09:00 08/25/24 09:20 Rosuvastatin 10 Mg Tablet PO 20 mg DAILY FATOU Administration Timolol Maleate 1 drop 08/23/24 21:00 08/25/24 09:22 Timolol Maleate 0.5% Op Soln 5 Ml Bottle EACH EYE 1 drop Q12HR FATOU Administration Triamcinolone Acetonide 1 applic 08/23/24 21:00 08/24/24 20:24 Triamcinolone Acet 0.1% Cream 15 Gm Tube TOPICAL 1 applic Q12HR FATOU Administration Vitamin D 2,000 units 08/24/24 09:00 08/25/24 09:17 Cholecalciferol 1,000 Units Tablet PO 2,000 units DAILY FATOU Administration
[2024-08-25 13:46] LABS: Alanine Aminotransferase 484 U/L (16-63); Albumin Level 2.6 g/dL (3.4-5.0); Alkaline Phosphatase 282 U/L (46-116); Anion Gap 10 mmol/L (4-12); Aspartate Amino Transferase 288 U/L (15-37); Bilirubin,Total 1.8 mg/dL (0.00-1.00); Blood Urea Nitrogen 14 mg/dL (7-18); Carbon Dioxide 28 mmol/L (21-32); Chloride 103 mmol/L (98-108); Estimated CRCL calculation 57 ml/min; Estimated Glomerular Filt Rate > 60; Glucose 102 mg/dL (70-99); Osmolality Calculated 292 mOsm/kg (285-295); Potassium 3.5 mmol/L (3.5-5.1); Sodium 141 mmol/L (136-145); Total Protein 7.9 g/dL (6.4-8.2)
[2024-08-25] MEDS: IPRATROPIUM 0.5 MG/ALBUTEROL SULFATE 2.5 MG AMPUL.NEB 3 ML INHALATION ×3 (14:38→23:29)
[2024-08-25] MEDS: guaiFENesin 12 HR 600 MG TABCR 1200 MG PO ×2 (14:38→21:53)
[2024-08-25 16:00] VITALS: BP 122/55; PULSE 97; RESP 14; TEMP 36.2; O2SAT 92
[2024-08-25 19:45] VITALS: BP 146/53; PULSE 86; RESP 20; TEMP 36.3; O2SAT 93
[2024-08-25] MEDS: LATANOPROST 0.005% OP SOLN 2.5 ML BTL 1 DROP EACH EYE (21:53)
[2024-08-25] MEDS: TRIAMCINOLONE ACET 0.1% CREAM 15 GM TUBE 1 APPLIC TOPICAL (22:06)
[2024-08-25 23:28] VITALS: PULSE 86; RESP 20; O2SAT 93
[2024-08-26] VITALS (11 sets, daily range): BP systolic 119–167; BP diastolic 52–86; PULSE 79–96; RESP 16–20; TEMP 35.8–36.2; O2SAT 88–99
[2024-08-26] MEDS: IPRATROPIUM 0.5 MG/ALBUTEROL SULFATE 2.5 MG AMPUL.NEB 3 ML INHALATION ×4 (05:40→23:48)
[2024-08-26] MEDS: PILOCARPINE HCL 1% OP SOLN 15 ML BTL 1 DROP EACH EYE ×3 (05:52→20:03)
[2024-08-26 06:12] LABS: Add Urine Microscopic? YES; Appearance Urine Clear (Clear); Bilirubin Urine 1+ (Negative); Blood Urine Negative (Negative); Color Urine Yellow (Yellow); Glucose Urine UA Negative (Negative); Ketones Urine Trace (Negative); Leukocyte Esterase Ur Negative LEU/UL (Negative); Nitrate Urine Negative (Negative); Protein Urine 1+ (Negative); pH Urine 6.5 (5.0-8.0)
[2024-08-26 07:01] LABS: Bacteria Urine Trace /hpf; RBC Urine None seen /hpf (0-2); Squamous Epithelial Cell Urine Few /hpf (Few); WBC Urine None seen /hpf (0-3)
[2024-08-26 07:02] LABS: Mucus Urine Moderate /lpf
[2024-08-26 07:11] LABS: Alanine Aminotransferase 311 U/L (16-63); Albumin Level 2.5 g/dL (3.4-5.0); Alkaline Phosphatase 224 U/L (46-116); Anion Gap 8 mmol/L (4-12); Aspartate Amino Transferase 111 U/L (15-37); Bilirubin,Total 0.7 mg/dL (0.00-1.00); Blood Urea Nitrogen 14 mg/dL (7-18); Calcium 8.9 mg/dL (8.5-10.1); Carbon Dioxide 30 mmol/L (21-32); Chloride 102 mmol/L (98-108); Estimated CRCL calculation 47 ml/min; Estimated Glomerular Filt Rate > 60; Glucose 148 mg/dL (70-99); Osmolality Calculated 293 mOsm/kg (285-295); Potassium 3.5 mmol/L (3.5-5.1); Sodium 140 mmol/L (136-145); Total Protein 7.4 g/dL (6.4-8.2)
--- NOTE | 2024-08-26 09:00 | P.PNIM_ITS ---
Progress Note: A&P Assessment and Plan (1) Weakness: Code(s): R53.1 - Weakness Status: Acute Assessment and Plan: * continue PT and OT * continue fall precautions 08/25 * no change to current treatment plan (2) Diabetes: Code(s): E11.9 - Type 2 diabetes mellitus without complications Status: Acute Assessment and Plan: * Blood sugars ranging 139-206 * Hgb A1C 7.3 on 12/22/2023 * will repeat hemoglobin A1c * Accu checks AC/HS * moderate dose SSI ordered * continue glipizide and metformin * hypoglycemic protocol in place * Diabetic diet ordered 08/25 * no change to current treatment plan (3) HTN (hypertension): Code(s): I10 - Essential (primary) hypertension Status: Acute Assessment and Plan: * blood pressure ranging 125/64 to 180/90 * continue losartan and amlodipine 08/25 * blood pressures ranging 173/68 to 190/79 * will increase amlodipine to 10 mg daily * continue losartan at 100 mg daily 08/26 * blood pressures ranging 122/55 to 167/86 * will continue with current treatment plan (4) Transaminitis: Code(s): R74.01 - Elevation of levels of liver transaminase levels Status: Acute Assessment and Plan: * AST 384, ALT 329, alkaline phosphate 228, albumin 2.4 * his liver enzymes were normal on discharge on 08/23/2024 * will discontinue acetaminophen, will start ibuprofen as needed for pain 133 * will check hepatitis panel * continue to trend * will get an ultrasound of the liver 08/25 * AST 288, ALT 484, Alk phos 282 * Hepatitis panel still pending 08/26 * AST 111, ALT 311, Alkaline phosphate 224 * likely secondary to use of Tamiflu (5) Elevated bilirubin: Code(s): R17 - Unspecified jaundice Status: Acute Assessment and Plan: * bilirubin 1.9 * bilirubin on discharge yesterday from [facility] was within normal limits * continue to trend 08/25 * Bilirubin 1.8 * Continue to trend 08/26 * Bilirubin 0.7 * Resolved * Bump in Bili was likely due to the use of Tamiflu (6) Pneumonia: Code(s): J18.9 - Pneumonia, unspecified organism Status: Acute Assessment and Plan: 08/25 * patient finished course Levaquin for pneumonia * continue with DuoNebs * continue with Mucinex * crackles noted to right lower lobe * continue pep therapy and incentive spirometry while awake 08/26 * No change to current treatment plan (7) Urinary incontinence: Code(s): R32 - Unspecified urinary incontinence Status: Acute Assessment and Plan: 08/25 * patient has had urinary incontinence since he has been sick and increased confusion according to the daughter * UA was not checked this past admission * we will go ahead and check a UA today to check for any bacteria 08/26 * UA shown 1+ urine protein, trace ketones, 1+ urine bilirubin, 2.0 urine urobilinogen, moderate mucous * No reflux to culture Time Spent With Patient Time with patient: 15 - 25 minutes Subjective Date/time seen: 08/26/24 09:00 Interval history: interval history: This is an 83 year old male with a significant past medical history of duodenal ulcer, GI bleed, diabetes, hypertension, glaucoma, peripheral neuropathy who presented to [facility] for rehab after a hospital stay at [facility]. patient was seen and treated for pneumonia bacteremia and influenza a. He finished a full course of Levaquin for the pneumonia while inpatient. He worked with therapy there and they recommended continued rehab. He denies any fever, chills, nausea, vomiting, diarrhea, abdominal pain, chest pain, shortness a breath. He does report a rash on his back which they were giving Kenalog cream. It was likely associated from sweating. Labs showed a normal white blood cell count of 5.3, blood sugars ranging 139-206, total bilirubin 1.9, AST 384, ALT 329, alkaline phosphate 228, albumin 2.4. His liver labs were normal on discharge from [place]. his kidney function was normal with a creatinine of 0.89, EGFR was greater than 60. subjective: patient denies any new complaints today. Labs reviewed. Review of Systems Review of Systems: All systems reviewed & are unremarkable except as noted in HPI and below Exam Narrative: General: In no acute distress, well nourished Cardiac: Normal S1 and S2. No murmur, gallops or friction rubs, peripheral pulses intact. Respiratory: Lungs Crackles in right lower lobe, no adventitious lung sounds , currently on room air, raspy wet cough Gastrointestinal: soft, non-distended, non-tender, normoactive bowel sounds. : voiding without difficulty. Neuro: Alert and oriented x3 Objective Data Vital Signs Vital Signs: Vital Signs - 24 hr 08/25/24 16:00 08/25/24 19:45 08/25/24 23:28 Temperature 97.2 F L 97.3 F L Pulse Rate 97 86 86 Respiratory Rate 14 20 20 Blood Pressure 122/55 L 146/53 H Pulse Oximetry 92 93 93 Oxygen Delivery Room Air Room Air 08/26/24 00:00 08/26/24 05:40 08/26/24 05:51 Temperature 97.0 F L Pulse Rate 85 88 79 Respiratory Rate 17 16 16 Blood Pressure 157/52 H Pulse Oximetry 94 88 L 98 Oxygen Delivery Room Air Intake/Output Intake/Output: Intake & Output 08/23/24 08/24/24 08/25/24 08/26/24 23:59 23:59 23:59 23:59 Intake Total 200 1875 1800 120 Output Total 350 Balance 200 1525 1800 120 Meds/Results Medications: Active Medications Generic Name Dose Route Start Last Admin Trade Name Freq PRN Reason Stop Dose Admin Hydrocodone Bitart/Acetaminophen 1 tab 08/23/24 16:20 Hydrocodone/Acetaminophen (*Crx) 5-325 Mg Tablet PO Q4H PRN pain 4-10 Albuterol/Ipratropium 3 ml 08/25/24 13:30 08/26/24 05:40 Ipratropium 0.5 Mg/Albuterol Sulfate 2.5 Mg Ampul.Neb 3 Ml INHALATION 3 ml Q6HRT FATOU Administration Amlodipine Besylate 10 mg 08/26/24 09:00 Amlodipine Besylate 5 Mg Tablet PO DAILY FATOU Ascorbic Acid 250 mg 08/24/24 09:00 08/25/24 09:22 Ascorbic Acid 250 Mg Tablet PO Not Given DAILY FATOU Benzonatate 200 mg 08/23/24 16:53 08/25/24 09:17 Benzonatate 100 Mg Capsule PO 200 mg TID PRN Administration cough Buspirone HCl 5 mg 08/23/24 16:20 08/23/24 20:19 Buspirone Hcl 5 Mg Tablet PO 5 mg Q8H PRN Administration anxiety Dextrose 12.5 gm 08/23/24 16:22 Dextrose 50% 25 Gm/50 Ml Syringe IV PUSH PRN PRN Hypoglycemia Protocol Duloxetine HCl 90 mg 08/24/24 09:00 08/25/24 09:19 Duloxetine Hcl 30 Mg Capsule.Dr PO 90 mg DAILY FATOU Administration Ferrous Sulfate 325 mg 08/24/24 09:00 08/25/24 09:21 Ferrous Sulfate [address] PO 325 mg DAILY FATOU Administration Glipizide 5 mg 08/24/24 07:30 08/25/24 09:19 Glipizide 5 Mg Tablet PO 5 mg DAILY@0730 FATOU Administration Glucagon 1 mg 08/23/24 16:22 Glucagon For Inj 1 Mg Vial IM PRN PRN Hypoglycemia Protocol Glucose 15 gm 08/23/24 16:22 Glucose Oral Gel 15 Gm Of Glucse In 37.5 Gm Tube PO PRN PRN Hypoglycemia Protocol Guaifenesin 5 ml 08/23/24 16:56 Guaifenesin/Codeine 100/10 Mg 5 Ml Syrup PO Q6H PRN cough NOT RELIEVED BY TESSALON Guaifenesin 1,200 mg 08/25/24 13:30 08/25/24 21:53 Guaifenesin 12 Hr 600 Mg Tabcr PO 1,200 mg Q12HR FATOU Administration Hydroxyzine HCl 12.5 mg 08/23/24 21:04 Hydroxyzine Hcl 25 Mg Tablet PO Q6H PRN Itching Dextrose 1,000 mls @ 100 mls/hr 08/23/24 16:22 Dextrose 5% 1,000 Ml IVPB PRN PRN Hypoglycemia Protocol Ibuprofen 400 mg 08/24/24 14:18 Ibuprofen 400 Mg Tablet PO Q6H PRN Pain Rated 1-3 Insulin Human Lispro 3 - 6 units 08/23/24 17:00 08/25/24 18:32 Insulin Human Lispro (*Bkc) 1,000 Units/10 Ml Vial SUB-Q Not Given [facility] Protocol Latanoprost 1 drop 08/23/24 21:00 08/25/24 21:53 Latanoprost 0.005% Op Soln 2.5 Ml Btl EACH EYE 1 drop HS FATOU Administration Levofloxacin 750 mg 08/24/24 11:00 08/25/24 09:15 Levofloxacin 250 Mg Tablet PO 750 mg DAILY FATOU Administration Losartan Potassium 100 mg 08/24/24 09:00 08/25/24 09:17 Losartan Potassium 50 Mg Tablet PO 100 mg DAILY FATOU Administration Metformin HCl 500 mg 08/24/24 08:00 08/25/24 09:21 Metformin Hcl Xr 500 Mg Tab.Sr.24h PO 500 mg DAILY@0800 FATOU Administration Multivitamins Therapeutic 1 tablet 08/24/24 09:00 08/25/24 09:20 Multivitamins Therapeutic Tab (*Bkc) PO 1 tablet DAILY FATOU Administration Pantoprazole Sodium 40 mg 08/24/24 09:00 08/25/24 09:20 Pantoprazole 40 Mg Tablet PO 40 mg DAILY FATOU Administration Pilocarpine HCl 1 drop 08/23/24 22:00 08/26/24 05:52 Pilocarpine Hcl 1% Op Soln 15 Ml Btl EACH EYE 1 drop Q8HR FATOU Administration Rosuvastatin Calcium 20 mg 08/24/24 09:00 08/25/24 09:20 Rosuvastatin 10 Mg Tablet PO 20 mg DAILY FATOU Administration Timolol Maleate 1 drop 08/23/24 21:00 08/25/24 21:53 Timolol Maleate 0.5% Op Soln 5 Ml Bottle EACH EYE 1 drop Q12HR FATOU Administration Triamcinolone Acetonide 1 applic 08/23/24 21:00 08/25/24 22:06 Triamcinolone Acet 0.1% Cream 15 Gm Tube TOPICAL 1 applic Q12HR FATOU Administration Vitamin D 2,000 units 08/24/24 09:00 08/25/24 09:17 Cholecalciferol 1,000 Units Tablet PO 2,000 units DAILY FATOU Administration Radiology Results: ITS Impressions Abdomen Ultrasound 08/26/24 08:10 IMPRESSION: 1. Diffuse hepatic steatosis. Labs Labs: Laboratory Results - last 24 hr 08/25/24 08/25/24 08/26/24 11:40 22:00 06:10 Sodium 141 140 Potassium 3.5 3.5 Chloride 103 102 Carbon Dioxide 28 30 Anion Gap 10 8 BUN 14 14 Creatinine 0.88 0.95 Estim Creat Clear Calc 57 47 Estimated GFR > 60 > 60 Glucose 102 H 148 H Calculated Osmolality 292 293 Calcium 9.0 8.9 Total Bilirubin 1.8 H 0.7 AST 288 H 111 H ALT 484 H 311 H Alkaline Phosphatase 282 H 224 H Total Protein 7.9 7.4 Albumin 2.6 L 2.5 L Urine Color Yellow Urine Appearance Clear Urine pH 6.5 Ur Specific [place] 1.020 Urine Protein 1+ H Urine Glucose (UA) Negative Urine Ketones Trace H Ur Blood (Man) Negative Urine Nitrate Negative Urine Bilirubin 1+ H Urine Urobilinogen 2.0 H Leukocyte Esterase Rfl Negative Urine RBC None seen Urine WBC None seen Ur Squamous Epith Cells Few Urine Bacteria Trace Urine Mucus Moderate H
[2024-08-26] MEDS: guaiFENesin 12 HR 600 MG TABCR 1200 MG PO ×2 (09:11→20:04)
[2024-08-26] MEDS: ASCORBIC ACID 250 MG TABLET PO (09:11)
[2024-08-26] MEDS: amLODIPine BESYLATE 5 MG TABLET 10 MG PO (09:11)
[2024-08-26] MEDS: levoFLOXacin 250 MG TABLET 750 MG PO (09:11)
[2024-08-26] MEDS: ROSUVASTATIN 10 MG TABLET 20 MG PO (09:11)
[2024-08-26] MEDS: DULoxetine HCL 30 MG CAPSULE.DR 90 MG PO (09:11)
[2024-08-26] MEDS: LOSARTAN POTASSIUM 50 MG TABLET 100 MG PO (09:11)
[2024-08-26] MEDS: MULTIVITAMINS THERAPEUTIC TAB (*BKC) 1 TABLET PO (09:12)
[2024-08-26] MEDS: metFORMIN HCL XR 500 MG TAB.SR.24H PO (09:12)
[2024-08-26] MEDS: glipiZIDE 5 MG TABLET PO (09:12)
[2024-08-26] MEDS: FERROUS SULFATE 325 MG TABLET DR PO (09:12)
[2024-08-26] MEDS: PANTOPRAZOLE 40 MG TABLET PO (09:12)
[2024-08-26] MEDS: TIMOLOL MALEATE 0.5% OP SOLN 5 ML BOTTLE 1 DROP EACH EYE ×2 (09:13→20:03)
[2024-08-26] MEDS: TRIAMCINOLONE ACET 0.1% CREAM 15 GM TUBE 1 APPLIC TOPICAL ×2 (09:13→20:03)
[2024-08-26] MEDS: CHOLECALCIFEROL 1,000 UNITS TABLET 2000 UNITS PO (09:13)
[2024-08-26 12:09] LABS: Glucose Point of Care 256 mg/dl (65-105)
[2024-08-26] MEDS: INSULIN HUMAN LISPRO (*BKC) 1,000 UNITS/10 ML VIAL SUB-Q (12:20)
[2024-08-26 16:36] LABS: Glucose Point of Care 121 mg/dl (65-105)
[2024-08-26] MEDS: busPIRone HCL 5 MG TABLET PO (20:04)
[2024-08-26] MEDS: hydrOXYzine HCL 25 MG TABLET 12.5 MG PO (20:04)
[2024-08-26 20:05] LABS: Glucose Point of Care 152 mg/dl (65-105)
[2024-08-26] MEDS: MELATONIN 5 MG TABLET PO (20:05)
[2024-08-26] MEDS: LATANOPROST 0.005% OP SOLN 2.5 ML BTL 1 DROP EACH EYE (20:05)
[2024-08-26] MEDS: HYDROcodone/acetaminophen (*CRX) 5-325 MG TABLET 1 TAB PO (20:50)
[2024-08-27] VITALS (10 sets, daily range): BP systolic 115–127; BP diastolic 49–74; PULSE 68–97; RESP 16–20; TEMP 36.4–36.5; O2SAT 90–98
[2024-08-27] MEDS: IPRATROPIUM 0.5 MG/ALBUTEROL SULFATE 2.5 MG AMPUL.NEB 3 ML INHALATION ×3 (05:33→16:41)
[2024-08-27 05:44] LABS: Hepatitis A Antibody IgM NON-REACTIVE (NON-REACTIVE); Hepatitis B Core Antibody NON-REACTIVE (NON-REACTIVE)
[2024-08-27] MEDS: PILOCARPINE HCL 1% OP SOLN 15 ML BTL 1 DROP EACH EYE ×3 (05:48→21:22)
[2024-08-27 05:53] LABS: Hepatitis B Surface Antigen NON-REACTIVE (NON-REACTIVE); Hepatitis C Virus Antibody NON-REACTIVE (NON-REACTIVE)
[2024-08-27 08:07] LABS: Glucose Point of Care 123 mg/dl (65-105)
[2024-08-27] MEDS: CHOLECALCIFEROL 1,000 UNITS TABLET 2000 UNITS PO (08:53)
[2024-08-27] MEDS: guaiFENesin 12 HR 600 MG TABCR 1200 MG PO ×2 (08:53→20:02)
[2024-08-27] MEDS: ROSUVASTATIN 10 MG TABLET 20 MG PO (08:53)
[2024-08-27] MEDS: LOSARTAN POTASSIUM 50 MG TABLET 100 MG PO (08:53)
[2024-08-27] MEDS: ASCORBIC ACID 250 MG TABLET PO (08:53)
[2024-08-27] MEDS: metFORMIN HCL XR 500 MG TAB.SR.24H PO (08:54)
[2024-08-27] MEDS: PANTOPRAZOLE 40 MG TABLET PO (08:54)
[2024-08-27] MEDS: FERROUS SULFATE 325 MG TABLET DR PO (08:54)
[2024-08-27] MEDS: DULoxetine HCL 30 MG CAPSULE.DR 90 MG PO (08:54)
[2024-08-27] MEDS: MULTIVITAMINS THERAPEUTIC TAB (*BKC) 1 TABLET PO (08:54)
[2024-08-27] MEDS: glipiZIDE 5 MG TABLET PO (08:54)
[2024-08-27] MEDS: TRIAMCINOLONE ACET 0.1% CREAM 15 GM TUBE 1 APPLIC TOPICAL ×2 (08:55→20:02)
[2024-08-27] MEDS: amLODIPine BESYLATE 5 MG TABLET 10 MG PO (08:55)
[2024-08-27] MEDS: TIMOLOL MALEATE 0.5% OP SOLN 5 ML BOTTLE 1 DROP EACH EYE ×2 (08:55→20:03)
[2024-08-27 12:06] LABS: Glucose Point of Care 192 mg/dl (65-105)
[2024-08-27] MEDS: prednisoLONE ACETATE 1% OPHTH 5 ML 1 DROP RIGHT EYE ×2 (16:49→20:03)
[2024-08-27 16:51] LABS: Glucose Point of Care 150 mg/dl (65-105)
[2024-08-27 19:59] LABS: Glucose Point of Care 215 mg/dl (65-105)
[2024-08-27] MEDS: BENZONATATE 100 MG CAPSULE 200 MG PO (20:02)
[2024-08-27] MEDS: busPIRone HCL 5 MG TABLET PO (20:03)
[2024-08-27] MEDS: MELATONIN 5 MG TABLET PO (20:03)
[2024-08-27] MEDS: HYDROcodone/acetaminophen (*CRX) 5-325 MG TABLET 1 TAB PO (20:03)
[2024-08-27] MEDS: LATANOPROST 0.005% OP SOLN 2.5 ML BTL 1 DROP EACH EYE (20:03)
[2024-08-27] MEDS: hydrOXYzine HCL 25 MG TABLET 12.5 MG PO (20:03)
[2024-08-28] VITALS (8 sets, daily range): BP systolic 128–137; BP diastolic 54–64; PULSE 74–88; RESP 16–18; TEMP 36.2–36.6; O2SAT 92–96
[2024-08-28] MEDS: IPRATROPIUM 0.5 MG/ALBUTEROL SULFATE 2.5 MG AMPUL.NEB 3 ML INHALATION ×2 (01:15→05:33)
[2024-08-28] MEDS: PILOCARPINE HCL 1% OP SOLN 15 ML BTL 1 DROP EACH EYE ×3 (05:26→20:37)
[2024-08-28 08:05] LABS: Glucose Point of Care 149 mg/dl (65-105)
[2024-08-28] MEDS: prednisoLONE ACETATE 1% OPHTH 5 ML 1 DROP RIGHT EYE ×4 (09:03→20:37)
[2024-08-28] MEDS: TRIAMCINOLONE ACET 0.1% CREAM 15 GM TUBE 1 APPLIC TOPICAL ×2 (09:03→20:37)
[2024-08-28] MEDS: TIMOLOL MALEATE 0.5% OP SOLN 5 ML BOTTLE 1 DROP EACH EYE ×2 (09:04→20:37)
[2024-08-28] MEDS: CHOLECALCIFEROL 1,000 UNITS TABLET 2000 UNITS PO (09:05)
[2024-08-28] MEDS: ASCORBIC ACID 250 MG TABLET PO (09:06)
[2024-08-28] MEDS: MULTIVITAMINS THERAPEUTIC TAB (*BKC) 1 TABLET PO (09:06)
[2024-08-28] MEDS: ROSUVASTATIN 10 MG TABLET 20 MG PO (09:06)
[2024-08-28] MEDS: guaiFENesin 12 HR 600 MG TABCR 1200 MG PO ×2 (09:06→20:36)
[2024-08-28] MEDS: metFORMIN HCL XR 500 MG TAB.SR.24H PO (09:06)
[2024-08-28] MEDS: amLODIPine BESYLATE 5 MG TABLET 10 MG PO (09:06)
[2024-08-28] MEDS: glipiZIDE 5 MG TABLET PO (09:06)
[2024-08-28] MEDS: LOSARTAN POTASSIUM 50 MG TABLET 100 MG PO (09:06)
[2024-08-28] MEDS: DULoxetine HCL 30 MG CAPSULE.DR 90 MG PO (09:06)
[2024-08-28] MEDS: PANTOPRAZOLE 40 MG TABLET PO (09:06)
[2024-08-28] MEDS: FERROUS SULFATE 325 MG TABLET DR PO (09:06)
[2024-08-28] MEDS: HYDROcodone/acetaminophen (*CRX) 5-325 MG TABLET 1 TAB PO ×2 (09:07→20:36)
[2024-08-28 11:58] LABS: Glucose Point of Care 185 mg/dl (65-105)
[2024-08-28 16:57] LABS: Glucose Point of Care 157 mg/dl (65-105)
[2024-08-28] MEDS: hydrOXYzine HCL 25 MG TABLET 12.5 MG PO (20:36)
[2024-08-28] MEDS: BENZONATATE 100 MG CAPSULE 200 MG PO (20:36)
[2024-08-28] MEDS: LATANOPROST 0.005% OP SOLN 2.5 ML BTL 1 DROP EACH EYE (20:36)
[2024-08-28] MEDS: MELATONIN 5 MG TABLET PO (20:36)
[2024-08-28 20:40] LABS: Glucose Point of Care 189 mg/dl (65-105)
[2024-08-29] VITALS: BP 109/66; PULSE 80; RESP 16; TEMP 36.7; O2SAT 92
[2024-08-29 07:35] VITALS: BP 147/55; PULSE 75; RESP 18; TEMP 36.2; O2SAT 93
[2024-08-29 07:47] LABS: Glucose Point of Care 131 mg/dl (65-105)
[2024-08-29] MEDS: metFORMIN HCL XR 500 MG TAB.SR.24H PO (08:52)
[2024-08-29] MEDS: ASCORBIC ACID 250 MG TABLET PO (08:52)
[2024-08-29] MEDS: LOSARTAN POTASSIUM 50 MG TABLET 100 MG PO (08:52)
[2024-08-29] MEDS: CHOLECALCIFEROL 1,000 UNITS TABLET 2000 UNITS PO (08:52)
[2024-08-29] MEDS: guaiFENesin 12 HR 600 MG TABCR 1200 MG PO ×2 (08:52→20:49)
[2024-08-29] MEDS: ROSUVASTATIN 10 MG TABLET 20 MG PO (08:52)
[2024-08-29] MEDS: DULoxetine HCL 30 MG CAPSULE.DR 90 MG PO (08:52)
[2024-08-29] MEDS: MULTIVITAMINS THERAPEUTIC TAB (*BKC) 1 TABLET PO (08:53)
[2024-08-29] MEDS: FERROUS SULFATE 325 MG TABLET DR PO (08:53)
[2024-08-29] MEDS: glipiZIDE 5 MG TABLET PO (08:53)
[2024-08-29] MEDS: PANTOPRAZOLE 40 MG TABLET PO (08:53)
[2024-08-29] MEDS: TIMOLOL MALEATE 0.5% OP SOLN 5 ML BOTTLE 1 DROP EACH EYE ×2 (08:53→20:49)
[2024-08-29] MEDS: TRIAMCINOLONE ACET 0.1% CREAM 15 GM TUBE 1 APPLIC TOPICAL ×2 (08:53→20:49)
[2024-08-29] MEDS: amLODIPine BESYLATE 5 MG TABLET 10 MG PO (08:53)
[2024-08-29] MEDS: prednisoLONE ACETATE 1% OPHTH 5 ML 1 DROP RIGHT EYE ×4 (08:54→20:49)
[2024-08-29 11:40] LABS: Glucose Point of Care 145 mg/dl (65-105)
[2024-08-29] MEDS: PILOCARPINE HCL 1% OP SOLN 15 ML BTL 1 DROP EACH EYE ×2 (13:56→22:10)
[2024-08-29 16:30] VITALS: BP 153/83; PULSE 80; RESP 16; TEMP 36.5; O2SAT 91
[2024-08-29 16:43] LABS: Glucose Point of Care 112 mg/dl (65-105)
[2024-08-29] MEDS: LATANOPROST 0.005% OP SOLN 2.5 ML BTL 1 DROP EACH EYE (20:49)
[2024-08-29] MEDS: HYDROcodone/acetaminophen (*CRX) 5-325 MG TABLET 1 TAB PO (20:49)
[2024-08-29] MEDS: MELATONIN 5 MG TABLET PO (20:49)
[2024-08-29] MEDS: hydrOXYzine HCL 25 MG TABLET 12.5 MG PO (20:49)
[2024-08-29 20:53] LABS: Glucose Point of Care 177 mg/dl (65-105)
[2024-08-30] VITALS: BP 137/68; PULSE 86; RESP 16; TEMP 36.5; O2SAT 93
[2024-08-30] MEDS: PILOCARPINE HCL 1% OP SOLN 15 ML BTL 1 DROP EACH EYE ×3 (06:05→21:19)
[2024-08-30 07:35] VITALS: BP 172/80; PULSE 74; RESP 16; TEMP 36.6; O2SAT 94
[2024-08-30 08:03] LABS: Glucose Point of Care 133 mg/dl (65-105)
[2024-08-30 08:30] VITALS: PULSE 74; RESP 16; O2SAT 94
[2024-08-30] MEDS: guaiFENesin 12 HR 600 MG TABCR 1200 MG PO ×2 (08:52→20:33)
[2024-08-30] MEDS: CHOLECALCIFEROL 1,000 UNITS TABLET 2000 UNITS PO (08:52)
[2024-08-30] MEDS: glipiZIDE 5 MG TABLET PO (08:53)
[2024-08-30] MEDS: ASCORBIC ACID 250 MG TABLET PO (08:53)
[2024-08-30] MEDS: MULTIVITAMINS THERAPEUTIC TAB (*BKC) 1 TABLET PO (08:53)
[2024-08-30] MEDS: amLODIPine BESYLATE 5 MG TABLET 10 MG PO (08:53)
[2024-08-30] MEDS: LOSARTAN POTASSIUM 50 MG TABLET 100 MG PO (08:53)
[2024-08-30] MEDS: DULoxetine HCL 30 MG CAPSULE.DR 90 MG PO (08:53)
[2024-08-30] MEDS: ROSUVASTATIN 10 MG TABLET 20 MG PO (08:53)
[2024-08-30] MEDS: FERROUS SULFATE 325 MG TABLET DR PO (08:53)
[2024-08-30] MEDS: PANTOPRAZOLE 40 MG TABLET PO (08:53)
[2024-08-30] MEDS: metFORMIN HCL XR 500 MG TAB.SR.24H PO (08:53)
[2024-08-30] MEDS: TRIAMCINOLONE ACET 0.1% CREAM 15 GM TUBE 1 APPLIC TOPICAL ×2 (08:54→20:45)
[2024-08-30] MEDS: prednisoLONE ACETATE 1% OPHTH 5 ML 1 DROP RIGHT EYE ×4 (08:54→20:33)
[2024-08-30] MEDS: TIMOLOL MALEATE 0.5% OP SOLN 5 ML BOTTLE 1 DROP EACH EYE ×2 (08:54→20:33)
[2024-08-30 11:37] LABS: Glucose Point of Care 217 mg/dl (65-105)
[2024-08-30] MEDS: INSULIN HUMAN LISPRO (*BKC) 1,000 UNITS/10 ML VIAL SUB-Q (11:41)
[2024-08-30 16:25] VITALS: BP 120/54; PULSE 77; RESP 16; TEMP 36.2; O2SAT 93
[2024-08-30 16:57] LABS: Glucose Point of Care 108 mg/dl (65-105)
[2024-08-30 20:33] LABS: Glucose Point of Care 154 mg/dl (65-105)
[2024-08-30] MEDS: MELATONIN 5 MG TABLET PO (20:33)
[2024-08-30] MEDS: LATANOPROST 0.005% OP SOLN 2.5 ML BTL 1 DROP EACH EYE (20:33)
[2024-08-30] MEDS: hydrOXYzine HCL 25 MG TABLET 12.5 MG PO (20:34)
[2024-08-30] MEDS: HYDROcodone/acetaminophen (*CRX) 5-325 MG TABLET 1 TAB PO (20:34)
[2024-08-31] VITALS: BP 140/58; PULSE 83; RESP 16; TEMP 36.6; O2SAT 92
[2024-08-31] MEDS: PILOCARPINE HCL 1% OP SOLN 15 ML BTL 1 DROP EACH EYE ×3 (05:28→21:55)
[2024-08-31 07:42] LABS: Glucose Point of Care 115 mg/dl (65-105)
[2024-08-31 08:00] VITALS: BP 150/84; PULSE 70; RESP 16; TEMP 36.6; O2SAT 92
[2024-08-31] MEDS: DULoxetine HCL 30 MG CAPSULE.DR 90 MG PO (08:29)
[2024-08-31] MEDS: guaiFENesin 12 HR 600 MG TABCR 1200 MG PO ×2 (08:29→20:45)
[2024-08-31] MEDS: ROSUVASTATIN 10 MG TABLET 20 MG PO (08:30)
[2024-08-31] MEDS: glipiZIDE 5 MG TABLET PO (08:30)
[2024-08-31] MEDS: FERROUS SULFATE 325 MG TABLET DR PO (08:31)
[2024-08-31] MEDS: CHOLECALCIFEROL 1,000 UNITS TABLET 2000 UNITS PO (08:31)
[2024-08-31] MEDS: metFORMIN HCL XR 500 MG TAB.SR.24H PO (08:31)
[2024-08-31] MEDS: ASCORBIC ACID 250 MG TABLET PO (08:32)
[2024-08-31] MEDS: MULTIVITAMINS THERAPEUTIC TAB (*BKC) 1 TABLET PO (08:32)
[2024-08-31] MEDS: LOSARTAN POTASSIUM 50 MG TABLET 100 MG PO (08:32)
[2024-08-31] MEDS: prednisoLONE ACETATE 1% OPHTH 5 ML 1 DROP RIGHT EYE ×4 (08:33→20:45)
[2024-08-31] MEDS: PANTOPRAZOLE 40 MG TABLET PO (08:33)
[2024-08-31] MEDS: TIMOLOL MALEATE 0.5% OP SOLN 5 ML BOTTLE 1 DROP EACH EYE ×2 (08:33→20:45)
[2024-08-31] MEDS: amLODIPine BESYLATE 5 MG TABLET 10 MG PO (08:33)
[2024-08-31] MEDS: TRIAMCINOLONE ACET 0.1% CREAM 15 GM TUBE 1 APPLIC TOPICAL ×2 (08:34→20:44)
[2024-08-31 11:40] LABS: Glucose Point of Care 160 mg/dl (65-105)
[2024-08-31 16:00] VITALS: BP 152/72; PULSE 84; RESP 18; TEMP 36.4; O2SAT 94
[2024-08-31 16:34] LABS: Glucose Point of Care 140 mg/dl (65-105)
[2024-08-31] MEDS: HYDROcodone/acetaminophen (*CRX) 5-325 MG TABLET 1 TAB PO ×2 (16:44→20:45)
[2024-08-31 20:00] VITALS: PULSE 72; RESP 16; O2SAT 93
[2024-08-31] MEDS: LATANOPROST 0.005% OP SOLN 2.5 ML BTL 1 DROP EACH EYE (20:45)
[2024-08-31] MEDS: MELATONIN 5 MG TABLET PO (20:45)
[2024-08-31] MEDS: hydrOXYzine HCL 25 MG TABLET 12.5 MG PO (20:45)
[2024-08-31 20:46] LABS: Glucose Point of Care 175 mg/dl (65-105)
[2024-09-01] VITALS: BP 124/60; PULSE 72; RESP 16; TEMP 36.5; O2SAT 93
[2024-09-01] MEDS: PILOCARPINE HCL 1% OP SOLN 15 ML BTL 1 DROP EACH EYE ×3 (06:09→22:15)
[2024-09-01 07:42] LABS: Glucose Point of Care 118 mg/dl (65-105)
[2024-09-01 08:00] VITALS: BP 156/64; PULSE 74; RESP 18; TEMP 36.1; O2SAT 92
[2024-09-01] MEDS: TRIAMCINOLONE ACET 0.1% CREAM 15 GM TUBE 1 APPLIC TOPICAL ×2 (08:24→20:45)
[2024-09-01] MEDS: CHOLECALCIFEROL 1,000 UNITS TABLET 2000 UNITS PO (08:25)
[2024-09-01] MEDS: guaiFENesin 12 HR 600 MG TABCR 1200 MG PO ×2 (08:26→20:44)
[2024-09-01] MEDS: ROSUVASTATIN 10 MG TABLET 20 MG PO (08:26)
[2024-09-01] MEDS: HYDROcodone/acetaminophen (*CRX) 5-325 MG TABLET 1 TAB PO ×2 (08:27→20:44)
[2024-09-01] MEDS: metFORMIN HCL XR 500 MG TAB.SR.24H PO (08:27)
[2024-09-01] MEDS: MULTIVITAMINS THERAPEUTIC TAB (*BKC) 1 TABLET PO (08:28)
[2024-09-01] MEDS: DULoxetine HCL 30 MG CAPSULE.DR 90 MG PO (08:28)
[2024-09-01] MEDS: ASCORBIC ACID 250 MG TABLET PO (08:28)
[2024-09-01] MEDS: LOSARTAN POTASSIUM 50 MG TABLET 100 MG PO (08:29)
[2024-09-01] MEDS: amLODIPine BESYLATE 5 MG TABLET 10 MG PO (08:29)
[2024-09-01] MEDS: FERROUS SULFATE 325 MG TABLET DR PO (08:30)
[2024-09-01] MEDS: glipiZIDE 5 MG TABLET PO (08:30)
[2024-09-01] MEDS: PANTOPRAZOLE 40 MG TABLET PO (08:30)
[2024-09-01] MEDS: prednisoLONE ACETATE 1% OPHTH 5 ML 1 DROP RIGHT EYE ×4 (08:31→20:45)
[2024-09-01] MEDS: TIMOLOL MALEATE 0.5% OP SOLN 5 ML BOTTLE 1 DROP EACH EYE ×2 (08:31→20:45)
[2024-09-01 11:40] LABS: Glucose Point of Care 178 mg/dl (65-105)
[2024-09-01 16:00] VITALS: BP 130/42; PULSE 78; RESP 16; TEMP 36.1; O2SAT 93
[2024-09-01 16:52] LABS: Glucose Point of Care 156 mg/dl (65-105)
[2024-09-01 20:00] VITALS: PULSE 81; RESP 17; O2SAT 92
[2024-09-01] MEDS: busPIRone HCL 5 MG TABLET PO (20:44)
[2024-09-01] MEDS: hydrOXYzine HCL 25 MG TABLET 12.5 MG PO (20:44)
[2024-09-01] MEDS: MELATONIN 5 MG TABLET PO (20:44)
[2024-09-01] MEDS: LATANOPROST 0.005% OP SOLN 2.5 ML BTL 1 DROP EACH EYE (20:45)
[2024-09-01 20:50] LABS: Glucose Point of Care 202 mg/dl (65-105)
[2024-09-02] VITALS: BP 130/62; PULSE 81; RESP 17; TEMP 36.7; O2SAT 92
[2024-09-02] MEDS: PILOCARPINE HCL 1% OP SOLN 15 ML BTL 1 DROP EACH EYE ×3 (06:15→21:07)
[2024-09-02 07:40] VITALS: BP 147/78; PULSE 65; RESP 16; TEMP 36.2; O2SAT 93
[2024-09-02 08:01] LABS: Glucose Point of Care 103 mg/dl (65-105)
[2024-09-02 08:25] LABS: Hemoglobin 13.4 g/dL (12.4-15.3); Mean Corpuscular HGB Conc 31.9 g/dL (32-36); Mean Corpuscular Hemoglobin 28.8 pg (27.0-31.0); Mean Corpuscular Volume 90.3 fL (78.0-102.0); Platelet Count Result 336 K/mm3 (150-420); Red Blood Count 4.65 M/mm3 (4.70-6.10); Red Cell Distribution Width 13.4 % (11.6-14.4); White Blood Count 5.4 K/mm3 (4.8-10.8)
[2024-09-02 08:35] VITALS: PULSE 65; RESP 16; O2SAT 93
[2024-09-02 08:54] LABS: Alanine Aminotransferase 48 U/L (16-63); Albumin Level 2.7 g/dL (3.4-5.0); Alkaline Phosphatase 98 U/L (46-116); Anion Gap 5 mmol/L (4-12); Aspartate Amino Transferase 20 U/L (15-37); Bilirubin,Total 0.5 mg/dL (0.00-1.00); Blood Urea Nitrogen 16 mg/dL (7-18); Calcium 9.5 mg/dL (8.5-10.1); Carbon Dioxide 33 mmol/L (21-32); Chloride 104 mmol/L (98-108); Estimated CRCL calculation 60 ml/min; Estimated Glomerular Filt Rate > 60; Glucose 98 mg/dL (70-99); Osmolality Calculated 295 mOsm/kg (285-295); Potassium 3.9 mmol/L (3.5-5.1); Sodium 142 mmol/L (136-145)
[2024-09-02] MEDS: LOSARTAN POTASSIUM 50 MG TABLET 100 MG PO (09:35)
[2024-09-02] MEDS: ASCORBIC ACID 250 MG TABLET PO (09:35)
[2024-09-02] MEDS: DULoxetine HCL 30 MG CAPSULE.DR 90 MG PO (09:35)
[2024-09-02] MEDS: PANTOPRAZOLE 40 MG TABLET PO (09:35)
[2024-09-02] MEDS: CHOLECALCIFEROL 1,000 UNITS TABLET 2000 UNITS PO (09:36)
[2024-09-02] MEDS: TIMOLOL MALEATE 0.5% OP SOLN 5 ML BOTTLE 1 DROP EACH EYE ×2 (09:36→20:04)
[2024-09-02] MEDS: glipiZIDE 5 MG TABLET PO (09:36)
[2024-09-02] MEDS: FERROUS SULFATE 325 MG TABLET DR PO (09:36)
[2024-09-02] MEDS: MULTIVITAMINS THERAPEUTIC TAB (*BKC) 1 TABLET PO (09:36)
[2024-09-02] MEDS: amLODIPine BESYLATE 5 MG TABLET 10 MG PO (09:36)
[2024-09-02] MEDS: ROSUVASTATIN 10 MG TABLET 20 MG PO (09:36)
[2024-09-02] MEDS: prednisoLONE ACETATE 1% OPHTH 5 ML 1 DROP RIGHT EYE ×4 (09:36→20:04)
[2024-09-02] MEDS: guaiFENesin 12 HR 600 MG TABCR 1200 MG PO ×2 (09:36→20:03)
[2024-09-02] MEDS: metFORMIN HCL XR 500 MG TAB.SR.24H PO (09:37)
[2024-09-02] MEDS: TRIAMCINOLONE ACET 0.1% CREAM 15 GM TUBE 1 APPLIC TOPICAL ×2 (09:37→20:04)
--- NOTE | 2024-09-02 10:56 | P.PNIM_ITS ---
Progress Note: A&P Assessment and Plan (1) Weakness: Code(s): R53.1 - Weakness Status: Acute Assessment and Plan: * continue PT and OT * continue fall precautions 08/25 * no change to current treatment plan 09/02: * Progressing Care conference 09/03 (2) Diabetes: Code(s): E11.9 - Type 2 diabetes mellitus without complications Status: Acute Assessment and Plan: * Blood sugars ranging 139-206 * Hgb A1C 7.3 on 12/22/2023 * will repeat hemoglobin A1c * Accu checks AC/HS * moderate dose SSI ordered * continue glipizide and metformin * hypoglycemic protocol in place * Diabetic diet ordered 09/02 * no change to current treatment plan (3) HTN (hypertension): Code(s): I10 - Essential (primary) hypertension Status: Acute Assessment and Plan: * blood pressure ranging 125/64 to 180/90 * continue losartan and amlodipine 08/25 * blood pressures ranging 173/68 to 190/79 * will increase amlodipine to 10 mg daily * continue losartan at 100 mg daily 08/26 * blood pressures ranging 122/55 to 167/86 * will continue with current treatment plan (4) Transaminitis: Code(s): R74.01 - Elevation of levels of liver transaminase levels Status: Resolved Assessment and Plan: * AST 384, ALT 329, alkaline phosphate 228, albumin 2.4 * his liver enzymes were normal on discharge on 08/23/2024 * will discontinue acetaminophen, will start ibuprofen as needed for pain 133 * will check hepatitis panel * continue to trend * will get an ultrasound of the liver 08/25 * AST 288, ALT 484, Alk phos 282 * Hepatitis panel still pending 08/26 * AST 111, ALT 311, Alkaline phosphate 224 * likely secondary to use of Tamiflu 09/02: RESOLVED (5) Elevated bilirubin: Code(s): R17 - Unspecified jaundice Status: Resolved Assessment and Plan: * bilirubin 1.9 * bilirubin on discharge yesterday from [facility] was within normal limits * continue to trend 08/25 * Bilirubin 1.8 * Continue to trend 08/26 * Bilirubin 0.7 * Resolved * Bump in Bili was likely due to the use of Tamiflu 09/02/: * RESOLVED (6) Pneumonia: Code(s): J18.9 - Pneumonia, unspecified organism Status: Resolved Assessment and Plan: 08/25 * patient finished course Levaquin for pneumonia * continue with DuoNebs * continue with Mucinex * crackles noted to right lower lobe * continue pep therapy and incentive spirometry while awake 08/26 * No change to current treatment plan 09/02: * RESOLVED (7) Urinary incontinence: Code(s): R32 - Unspecified urinary incontinence Status: Acute Assessment and Plan: 08/25 * patient has had urinary incontinence since he has been sick and increased confusion according to the daughter * UA was not checked this past admission * we will go ahead and check a UA today to check for any bacteria 08/26 * UA shown 1+ urine protein, trace ketones, 1+ urine bilirubin, 2.0 urine urobilinogen, moderate mucous * No reflux to culture Plan Code status: Full code per patient DVT prophylaxis: NA Stress ulcer prophylaxis: Protonix 40 daily PT/OT notes: Swing bed Disposition: Patient continues admission to [facility] for rehab continues to progress plan for care conference tomorrow likely discharge home this week. Time Spent With Patient Time with patient: 15 - 25 minutes Subjective Date/time seen: 09/02/24 10:56 Interval history: interval history: This is an 83 year old male with a significant past medical history of duodenal ulcer, GI bleed, diabetes, hypertension, glaucoma, peripheral neuropathy who presented to [facility] program for rehab after a hospital stay at [facility]. patient was seen and treated for pneumonia bacteremia and influenza a. 09/02/2024 patient denies any new complaints today. Up in chair in no acute distress states he is ready to go home has been progressing with PT/OT Review of Systems Review of Systems: All systems reviewed & are unremarkable except as noted in HPI and below Exam Narrative: General: In no acute distress, well nourished Cardiac: Normal S1 and S2. No murmur, gallops or friction rubs, peripheral pulses intact. Respiratory: Lungs clear on auscultation, no adventitious lung sounds , currently on room air, Gastrointestinal: soft, non-distended, non-tender, normoactive bowel sounds. : voiding without difficulty. Neuro: Alert and oriented x3 Objective Data Vital Signs Vital Signs: Vital Signs - 24 hr 09/01/24 16:00 09/01/24 20:00 09/02/24 00:00 Temperature 96.9 F L 98.1 F Pulse Rate 78 81 81 Respiratory Rate 16 17 17 Blood Pressure 130/42 L 130/62 Pulse Oximetry 93 92 92 Oxygen Delivery Room Air Room Air Room Air 09/02/24 07:40 Temperature 97.2 F L Pulse Rate 65 Respiratory Rate 16 Blood Pressure 147/78 H Pulse Oximetry 93 Oxygen Delivery Room Air Intake/Output Intake/Output: Intake & Output 08/30/24 08/31/24 09/01/24 09/02/24 23:59 23:59 23:59 23:59 Intake Total 1290 1120 800 150 Balance 1290 1120 800 150 Meds/Results Medications: Active Medications Generic Name Dose Route Start Last Admin Trade Name Freq PRN Reason Stop Dose Admin Hydrocodone Bitart/Acetaminophen 1 tab 08/23/24 16:20 09/01/24 20:44 Hydrocodone/Acetaminophen (*Crx) 5-325 Mg Tablet PO 1 tab Q4H PRN Administration pain 4-10 Albuterol/Ipratropium 3 ml 08/28/24 10:45 Ipratropium 0.5 Mg/Albuterol Sulfate 2.5 Mg Ampul.Neb 3 Ml INHALATION Q6HRT PRN wheezing Amlodipine Besylate 10 mg 08/26/24 09:00 09/02/24 09:36 Amlodipine Besylate 5 Mg Tablet PO 10 mg DAILY FATOU Administration Ascorbic Acid 250 mg 08/24/24 09:00 09/02/24 09:35 Ascorbic Acid 250 Mg Tablet PO 250 mg DAILY FATOU Administration Benzonatate 200 mg 08/23/24 16:53 08/28/24 20:36 Benzonatate 100 Mg Capsule PO 200 mg TID PRN Administration cough Buspirone HCl 5 mg 08/23/24 16:20 09/01/24 20:44 Buspirone Hcl 5 Mg Tablet PO 5 mg Q8H PRN Administration anxiety Dextrose 12.5 gm 08/23/24 16:22 Dextrose 50% 25 Gm/50 Ml Syringe IV PUSH PRN PRN Hypoglycemia Protocol Duloxetine HCl 90 mg 08/24/24 09:00 09/02/24 09:35 Duloxetine Hcl 30 Mg Capsule. PO 90 mg DAILY FATOU Administration Ferrous Sulfate 325 mg 08/24/24 09:00 09/02/24 09:36 Ferrous Sulfate [address] PO 325 mg DAILY FATOU Administration Glipizide 5 mg 08/24/24 07:30 09/02/24 09:36 Glipizide 5 Mg Tablet PO 5 mg DAILY@0730 FATOU Administration Glucagon 1 mg 08/23/24 16:22 Glucagon For Inj 1 Mg Vial IM PRN PRN Hypoglycemia Protocol Glucose 15 gm 08/23/24 16:22 Glucose Oral Gel 15 Gm Of Glucse In 37.5 Gm Tube PO PRN PRN Hypoglycemia Protocol Guaifenesin 5 ml 08/23/24 16:56 Guaifenesin/Codeine 100/10 Mg 5 Ml Syrup PO Q6H PRN cough NOT RELIEVED BY TESSALON Guaifenesin 1,200 mg 08/25/24 13:30 09/02/24 09:36 Guaifenesin 12 Hr 600 Mg Tabcr PO 1,200 mg Q12HR FATOU Administration Hydroxyzine HCl 12.5 mg 08/23/24 21:04 09/01/24 20:44 Hydroxyzine Hcl 25 Mg Tablet PO 12.5 mg Q6H PRN Administration Itching Dextrose 1,000 mls @ 100 mls/hr 08/23/24 16:22 Dextrose 5% 1,000 Ml IVPB PRN PRN Hypoglycemia Protocol Ibuprofen 400 mg 08/24/24 14:18 Ibuprofen 400 Mg Tablet PO Q6H PRN Pain Rated 1-3 Insulin Human Lispro 3 - 6 units 08/23/24 17:00 09/02/24 09:33 Insulin Human Lispro (*Bkc) 1,000 Units/10 Ml Vial SUB-Q Not Given TIDWM FATOU Protocol Latanoprost 1 drop 08/23/24 21:00 09/01/24 20:45 Latanoprost 0.005% Op Soln 2.5 Ml Btl EACH EYE 1 drop HS FATOU Administration Losartan Potassium 100 mg 08/24/24 09:00 09/02/24 09:35 Losartan Potassium 50 Mg Tablet PO 100 mg DAILY FATOU Administration Melatonin 5 mg 08/26/24 21:00 09/01/24 20:44 Melatonin 5 Mg Tablet PO 5 mg HS FATOU Administration Metformin HCl 500 mg 08/24/24 08:00 09/02/24 09:37 Metformin Hcl Xr 500 Mg Tab.Sr.24h PO 500 mg DAILY@0800 FATOU Administration Multivitamins Therapeutic 1 tablet 08/24/24 09:00 09/02/24 09:36 Multivitamins Therapeutic Tab (*Bkc) PO 1 tablet DAILY FATOU Administration Pantoprazole Sodium 40 mg 08/24/24 09:00 09/02/24 09:35 Pantoprazole 40 Mg Tablet PO 40 mg DAILY FATOU Administration Pilocarpine HCl 1 drop 08/23/24 22:00 09/02/24 06:15 Pilocarpine Hcl 1% Op Soln 15 Ml Btl EACH EYE 1 drop Q8HR FATOU Administration Prednisolone Acetate 1 drop 08/27/24 17:00 09/02/24 09:36 Prednisolone Acetate 1% Ophth 5 Ml RIGHT EYE 1 drop QID FATOU Administration Rosuvastatin Calcium 20 mg 08/24/24 09:00 09/02/24 09:36 Rosuvastatin 10 Mg Tablet PO 20 mg DAILY FATOU Administration Timolol Maleate 1 drop 08/23/24 21:00 09/02/24 09:36 Timolol Maleate 0.5% Op Soln 5 Ml Bottle EACH EYE 1 drop Q12HR FATOU Administration Triamcinolone Acetonide 1 applic 08/23/24 21:00 09/02/24 09:37 Triamcinolone Acet 0.1% Cream 15 Gm Tube TOPICAL 1 applic Q12HR FATOU Administration Vitamin D 2,000 units 08/24/24 09:00 09/02/24 09:36 Cholecalciferol 1,000 Units Tablet PO 2,000 units DAILY FATOU Administration Radiology Results: ITS Impressions Abdomen Ultrasound 08/26/24 08:10 IMPRESSION: 1. Diffuse hepatic steatosis. Labs Labs: Laboratory Results - last 24 hr 09/01/24 09/01/24 09/01/24 11:34 16:46 20:47 WBC RBC Hgb Hct MCV MCH MCHC RDW Plt Count MPV Sodium Potassium Chloride Carbon Dioxide Anion Gap BUN Creatinine Estim Creat Clear Calc Estimated GFR Glucose POC Capillary Glucose 178 H 156 H 202 H Calculated Osmolality Calcium Total Bilirubin AST ALT Alkaline Phosphatase Total Protein Albumin 09/02/24 09/02/24 07:52 07:56 WBC 5.4 RBC 4.65 L Hgb 13.4 Hct 42.0 MCV 90.3 MCH 28.8 MCHC 31.9 L RDW 13.4 Plt Count 336 MPV 10.0 Sodium 142 Potassium 3.9 Chloride 104 Carbon Dioxide 33 H Anion Gap 5 BUN 16 Creatinine 0.83 Estim Creat Clear Calc 60 Estimated GFR > 60 Glucose 98 POC Capillary Glucose 103 Calculated Osmolality 295 Calcium 9.5 Total Bilirubin 0.5 AST 20 ALT 48 Alkaline Phosphatase 98 Total Protein 7.0 Albumin 2.7 L Quality If No VTE Prophylaxis Answer both mechanical and pharmacologic: Reason no mechanical VTE proph: low risk/not indicated -Patient's disposition for safe discharge discussed with leather case finisher Dictation performed by [employer] direct speech recognition software, therefore commercial sales representative variants and typographical errors may occur. Hospitalist MIPS Advance Care Plan I have confirmed that the patient's Advanced Care Plan is present, code status is documented, or surrogate decision maker is listed in patient medical record.: Yes Medication Reconciliation I have utilized all available resources to obtain, update and review the patients current medications (includes all prescriptions, OTC, herbals, cannabis, and nutritional supplements).: Yes The patient is not eligible for med reconciliation; the patient is in a emergent medical situation where delaying treatment would jeopardize the patients health.: No
[2024-09-02 11:55] LABS: Glucose Point of Care 157 mg/dl (65-105)
[2024-09-02 16:35] VITALS: BP 139/69; PULSE 82; RESP 16; TEMP 36.2; O2SAT 94
[2024-09-02 16:40] LABS: Glucose Point of Care 86 mg/dl (65-105)
[2024-09-02 20:00] VITALS: PULSE 82; RESP 16; O2SAT 94
[2024-09-02] MEDS: hydrOXYzine HCL 25 MG TABLET 12.5 MG PO (20:03)
[2024-09-02] MEDS: busPIRone HCL 5 MG TABLET PO (20:03)
[2024-09-02] MEDS: HYDROcodone/acetaminophen (*CRX) 5-325 MG TABLET 1 TAB PO (20:03)
[2024-09-02] MEDS: MELATONIN 5 MG TABLET PO (20:03)
[2024-09-02] MEDS: LATANOPROST 0.005% OP SOLN 2.5 ML BTL 1 DROP EACH EYE (20:04)
[2024-09-02 20:05] LABS: Glucose Point of Care 180 mg/dl (65-105)
[2024-09-03] VITALS: BP 133/55; PULSE 63; RESP 17; TEMP 36.3; O2SAT 95
[2024-09-03] MEDS: PILOCARPINE HCL 1% OP SOLN 15 ML BTL 1 DROP EACH EYE ×3 (05:54→22:00)
[2024-09-03 07:40] VITALS: BP 147/68; PULSE 77; RESP 16; TEMP 36.1; O2SAT 93
[2024-09-03 08:01] LABS: Glucose Point of Care 130 mg/dl (65-105)
[2024-09-03 08:30] VITALS: PULSE 77; RESP 16; O2SAT 93
[2024-09-03] MEDS: CHOLECALCIFEROL 1,000 UNITS TABLET 2000 UNITS PO (08:41)
[2024-09-03] MEDS: guaiFENesin 12 HR 600 MG TABCR 1200 MG PO ×2 (08:41→20:40)
[2024-09-03] MEDS: TIMOLOL MALEATE 0.5% OP SOLN 5 ML BOTTLE 1 DROP EACH EYE ×2 (08:42→20:39)
[2024-09-03] MEDS: ASCORBIC ACID 250 MG TABLET PO (08:42)
[2024-09-03] MEDS: LOSARTAN POTASSIUM 50 MG TABLET 100 MG PO (08:42)
[2024-09-03] MEDS: metFORMIN HCL XR 500 MG TAB.SR.24H PO (08:42)
[2024-09-03] MEDS: FERROUS SULFATE 325 MG TABLET DR PO (08:42)
[2024-09-03] MEDS: glipiZIDE 5 MG TABLET PO (08:42)
[2024-09-03] MEDS: DULoxetine HCL 30 MG CAPSULE.DR 90 MG PO (08:42)
[2024-09-03] MEDS: MULTIVITAMINS THERAPEUTIC TAB (*BKC) 1 TABLET PO (08:42)
[2024-09-03] MEDS: amLODIPine BESYLATE 5 MG TABLET 10 MG PO (08:42)
[2024-09-03] MEDS: prednisoLONE ACETATE 1% OPHTH 5 ML 1 DROP RIGHT EYE ×4 (08:42→20:39)
[2024-09-03] MEDS: ROSUVASTATIN 10 MG TABLET 20 MG PO (08:42)
[2024-09-03] MEDS: PANTOPRAZOLE 40 MG TABLET PO (08:42)
[2024-09-03] MEDS: TRIAMCINOLONE ACET 0.1% CREAM 15 GM TUBE 1 APPLIC TOPICAL ×2 (08:43→20:39)
[2024-09-03 11:52] LABS: Glucose Point of Care 173 mg/dl (65-105)
[2024-09-03 16:40] VITALS: BP 127/74; PULSE 86; RESP 16; TEMP 36.3; O2SAT 94
[2024-09-03 16:52] LABS: Glucose Point of Care 163 mg/dl (65-105)
[2024-09-03] MEDS: LATANOPROST 0.005% OP SOLN 2.5 ML BTL 1 DROP EACH EYE (20:39)
[2024-09-03] MEDS: MELATONIN 5 MG TABLET PO (20:40)
[2024-09-03] MEDS: HYDROcodone/acetaminophen (*CRX) 5-325 MG TABLET 1 TAB PO (20:40)
[2024-09-03] MEDS: hydrOXYzine HCL 25 MG TABLET 12.5 MG PO (20:41)
[2024-09-03 20:56] LABS: Glucose Point of Care 194 mg/dl (65-105)
[2024-09-04] VITALS: BP 127/52; PULSE 80; RESP 19; TEMP 36.4; O2SAT 93
[2024-09-04] MEDS: PILOCARPINE HCL 1% OP SOLN 15 ML BTL 1 DROP EACH EYE ×3 (06:40→21:14)
[2024-09-04] MEDS: hydrOXYzine HCL 25 MG TABLET 12.5 MG PO ×2 (06:54→21:15)
[2024-09-04 07:55] LABS: Glucose Point of Care 152 mg/dl (65-105)
[2024-09-04 08:00] VITALS: PULSE 81; RESP 14; TEMP 36.2; O2SAT 92
[2024-09-04] MEDS: CHOLECALCIFEROL 1,000 UNITS TABLET 2000 UNITS PO (08:54)
[2024-09-04] MEDS: glipiZIDE 5 MG TABLET PO (08:55)
[2024-09-04] MEDS: PANTOPRAZOLE 40 MG TABLET PO (08:55)
[2024-09-04] MEDS: ROSUVASTATIN 10 MG TABLET 20 MG PO (08:55)
[2024-09-04] MEDS: MULTIVITAMINS THERAPEUTIC TAB (*BKC) 1 TABLET PO (08:55)
[2024-09-04] MEDS: LOSARTAN POTASSIUM 50 MG TABLET 100 MG PO (08:56)
[2024-09-04] MEDS: ASCORBIC ACID 250 MG TABLET PO (08:56)
[2024-09-04] MEDS: DULoxetine HCL 30 MG CAPSULE.DR 90 MG PO (08:56)
[2024-09-04] MEDS: metFORMIN HCL XR 500 MG TAB.SR.24H PO (08:56)
[2024-09-04] MEDS: FERROUS SULFATE 325 MG TABLET DR PO (08:57)
[2024-09-04] MEDS: guaiFENesin 12 HR 600 MG TABCR 1200 MG PO ×2 (08:57→21:15)
[2024-09-04] MEDS: amLODIPine BESYLATE 5 MG TABLET 10 MG PO (08:57)
[2024-09-04] MEDS: TIMOLOL MALEATE 0.5% OP SOLN 5 ML BOTTLE 1 DROP EACH EYE ×2 (09:14→21:14)
[2024-09-04] MEDS: TRIAMCINOLONE ACET 0.1% CREAM 15 GM TUBE 1 APPLIC TOPICAL ×2 (09:14→21:19)
[2024-09-04] MEDS: prednisoLONE ACETATE 1% OPHTH 5 ML 1 DROP RIGHT EYE ×4 (09:14→21:14)
[2024-09-04 11:59] LABS: Glucose Point of Care 143 mg/dl (65-105)
--- NOTE | 2024-09-04 14:08 | PC.NURSE ---
Patient called for assistance to bathroom when this nurse enters room patient already in the bathroom sitting on toiled. No gait-belt on for safety. Daughter in room at this time, states I already helped him because he couldn't wait. Educated on safety in wearing gait-belt and waiting for assistance per staff to bathroom.
[2024-09-04 16:00] VITALS: BP 129/52; PULSE 87; RESP 18; TEMP 36.3; O2SAT 95
[2024-09-04] MEDS: HYDROcodone/acetaminophen (*CRX) 5-325 MG TABLET 1 TAB PO (21:14)
[2024-09-04] MEDS: LATANOPROST 0.005% OP SOLN 2.5 ML BTL 1 DROP EACH EYE (21:14)
[2024-09-04] MEDS: MELATONIN 5 MG TABLET PO (21:15)
[2024-09-04 21:29] LABS: Glucose Point of Care 173 mg/dl (65-105)
[2024-09-04 21:29] LABS: Glucose Point of Care 152 mg/dl (65-105)
[2024-09-05] VITALS: BP 117/51; PULSE 75; RESP 16; TEMP 36.4; O2SAT 92
[2024-09-05] MEDS: PILOCARPINE HCL 1% OP SOLN 15 ML BTL 1 DROP EACH EYE (05:14)
[2024-09-05 08:00] VITALS: BP 140/70; PULSE 81; RESP 16; TEMP 36.3; O2SAT 91
[2024-09-05 08:02] LABS: Glucose Point of Care 123 mg/dl (65-105)
--- NOTE | 2024-09-05 08:18 | P.DS_ITS ---
DS: Admitting Diagnosis Discharge Date 09/05/24 Admitting Diagnosis Weakness diabetes hypertension transaminitis elevated bilirubin DS: Discharge Diagnosis Discharge Diagnosis (1) Weakness: Code(s): R53.1 - Weakness Status: Acute (2) Diabetes: Code(s): E11.9 - Type 2 diabetes mellitus without complications Status: Acute (3) HTN (hypertension): Code(s): I10 - Essential (primary) hypertension Status: Acute (4) Transaminitis: Code(s): R74.01 - Elevation of levels of liver transaminase levels Status: Resolved (5) Elevated bilirubin: Code(s): R17 - Unspecified jaundice Status: Resolved (6) Pneumonia: Code(s): J18.9 - Pneumonia, unspecified organism Status: Resolved (7) Urinary incontinence: Code(s): R32 - Unspecified urinary incontinence Status: Acute DS: Summary Hospital Course Reason for hospitalization: Weakness diabetes hypertension transaminitis elevated bilirubin Hospital Course: This is an 83 year old male with a significant past medical history of duodenal ulcer, GI bleed, diabetes, hypertension, glaucoma, peripheral neuropathy who presented to [facility] for rehab after a hospital stay at [facility]. patient was seen and treated for pneumonia bacteremia and influenza a. He finished a full course of Levaquin for the pneumonia while inpatient. He worked with therapy there and they recommended continued rehab. He denies any fever, chills, nausea, vomiting, diarrhea, abdominal pain, chest pain, shortness a breath. He does report a rash on his back which they were giving Kenalog cream. It was likely associated from sweating. Labs showed a normal white blood cell count of 5.3, blood sugars ranging 139-206, total bilirubin 1.9, AST 384, ALT 329, alkaline phosphate 228, albumin 2.4. His liver labs were normal on discharge from [place]. his kidney function was normal with a creatinine of 0.89, EGFR was greater than 60. Patient progressed with therapy while here at [facility] and is now stable enough for outpatient PT and OT. He is stable for discharge at this time to his assisted living facility. He will need to follow up with his primary care doctor in 1 week. transaminitis and elevated bilirubin came back to baseline and was likely caused by use of Tamiflu while inpatient and [facility]. This is now resolved. final diagnosis: generalized deconditioning Status at Discharge Cognitive/behavioral status at discharge: Alert oriented x3 Functional status at discharge: uses cane/walker Overall status at discharge: patient is progressing back to baseline Time Spent with Patient Time attestation: Total time spent providing and/or coordinating discharge services: Time spent: Greater than 30 minutes Exam Narrative: General: In no acute distress, well nourished Cardiac: Normal S1 and S2. No murmur, gallops or friction rubs, peripheral pulses intact. Respiratory: Lungs Crackles in right lower lobe, no adventitious lung sounds , currently on room air, raspy wet cough Gastrointestinal: soft, non-distended, non-tender, normoactive bowel sounds. : voiding without difficulty. Neuro: Alert and oriented x3 DS: Data Data Completed and Pending Completed studies during hospitalization: abdomen ultrasound Pending studies at discharge: none Labs on day of discharge: Labs from last 24 hours 09/05/24 09/04/24 09/04/24 07:53 21:24 17:00 POC Capillary Glucose 123 H 173 H 152 H 09/04/24 11:54 POC Capillary Glucose 143 H Procedures/Treatments: none Discharge Plan Discharge Attending physician on discharge: Jorge Alberto Jacob Consulting providers: Cornelia Murrell; Yu Gurrola Discharging Clinician: Yu Gurrola Anticipated Discharge Date/Time: 09/05/24 08:11 Patient Disposition: [facility]/As[facility] Living Activity: as tolerated Diet: as tolerated and diabetic Discharge Instructions: * Follow up with primary care doctor in 1 week * while you were here you were noted to have high blood pressure readings. We increased your Norvasc to 10 mg daily which has been keeping your blood pressure in a better range. Let your primary care doctor know about this ch bjorn. * Continue PT , OT, and ST Patient Instructions: Hydrocodone/Acetaminophen (By mouth), Fall Prevention for Older Adults (ED) Patient Language: Turkmen Stand Alone Forms: General Discharge Information, Alf Discharge Follow-up/Referrals: Angelique Jacobs MD [Primary Care Provider] - 1 week Discharge Medications: New amlodipine [Norvasc] 5 mg Tablet 10 mg PO DAILY Qty: 30 0RF Continued losartan 100 mg tablet 100 mg PO DAILY metformin 500 mg tablet extended release 24 hr 500 mg PO DAILY Qty: 1 0RF latanoprost 0.005 % drops 1 drp EACH EYE DAILY Qty: 2.5 0RF timolol maleate 0.5 % drops 1 drp EACH EYE Q12H Qty: 5 0RF pilocarpine HCl 1 % drops 1 drp EACH EYE TID Qty: 15 0RF lidocaine 4 % adhesive patch,medicated 1 patch topical DAILY PRN (Reason: pain) Qty: 30 6RF Rx Instructions: Apply for 12 hours daily to ankle glipizide 5 mg tablet 5 mg PO DAILY rosuvastatin 20 mg tablet 20 mg PO DAILY multivitamin Tablet 1 tablet PO DAILY cholecalciferol (vitamin D3) 50 mcg (2,000 unit) capsule 50 mcg PO DAILY codeine-guaifenesin 10-100 mg/5 mL liquid 5 ml PO Q6H PRN (Reason: cough) Qty: 120 0RF pantoprazole [Protonix] 40 mg tablet,delayed release (DR/EC) 40 mg PO .daily Qty: 30 12RF duloxetine 30 mg capsule,delayed release(DR/EC) 90 mg PO DAILY benzonatate 200 mg capsule 200 mg PO TID PRN (Reason: cough) triamcinolone acetonide 0.1 % Cream 1 applic topical Q12HR Qty: 15 0RF levofloxacin 750 mg tablet 750 mg PO DAILY Qty: 4 0RF ascorbic acid (vitamin C) 250 mg tablet 250 mg PO DAILY Qty: 90 0RF ferrous sulfate 325 mg (65 mg iron) tablet 325 mg PO DAILY Qty: 90 0RF acetaminophen 500 mg tablet 500 mg PO Q6H PRN (Reason: fever or pain) Qty: 100 0RF buspirone 5 mg tablet 5 mg PO TID PRN (Reason: anxiety) Qty: 90 0RF hydrocodone-acetaminophen 5-325 mg tablet See Rx Instructions PO .COMPLEX PRN (Reason: pain) Qty: 120 0RF Rx Instructions: Take 1 tablet at hs and every 4 hours prn pain orally; Discontinued amlodipine 5 mg tablet 5 mg PO DAILY Other Ambulatory Orders: OT Outpatient Eval and Treat (ONCE) Timeframe: 20240912 Location: Determined by Patient Ordered By: Yu Gurrola PT Outpatient Eval and Treat (ONCE) Timeframe: 20240912 Location: Determined by Patient Ordered By: Yu M. [place] [facility] / Speech Therapy Outpatient Eval and Treat (ONCE) Timeframe: 20240912 Location: Determined by Patient Ordered By: Yu Gurrola Date of admission: 08/23/24 14:21 Primary Care Provider: Angelique Jacobs Admitting Provider: Jorge Alberto Jacob Attending physician on admission: Yu Gurrola Condition: Improved Hospitalist MIPS Heart Failure (Exclusion) Patient has history of Heart Transplant or Left Ventricular Assistive Device?: No IF YES, STOP HERE Heart Failure (Qualifier) Patient has current or prior documentation of LVEF less than or equal to 40%, or mod/servere depressed LVSF?: No IF NO, STOP HERE
[2024-09-05] MEDS: glipiZIDE 5 MG TABLET PO (08:51)
[2024-09-05] MEDS: CHOLECALCIFEROL 1,000 UNITS TABLET 2000 UNITS PO (08:51)
[2024-09-05] MEDS: guaiFENesin 12 HR 600 MG TABCR 1200 MG PO (08:51)
[2024-09-05] MEDS: metFORMIN HCL XR 500 MG TAB.SR.24H PO (08:51)
[2024-09-05] MEDS: PANTOPRAZOLE 40 MG TABLET PO (08:51)
[2024-09-05] MEDS: ASCORBIC ACID 250 MG TABLET PO (08:51)
[2024-09-05] MEDS: DULoxetine HCL 30 MG CAPSULE.DR 90 MG PO (08:51)
[2024-09-05] MEDS: FERROUS SULFATE 325 MG TABLET DR PO (08:51)
[2024-09-05] MEDS: LOSARTAN POTASSIUM 50 MG TABLET 100 MG PO (08:51)
[2024-09-05] MEDS: MULTIVITAMINS THERAPEUTIC TAB (*BKC) 1 TABLET PO (08:52)
[2024-09-05] MEDS: ROSUVASTATIN 10 MG TABLET 20 MG PO (08:52)
[2024-09-05] MEDS: TIMOLOL MALEATE 0.5% OP SOLN 5 ML BOTTLE 1 DROP EACH EYE (08:52)
[2024-09-05] MEDS: prednisoLONE ACETATE 1% OPHTH 5 ML 1 DROP RIGHT EYE ×2 (08:52→12:40)
[2024-09-05] MEDS: amLODIPine BESYLATE 5 MG TABLET 10 MG PO (08:52)
[2024-09-05] MEDS: TRIAMCINOLONE ACET 0.1% CREAM 15 GM TUBE 1 APPLIC TOPICAL (08:53)
[2024-09-05 12:04] LABS: Glucose Point of Care 150 mg/dl (65-105)
--- NOTE | 2024-09-05 12:50 | PC.NURSE ---
Discharge instructions reviewed with patient and daughter. Patient taken off floor per wheelchair and assisted into vehicle
--- NOTE | 2024-09-09 09:30 | PC.NURSE ---
Spoke with daughter for dc call back, some dizzyness over the weekend, otherwise, just weak, to see PMD for follow up, no questions regarding dc instructions
== END 2024-09-05 12:50 | DRG 947 ==
PROVIDERS: Nurse Practitioner Family; Admitting Provider Internal Medicine; PCP Family Medicine; Visit Provider Nurse Practitioner Acute Care
DX: R53.1 Weakness (principal); J18.9 Pneumonia, unspecified organism; R17 Unspecified jaundice; E11.42 Type 2 diabetes mellitus with diabetic polyneuropathy; I10 Essential (primary) hypertension; M16.9 Osteoarthritis of hip, unspecified; R32 Unspecified urinary incontinence; R74.01 Elevation of levels of liver transaminase levels; H40.9 Unspecified glaucoma; Z87.11 Personal history of peptic ulcer disease
CPT/HCPCS: 36415; 76705; 80053; 80074; 81001; 82565; 82948; 83735; 85025; 85027; 90471; 90662; 94640; 94667; 97110; 97161; 97165; 97530; 97535; A9270; G0008; J1815